=== PATIENT | female | born 1960 | race Caucasian/White ===

== ENCOUNTER 2017-07-13 15:00 | Inpatient (IN) | payer MEDICARE, MEDICAID ==
[~2017-07-13] VITALS: Ht 167.6 cm; Wt 82.1 kg
[~2017-07-13 15:00] MED LIST: ACID1TAB13 PO; ALE70 PO; AMO875 PO; ARIP15TA9 PO; ARIP20TA11 PO; BAC PO; BACDS PO; BENZ1 PO; CALC-649 PO; CEFU250 PO; CLA500 PO; CLO30T TOP; CLOZ50TA PO; DIA5 PO; DIV500 PO; DOC100 PO; FLUO-202 PO; HAL5 PO; HC VALERATE TOP; KETO5DRO; LATA2.5D5 OU; LEV75 PO; LIO25 PO; LIT300 PO; MEDR104D3 SQ; MET5 PO; MULT1CAP41 PO; NIT50 PO; OLA5 PO; OMEP-218 PO; OMEP40CA45 PO; OXYB10TA PO; OXYGEN INH; PAN40 PO; SIMV-42 PO; SODI50DR3; SODI50SP4 NS; SYSTANEPT OP; TOLN150S5 TP; TRAV5DRO OU; VALS-25 PO; VALS1TAB61 PO; [UNRECOGNIZED DRUG - CODE] OU; [UNRECOGNIZED DRUG - CODE] PO; [UNRECOGNIZED DRUG - CODE] PO; [UNRECOGNIZED DRUG - REMARK]; [UNRECOGNIZED DRUG - REMARK] PO
[2017-07-13] MEDS ORDERED: FURO-45 PO (15:37)
[2017-07-13] MEDS ORDERED: HYDR453.8 TP (15:37)
[2017-07-13] MEDS ORDERED: LAMO100T56 PO (15:37)
[2017-07-13] MEDS ORDERED: VITS42.53 TOP (15:37)
[2017-07-13] MEDS ORDERED: [UNRECOGNIZED DRUG - CODE] TP (15:37)
[2017-07-13] MEDS ORDERED: ACET500T68 PO (15:37)
[2017-07-13] MEDS ORDERED: [UNRECOGNIZED DRUG - CODE] TP (15:37)
--- NOTE | 2017-07-13 15:46 | EKG ---
FACILITY: [facility] PATIENT NAME: REEMA JENNINGS : [id number] MR: [id number] V: [id number] EXAM DATE: ORDERING PHYSICIAN: SOBEIDA GONZALEZ TECHNOLOGIST: EMILIANO Calvert Reason : Blood Pressure : / mmHG Vent. Rate : 094 BPM Atrial Rate : 094 BPM P-R Int : 154 ms QRS Dur : 080 ms QT Int : 370 ms P-R-T Axes : 045 016 032 degrees QTc Int : 462 ms Normal sinus rhythm T inversion consistent with septal ischemia Non-specific T flattening No previous ECGs available Confirmed by RIANNA CINTRON ([id number]) on 07/13/2017 7:48:18 PM Referred By: Confirmed By:RIANNA CINTRON
[2017-07-13 15:51] LABS: PLATELET COUNT, AUTOMATED 189 K/uL (150-450)
[2017-07-13] MEDS ORDERED: CARB15DR74 OP (16:12)
[2017-07-13] MEDS ORDERED: [UNRECOGNIZED DRUG - CODE] TP (16:12)
[2017-07-13] MEDS ORDERED: TIMO5DRO3 OP (16:12)
[2017-07-13] MEDS ORDERED: LITHOBID PO (16:12)
[2017-07-13] MEDS ORDERED: POTA-53 PO (16:12)
[2017-07-13] MEDS ORDERED: LITH300T18 PO (16:12)
[2017-07-13] MEDS ORDERED: RISP2TAB70 PO (16:12)
[2017-07-13] MEDS ORDERED: EYEL1MED TP (16:12)
--- NOTE | 2017-07-13 16:29 | RADIOLOGY IMAGING REPORT ---
FACILITY: [facility] PATIENT NAME: Fatemeh Bunch : 1960 MR: [id number] V: [id number] EXAM DATE: ORDERING PHYSICIAN: SOBEIDA GONZALEZ TECHNOLOGIST: Location: [facility] [place] Patient: Fatemeh Bunch : 1960 Visit/Account:[id number] Date of Sevice: 07/13/2017 Examination: CHEST PA AND LAT Comparison: 05/18/2017 and earlier. History: Respiratory distress. Findings: Chronic low lung volumes and mild atelectasis. No consolidation, nodule, or definite eviden ce of acute peribronchial inflammation. No pneumothorax, edema, or effusion. Cardiac and hilar contou r size is within normal limits. Osseous structures are intact. IMPRESSION: No evidence of acute cardiopulmonary disease. Report Dictated By: Edgard Chacon MD at 07/13/2017 4:23 PM Report E-Signed By: Edgard Chacon MD at 07/13/2017 4:24 PM WSN:[id number]
[2017-07-13] MEDS ORDERED: IOPAMIDOL 76% 75 ML INFUS BTL 75 ML ONE (18:59)
[2017-07-13] MEDS ORDERED: NS 0.9% 50 ML VIAL 50 ML ONE ×2 (19:00)
--- NOTE | 2017-07-13 19:47 | RADIOLOGY IMAGING REPORT ---
FACILITY: [facility] - [place] PATIENT NAME: Fatemeh Bunch : 1960 MR: [id number] V: [id number] EXAM DATE: ORDERING PHYSICIAN: SOBEIDA GONZALEZ TECHNOLOGIST: Location: [facility] - [place] Patient: Fatemeh Bunch : 1960 Visit/Account:[id number] Date of Sevice: 07/13/2017 EXAMINATION: CT CHEST PULMONARY ANGIOGRAM COMPARISON: Thoracic radiographs 05/18/2017 HISTORY: Elevated d-dimer. PROCEDURE: Pulmonary arterial phase imaging of the chest with 72 mL intravenous Isovue 370. Reconstru ction of the source data set includes multiplanar 2D in the sagittal and coronal planes, and 3D recon structed coronal slab MIP series. One of the following dose optimization techniques was utilized in the performance of this exam: Autom ated exposure control; adjustment of the mA and/or kV according to the patient's size; or use of an i terative reconstruction technique. Specific details can be referenced in the facility's radiology C T exam operational policy. FINDINGS: Pulmonary vasculature: There is adequate opacification of the pulmonary arterial system although eval uation of the subsegmental levels particularly in the lower lobes is mildly limited by respiratory mo tion. Main pulmonary artery size is normal. No pulmonary artery filling defect. Cardiac and mediastinum: Cardiac chamber size is normal. Mild coronary calcifications. No pericardial effusion. No thoracic aortic aneurysm. No thoracic lymph node enlargement. Lungs and pleura: Trace left pleural effusion. Bibasilar atelectasis. No consolidation or nodule. No pneumothorax or edema. Airways: The central airways are patent. Upper abdomen: No evidence of acute disease within the visualized upper abdomen. Osseous structures: T8 and T12 chronic compression. No acute osseous abnormality. IMPRESSION: 1. No pulmonary embolism. 2. Trace left pleural effusion. 3. No other evidence of acute disease in the thorax. 4. Chronic findings as detailed above. Report Dictated By: Edgard Chacon MD at 07/13/2017 7:34 PM Report E-Signed By: Edgard Chacon MD at 07/13/2017 7:42 PM WSN:[id number]
[2017-07-13] MEDS ORDERED: ALBUTEROL/IPRATROPIUM 3 ML NEB NEB ONE ×2 (19:50→21:15)
[2017-07-13] MEDS ORDERED: FUROSEMIDE 40 MG/4 ML VIAL IVP ONE (19:50)
--- NOTE | 2017-07-13 20:14 | ER Report ---
History and Physical Time Seen By MD: 20:08 Hx. of Stated Complaint: PT CAREGIVER STATES THAT PT HAS BEEN SENT OVER BY JANELL MUELLER. PT HAS SOB AND WEIGHT GAIN. HPI/ROS CHIEF COMPLAINT: Increased work of respirations, lower extremity swelling HISTORY OF PRESENT ILLNESS: 56-year-old female with schizophrenia cared for at [facility] by caregivers. Patient sent in by Janell Mueller for evaluation of decreased mental status and increased respiratory distress. Patient was recently started several months ago on Lasix for lower extremity edema, per caregivers. Patient has increased work of breathing. Caregivers note that she' s been edematous for several months. But that her mental status is changed over the last several days.. Her caregiver notes that her breathing is very labored. Patient's had no fever or cough. Old records show patient has previously been on 2 L of O2 by nasal cannula as far back as 2009. Patient patient is fairly somnolent. REVIEW OF SYSTEMS: Respiratory: As above Cardiovascular: No chest pain, no palpitations. Gastrointestinal: No vomiting, no abdominal pain. Musculoskeletal: No back pain. Allergies: Coded Allergies: No Known Drug Allergies (Verified , 07/13/17) Home Meds Reported Medications Vits A and D/White Pet/Lanolin (A and D Ointment) 42.5 Gm Oint...g., 1 GRIFFIN TOP BID 07/14/17 Magnesium Carbonate/Al Hydrox (ANTACID EXTRA STRENGTH CHW TAB) 1 Each Tab.chew, 2 EACH PO Q4-6H Y for INDIGESTION, TAB.CHEW 07/14/17 Loperamide Hcl (ANTI-DIARRHEAL) 2 Mg Capsule, 2 MG PO Y for DIARRHEA, CAPSULE 07/14/17 Magnesium Hydroxide (MILK OF MAGNESIA) 400 Mg/5 Ml Oral.susp, 30 ML PO DAILY Y for CONSTIPATION 07/14/17 Levothyroxine Sodium (SYNTHROID) 88 Mcg Tablet, 88 MCG PO QDAY 07/14/17 Timolol (BETIMOL) 5 Ml Drops, 2 GTT OP BID 07/13/17 Risperidone (RISPERIDONE) 2 Mg Tablet, 2 MG PO HS 07/13/17 Carboxymethylcellulos/Glycerin (REFRESH OPTIVE EYE DROPS) 15 Ml Drops, 1 GTT OP TID 07/13/17 Potassium Chloride (POTASSIUM CHLORIDE) 10 Meq Tab.er.prt, 10 MEQ PO QDAY 07/13/17 Skin Cleanser (PERIFRESH) 3,840 Ml Cleanser, 1 GRIFFIN TP BID 07/13/17 Eyelid Cleanser Combination #5 (OCUSOFT LID SCRUB) 1 Each Med..pad, 1 EACH TP HS 07/13/17 Miner Carbonate (LITHIUM CARBONATE) 300 Mg Tablet, 600 MG PO HS 07/13/17 Miner Carbonate (LITHIUM CARBONATE) 300 Mg Tabcr, 300 MG PO DAILY 07/13/17 Lamotrigine (LAMICTAL) 100 Mg Tablet, 100 MG PO DAILY 07/13/17 Hydrocortisone 2.5% Oint (HYDROCORTISONE 2.5% OINT) 453.6 Gm Oint...g., 1 GRIFFIN TP BID, TUBE 07/13/17 Furosemide (FUROSEMIDE) 20 Mg Tablet, 1 TAB PO DAILY, TAB 07/13/17 Lanolin/Mineral Oil (EUCERIN ORIGINAL LOTION) 250 Ml Lotion, 1 GRIFFIN TP BID 07/13/17 Mineral Oil/Hydrophil Petrolat (AQUAPHOR OINTMENT) 396 Gm Oint...g., 1 GRIFFIN TP BID 07/13/17 Acetaminophen (TYLENOL EXTRA STRENGTH) 500 Mg Tablet, 1000 MG PO Q4-6H Y for PAIN, TAB 07/13/17 Trimethoprim/Sulfamethoxazole (Bactrim Ds 160-800 Mg) 1 Ea Tab, 0.5 EA PO BID, # 20 0 Refills 05/03/12 Travoprost (TRAVATAN Z) 5 Ml Drops, 1 GTT OU DAILY, 0 Refills 05/03/12 Dorzolamide/Timolol (Cosopt) 5 Ml Soln, 1 DROP OU BID, 0 Refills 05/03/12 Simvastatin (Zocor) 20 Mg Tablet, PO DAILY, 0 Refills 05/03/12 Olanzapine (Zyprexa) 5 Mg Tab, 15 MG PO BID, #30 0 Refills 09/06/09 Fluoxetine Hcl (Prozac) 20 Mg Capsule, 20 MG PO QAM, #30 0 Refills TAKE 60 MG DAILY 09/06/09 Oxygen (Oxygen) 2 L Inha, 2 L INH PRN, 0 Refills 09/06/09 Multivitamins W-Minerals (Multivitamin) 1 Cap Capsule, 1 CAP PO DAILY, 0 Refills 09/06/09 Omeprazole (Prilosec) 40 Mg Capsule.dr, 20 MG PO DAILY, 0 Refills 09/06/09 Calcium Carbonate/Vitamin D3 (Calcium + D Tablet) 1 Udtab Tablet, 1 UDTAB PO BID , 0 Refills 09/06/09 Discontinued Reported Medications Sodium Chloride ([place] Saline) 50 Ml Drops, NA BID, 0 Refills 05/03/12 Levothyroxine Sodium (SYNTHROID/LEVOTHROID (OR EQUIV)) 0.075 Mg Tab, 88 MCG PO DAILY, 0 Refills 05/03/12 Vits A and D/White Pet/Lanolin (A and D Ointment) 42.5 Gm Oint...g., 1 GRIFFIN TOP BID 07/13/17 Latanoprost (Xalatan) 2.5 Ml Drops, 1 GTT OU DAILY, 0 Refills 05/03/12 Ketotifen Fumarate (Refresh) 5 Ml Drops, 1 GTT TID, 0 Refills 05/03/12 Miner Carbonate (LITHIUM CARBONATE) 300 Mg Tablet.er, 3.5 TAB PO DAILY, 0 Refills 05/03/12 Valsartan/Hydrochlorothiazide (Diovan Hct 160-25 Mg Tablet) 1 Tab Tablet, PO DAILY, 0 Refills 05/03/12 Alendronate Sodium (Fosamax) 70 Mg Tab, PO WEEKLY, 0 Refills 05/03/12 Tolnaftate (Tinactin) 150 Gm [place], 150 GM TP BID, 0 Refills APPLY TO FEET PRN 09/06/09 Clotrimazole (Lotrimin 1%) 30 Gm Cr, 0 TOP BID, 0 Refills APPLY TO AFFECTED AREAS 09/06/09 Propylene Glycol/Peg 400 (Systane 0.3-0.4% Eye Drops) 1 Ea Droperette, 1 EA OP TID, 0 Refills 09/06/09 Docusate Sodium (Colace 100 Mg) 100 Mg Cap, 100 MG PO DAILY, 0 Refills 09/06/09 Discontinued Scripts Cefuroxime Axetil (CEFUROXIME) 500 Mg Tablet, 500 MG PO BID for infection, #20 TAB Prov:VIRIDIANA MORENO Garrett MOREIRA 07/13/17 Past Medical/Surgical History Past medical history: Recurrent ear infections, status post PE tubes in 1992. Mild hearing loss, mentally handicapped since , tardive dyskinesia, kidney mass, removal of foreign body from bladder, left carpal tunnel syndrome, right radial fracture. Schizophrenia. Past surgical history PE tube placement D&C with biopsy for dysfunctional uterine bleeding, removal of bladder foreign body, removal of granuloma on finger Reviewed Nurses Notes: Yes Old Medical Records Reviewed: Yes Hx Smoking: No Constitutional Vital Sign - Last 24 Hours 07/13/17 07/13/17 07/13/17 07/13/17 15:08 15:08 15:12 15:13 Temp 98.7 Pulse 97 Resp 12 12 B/P (MAP) 142/85 142/85 (104) Pulse Ox 74 90 O2 Delivery Room Air Nasal Cannula O2 Flow Rate 2 2.0 07/13/17 07/13/17 07/13/17 07/13/17 15:15 15:30 15:45 16:00 Pulse 97 93 95 97 Resp 13 70 20 27 B/P (MAP) 132/84 (100) Pulse Ox 95 97 78 92 07/13/17 07/13/17 07/13/17 07/13/17 16:15 16:28 16:30 16:45 Pulse 90 83 82 Resp 22 12 27 B/P (MAP) 151/100 (117) 134/79 (97) Pulse Ox 93 100 07/13/17 07/13/17 07/13/17 07/13/17 17:00 17:15 17:30 17:43 Pulse 92 99 90 Resp 26 21 13 B/P (MAP) 164/103 (123) 135/101 (112) Pulse Ox 90 88 95 07/13/17 07/13/17 07/13/17 07/13/17 17:45 18:00 18:15 18:30 Pulse 88 88 85 83 Resp 20 24 14 22 B/P (MAP) 132/66 (88) Pulse Ox 96 95 97 98 07/13/17 07/13/17 07/13/17 07/13/17 18:45 18:57 19:00 19:05 Pulse 84 87 93 Resp 20 21 22 B/P (MAP) 117/67 (84) 109/81 (90) Pulse Ox 99 91 91 07/13/17 07/13/17 07/13/17 07/13/17 19:30 19:35 19:50 19:58 Pulse 89 97 100 Resp 27 24 20 B/P (MAP) 129/69 (89) Pulse Ox 93 92 07/13/17 07/13/17 07/13/17 07/13/17 19:58 20:00 20:00 20:00 Pulse 97 Resp 20 B/P (MAP) 141/69 (93) Pulse Ox 89 95 O2 Delivery Oxy Mask Oxy Mask O2 Flow Rate 3.0 3.0 07/13/17 07/13/17 07/13/17 07/13/17 20:15 20:30 20:35 20:50 Pulse 102 101 ??? 90 B/P (MAP) 119/111 (114) Pulse Ox 91 95 69 95 07/13/17 07/13/17 07/13/17 07/13/17 21:00 21:05 21:10 21:18 Pulse 100 91 87 Resp 20 B/P (MAP) 133/119 (124) Pulse Ox 72 90 07/13/17 07/13/17 07/13/17 07/13/17 21:18 21:19 21:19 21:25 Pulse 85 89 Resp 16 Pulse Ox 90 99 96 O2 Delivery Oxy Mask Oxy Mask O2 Flow Rate 1.5 1.5 07/13/17 07/13/17 07/13/17 07/13/17 21:30 21:35 21:50 21:55 Pulse 93 90 88 B/P (MAP) 124/95 (105) Pulse Ox 88 91 88 07/13/17 07/13/17 07/13/17 07/13/17 22:00 22:10 22:15 22:30 Pulse 92 93 95 B/P (MAP) 130/77 (94) Pulse Ox 88 92 97 07/13/17 07/13/17 07/13/17 07/13/17 22:35 22:43 22:50 23:20 Temp 98.7 Pulse 94 102 Resp 13 Pulse Ox 97 92 07/13/17 07/13/17 07/13/17 07/13/17 23:21 23:26 23:30 23:41 Pulse 93 93 Resp 26 20 B/P (MAP) 138/78 (98) 126/67 (86) Pulse Ox 88 92 07/13/17 07/14/17 07/14/17 07/14/17 23:56 00:01 00:16 00:30 Pulse 90 91 89 Resp 17 17 26 B/P (MAP) 127/67 (87) Pulse Ox 90 91 93 12/2/17 12/2/17 00:31 00:36 Pulse 86 Resp 13 Pulse Ox 94 FiO2 40.0 Physical Exam Vital signs stable, hypoxia at 74% on room air, patient has a history of wearing O2 at night in the distant past General Appearance: The patient is alert, has no immediate need for airway protection and no current signs of toxicity. HEENT: Pupils equal and round no injection. Oropharynx with dry mucous membranes, no erythema Respiratory: Chest is non tender, lungs are clear to auscultation. Decreased breath sounds bilateral bases with faint rales, poor expiratory effort Cardiac: regular rate and rhythm Gastrointestinal: Abdomen is soft and non tender, no masses, bowel sounds normal. Musculoskeletal: Neck: Neck is supple and non tender. Extremities have full range of motion and are non tender. 2+ edema bilaterally Skin: No rashes or lesions. DIFFERENTIAL DIAGNOSIS: After history and physical exam differential diagnosis was considered for shortness of breath including but not limited to pulmonary infectious process, COPD, asthma, pulmonary embolus and congestive heart failure. Medical Decision Making Data Points Result Diagram: 07/13/17 1513 07/13/17 1730 Laboratory Hematology Test 07/13/17 00:00 07/13/17 15:13 07/13/17 17:30 07/13/17 20:43 B-Type Natriuretic Peptide 421 pg/ml (0-100) Red Blood Count 4.69 M/uL (4.17-5.56) Mean Corpuscular Volume 87.2 fL (80.0-96.0) Mean Corpuscular Hemoglobin 27.9 pg (26.0-33.0) Mean Corpuscular Hemoglobin Concent 32.1 g/dL (32.0-36.0) Red Cell Distribution Width 15.1 % (11.5-14.5) Mean Platelet Volume 10.3 fL (7.2-11.1) Neutrophils (%) (Auto) 79.9 % (39.4-72.5) Lymphocytes (%) (Auto) 10.8 % (17.6-49.6) Monocytes (%) (Auto) 7.5 % (4.1-12.4) Eosinophils (%) (Auto) 1.2 % (0.4-6.7) Basophils (%) (Auto) 0.6 % (0.3-1.4) Nucleated RBC Relative Count (auto) 0.0 /100WBC Neutrophils # (Auto) 10.0 K/uL (2.0-7.4) Lymphocytes # (Auto) 1.4 K/uL (1.3-3.6) Monocytes # (Auto) 0.9 K/uL (0.3-1.0) Eosinophils # (Auto) 0.1 K/uL (0.0-0.5) Basophils # (Auto) 0.1 K/uL (0.0-0.1) Nucleated RBC Absolute Count (auto) 0.00 K/uL D-Dimer Quantitative (PE/DVT) 4.43 ug/ml (0-0.50) Sodium Level 141 mmol/L (137-145) Potassium Level 4.3 mmol/L (3.5-5.0) Chloride Level 100 mmol/L (98-107) Carbon Dioxide Level 32 mmol/L (22-31) Blood Urea Nitrogen 17 mg/dl (7-18) Creatinine 1.30 mg/dl (0.52-1.04) Glomerular Filtration Rate Calc 42.1 Random Glucose 97 mg/dl (75-110) Calcium Level 9.6 mg/dl (8.4-10.2) Total Bilirubin 0.4 mg/dl (0.2-1.3) Aspartate Amino Transf (AST/SGOT) 38 U/L (0-35) Alanine Aminotransferase (ALT/SGPT) 48 U/L (0-56) Alkaline Phosphatase 83 U/L (0-126) Total Protein 7.3 gm/dl (6.3-8.2) Albumin 4.0 g/dl (3.5-5.0) Miner Level 1.0 mmol/L (0.6-1.2) Serum Alcohol < 10 mg/dl Urine Color Straw Urine Clarity Clear Urine pH 7.0 pH (4.8-9.5) Urine Specific [place] 1.005 Urine Protein Negative mg/dL (NEGATIVE) Urine Glucose (UA) Negative mg/dL (NEGATIVE) Urine Ketones Negative mg/dL (NEGATIVE) Urine Blood Negative (NEGATIVE) Urine Nitrite Negative (NEGATIVE) Urine Bilirubin Negative (NEGATIVE) Urine Urobilinogen Negative mg/dL (0.2-1.9) Urine Leukocyte Esterase Large (NEGATIVE) Urine RBC 3 /HPF (0-2/HPF) Urine WBC 26 /HPF (0-5/HPF) Urine Squamous Epithelial Cells Moderate /LPF (NONE-FEW) Urine Bacteria Few /HPF (NONE-FEW) Urine Mucus Few /HPF (NONE-FEW) Urine Opiates Screen Negative Urine Barbiturates Screen Negative Ur Tricyclic Antidepressants Screen Negative Urine Phencyclidine Screen Negative Urine Amphetamines Screen Negative Urine Benzodiazepines Screen Negative Urine Cocaine Screen Negative Urine Cannabinoids Screen Negative Test 07/13/17 22:47 07/14/17 00:00 Lactate 0.7 mmol/L (0.7-2.1) Troponin I 0.029 ng/ml Chemistry Test 07/13/17 00:00 07/13/17 15:13 07/13/17 17:30 07/13/17 20:43 B-Type Natriuretic Peptide 421 pg/ml (0-100) White Blood Count 12.6 k/uL (4.5-11.0) Red Blood Count 4.69 M/uL (4.17-5.56) Hemoglobin 13.1 g/dL (12.0-16.0) Hematocrit 40.9 % (34.0-47.0) Mean Corpuscular Volume 87.2 fL (80.0-96.0) Mean Corpuscular Hemoglobin 27.9 pg (26.0-33.0) Mean Corpuscular Hemoglobin Concent 32.1 g/dL (32.0-36.0) Red Cell Distribution Width 15.1 % (11.5-14.5) Platelet Count 189 K/uL (150-450) Mean Platelet Volume 10.3 fL (7.2-11.1) Neutrophils (%) (Auto) 79.9 % (39.4-72.5) Lymphocytes (%) (Auto) 10.8 % (17.6-49.6) Monocytes (%) (Auto) 7.5 % (4.1-12.4) Eosinophils (%) (Auto) 1.2 % (0.4-6.7) Basophils (%) (Auto) 0.6 % (0.3-1.4) Nucleated RBC Relative Count (auto) 0.0 /100WBC Neutrophils # (Auto) 10.0 K/uL (2.0-7.4) Lymphocytes # (Auto) 1.4 K/uL (1.3-3.6) Monocytes # (Auto) 0.9 K/uL (0.3-1.0) Eosinophils # (Auto) 0.1 K/uL (0.0-0.5) Basophils # (Auto) 0.1 K/uL (0.0-0.1) Nucleated RBC Absolute Count (auto) 0.00 K/uL D-Dimer Quantitative (PE/DVT) 4.43 ug/ml (0-0.50) Glomerular Filtration Rate Calc 42.1 Calcium Level 9.6 mg/dl (8.4-10.2) Total Bilirubin 0.4 mg/dl (0.2-1.3) Aspartate Amino Transf (AST/SGOT) 38 U/L (0-35) Alanine Aminotransferase (ALT/SGPT) 48 U/L (0-56) Alkaline Phosphatase 83 U/L (0-126) Total Protein 7.3 gm/dl (6.3-8.2) Albumin 4.0 g/dl (3.5-5.0) Miner Level 1.0 mmol/L (0.6-1.2) Serum Alcohol < 10 mg/dl Urine Color Straw Urine Clarity Clear Urine pH 7.0 pH (4.8-9.5) Urine Specific [place] 1.005 Urine Protein Negative mg/dL (NEGATIVE) Urine Glucose (UA) Negative mg/dL (NEGATIVE) Urine Ketones Negative mg/dL (NEGATIVE) Urine Blood Negative (NEGATIVE) Urine Nitrite Negative (NEGATIVE) Urine Bilirubin Negative (NEGATIVE) Urine Urobilinogen Negative mg/dL (0.2-1.9) Urine Leukocyte Esterase Large (NEGATIVE) Urine RBC 3 /HPF (0-2/HPF) Urine WBC 26 /HPF (0-5/HPF) Urine Squamous Epithelial Cells Moderate /LPF (NONE-FEW) Urine Bacteria Few /HPF (NONE-FEW) Urine Mucus Few /HPF (NONE-FEW) Urine Opiates Screen Negative Urine Barbiturates Screen Negative Ur Tricyclic Antidepressants Screen Negative Urine Phencyclidine Screen Negative Urine Amphetamines Screen Negative Urine Benzodiazepines Screen Negative Urine Cocaine Screen Negative Urine Cannabinoids Screen Negative Test 07/13/17 22:47 07/14/17 00:00 Lactate 0.7 mmol/L (0.7-2.1) Troponin I 0.029 ng/ml Coagulation Test 07/13/17 17:30 D-Dimer Quantitative (PE/DVT) 4.43 ug/ml Toxicology Test 07/13/17 17:30 07/13/17 20:43 Miner Level 1.0 mmol/L (0.6-1.2) Serum Alcohol < 10 mg/dl Urine Opiates Screen Negative Urine Barbiturates Screen Negative Ur Tricyclic Antidepressants Screen Negative Urine Phencyclidine Screen Negative Urine Amphetamines Screen Negative Urine Benzodiazepines Screen Negative Urine Cocaine Screen Negative Urine Cannabinoids Screen Negative Urinalysis Test 07/13/17 20:43 Urine Color Straw Urine Clarity Clear Urine pH 7.0 pH (4.8-9.5) Urine Specific [place] 1.005 Urine Protein Negative mg/dL (NEGATIVE) Urine Glucose (UA) Negative mg/dL (NEGATIVE) Urine Ketones Negative mg/dL (NEGATIVE) Urine Blood Negative (NEGATIVE) Urine Nitrite Negative (NEGATIVE) Urine Bilirubin Negative (NEGATIVE) Urine Urobilinogen Negative mg/dL (0.2-1.9) Urine Leukocyte Esterase Large (NEGATIVE) Urine RBC 3 /HPF (0-2/HPF) Urine WBC 26 /HPF (0-5/HPF) Urine Squamous Epithelial Cells Moderate /LPF (NONE-FEW) Urine Bacteria Few /HPF (NONE-FEW) Urine Mucus Few /HPF (NONE-FEW) EKG/Imaging EKG Interpretation 12 lead EK Rhythm: normal sinus rhythm [place]: normal QRS: normal ST segments: Inverted T waves in the anterior/septal leads worrisome for ischemia, no old EKGs for comparison Imaging X-ray: Single view portable chest x-ray was obtained. I viewed the images myself on the PACS system. My interpretation of the images is: No infiltrate, no effusion, increased pulmonary vascular markings, question marked CHF. The radiologist interpretation had no clinically significant variation from this interpretation. Results: CT scan of the CTA pulmonary angiogram was obtained. The results of the study are EXAMINATION: CT CHEST PULMONARY ANGIOGRAM COMPARISON: Thoracic radiographs 05/18/2017 HISTORY: Elevated d-dimer. PROCEDURE: Pulmonary arterial phase imaging of the chest with 72 mL intravenous Isovue 370. Reconstruction of the source data set includes multiplanar 2D in the sagittal and coronal planes, and 3D reconstructed coronal slab MIP series. One of the following dose optimization techniques was utilized in the performance of this exam: Automated exposure control; adjustment of the mA and/ or kV according to the patient's size; or use of an iterative reconstruction technique. Specific details can be referenced in the facility's radiology CT exam operational policy. FINDINGS: Pulmonary vasculature: There is adequate opacification of the pulmonary arterial system although evaluation of the subsegmental levels particularly in the lower lobes is mildly limited by respiratory motion. Main pulmonary artery size is normal. No pulmonary artery filling defect. Cardiac and mediastinum: Cardiac chamber size is normal. Mild coronary calcifications. No pericardial effusion. No thoracic aortic aneurysm. No thoracic lymph node enlargement. Lungs and pleura: Trace left pleural effusion. Bibasilar atelectasis. No consolidation or nodule. No pneumothorax or edema. Airways: The central airways are patent. Upper abdomen: No evidence of acute disease within the visualized upper abdomen. Osseous structures: T8 and T12 chronic compression. No acute osseous abnormality. IMPRESSION: 1. No pulmonary embolism. 2. Trace left pleural effusion. 3. No other evidence of acute disease in the thorax. 4. Chronic findings as detailed above. The study was read by the radiologist. I viewed the images myself on the PACS system. Results: CT scan of the head was obtained. The results of the study are EXAMINATION: Head CT without intravenous contrast History: Altered mental status TECHNIQUE: Contiguous axial images were obtained from the skull base to the vertex without intravenous contrast. One of the following dose optimization techniques was utilized in the performance of this exam: Automated exposure control; adjustment of the mA and/or kV according to the patient's size; or use of an iterative reconstruction technique. Specific details can be referenced in the facility's radiology CT exam operational policy. COMPARISON STUDIES: 04/06/2016, 08/13/2009 FINDINGS: Visualized mastoid air cells / paranasal sinuses: negative Calvarium and scalp: negative White matter: negative Dural venous sinuses / arterial structures: negative Ventricles / sulci / fissures: negative Masses / hemorrhage / midline shift: negative Extra-axial spaces: negative IMPRESSION: Normal head CT. No evidence of a mass, acute ischemia or hemorrhage. The study was read by the radiologist. I viewed the images myself on the PACS system. ED Course/Re-evaluation Clinical Indication for ER IV: IV Access ED Course Patient was admitted to an examination room. H&P was done. The differential diagnoses was considered. On clinical examination. Patient is very sonorous breathing and altered mental status. Patient has a history of schizophrenia on Risperdal, Lamictal and thyroid replacement. Patient's had edema for several months on Lasix 20 mg with minimal improvement. Staff note that her mental status is deteriorated over the last 24-48 hours. She is very somnolent with snoring respirations and lethargy. She had an extensive evaluation here in the emergency department. Blood gas shows mild CO2 retention to 52 that appears to be chronic. Head CT was unremarkable. D-dimer was elevated and a CT pulmonary angiogram was performed which showed no evidence of pulmonary embolism. There was a notable left small pleural effusion. She clinically appears mildly fluid overloaded and in mild congestive heart failure with elevated BNP. Troponin, EKG were unremarkable. Urinalysis shows potential urinary infection. A urinary culture was ordered. A consideration to transfer the patient back to [place] on home O2 with Ceftin antibiotic prescribed for UTI and potential pneumonia. Was considered. However of the arch. Staff were concerned the patient was so somnolent that they were unable to transfer her. Her case was discussed with Dr. Mcdowell as noted below. 07/13/2017 11:57:52 pm case discussed with Dr. Wes Mcdowell hospitalist on- call to evaluate the patient for consideration of admission Decision to Disposition Date: Jul 13, 2017 Decision to Disposition Time: 21:04 Depart Departure Latest Vital Signs Vital Signs Date Time Temp Pulse Resp B/P (MAP) Pulse Ox O2 Delivery O2 Flow Rate FiO2 07/14/17 00:36 40.0 07/14/17 00:31 86 13 94 07/14/17 00:30 127/67 (87) 07/13/17 22:43 98.7 07/13/17 21:19 Oxy Mask 1.5 Impression: Primary Impression: Dyspnea Additional Impressions: Fluid overload Urinary tract infection Schizophrenia Hypoxia Altered mental status, unspecified Condition: Improved Disposition: HOME OR SELF-CARE Referrals: JANELL MUELLER (PCP) Patient Instructions: Edema (ED), Urinary Tract Infection in Women (ED) Additional Instructions: Double Lasix to 40 mg for the next 2 days Follow-up with primary care on Sunday or Sunday Problem Qualifiers Primary Impression: Dyspnea Dyspnea type: dyspnea on exertion Qualified Codes: R06.09 - Other forms of dyspnea Additional Impressions: Fluid overload Hypervolemia type: unspecified Qualified Codes: E87.70 - Fluid overload, unspecified Urinary tract infection Urinary tract infection type: acute cystitis Hematuria presence: without hematuria Qualified Codes: N30.00 - Acute cystitis without hematuria Schizophrenia Schizophrenia type: unspecified Qualified Codes: F20.9 - Schizophrenia, unspecified Altered mental status, unspecified Altered mental status type: somnolence Qualified Codes: R40.0 - Somnolence VIRIDIANA MORENO DO Jul 13, 2017 20:14
[2017-07-13] MEDS ORDERED: CEFDINIR 300 MG CAP PO ONE (21:05)
[2017-07-13] MEDS ORDERED: CEFU500T10 PO (21:08)
--- NOTE | 2017-07-13 23:33 | RADIOLOGY IMAGING REPORT ---
FACILITY: [facility] [place] PATIENT NAME: Fatemeh Bunch : 1960 MR: [id number] V: [id number] EXAM DATE: ORDERING PHYSICIAN: VIRIDIANA MORENO TECHNOLOGIST: Location: [facility] Patient: Fatemeh Bunch : 1960 Visit/Account:[id number] Date of Sevice: 07/13/2017 EXAMINATION: Head CT without intravenous contrast History: Altered mental status TECHNIQUE: Contiguous axial images were obtained from the skull base to the vertex without intraven ous contrast. One of the following dose optimization techniques was utilized in the performance of th is exam: Automated exposure control; adjustment of the mA and/or kV according to the patient's size; or use of an iterative reconstruction technique. Specific details can be referenced in the facility 's radiology CT exam operational policy. COMPARISON STUDIES: 04/06/2016, 08/13/2009 FINDINGS: Visualized mastoid air cells / paranasal sinuses: negative Calvarium and scalp: negative White matter: negative Dural venous sinuses / arterial structures: negative Ventricles / sulci / fissures: negative Masses / hemorrhage / midline shift: negative Extra-axial spaces: negative IMPRESSION: Normal head CT. No evidence of a mass, acute ischemia or hemorrhage. Report Dictated By: Domingo Reyna MD at 07/13/2017 11:25 PM Report E-Signed By: Domingo Reyna MD at 07/13/2017 11:27 PM [id number]
[2017-07-13] MEDS ORDERED: INFLUENZA VIRUS VAC 0.5 ML SYR IM ONLY ONE (23:50)
[2017-07-13] MEDS ORDERED: SALINE 0.65% NAS SPR 44 ML BTL PRN (23:50)
--- NOTE | 2017-07-13 23:59 | EKG ---
FACILITY: [facility] PATIENT NAME: REEMA JENNINGS : [id number] MR: [id number] V: [id number] EXAM DATE: ORDERING PHYSICIAN: VIRIDIANA MORENO TECHNOLOGIST: CICI Test Reason : ALTERD MENTAL STATUS Blood Pressure : / mmHG Vent. Rate : 097 BPM Atrial Rate : 097 BPM P-R Int : 150 ms QRS Dur : 068 ms QT Int : 338 ms P-R-T Axes : 058 035 046 degrees QTc Int : 429 ms Normal sinus rhythm T wave abnormality, consider anterior ischemia Diffuse, non-specific T flattening When compared with ECG of 13-JUL-2017 15:26, Relatively unchanged Confirmed by RIANNA CINTRON ([id number]) on 07/14/2017 6:36:23 AM Referred By: Confirmed By:RIANNA CINTRON
[2017-07-14] VITALS (65 sets, daily range): BP systolic 98–146; BP diastolic 56–91; Ht 167.6 cm; Wt 82.1 kg
--- NOTE | 2017-07-14 01:13 | History & Physical ---
History of Present Illness History of Present Illness 56yo female with schizophrenia and is a resident of the [facility] who was brought to the ER for SOB and weight gain. The history is from the ER provider and the staff from the [facility]. The patient developed edema a few months ago and was started Lasix. She has been more somnolent over the last couple of days and having more labored breathing. There have been no reports of fevers, chills, orthopnea, or cp. In the ER, she became more somnolent such that she couldn't be awakened. However, when the catheter was placed she woke up and flipped off the staff. She was able to then stand at the side of the bed. Later, she went back to sleep. History Problems: (1) Edema Status: Chronic (2) GERD (gastroesophageal reflux disease) Status: Chronic (3) Hyperlipidemia Status: Chronic (4) Schizophrenia Status: Chronic Home Meds Active Scripts Cefuroxime Axetil (CEFUROXIME) 500 Mg Tablet, 500 MG PO BID for infection, #20 TAB Prov:VIRIDIANA MORENO DO 07/13/17 Reported Medications Timolol (BETIMOL) 5 Ml Drops, 2 GTT OP BID 07/13/17 Risperidone (RISPERIDONE) 2 Mg Tablet, 2 MG PO DAILY 07/13/17 Carboxymethylcellulos/Glycerin (REFRESH OPTIVE EYE DROPS) 15 Ml Drops, 1 GTT OP TID 07/13/17 Potassium Chloride (POTASSIUM CHLORIDE) 10 Meq Tab.er.prt, 10 MEQ PO QDAY 07/13/17 Skin Cleanser (PERIFRESH) 3,840 Ml Cleanser, 1 GRIFFIN TP BID 07/13/17 Eyelid Cleanser Combination #5 (OCUSOFT LID SCRUB) 1 Each Med..pad, 1 EACH TP HS 07/13/17 [place] Carbonate (LITHIUM CARBONATE) 300 Mg Tablet, 600 MG PO HS 07/13/17 [place] Carbonate (LITHIUM CARBONATE) 300 Mg Tabcr, 300 MG PO DAILY 07/13/17 Lamotrigine (LAMICTAL) 100 Mg Tablet, 100 MG PO DAILY 07/13/17 Hydrocortisone 2.5% Oint (HYDROCORTISONE 2.5% OINT) 453.6 Gm Oint...g., 1 GRIFFIN TP BID, TUBE 07/13/17 Furosemide (FUROSEMIDE) 20 Mg Tablet, 1 TAB PO DAILY, TAB 07/13/17 Lanolin/Mineral Oil (EUCERIN ORIGINAL LOTION) 250 Ml Lotion, 1 GRIFFIN TP BID 07/13/17 Mineral Oil/Hydrophil Petrolat (AQUAPHOR OINTMENT) 396 Gm Oint...g., 1 GRIFFIN TP BID 07/13/17 Acetaminophen (TYLENOL EXTRA STRENGTH) 500 Mg Tablet, 1000 MG PO Q4-6H Y for PAIN, TAB 07/13/17 Trimethoprim/Sulfamethoxazole (Bactrim Ds 160-800 Mg) 1 Ea Tab, 1 EA PO BID, # 20 0 Refills 05/03/12 Travoprost (TRAVATAN Z) 5 Ml Drops, 1 GTT OU DAILY, 0 Refills 05/03/12 Dorzolamide/Timolol (Cosopt) 5 Ml Soln, 1 DROP OU BID, 0 Refills 05/03/12 Sodium Chloride ([place] Saline) 50 Ml Drops, NA BID, 0 Refills 05/03/12 Simvastatin (Zocor) 20 Mg Tablet, PO DAILY, 0 Refills 05/03/12 Levothyroxine Sodium (SYNTHROID/LEVOTHROID (OR EQUIV)) 0.075 Mg Tab, 88 MCG PO DAILY, 0 Refills 05/03/12 Olanzapine (Zyprexa) 5 Mg Tab, 15 MG PO BID, #30 0 Refills 09/06/09 Fluoxetine Hcl (Prozac) 20 Mg Capsule, 20 MG PO QAM, #30 0 Refills TAKE 60 MG DAILY 09/06/09 Oxygen (Oxygen) 2 L Inha, 2 L INH PRN, 0 Refills 09/06/09 Multivitamins W-Minerals (Multivitamin) 1 Cap Capsule, 1 CAP PO DAILY, 0 Refills 09/06/09 Omeprazole (Prilosec) 40 Mg Capsule.dr, 20 MG PO DAILY, 0 Refills 09/06/09 Calcium Carbonate/Vitamin D3 (Calcium + D Tablet) 1 Udtab Tablet, 1 UDTAB PO BID , 0 Refills 09/06/09 Discontinued Reported Medications Vits A and D/White Pet/Lanolin (A and D Ointment) 42.5 Gm Oint...g., 1 GRIFFIN TOP BID 07/13/17 Latanoprost (Xalatan) 2.5 Ml Drops, 1 GTT OU DAILY, 0 Refills 05/03/12 Ketotifen Fumarate (Refresh) 5 Ml Drops, 1 GTT TID, 0 Refills 05/03/12 [place] Carbonate (LITHIUM CARBONATE) 300 Mg Tablet.er, 3.5 TAB PO DAILY, 0 Refills 05/03/12 Valsartan/Hydrochlorothiazide (Diovan Hct 160-25 Mg Tablet) 1 Tab Tablet, PO DAILY, 0 Refills 05/03/12 Alendronate Sodium (Fosamax) 70 Mg Tab, PO WEEKLY, 0 Refills 05/03/12 Tolnaftate (Tinactin) 150 Gm [place], 150 GM TP BID, 0 Refills APPLY TO FEET PRN 09/06/09 Clotrimazole (Lotrimin 1%) 30 Gm Cr, 0 TOP BID, 0 Refills APPLY TO AFFECTED AREAS 09/06/09 Propylene Glycol/Peg 400 (Systane 0.3-0.4% Eye Drops) 1 Ea [place], 1 EA OP TID, 0 Refills 09/06/09 Docusate Sodium (Colace 100 Mg) 100 Mg Cap, 100 MG PO DAILY, 0 Refills 09/06/09 Allergies: Coded Allergies: No Known Drug Allergies (Verified , 07/13/17) Hx Smoking: No Review of Systems Other Unable to get ROS from the patient due to somnolence Exam Vital Signs Vital Signs Date Time Temp Pulse Resp B/P (MAP) Pulse Ox O2 Delivery O2 Flow Rate FiO2 07/14/17 00:36 40.0 07/13/17 23:56 90 17 90 07/13/17 23:30 126/67 (86) 07/13/17 22:43 98.7 07/13/17 21:19 Oxy Mask 1.5 General Appearance: Other (Sleeping. Borderline increased wob) Neuro: Other (She would not awaken with a sternal rub, but when I attempted to open her eyes she actively resisted on both sides) ENT: Other (Dry MM) Cardiovascular: Regular Rate and Rhythm Respiratory: Clear to Auscultation GI: Abd Soft and Non-Tender Extremities: Edema (2+ pitting from about 2/3 up patel to feet) Integumentary: No Jaundice, No Cyanosis Medical Decision Making Data Points Result Diagram: 07/13/17 1513 07/13/17 1730 Item Value Date Time [place] Level 1.0 mmol/L 07/13/17 1730 Serum Alcohol < 10 mg/dl 07/13/17 1730 Neutrophils (%) (Auto) 79.9 % H 07/13/17 1513 Lymphocytes (%) (Auto) 10.8 % L 07/13/17 1513 Monocytes (%) (Auto) 7.5 % 07/13/17 1513 Eosinophils (%) (Auto) 1.2 % 07/13/17 1513 Arterial Blood pH 7.43 07/13/17 2247 Arterial Blood Partial Pressure CO2 52 mmHg *H 07/13/17 2247 Arterial Blood Partial Pressure O2 93 mmHg H 07/13/17 2247 Arterial Blood HCO3 34 mmol/L H 07/13/17 2247 Arterial Blood Oxygen Saturation 97 % 07/13/17 2247 Urine Leukocyte Esterase Large H 07/13/17 2043 Urine RBC 3 /HPF 07/13/17 2043 Urine WBC 26 /HPF 07/13/17 2043 Urine Squamous Epithelial Cells Moderate /LPF H 07/13/17 2043 D-Dimer Quantitative (PE/DVT) 4.43 ug/ml H 07/13/17 1730 Lactate 0.7 mmol/L 07/13/17 2247 Troponin I 0.029 ng/ml 07/13/17 2247 B-Type Natriuretic Peptide 421 pg/ml H 07/13/17 0000 Albumin 4.0 g/dl 07/13/17 1730 Alkaline Phosphatase 83 U/L 07/13/17 1730 Alanine Aminotransferase (ALT/SGPT) 48 U/L 07/13/17 1730 Aspartate Amino Transf (AST/SGOT) 38 U/L H 07/13/17 1730 Total Bilirubin 0.4 mg/dl 07/13/17 1730 Calcium Level 9.6 mg/dl 07/13/17 1730 Random Glucose 97 mg/dl 07/13/17 1730 EKG / Imaging EKG Interpretation Vent. Rate : 094 BPM Atrial Rate : 094 BPM P-R Int : 154 ms QRS Dur : 080 ms QT Int : 370 ms P-R-T Axes : 045 016 032 degrees QTc Int : 462 ms Normal sinus rhythm T inversion consistent with septal ischemia Non-specific T flattening No previous ECGs available Confirmed by RIANNA CINTRON ([id number]) on 07/13/2017 7:48:[address] - Normal head CT. No evidence of a mass, acute ischemia or hemorrhage. Chest CTA - 1. No pulmonary embolism. 2. Trace left pleural effusion. 3. No other evidence of acute disease in the thorax. 4. Chronic findings as detailed above. CXR - No evidence of acute cardiopulmonary disease. Assessment and Plan Problems: (1) Altered mental status, unspecified Status: Acute Assessment & Plan: The etiology is unclear. She presented with increased somnolence over the last couple of days. However, in the ER, she became very sleepy and difficult to awaken. Then, she would wake up, interact with staff, ambulate and go back to sleep. She actively resisted me opening her eyes, but she wouldn't react to a sternal rub or voice. Pyuria, mildly elevated CO2 ( normal pH) and an elevated BNP were found on the work up. Certainly, an inadvertant extra dose of medication(s) could be the cause, but her medications are administered to her. The [facility] staff is going to count her pills, we'll check a lamotrigine level, place her on BIPAP, treat a UTI and recheck ABG/CBC/ CMP in the morning. Ammonia in the morning. (2) Urinary tract infection Status: Acute Assessment & Plan: Pyuria on UA. She appears to be on a suppressive regimen of Bactrim. Her WBC is elevated, so will treat with Rocephin and await culture results. (3) Edema Status: Chronic Assessment & Plan: Her symptoms started about a month ago. No proteinuria. TSH pending. BNP elevated. Echo/INR/CMP tomorrow. (4) Schizophrenia Status: Chronic Assessment & Plan: Continue [place], Lamotrigine, Risperdal, and Olanzapine if safely awake. [place] level was wnl. Lamotrigine level pending. (5) CKD (chronic kidney disease) stage 3, GFR 30-59 ml/min Status: Chronic Assessment & Plan: She is improved from 2012, but it is unclear what is her baseline. Will follow. Copies to: ISAURO ADHIKARI MD; VIRGEN BESS Venous Thromboembolism Antithrombotics Is Pt On Any Antithrombotics?: No Exam Sepsis Risk: No Definite Risk Problem Qualifiers (1) Altered mental status, unspecified: Altered mental status type: somnolence Qualified Codes: R40.0 - Somnolence (2) Urinary tract infection: Urinary tract infection type: acute cystitis Hematuria presence: without hematuria Qualified Codes: N30.00 - Acute cystitis without hematuria (3) Schizophrenia: Schizophrenia type: unspecified Qualified Codes: F20.9 - Schizophrenia, unspecified RIANNA CINTRON MD Jul 14, 2017 01:13
[2017-07-14] MEDS: cefTRIAXone 1 GM VIAL IVP SCH (01:47)
[2017-07-14] MEDS ORDERED: MOM PO (04:24)
[2017-07-14] MEDS ORDERED: VITS42.53 TOP (04:24)
[2017-07-14] MEDS ORDERED: MAGN1TAB2 PO (04:24)
[2017-07-14] MEDS ORDERED: LEVO88TA43 PO (04:24)
[2017-07-14] MEDS ORDERED: LOPE-84 PO (04:24)
[2017-07-14] MEDS ORDERED: PANTOPRAZOLE SOD 40 MG TABEC PO SCH (06:30)
[2017-07-14] MEDS ORDERED: PROPOFOL(*)1000 MG/100 ML VIAL 100 ML ONE (06:57)
[2017-07-14] MEDS ORDERED: PROPOFOL EMUL(*) 10MG/ML 20 ML 20 ML ONE (07:20)
[2017-07-14] MEDS ORDERED: SUCCINYLCHOL CHL 200MG/10ML VL IM ONE (07:40)
[2017-07-14 07:43] LABS: PLATELET COUNT, AUTOMATED 183 K/uL (150-450)
[2017-07-14] MEDS: PROPOFOL(*)1000 MG/100 ML VIAL 100 ML IV PRN ×5 (07:45→22:58)
[2017-07-14 07:49] LABS: INR 1.03
--- NOTE | 2017-07-14 08:21 | RADIOLOGY IMAGING REPORT ---
FACILITY: [facility] PATIENT NAME: Fatemeh Bunch : 1960 MR: [id number] V: [id number] EXAM DATE: ORDERING PHYSICIAN: RIANNA CINTRON TECHNOLOGIST: Location: [facility] Patient: Fatemeh Bunch : 1960 Visit/Account:[id number] Date of Sevice: 07/14/2017 EXAMINATION: Portable chest radiograph single view at 0745 hours HISTORY: Intubation. COMPARISON: Chest radiograph and CTA chest from 07/13/2017. FINDINGS: A single portable AP view of the chest is obtained. Lines/tubes: There is a new endotracheal tube, tip is well-positioned 2.5 cm above the truong. Lungs/pleura: Patchy opacity at the left lung base increased with blunting of the left costophrenic angle. Right lung is clear. Heart: Negative. Mediastinum: Negative. Bony structures/body wall: Negative. IMPRESSION: 1. Well-positioned endotracheal tube. 2. Patchy left basilar opacity is increased and could be due to atelectasis, aspiration or pneumonia. 3. Small left pleural effusion is increased. Report Dictated By: Janene Nesbitt MD at 07/14/2017 8:14 AM Report E-Signed By: Janene Nesbitt MD at 07/14/2017 8:16 AM WSN:[id number]
--- NOTE | 2017-07-14 08:57 | Hospitalist Progress Note ---
Subjective Progress Notes Subjective Now intubated/sedated. She is ventilating fairly easily. Physical Exam Vital Signs Date Time Temp Pulse Resp B/P (MAP) Pulse Ox O2 Delivery O2 Flow Rate FiO2 07/14/17 08:17 74 16 07/14/17 08:16 98 Mechanical Ventilator 30.0 07/14/17 06:00 142/79 (100) 07/14/17 04:00 97.7 07/14/17 01:20 3.0 General Appearance: Other (sedated on ventilator) ENT: Other (ET tube in place) Neck: Other (short/thick neck) Cardiovascular: Regular Rate and Rhythm Respiratory: Other (soft inspiratory and expiratory wheezes) GI: Other (BS present) Extremities: Warm, Perfused, Edema Integumentary: Other (some mild erythema of her right hand) Result Diagram: 07/14/17 0730 07/14/17 0730 Item Value Date Time Blood Gas Puncture Site Right radial 07/14/17 0555 Blood Gas Patient Temperature 98.2 DEGREES 07/14/17 0555 Arterial Blood pH 7.29 L 07/14/17 0555 Arterial Blood Partial Pressure CO2 82 mmHg *H 07/14/17 0555 Arterial Blood Partial Pressure O2 87 mmHg H 07/14/17 0555 Arterial Blood HCO3 39 mmol/L H 07/14/17 0555 Arterial Blood Oxygen Saturation 95 % 07/14/17 0555 Arterial Blood Base Excess 13.0 mmol/L 07/14/17 0555 Javier Test Acceptable 07/14/17 0555 Oxygen Liters/Minute 40% 07/14/17 0555 Albumin 3.5 g/dl 07/14/17 0730 Total Protein 6.8 gm/dl 07/14/17 0730 B-Type Natriuretic Peptide 220 pg/ml H 07/14/17 0730 Alkaline Phosphatase 76 U/L 07/14/17 0730 Alanine Aminotransferase (ALT/SGPT) 43 U/L 07/14/17 0730 Aspartate Amino Transf (AST/SGOT) 35 U/L 07/14/17 0730 Total Bilirubin 0.4 mg/dl 07/14/17 0730 Calcium Level 9.7 mg/dl 07/14/17 0730 Ammonia 23 UMOL/L 07/14/17 0730 Lactate 0.7 mmol/L 07/13/17 2247 Serum Alcohol < 10 mg/dl 07/13/17 1730 Urine Cannabinoids Screen Negative 07/13/172042 Urine Cocaine Screen Negative 07/13/172042 Urine Benzodiazepines Screen Negative 07/13/172042 Urine Amphetamines Screen Negative 07/13/172042 Urine Phencyclidine Screen Negative 07/13/172042 Ur Tricyclic Antidepressants Screen Negative 07/13/172042 Urine Barbiturates Screen Negative 07/13/172042 Urine Opiates Screen Negative 07/13/172042 [place] Level 1.0 mmol/L 07/13/17 1730 Assessment and Plan Problems: (1) Altered mental status, unspecified Status: Acute Assessment & Plan: The etiology is unclear, but certainly appears to be impending respiratory failure. She presented with increased somnolence over the last couple of days. However, in the ER, she became very sleepy and difficult to awaken. Then, she would wake up, interact with staff, ambulate and go back to sleep. She actively resisted some of the physical exam, but she wouldn't react to a sternal rub or voice. Pyuria, mildly elevated CO2 (normal pH) and an elevated BNP were found on the initial work up. Certainly, an inadvertant extra dose of medication(s) could be the cause, but her medications are administered to her. The [facility] staff counted her pills and no significant extra-dosing was found. A lamotrigine level is pending. Continue to treat a UTI. Ammonia is normal. Her respiratory status continue to worsen with increasing PCO2 and decreasing pH. She has now been intubated and is being ventilated. She is ventilating fairly easily. We would hav eto question if she has an underlying hypoventilation syndrome like VELASQUEZ and may be exacerbated by the medications. (2) Urinary tract infection Status: Acute Assessment & Plan: She was found to have pyuria on UA. She appears to have been on a suppressive regimen of Bactrim. Her WBC was elevated. She is currently on IV Rocephin. Await culture results. (3) Edema Status: Chronic Assessment & Plan: Her symptoms started about a month ago. No proteinuria. TSH pending. BNP elevated mildly (220). Echocardiogram today. (4) Schizophrenia Status: Chronic Assessment & Plan: Holding [place], Lamotrigine, Risperdal, and Olanzapine. [place] level was in therapeutic range (1.0). Lamotrigine level pending. (5) CKD (chronic kidney disease) stage 3, GFR 30-59 ml/min Status: Chronic Assessment & Plan: Creatinine is 1.3 today. She is improved from 2012, but it is unclear what is her baseline. Will follow. Exam Sepsis Risk: No Definite Risk Problem Qualifiers (1) Altered mental status, unspecified: Altered mental status type: somnolence Qualified Codes: R40.0 - Somnolence (2) Urinary tract infection: Urinary tract infection type: acute cystitis Hematuria presence: without hematuria Qualified Codes: N30.00 - Acute cystitis without hematuria (3) Schizophrenia: Schizophrenia type: unspecified Qualified Codes: F20.9 - Schizophrenia, unspecified JODI CARPENTER MD Jul 14, 2017 08:57
[2017-07-14] MEDS ORDERED: FUROSEMIDE 20 MG TAB PO SCH (09:00)
[2017-07-14] MEDS ORDERED: POTASSIUM CHL 10 MEQ TABCR PO SCH (09:00)
[2017-07-14] MEDS ORDERED: FLUoxetine HCL 20 MG CAP PO SCH (09:00)
[2017-07-14] MEDS ORDERED: OLANZapine 5 MG TAB PO SCH (09:00)
[2017-07-14] MEDS ORDERED: LITHIUM CARBONATE 300 MG CAP PO SCH ×2 (09:00→17:00)
[2017-07-14] MEDS ORDERED: lamoTRIgine 100 MG TAB PO SCH (09:00)
--- NOTE | 2017-07-14 10:37 | Medical Nutrition Therapy ---
Nutrition Anthropometrics Height (Inches): 66.00 Height (Calculated Centimeters: 167.758711 Weight (Pounds): 212 Weight (Calculated Kilograms): 96.388 BMI Calculated: 34.21 Chris Nutrition Score: Adequate Chris Nutrition Risk Score: 13 Dietary Referral Nutrition Risk Factors: Nutrition Risk Comment: Physical Findings Physical Appearance: Obese BMI 30-39 Skin Appearance Skin Appearance: Edema Edema Location Modifier: Left Edema Location: Hand Type of Edema: Degree of Edema: 2+ Gastrointestinal Symptoms GI Symtoms: Tube Present: Bowel Sounds: Recent Bowel Pattern: Stool Characteristics: Nutritional Diagnosis Past Medical History: Edema, GERD, hyperlipidemia, schizophrenia Nutritional Acuity: 2-Moderate Nutrition Diagnosis: Inadequate Food Intake Nutrition Etiology: Physiological Causes Nutrition Problem/Etiology/Sym: Inadequate oral intake related to physiological causes as evidenced by sedation, intubation and NPO status. Adjusted Energy Requirement Re: 1780 (1257-1229 (actual BW)) Protein Requirement: 96 Fluid Requirement: 2400 (25 ml/kg) Diet Type: NPO (Nothing by Mouth) Nutrition Intervention: Incr diet as tolerated Drug: Diuretics Drug/Nutrition Recommendations: Check Serum K+ Nutrition Monitoring & Eval RD Patient Assessment Time: [address] Assessment Type: RD Assessment Patient Nutrition Acuity: 2-Moderate Follow Up Date: Jul 17, 2017 Nutritional Comment: 12/2 Pt with PMH of schizophrenia admitted with SOB and AMS. Caretakers noting wt gain. Currently has 2+ pitting edema in both LE and on diuretic. Intubated and sedated on 34.7 ml/hr Propofol. Diet NPO day 1. Recommend nutrition support if NPO for >3 days. Notable labs include creatinine 1.3, alb WNL. Will cont to monitor. BILLY BEDOLLA Jul 14, 2017 10:37
[2017-07-14] MEDS: PANTOPRAZOLE SOD 40 MG IV VIAL IVP SCH (10:38)
[2017-07-14] MEDS: DORZOLAMIDE HCL OU SCH ×2 (10:39→20:51)
[2017-07-14] MEDS: ENOXAPARIN 40 MG/0.4ML SYR SC SCH (10:43)
[2017-07-14] MEDS: TIMOLOL MAL 0.25% OP SOLN 5 ML OU SCH ×2 (10:49→20:52)
[2017-07-14] MEDS: ALBUTEROL 2.5 MG/3 ML NEB NEB SCH ×2 (11:04→17:45)
[2017-07-14] MEDS: ORAL SUCTION/CHLORHX/SWAB KIT MT SCH ×2 (12:40→20:51)
[2017-07-14] MEDS: TRAVOPROST OU SCH (20:52)
[2017-07-14] MEDS ORDERED: risperiDONE 1 MG TAB PO SCH (21:00)
[2017-07-15] VITALS (77 sets, daily range): BP systolic 95–137; BP diastolic 44–88
[2017-07-15] MEDS: cefTRIAXone 1 GM VIAL IVP SCH (02:07)
[2017-07-15] MEDS: PROPOFOL(*)1000 MG/100 ML VIAL 100 ML IV PRN ×5 (04:10→20:27)
[2017-07-15 05:45] LABS: PLATELET COUNT, AUTOMATED 197 K/uL (150-450)
[2017-07-15] MEDS: ALBUTEROL 2.5 MG/3 ML NEB NEB SCH ×5 (06:32→23:37)
--- NOTE | 2017-07-15 06:53 | RADIOLOGY IMAGING REPORT ---
FACILITY: [facility] [place] PATIENT NAME: Fatemeh Bunch : 1960 MR: [id number] V: [id number] EXAM DATE: ORDERING PHYSICIAN: JODI CARPENTER TECHNOLOGIST: Location: [facility] [place] Patient: Fatemeh Bunch : 1960 Visit/Account:[id number] Date of Sevice: 07/15/2017 CHEST SINGLE AP 07/15/2017 06:00 hours. HISTORY: Intubated. COMPARISON: 07/14/2017 and studies dating to 05/15/2017. TECHNIQUE: Portable AP view of the chest. FINDINGS: Tubes/lines/hardware: Endotracheal tube terminates 3.3 cm above the truong. There are external chest leads. Pulmonary: Small left pleural effusion and adjacent left airspace opacity have mildly increased. Righ t lung remains clear. No pneumothorax. Cardiomediastinal: Cardiac and mediastinal silhouettes are within normal limits. Bones/soft tissues: No acute osseous abnormality. The visible abdomen is normal. IMPRESSION: 1. Mild increase in the small left pleural effusion and of the adjacent airspace opacity that may be atelectasis versus pneumonia Report Dictated By: Karime Snell at 07/15/2017 6:47 AM Report E-Signed By: Karime Snell at 07/15/2017 6:49 AM WSN:[id number]
[2017-07-15] MEDS: PANTOPRAZOLE SOD 40 MG IV VIAL IVP SCH (09:42)
[2017-07-15] MEDS: DORZOLAMIDE HCL OU SCH ×2 (09:42→20:27)
[2017-07-15] MEDS: TIMOLOL MAL 0.25% OP SOLN 5 ML OU SCH ×2 (09:42→20:27)
[2017-07-15] MEDS: DOXYCYCLINE HYCL 100 MG VIAL 100 MG in NS(*) 0.9% 250 ML BAG 250 ML IVPB SCH ×2 (09:43→20:28)
[2017-07-15] MEDS: ENOXAPARIN 40 MG/0.4ML SYR SC SCH (09:43)
[2017-07-15] MEDS: ORAL SUCTION/CHLORHX/SWAB KIT MT SCH ×2 (09:44→20:28)
--- NOTE | 2017-07-15 10:35 | Medical Nutrition Therapy ---
Nutrition Anthropometrics Height (Inches): 66.00 Height (Calculated Centimeters: 167.799136 Weight (Pounds): 209 Weight (Calculated Kilograms): 95.028 BMI Calculated: 34.21 Chris Nutrition Score: Adequate Chris Nutrition Risk Score: 15 Dietary Referral Nutrition Risk Factors: Nutrition Risk Comment: Physical Findings Physical Appearance: Obese BMI 30-39 Skin Appearance Skin Appearance: Edema Edema Location Modifier: Right Edema Location: Hand Type of Edema: Degree of Edema: 1+ Gastrointestinal Symptoms GI Symtoms: Tube Present: Bowel Sounds: Recent Bowel Pattern: Stool Characteristics: Nutritional Diagnosis Nutritional Risk Acuity 2: Swallowing Problem Past Medical History: Edema, GERD, hyperlipidemia, schizophrenia Nutritional Acuity: 2-Moderate Nutrition Diagnosis: Inadequate Food Intake Nutrition Etiology: Physiological Causes Nutrition Problem/Etiology/Sym: Inadequate oral intake related to physiological causes as evidenced by sedation, intubation and NPO status. Adjusted Energy Requirement Re: 1780 (7605-6412 (actual BW)) Protein Requirement: 59 (59-70 g/kg adjusted BW) Fluid Requirement: 1780 (25 ml/kg) Diet Type: Tube Feeding (TF) Nutrition Intervention: Incr diet as tolerated Drug: Diuretics Drug/Nutrition Recommendations: Check Serum K+ Nutritional Support Current Enteral / Parental: Tube Feeding Tube Feeding Formulas: Osmolite 1cal/ml-Isotonic Current Tube Feeding Formula C: final rate 80 ml/hr plus propofol at 23.1 ml/hr Tube Feeding Supplement Streng: Full Rate: 80 Current Duration: 24 Current Calories: 2035 Current Protein: 85 Current Lipids Calories: 609 Total Current Calories: 2644 Automatic H2O Flush (_ml every: 80 q 6 Recommended Enteral / Parental: Tube Feeding Recommended Tube Feeding Formu: Osmolite 1cal/ml-Isotonic Recommended Tube Feeding Formu: final rate 65 ml/hr plus propofol at 23.1 ml/hr Recommended Goal Rate: 65 Recommended Duration: 24 Recommended Calories: 1653 Recommended Protein: 69 Recommended Lipids Calories: 609 Total Recommended Calories: 2262 Nutrition Monitoring & Eval RD Patient Assessment Time: [address] Assessment Type: RD Re-Assessment Patient Nutrition Acuity: 2-Moderate Follow Up Date: Jul 17, 2017 Nutritional Comment: 12/2 Pt with PMH of schizophrenia admitted with SOB and AMS. Caretakers noting wt gain. Currently has 2+ pitting edema in both LE and on diuretic. Intubated and sedated on 34.7 ml/hr Propofol. Diet NPO day 1. Recommend nutrition support if NPO for >3 days. Notable labs include creatinine 1.3, alb WNL. Will cont to monitor. 07/15 Pt to start TF today at 30 ml/hr for a final rate of 80 ml/hr. This current TF prescription will overfeed pt due to propofol at 23.1 ml/hr. Recommend decreasing goal rate to 65 ml/hr which with propofol, will provide 2262 calories and 69 g protein. This will meet 111% and 98% of calorie and protien needs respectively. Please provide 80ml free water q 6 hr to meet remainder of fluid needs. Notable labs include Na 149, K 3.3, total pro 6.2 and alb 3.2. Will cont to monitor and remain available for consult. BILLY BEDOLLA Jul 15, 2017 10:35
--- NOTE | 2017-07-15 11:32 | RADIOLOGY IMAGING REPORT ---
FACILITY: [facility] PATIENT NAME: Fatemeh Bunch : 1960 MR: [id number] V: [id number] EXAM DATE: ORDERING PHYSICIAN: CASSIUS CARPENTER TECHNOLOGIST: Location: [facility] Patient: Fatemeh Bunch : 1960 Visit/Account:[id number] Date of Sevice: 07/15/2017 EXAMINATION: Portable chest radiograph single view at 07/15/2017 10:08 HISTORY: Line placement. COMPARISON: 07/15/2017. FINDINGS: A single portable AP view of the chest is obtained. Lines/tubes: Endotracheal tube terminates 2.7 cm above the truong. The enteric tube terminates in th e mid stomach. Lungs/pleura: Stable mild left lung base opacity, possible pleural effusion and/or consolidation/ate lectasis. No pneumothorax. Heart: Negative. Mediastinum: Negative. Bony structures/body wall: Negative. IMPRESSION: 1. The endotracheal tube terminates 2.7 cm above the truong. 2. The enteric tube terminates in the mid stomach. 3. Stable left lung base opacity. Report Dictated By: Jose Joaquin MD at 07/15/2017 11:26 AM Report E-Signed By: Jose Joaquin MD at 07/15/2017 11:28 AM WSN:[id number]
[2017-07-15] MEDS: POTASSIUM CHL 10% SF LIQ 20MEQ PO SCH (14:28)
--- NOTE | 2017-07-15 17:29 | Hospitalist Progress Note ---
Subjective Progress Notes Subjective The patient remains intubated. Physical Exam Vital Signs Date Time Temp Pulse Resp B/P (MAP) Pulse Ox O2 Delivery O2 Flow Rate FiO2 07/15/17 15:57 30.0 07/15/17 15:20 97 Mechanical Ventilator 07/15/17 13:00 65 10 127/75 (92) 07/15/17 11:00 97.7 07/14/17 01:20 3.0 Intake and Output 07/16/17 07:00 Intake Total 423.5 ml Output Total 390 ml Balance 33.5 ml IV Total 423.5 ml Output Urine Total 390 ml General Appearance: Other (Intubated, sedated.) Neuro: Other (Sedated.) Cardiovascular: Regular Rate and Rhythm Respiratory: Clear to Auscultation (Anteriorly.) GI: Soft and Non-Tender Extremities: Warm, Perfused Psych: Other (Sedated.) Result Diagram: 07/15/17 0535 07/15/1735 Assessment and Plan Problems: (1) Respiratory failure Status: Acute Assessment & Plan: May be multifactorial including infection, possible sleep apnea or medications. She is easily ventilated. CXR today shows stable L opacity. (2) Altered mental status, unspecified Status: Acute Assessment & Plan: The etiology is unclear, but certainly appears to be impending respiratory failure. She presented with increased somnolence over the last couple of days. However, in the ER, she became very sleepy and difficult to awaken. Then, she would wake up, interact with staff, ambulate and go back to sleep. She actively resisted some of the physical exam, but she wouldn't react to a sternal rub or voice. Pyuria, mildly elevated CO2 (normal pH) and an elevated BNP were found on the initial work up. Certainly, an inadvertent extra dose of medication(s) could be the cause, but her medications are administered to her. The [facility] staff counted her pills and no significant extra-dosing was found. A lamotrigine level is pending. Continue to treat a UTI. Ammonia is normal. Her respiratory status continue to worsen with increasing PCO2 and decreasing pH. She has now been intubated and is being ventilated. She is ventilating fairly easily. We would have to question if she has an underlying hypoventilation syndrome like VELASQUEZ and may be exacerbated by the medications. (3) Urinary tract infection Status: Acute Assessment & Plan: She was found to have pyuria on UA. She appears to have been on a suppressive regimen of Bactrim. Her WBC was elevated. She is currently on IV Rocephin. Culture is growing E. coli which is sensitive to the Rocephin. (4) Edema Status: Chronic Assessment & Plan: Her symptoms started about a month ago. No proteinuria. TSH pending. BNP elevated mildly (220). Echocardiogram shows normal EF of 59% with 2/4 diastolic dysfunction. R ventricle is borderline enlarged. Aortic valve is sclerotic but not stenotic. She has trace [place], TI and mild pHTN with R pressures of 39mmHg. (5) Schizophrenia Status: Chronic Assessment & Plan: Holding [place], Lamotrigine, Risperdal, and Olanzapine. [place] level was in therapeutic range (1.0). Lamotrigine level is still pending. (6) CKD (chronic kidney disease) stage 3, GFR 30-59 ml/min Status: Chronic Assessment & Plan: Creatinine is 1.2 today. She is improved from 2012, but it is unclear what is her baseline. Will follow. Time Spent on Plan of Care: < 30 min Exam Sepsis Risk: No Definite Risk Problem Qualifiers (1) Respiratory failure: Chronicity: acute (2) Altered mental status, unspecified: Altered mental status type: somnolence Qualified Codes: R40.0 - Somnolence (3) Urinary tract infection: Urinary tract infection type: acute cystitis Hematuria presence: without hematuria Qualified Codes: N30.00 - Acute cystitis without hematuria (4) Schizophrenia: Schizophrenia type: unspecified Qualified Codes: F20.9 - Schizophrenia, unspecified CASSIUS CARPENTER MD Jul 15, 2017 17:29
[2017-07-15] MEDS: TRAVOPROST OU SCH (20:27)
[2017-07-16] VITALS (43 sets, daily range): BP systolic 105–161; BP diastolic 57–108
[2017-07-16] MEDS: PROPOFOL(*)1000 MG/100 ML VIAL 100 ML IV PRN ×7 (00:12→21:27)
[2017-07-16] MEDS: cefTRIAXone 1 GM VIAL IVP SCH (01:48)
[2017-07-16 05:03] LABS: PLATELET COUNT, AUTOMATED 217 K/uL (150-450)
[2017-07-16] MEDS: ALBUTEROL 2.5 MG/3 ML NEB NEB SCH ×3 (06:01→17:09)
--- NOTE | 2017-07-16 06:38 | RADIOLOGY IMAGING REPORT ---
FACILITY: [facility] [place] PATIENT NAME: Fatemeh Bunch : 1960 MR: [id number] V: [id number] EXAM DATE: ORDERING PHYSICIAN: CASSIUS CARPENTER TECHNOLOGIST: Location: [facility] Patient: Fatemeh Bunch : 1960 Visit/Account:[id number] Date of Sevice: 07/16/2017 CHEST SINGLE AP 07/16/2017 06:00 hours. HISTORY: Intubated. COMPARISON: 07/15/2017 and studies dating to 05/15/2007. TECHNIQUE: Portable AP view of the chest. FINDINGS: Tubes/lines/hardware: ET tube terminates 2.3 cm above the truong. NG or OG tube terminates off the in ferior x-ray, at least as far as the body of the stomach. There are external chest leads. Pulmonary: Left basilar opacity and small left pleural effusion are unchanged. Right lung is clear. N o pneumothorax. Cardiomediastinal: Cardiac and mediastinal silhouettes are within normal limits. Bones/soft tissues: No acute osseous abnormality. The visible abdomen is normal. IMPRESSION: 1. No significant interval change. Report Dictated By: Karime Snell at 07/16/2017 6:32 AM Report E-Signed By: Karime Snell at 07/16/2017 6:34 AM WSN:[id number]
--- NOTE | 2017-07-16 08:46 | Hospitalist Progress Note ---
Subjective Progress Notes Subjective Stable on the ventilator overnight. On Propofol 45mcg/kg/min. Physical Exam Vital Signs Date Time Temp Pulse Resp B/P (MAP) Pulse Ox O2 Delivery O2 Flow Rate FiO2 07/16/17 08:18 25.0 07/16/17 06:00 97.8 10 123/70 (87) 95 Mechanical Ventilator 07/16/17 05:30 70 07/14/17 01:20 3.0 Intake and Output 07/17/17 07:00 Intake Total 20 ml Output Total 100 ml Balance -80 ml Tube Irrigant 20 ml Output Urine Total 100 ml General Appearance: No Acute Distress Neuro: Other (Intubated and sedated.) Cardiovascular: Regular Rate and Rhythm Respiratory: Clear to Auscultation Result Diagram: 07/16/1743307/16/17433 Assessment and Plan Problems: (1) Respiratory failure Status: Acute Assessment & Plan: May be multifactorial including infection, possible sleep apnea and/or medications. She is easily ventilated. CXR today shows stable L opacity. Hesitant to extubate her with off of her usual psychiatric medications. (2) Altered mental status, unspecified Status: Acute Assessment & Plan: The etiology is unclear, but certainly appears to be impending respiratory failure. She presented with increased somnolence over the last couple of days. However, in the ER, she became very sleepy and difficult to awaken. Then, she would wake up, interact with staff, ambulate and go back to sleep. She actively resisted some of the physical exam, but she wouldn't react to a sternal rub or voice. Pyuria, mildly elevated CO2 (normal pH) and an elevated BNP were found on the initial work up. Certainly, an inadvertent extra dose of medication(s) could be the cause, but her medications are administered to her. The [facility] staff counted her pills and no significant extra-dosing was found. A lamotrigine level is pending. Continue to treat a UTI. Ammonia is normal. Her respiratory status continue to worsen with increasing PCO2 and decreasing pH. She has now been intubated and is being ventilated. She is ventilating fairly easily. We would have to question if she has an underlying hypoventilation syndrome like VELASQUEZ and may be exacerbated by the medications. (3) Urinary tract infection Status: Acute Assessment & Plan: She was found to have pyuria on UA. She appears to have been on a suppressive regimen of Bactrim. Her WBC was elevated. She is currently on IV Rocephin. Culture is growing E. coli which is sensitive to the Rocephin. (4) Edema Status: Chronic Assessment & Plan: Her symptoms started about a month ago. No proteinuria. TSH pending. BNP elevated mildly (220). Echocardiogram shows normal EF of 59% with 2/4 diastolic dysfunction. R ventricle is borderline enlarged. Aortic valve is sclerotic but not stenotic. She has trace [place], TI and mild pHTN with R pressures of 39mmHg. (5) Schizophrenia Status: Chronic Assessment & Plan: [place], Lamotrigine, Risperdal, and Olanzapine were held upon admission. [place] level was in therapeutic range (1.0). Lamotrigine level is still pending. Will restart all the medications in preparation for extubation. (6) CKD (chronic kidney disease) stage 3, GFR 30-59 ml/min Status: Chronic Assessment & Plan: Creatinine is 1.2 today. She is improved from 2011, but it is unclear what is her baseline. Will follow. Exam Sepsis Risk: No Definite Risk Problem Qualifiers (1) Respiratory failure: Chronicity: acute (2) Altered mental status, unspecified: Altered mental status type: somnolence Qualified Codes: R40.0 - Somnolence (3) Urinary tract infection: Urinary tract infection type: acute cystitis Hematuria presence: without hematuria Qualified Codes: N30.00 - Acute cystitis without hematuria (4) Schizophrenia: Schizophrenia type: unspecified Qualified Codes: F20.9 - Schizophrenia, unspecified RIANNA CINTRON MD Jul 16, 2017 08:46
[2017-07-16] MEDS: PANTOPRAZOLE SOD 40 MG IV VIAL IVP SCH (09:00)
[2017-07-16] MEDS: DORZOLAMIDE HCL OU SCH ×2 (09:00→20:46)
[2017-07-16] MEDS: TIMOLOL MAL 0.25% OP SOLN 5 ML OU SCH ×2 (09:00→20:46)
[2017-07-16] MEDS: POTASSIUM CHL 10% SF LIQ 20MEQ PO SCH (09:00)
[2017-07-16] MEDS: ENOXAPARIN 40 MG/0.4ML SYR SC SCH (09:01)
[2017-07-16] MEDS: DOXYCYCLINE HYCL 100 MG VIAL 100 MG in NS(*) 0.9% 250 ML BAG 250 ML IVPB SCH ×2 (09:02→20:49)
[2017-07-16] MEDS: ORAL SUCTION/CHLORHX/SWAB KIT MT SCH ×2 (09:18→20:46)
[2017-07-16] MEDS ORDERED: LEVOTHYROXINE SOD 100 MCG VIAL IVP ONE (09:30)
[2017-07-16] MEDS: FLUoxetine HCL 20 MG CAP FT SCH (09:43)
[2017-07-16] MEDS: lamoTRIgine 100 MG TAB FT SCH (09:43)
[2017-07-16] MEDS: LITHIUM CITRATE 300 MG/5 ML PO SCH (09:43)
[2017-07-16] MEDS: OLANZapine 5 MG TAB FT SCH ×2 (09:43→20:45)
--- NOTE | 2017-07-16 15:48 | Procedure Note ---
Central Line Procedure Note Indication for Central Line: IV access. Staff unable to get other IV access. The patient only has one peripheral IV and requires IV sedation Consent Signed: Yes Central Line Lumen: Triple Central Line Procedure: Chlorhexidine Prep, Sterile Drapes Applied, Sterile Dressing Applied Central Line Position: R Internal Jugular Anesthesia Used: 1% Lidocaine CC's of Anesthesia: 3 Complications: None Central Line Post Position: Sutured, Confirmed Blood Return, Position Confirmed w/CXR Comment US was used to identify the right IJ and then for insertion of the catheter. The vein was cannulated on the second attempt. Seldinger technique was used. RIANNA CINTRON MD Jul 16, 2017 15:48
--- NOTE | 2017-07-16 16:14 | RADIOLOGY IMAGING REPORT ---
FACILITY: [facility] [place] PATIENT NAME: Fatemeh Bunch : 1960 MR: [id number] V: [id number] EXAM DATE: ORDERING PHYSICIAN: RIANNA CINTRON TECHNOLOGIST: Location: [facility] Patient: Fatemeh Bunch : 1960 Visit/Account:[id number] Date of Sevice: 07/16/2017 Exam type: CHEST SINGLE AP History: Central line placement Comparison: July 16, 2017 performed earlier in the day. Findings: There is some placement of a right IJ catheter with the distal tip projecting over the superior vena cava. No pneumothorax is seen.. NG tube/OG tube and endotracheal tube appear relatively unchanged. External chest leads again seen. Left pleural effusion and small amount of left basilar airspace co nsolidation appears relatively unchanged. The cardiac silhouette is normal. IMPRESSION: 1. There is been placement of a right IJ catheter with the distal tip projecting over the superior v chanelle cava. There is no evidence of pneumothorax. The remainder of the support lines and tubes are un changed Left pleural effusion and small amount of left basilar airspace consolidation appear unchanged Report Dictated By: Radha Meredith MD at 07/16/2017 4:08 PM Report E-Signed By: Radha Meredith MD at 07/16/2017 4:10 PM WSN:[email or web address]
[2017-07-16] MEDS: LITHIUM CITRATE 300 MG/5 ML FT SCH (20:45)
[2017-07-16] MEDS: TRAVOPROST OU SCH (20:46)
[2017-07-16] MEDS ORDERED: risperiDONE 1 MG TAB FT SCH (21:00)
--- NOTE | 2017-07-16 23:16 | RADIOLOGY IMAGING REPORT ---
FACILITY: [facility] [place] PATIENT NAME: REEMA JENNINGS : [id number] MR: [id number] V: [id number] EXAM DATE: ORDERING PHYSICIAN: RIANNA CINTRON TECHNOLOGIST: Carlos Guerrier EXAMINATION:TWO-DIMENSIONAL ECHOCARDIOGRAPH REASON:EDEMA, QUESTIONABLE HEART FAILURE. 2D Measurements (normal values in centimeters) LV endLV endRV endVent.LV PostAorticLeftPercent DiastolicSystolicDiastolicSeptumWallRootAtriumShortening (3.5-5.7)(0.9-2.6)(0.6-1.1)(0.6-1.1)(2.0-3.7)(1.9-4.0)(25-35%) [id number]% STROKE VOLUME: 48 mL ESTIMATED EJECTION FRACTION:58% PARASTERNAL LONG AXIS: Overall left ventricular systolic function does appear to be normal and chamber sizes also appear to be normal. The right ventricle is the upper range of normal in size if not slightly enlarged. No wall motion abnormalities are noted. Color examination of the aortic valve was unremarkable. Color examination of the mitral valve reveals a trace of mitral insufficiency present. PARASTERNAL SHORT AXIS: Overall left ventricular systolic function is normal. No wall motion abnormalities are noted. The right ventricle is borderline enlarged. Aortic valve is trileaflet in configuration and appears to open normally. There is mild aortic sclerosis but it does not appear to be stenotic. Trace to mild amount of tricuspid insufficiency is noted. Tricuspid regurgitation V-max is measured at 2.4 cm2. APICAL FOUR AND TWO CHAMBER: Normal left ventricular ejection fraction. The right ventricle is mildly enlarged. The left atrial and right atrial volumes are measured within normal ranges at 19 and 15 ml/m2. Aortic valve area was measured within normal range at 1.8 cm2 with mean pressure gradient across the valve of 7 mmHg and a dimensionless index of 0.8. Mitral valve area was measured within normal range at 2.6 cm2. Color examination of the tricuspid valve revealed a trace to mild amount of tricuspid insufficiency. Color examination of the aortic valve was unremarkable. Color examination of the mitral valve reveals a trace of mitral insufficiency present. SUBCOSTAL VIEW: No pericardial effusion was noted. No atrial septal or ventricular septal defects were appreciated. Doppler examination of the mitral valve in diastole does reveal a normal pattern. Medial and lateral E prime velocities are decreased. The patient is unable to really do a Valsalva. She is on a respirator. IVC is enlarged at 2.62 cm. OVERALL IMPRESSION: 1. Normal left ventricular ejection fraction of 58% with a grade 2/4 decrease in diastolic function. 2. Normal chamber sizes but the right ventricle is borderline enlarged. 3. A trileaflet aortic valve with mild aortic sclerosis but no stenosis. 4. A trace of mitral insufficiency with no mitral stenosis. 5. A trace to mild amount of tricuspid insufficiency with estimated right ventricular systolic pressure of 39 mmHg which does include an estimated right atrial pressure of 15 mmHg indicating mild pulmonary hypertension and increased right ventricular systolic pressures. Dictated by: Loni Broussard M.D. on 07/14/2017 at 12:50 Transcribed by: REBECCA on 07/16/2017 at 19:23 Approved by: Loni Broussard M.D. on 07/16/2017 at 23:15 [facility]
[2017-07-17] VITALS (55 sets, daily range): BP systolic 109–174; BP diastolic 61–121
[2017-07-17] MEDS: PROPOFOL(*)1000 MG/100 ML VIAL 100 ML IV PRN ×4 (00:57→20:29)
[2017-07-17] MEDS: ALBUTEROL 2.5 MG/3 ML NEB NEB SCH ×3 (01:17→11:06)
[2017-07-17] MEDS: cefTRIAXone 1 GM VIAL IVP SCH (01:31)
[2017-07-17 05:45] LABS: PLATELET COUNT, AUTOMATED 226 K/uL (150-450)
--- NOTE | 2017-07-17 06:08 | RADIOLOGY IMAGING REPORT ---
FACILITY: [facility] PATIENT NAME: Fatemeh Bunch : 1960 MR: [id number] V: [id number] EXAM DATE: ORDERING PHYSICIAN: RIANNA CINTRON TECHNOLOGIST: Location: [facility] [place] Patient: Fatemeh Bunch : 1960 Visit/Account:[id number] Date of Sevice: 07/17/2017 CHEST SINGLE AP 07/17/2017 06:00 hours. HISTORY: Respiratory failure. COMPARISON: 07/16/2017 and studies dating to 05/15/2007. TECHNIQUE: Portable AP view of the chest. FINDINGS: Tubes/lines/hardware: ET tube terminates 3 cm above the truong. NG or OG tube terminates off the infe rior x-ray, at least as far as the body of the stomach. Right IJ catheter terminates at the lower sup erior vena cava. There are external chest leads. Pulmonary: Right lung is clear. There is a small left pleural effusion and there is adjacent left bas ilar consolidation, unchanged. No pneumothorax. Cardiomediastinal: Cardiac and mediastinal silhouettes are within normal limits. Bones/soft tissues: No acute osseous abnormality. The visible abdomen is normal. IMPRESSION: 1. No significant interval change. Report Dictated By: Karime Snell at 07/17/2017 6:02 AM Report E-Signed By: Karime Snell at 07/17/2017 6:04 AM WSN:[id number]
[2017-07-17] MEDS ORDERED: NS(*) 0.9% 1000 ML BAG 1,000 ML IV PRN (06:15)
[2017-07-17] MEDS: NS 0.45%(*) 1000 ML BAG 1,000 ML IV PRN ×2 (07:15→17:08)
[2017-07-17] MEDS: ENOXAPARIN 40 MG/0.4ML SYR SC SCH (08:29)
[2017-07-17] MEDS: PANTOPRAZOLE SOD 40 MG IV VIAL IVP SCH (08:29)
[2017-07-17] MEDS: TIMOLOL MAL 0.25% OP SOLN 5 ML OU SCH ×2 (08:30→21:02)
[2017-07-17] MEDS: ORAL SUCTION/CHLORHX/SWAB KIT MT SCH ×2 (08:30→21:02)
[2017-07-17] MEDS: DORZOLAMIDE HCL OU SCH ×2 (08:30→21:02)
[2017-07-17] MEDS: LITHIUM CITRATE 300 MG/5 ML PO SCH (08:30)
[2017-07-17] MEDS: POTASSIUM CHL 10% SF LIQ 20MEQ PO SCH (08:30)
[2017-07-17] MEDS: OLANZapine 5 MG TAB FT SCH ×2 (08:31→20:52)
[2017-07-17] MEDS: FLUoxetine HCL 20 MG CAP FT SCH (08:31)
[2017-07-17] MEDS: lamoTRIgine 100 MG TAB FT SCH (08:31)
[2017-07-17] MEDS: DOXYCYCLINE HYCL 100 MG VIAL 100 MG in NS(*) 0.9% 250 ML BAG 250 ML IVPB SCH ×2 (09:01→21:02)
[2017-07-17] MEDS: LEVOTHYROXINE SOD 100 MCG VIAL IVP SCH (09:02)
--- NOTE | 2017-07-17 11:51 | Hospitalist Progress Note ---
Subjective Progress Notes Subjective Sedated on ventilator. Ventilating/oxygenating easily. Physical Exam Vital Signs Date Time Temp Pulse Resp B/P (MAP) Pulse Ox O2 Delivery O2 Flow Rate FiO2 07/17/17 10:30 98.8 66 17 110/71 (84) 92 Mechanical Ventilator 25.0 07/16/17 13:14 5.0 Intake and Output 07/18/17 07:00 Intake Total 721.1 ml Output Total 775 ml Balance -53.9 ml IV Total 332.1 ml Tube Feeding 249 ml Tube Irrigant 140 ml Output Urine Total 775 ml General Appearance: Other (sedated on ventilator) Cardiovascular: Regular Rate and Rhythm Respiratory: Other (fairly clear) GI: Other (soft/BS present) Extremities: Warm, Perfused Result Diagram: 07/17/17 0507/17/17 1100 Item Value Date Time Blood Gas Puncture Site Left radial 07/17/17526 Blood Gas Patient Temperature 98.4 DEGREES 07/17/17526 Arterial Blood pH 7.46 H 07/17/17526 Arterial Blood Partial Pressure CO2 32 mmHg 07/17/17526 Arterial Blood Partial Pressure O2 68 mmHg 07/17/17526 Arterial Blood HCO3 23 mmol/L 07/17/17526 Arterial Blood Oxygen Saturation 95 % 07/17/17526 Arterial Blood Base Excess -1.0 mmol/L 07/17/17526 Javier Test Acceptable 07/17/17526 Oxygen Liters/Minute 25 07/17/17526 Imaging PATIENT NAME: Fatemeh Bunch : 1960 MR: [id number] V: [id number] EXAM DATE: ORDERING PHYSICIAN: RIANNA CINTRON TECHNOLOGIST: Location: [facility] [place] Patient: Fatemeh Bunch : 1960 Visit/Account:[id number] Date of Sevice: 07/17/2017 CHEST SINGLE AP 07/17/2017 06:00 hours. HISTORY: Respiratory failure. COMPARISON: 07/16/2017 and studies dating to 05/15/2007. TECHNIQUE: Portable AP view of the chest. FINDINGS: Tubes/lines/hardware: ET tube terminates 3 cm above the truong. NG or OG tube terminates off the inferior x-ray, at least as far as the body of the stomach. Right IJ catheter terminates at the lower superior vena cava. There are external chest leads. Pulmonary: Right lung is clear. There is a small left pleural effusion and there is adjacent left basilar consolidation, unchanged. No pneumothorax. Cardiomediastinal: Cardiac and mediastinal silhouettes are within normal limits. Bones/soft tissues: No acute osseous abnormality. The visible abdomen is normal. IMPRESSION: 1. No significant interval change. Report Dictated By: Karime Snell at 07/17/2017 6:02 AM Report E-Signed By: Karime Snell at 07/17/2017 6:04 AM WSN:[id number] Assessment and Plan Problems: (1) Respiratory failure Status: Acute Assessment & Plan: May be multifactorial including infection, possible sleep apnea and/or medications. She is easily ventilated. CXR today unchanged. She is back on her usual psychiatric medications. Will try to release the sedation and extubate later today. Will plan on using BiPAP with sleep/naps. (2) Altered mental status, unspecified Status: Acute Assessment & Plan: The etiology is unclear, but certainly appears to be impending respiratory failure. She presented with increased somnolence over the last couple of days (caregivers state it may be more like a month). However , in the ER, she became very sleepy and difficult to awaken. Then, she would wake up, interact with staff, ambulate and go back to sleep. She actively resisted some of the physical exam, but she wouldn't react to a sternal rub or voice. Pyuria, mildly elevated CO2 (normal pH) and an elevated BNP were found on the initial work up. Certainly, an inadvertent extra dose of medication(s) could be the cause, but her medications are administered to her. The [facility] staff counted her pills and no significant extra-dosing was found. Lamotrigine level is in low therapeutic range. She does have an acute UTI. Ammonia is normal. Her respiratory status continued to worsen with increasing PCO2 and decreasing pH. She was intubated and is being ventilated. She is ventilating very easily. We would have to question if she has an underlying hypoventilation syndrome like VELASQUEZ and may be exacerbated by the medications. (3) Urinary tract infection Status: Acute Assessment & Plan: She was found to have pyuria on UA. She appears to have been on a suppressive regimen of Bactrim. Her WBC was elevated. She is currently on IV Rocephin. Culture is growing E. coli which is sensitive to the Rocephin. (4) Edema Status: Chronic Assessment & Plan: Her symptoms started about a month ago. No proteinuria. TSH is normal at 3.84. BNP elevated mildly (220). Echocardiogram shows normal EF of 59% with 2/4 diastolic dysfunction. Right ventricle is borderline enlarged. Aortic valve is sclerotic, but not stenotic. She has trace [place], TI and mild pulmonary HTN with right-sided pressures of 39mmHg. (5) Schizophrenia Status: Chronic Assessment & Plan: [place], Lamotrigine, Risperdal, and Olanzapine were held upon admission. [place] level was in therapeutic range (1.0). Lamotrigine level is slightly below therapeutic at 2.4. We restarted all the medications yesterday in preparation for extubation. (6) CKD (chronic kidney disease) stage 3, GFR 30-59 ml/min Status: Chronic Assessment & Plan: Creatinine is 1.2 today. She is improved from 2011, but it is unclear what is her baseline. Will follow. Exam Sepsis Risk: No Definite Risk Problem Qualifiers (1) Respiratory failure: Chronicity: acute (2) Altered mental status, unspecified: Altered mental status type: somnolence Qualified Codes: R40.0 - Somnolence (3) Urinary tract infection: Urinary tract infection type: acute cystitis Hematuria presence: without hematuria Qualified Codes: N30.00 - Acute cystitis without hematuria (4) Schizophrenia: Schizophrenia type: unspecified Qualified Codes: F20.9 - Schizophrenia, unspecified JODI CARPENTER MD Jul 17, 2017 11:51
--- NOTE | 2017-07-17 15:36 | Medical Nutrition Therapy ---
Nutrition Anthropometrics Height (Inches): 66.00 Height (Calculated Centimeters: 167.784066 Weight (Pounds): 206 Weight (Calculated Kilograms): 93.695 BMI Calculated: 34.21 Chris Nutrition Score: Probably Inadequate Chris Nutrition Risk Score: 12 Dietary Referral Nutrition Risk Factors: Nutrition Risk Comment: Physical Findings Physical Appearance: Obese BMI 30-39 Skin Appearance Skin Appearance: Edema Edema Location Modifier: Right Edema Location: Hand Type of Edema: Degree of Edema: 1+ Gastrointestinal Symptoms GI Symtoms: Tube Present: OG Bowel Sounds: Recent Bowel Pattern: Stool Characteristics: Nutritional Diagnosis Nutritional Risk Acuity 2: Swallowing Problem Past Medical History: Edema, GERD, hyperlipidemia, schizophrenia Nutritional Acuity: 2-Moderate Nutrition Diagnosis: Increased Nutrient Needs Nutrition Etiology: Physiological Causes Nutrition Problem/Etiology/Sym: Increased nutr needs related to physiological causes as evidenced by sedation, intubation and respiratory distress. Adjusted Energy Requirement Re: 1780 (3953-7700 (actual BW)) Protein Requirement: 59 (59-70 g/kg adjusted BW) Fluid Requirement: 1780 (25 ml/kg) Diet Type: Tube Feeding (TF) Nutrition Intervention: Incr diet as tolerated Drug: Diuretics Drug/Nutrition Recommendations: Check Serum K+ Nutritional Support Current Enteral / Parental: Tube Feeding Tube Feeding Formulas: Osmolite 1cal/ml-Isotonic Current Tube Feeding Formula C: final rate 65 ml/hr Tube Feeding Supplement Streng: Full Rate: 65 Current Duration: 24 Current Calories: 1653 Current Protein: 69 Total Current Calories: 1653 Automatic H2O Flush (_ml every: 80 q 6 Nutrition Monitoring & Eval RD Patient Assessment Time: [address] Assessment Type: RD Re-Assessment Patient Nutrition Acuity: 2-Moderate Follow Up Date: Jul 20, 2017 Nutritional Comment: / Pt with PMH of schizophrenia admitted with SOB and AMS. Caretakers noting wt gain. Currently has 2+ pitting edema in both LE and on diuretic. Intubated and sedated on 34.7 ml/hr Propofol. Diet NPO day 1. Recommend nutrition support if NPO for >3 days. Notable labs include creatinine 1.3, alb WNL. Will cont to monitor. 12/ Pt to start TF today at 30 ml/hr for a final rate of 80 ml/hr. This current TF prescription will overfeed pt due to propofol at 23.1 ml/hr. Recommend decreasing goal rate to 65 ml/hr which with propofol, will provide 2262 calories and 69 g protein. This will meet 111% and 98% of calorie and protien needs respectively. Please provide 80ml free water q 6 hr to meet remainder of fluid needs. Notable labs include Na 149, K 3.3, total pro 6.2 and alb 3.2. Will cont to monitor and remain available for consult. 07/17 TF changed to 65ml/hr Osmolite. Providing 1653 kcal, 69gm protein and meeting 93% est kcal and 117% est protein needs. Pt is no longer recieving propofol. Pt tolerating TF with minimal residuals. Alb cont low at 3. CORBY CAZARES Jul 17, 2017 15:36
[2017-07-17] MEDS ORDERED: ACETAMINOPHEN(*)1000 MG/100 ML 100 ML IVPB ONE (16:05)
[2017-07-17] MEDS ORDERED: LORAZEPAM IVP ONE (18:05)
[2017-07-17] MEDS ORDERED: LORazepam 2 MG/ML VIAL IVP ONE (18:05)
--- NOTE | 2017-07-17 19:50 | RADIOLOGY IMAGING REPORT ---
[place] [facility] [place] NAME: Fatemeh Bunch : 1960 MR: [id number] V: [id number] EXAM DATE: ORDERING PHYSICIAN: JODI CARPENTER TECHNOLOGIST: Location: [facility] Patient: Fatemeh Bunch : 1960 Visit/Account:[id number] Date of Sevice: 07/17/2017 Study: Single portable view of the chest. Indication: Chest pain. Comparison study: July 17, 2017 Technique: AP view the chest demonstrates presence of an endotracheal tube with tip 3 cm above level of the truong. There is patchy infiltrate present at the left base. There is no evidence of pleural effusion or pneumothorax. There is a nasogastric tube present. The tip is curled within the mid esophagus. The apex of the lo op of the nasogastric tube is within the stomach. IMPRESSION: Endotracheal tube present as described. There is a nasogastric tube which is looped so t hat the tip of the catheter is within the esophagus. The apex of the loop is within the stomach. Report Dictated By: Pancho Beyer at 07/17/2017 7:45 PM Report E-Signed By: Pancho Beyer at 07/17/2017 7:47 PM WSN:[id number]
[2017-07-17] MEDS ORDERED: PROPOFOL EMUL(*) 10MG/ML 20 ML 20 ML ONE (20:22)
[2017-07-17] MEDS ORDERED: ROCURONIUM BROM 10 MG/ML 10 ML ONE (20:22)
[2017-07-17] MEDS: methylPREDNIS SUCC 125 MG/2ML IVP SCH (20:51)
[2017-07-17] MEDS: LITHIUM CITRATE 300 MG/5 ML FT SCH (20:56)
[2017-07-17] MEDS: TRAVOPROST OU SCH (21:02)
[2017-07-18] VITALS (22 sets, daily range): BP systolic 93–119; BP diastolic 46–69
[2017-07-18] MEDS: PROPOFOL(*)1000 MG/100 ML VIAL 100 ML IV PRN ×8 (00:22→21:33)
[2017-07-18] MEDS: NS 0.45%(*) 1000 ML BAG 1,000 ML IV PRN ×2 (02:52→13:03)
[2017-07-18] MEDS: cefTRIAXone 1 GM VIAL IVP SCH (02:52)
[2017-07-18 05:23] LABS: PLATELET COUNT, AUTOMATED 170 K/uL (150-450)
[2017-07-18] MEDS: methylPREDNIS SUCC 125 MG/2ML IVP SCH ×3 (05:23→20:23)
--- NOTE | 2017-07-18 08:36 | Hospitalist Progress Note ---
Subjective Progress Notes Subjective She failed extubation yesterday and was reintubated. She had to be intubated with a smaller ET tube because of difficulty with penetration of the trachea. Physical Exam Vital Signs Date Time Temp Pulse Resp B/P (MAP) Pulse Ox O2 Delivery O2 Flow Rate FiO2 07/18/17 08:10 40.0 07/18/17 07:32 56 07/18/17 05:50 15 07/18/17 05:50 95 Mechanical Ventilator 07/17/17 21:15 121/77 (92) 07/17/17 20:00 99.4 07/17/17 18:30 4.0 Intake and Output 07/19/17 07:00 Output Total 240 ml Balance -240 ml Output Urine Total 240 ml General Appearance: Alert, Awake, No Acute Distress Cardiovascular: Regular Rate and Rhythm Respiratory: Clear to Auscultation Extremities: Edema (2+ edema in the right hand) Result Diagram: 07/18/1751207/18/17512 Assessment and Plan Problems: (1) Respiratory failure Status: Acute Assessment & Plan: May be multifactorial including infection, possible sleep apnea and/or medications. She is easily ventilated. CXR unchanged. She is back olanzapine, but at a reduced dose and back on [place]. She failed extubation on 07/17 after about 2 hours due to increased WOB, tachycardia, and stridor. She had a very enlarged tongue and required a smaller ET tube to get into the trachea. She is to get a MRI of the brain and neck to evaluate. (2) Altered mental status, unspecified Status: Acute Assessment & Plan: The etiology is unclear, but certainly appears to be impending respiratory failure. She presented with increased somnolence over the last couple of days (caregivers state it may be more like a month). However , in the ER, she became very sleepy and difficult to awaken. Then, she would wake up, interact with staff, ambulate and go back to sleep. She actively resisted some of the physical exam, but she wouldn't react to a sternal rub or voice. Pyuria, mildly elevated CO2 (normal pH) and an elevated BNP were found on the initial work up. Certainly, an inadvertent extra dose of medication(s) could be the cause, but her medications are administered to her. The [facility] staff counted her pills and no significant extra-dosing was found. Lamotrigine level is in low therapeutic range. She does have an acute UTI. Ammonia is normal. Her respiratory status continued to worsen with increasing PCO2 and decreasing pH. She was intubated and is being ventilated. See above. We would have to question if she has an underlying hypoventilation syndrome like VELASQUEZ and may be exacerbated by the medications. (3) Hypernatremia Status: Acute Assessment & Plan: Secondary to net diuresis since admission. The etiology is unclear, but could be secondary to holding of lamotrigine. She is on 1/2NS and getting free water flushes. Will follow BMP closely. MRI of the brain today. Urine Na and Urine osmolality today. (4) Urinary tract infection Status: Acute Assessment & Plan: She was found to have pyuria on UA. She appears to have been on a suppressive regimen of Bactrim. Her WBC was elevated. She is currently on IV Rocephin. Culture is growing E. coli which is sensitive to the Rocephin. (5) Edema Status: Chronic Assessment & Plan: Her symptoms started about a month ago. No proteinuria. TSH is normal at 3.84. BNP elevated mildly (220). Echocardiogram shows normal EF of 59% with 2/4 diastolic dysfunction. Right ventricle is borderline enlarged. Aortic valve is sclerotic, but not stenotic. She has trace MA, TI and mild pulmonary HTN with right-sided pressures of 39mmHg. Overall, her weight is down and is having a net diuresis since admission. Lamotrigine has been stopped and an MRI of the brain is pending. (6) Schizophrenia Status: Chronic Assessment & Plan: Meyersdale, Lamotrigine, Risperdal, and Olanzapine were held upon admission. Mey[place]dale level was in therapeutic range (1.0). Lamotrigine level is slightly below therapeutic at 2.4. Olanzapine has been restarted at a reduced dose. Mey[place]dale has been restarted. Lamotrigine held for concern of edema and Risperdal held for excessive sedation concern. (7) CKD (chronic kidney disease) stage 3, GFR 30-59 ml/min Status: Chronic Assessment & Plan: Creatinine is 1.0 today. She is improved from 2012, but it is unclear what is her baseline. Will follow. Exam Sepsis Risk: No Definite Risk Problem Qualifiers (1) Respiratory failure: Chronicity: acute (2) Altered mental status, unspecified: Altered mental status type: somnolence Qualified Codes: R40.0 - Somnolence (3) Urinary tract infection: Urinary tract infection type: acute cystitis Hematuria presence: without hematuria Qualified Codes: N30.00 - Acute cystitis without hematuria (4) Schizophrenia: Schizophrenia type: unspecified Qualified Codes: F20.9 - Schizophrenia, unspecified RIANNA CINTRON MD Jul 18, 2017 08:36
[2017-07-18] MEDS: LITHIUM CITRATE 300 MG/5 ML PO SCH (09:08)
[2017-07-18] MEDS: POTASSIUM CHL 10% SF LIQ 20MEQ PO SCH (09:08)
[2017-07-18] MEDS: PANTOPRAZOLE SOD 40 MG IV VIAL IVP SCH (09:08)
[2017-07-18] MEDS: DORZOLAMIDE HCL OU SCH ×2 (09:08→20:25)
[2017-07-18] MEDS: FLUoxetine HCL 20 MG CAP FT SCH (09:09)
[2017-07-18] MEDS: ENOXAPARIN 40 MG/0.4ML SYR SC SCH (09:09)
[2017-07-18] MEDS: LEVOTHYROXINE SOD 100 MCG VIAL IVP SCH (09:09)
[2017-07-18] MEDS: TIMOLOL MAL 0.25% OP SOLN 5 ML OU SCH ×2 (09:09→20:25)
[2017-07-18] MEDS: OLANZapine 5 MG TAB FT SCH ×2 (09:09→20:24)
[2017-07-18] MEDS: DOXYCYCLINE HYCL 100 MG VIAL 100 MG in NS(*) 0.9% 250 ML BAG 250 ML IVPB SCH ×2 (09:10→20:25)
[2017-07-18] MEDS: ORAL SUCTION/CHLORHX/SWAB KIT MT SCH ×2 (09:10→20:24)
[2017-07-18] MEDS: HYPROMELLOSE 0.4% LUB 15ML BTL OU PRN (13:02)
[2017-07-18] MEDS ORDERED: PROPOFOL 1000 MG/100 ML IVPB ONE (14:45)
[2017-07-18] MEDS ORDERED: PROPOFOL(*)1000 MG/100 ML VIAL 100 ML IVPB ONE (15:00)
[2017-07-18] MEDS ORDERED: NS 0.9% 50 ML VIAL 50 ML ONE (16:17)
[2017-07-18] MEDS ORDERED: IOPAMIDOL 76% 75 ML INFUS BTL 75 ML ONE (16:17)
--- NOTE | 2017-07-18 17:33 | RADIOLOGY IMAGING REPORT ---
FACILITY: [facility] PATIENT NAME: Fatemeh Bunch : 1960 MR: [id number] V: [id number] EXAM DATE: ORDERING PHYSICIAN: RIANNA CINTRON TECHNOLOGIST: Location: Patient: Fatemeh Bunch : 1960 Visit/Account:[id number] Date of Sevice: 07/18/2017 BRAIN W/O CONTRAST Comparisons: None. Additional pertinent history: Altered mental status with swollen tongue and laryngeal edema TECHNIQUE: Multiplanar, multisequence brain MRI was performed without gadolinium contrast. FINDINGS: Sagittal midline structures and craniocervical junction: Negative. Midline shift: None. Ventricles: Negative. Brain parenchyma: Diffusion weighted imaging: Negative. Gradient sequence: Negative. T2 weighted FLAIR images: Negative. Extra-axial spaces: Negative. Dural venous sinuses and major arterial flow voids: Negative. Mastoid air cells and paranasal sinuses: Moderate mucosal thickening involving the maxillary sinuses as well as the ethmoid air cells. Surrounding soft tissues and orbits: Negative. Impression: 1. No evidence of acute intracranial pathology. 2. Underlying paranasal sinus disease. Report Dictated By: Pato Chaudhari MD at 07/18/2017 5:28 PM Report E-Signed By: Pato Chaudhari MD at 07/18/2017 5:30 PM WSN:[id number]
[2017-07-18] MEDS ORDERED: D5W(*) 1000 ML BAG 1,000 ML IV PRN (17:50)
[2017-07-18] MEDS: LITHIUM CITRATE 300 MG/5 ML FT SCH (20:24)
[2017-07-18] MEDS: TRAVOPROST OU SCH (20:25)
--- NOTE | 2017-07-18 20:32 | RADIOLOGY IMAGING REPORT ---
FACILITY: [facility] PATIENT NAME: Fatemeh Bunch : 1960 MR: [id number] V: [id number] EXAM DATE: ORDERING PHYSICIAN: RIANNA CINTRON [place]CHNOLOGIST: [place] [facility] [place] B[place] : 1960 Visit/Account:[id number] Date of Sevice: 07/18/2017 EXAMINATION: CT neck with and without IV contrast History: Tongue swelling, laryngeal swelling. COMPARISON STUDIES: CT C-spine 08/13/2009. TECHNIQUE: Spiral scan was obtained from the hard palate through the upper chest during injection o f nonionic iodinated intravenous contrast. One of the following dose optimization techniques was util ized in the performance of this exam: Automated exposure control; adjustment of the mA and/or kV acco rding to the patient's size; or use of an iterative reconstruction technique. Specific details can be referenced in the facility's radiology CT exam operational policy. Contrast: 75 mL of IV Isovue-370. FINDINGS: Suprahyoid neck: negative Infrahyoid neck: negative Airway: The tongue appears diffusely edematous. Tracheostomy tube in place terminating above the noe na. A right IJ line is partially visualized. NG tube is partially visualized. Lymph node assessment: negative Visualized orbits / brain / paranasal sinuses: negative Vessels: Vessels Bony structures: Moderate degenerative changes mid to lower cervical spine. No acute appearing bony a bnormality. Upper chest: negative IMPRESSION: The tongue appears diffusely edematous. There is no focal lesion. There is no evidence of abscess or hematoma. Report Dictated By: Domingo Reyna MD at 07/18/2017 8:21 PM Report E-Signed By: Domingo Reyna MD at 07/18/2017 8:29 PM WSN:[id number]
[2017-07-19] VITALS (62 sets, daily range): BP systolic 92–133; BP diastolic 43–73
[2017-07-19] MEDS: PROPOFOL(*)1000 MG/100 ML VIAL 100 ML IV PRN ×7 (00:47→23:58)
[2017-07-19] MEDS: cefTRIAXone 1 GM VIAL IVP SCH (01:32)
[2017-07-19] MEDS: D5W(*) 1000 ML BAG 1,000 ML IV PRN ×4 (02:18→23:58)
[2017-07-19] MEDS: methylPREDNIS SUCC 125 MG/2ML IVP SCH ×3 (04:21→20:24)
[2017-07-19 05:07] LABS: PLATELET COUNT, AUTOMATED 182 K/uL (150-450)
--- NOTE | 2017-07-19 06:09 | RADIOLOGY IMAGING REPORT ---
FACILITY: [facility] PATIENT NAME: Fatemeh Bunch : 1960 MR: [id number] V: [id number] EXAM DATE: ORDERING PHYSICIAN: RIANNA CINTRON TECHNOLOGIST: Location: [facility] Patient: Fatemeh Bunch : 1960 Visit/Account:[id number] Date of Sevice: 07/19/2017 CHEST SINGLE AP 07/19/2017 06:00 hours. HISTORY: Respiratory failure. COMPARISON: 07/17/2017 and studies dating to 05/15/2007. TECHNIQUE: Portable AP view of the chest. FINDINGS: Tubes/lines/hardware: ET tube terminates 2.7 cm above the truong. Right IJ catheter terminates at the mid superior vena cava. There are external chest leads. NG or OG tube terminates off the inferior x- ray, at least as far as the body of the stomach. Pulmonary: Small bilateral pleural effusions and adjacent bibasilar opacities are unchanged. There is no pneumothorax or pleural effusion. Cardiomediastinal: Cardiac and mediastinal silhouettes are within normal limits. Bones/soft tissues: No acute osseous abnormality. The visible abdomen is normal. IMPRESSION: 1. No significant interval change. Report Dictated By: Karime Snell at 07/19/2017 6:01 AM Report E-Signed By: Karime Snell at 07/19/2017 6:05 AM WSN:[id number]
[2017-07-19] MEDS: PANTOPRAZOLE SOD 40 MG IV VIAL IVP SCH (09:07)
[2017-07-19] MEDS: ENOXAPARIN 40 MG/0.4ML SYR SC SCH (09:14)
[2017-07-19] MEDS: LEVOTHYROXINE SOD 100 MCG VIAL IVP SCH (09:20)
[2017-07-19] MEDS: DOXYCYCLINE HYCL 100 MG VIAL 100 MG in NS(*) 0.9% 250 ML BAG 250 ML IVPB SCH (09:25)
[2017-07-19] MEDS: OLANZapine 5 MG TAB FT SCH ×2 (09:29→20:25)
[2017-07-19] MEDS: LITHIUM CITRATE 300 MG/5 ML PO SCH (09:30)
[2017-07-19] MEDS: FLUoxetine HCL 20 MG CAP FT SCH (09:30)
[2017-07-19] MEDS: ORAL SUCTION/CHLORHX/SWAB KIT MT SCH ×2 (09:30→20:25)
[2017-07-19] MEDS: POTASSIUM CHL 10% SF LIQ 20MEQ PO SCH (09:30)
[2017-07-19] MEDS: TIMOLOL MAL 0.25% OP SOLN 5 ML OU SCH ×2 (09:31→20:24)
[2017-07-19] MEDS: DORZOLAMIDE HCL OU SCH ×2 (09:31→20:24)
--- NOTE | 2017-07-19 12:51 | Hospitalist Progress Note ---
Subjective Progress Notes Subjective This patient was admitted for altered mental status. She remained on the ventilator overnight. There were no acute changes. Patient Complains of: Cardiovascular: No: Chest Pain Respiratory: No: Shortness of Breath Physical Exam Vital Signs Date Time Temp Pulse Resp B/P (MAP) Pulse Ox O2 Delivery O2 Flow Rate FiO2 07/19/17 12:00 98.8 55 16 97/49 (65) 95 Mechanical Ventilator 40.0 07/17/17 18:30 4.0 Intake and Output 07/20/17 06:59 Intake Total 284 ml Output Total 200 ml Balance 84 ml IV Total 284 ml Output Urine Total 200 ml Neuro: Other (Sedated to RASS -2.) Cardiovascular: Regular Rate and Rhythm Respiratory: Other (Bilateral breath sounds present.) GI: Soft and Non-Tender Extremities: No Edema Integumentary: No Cyanosis Result Diagram: 07/19/1745307/19/17453 Item Value Date Time Haena Level 0.9 mmol/L 07/19/17 0814 Item Value Date Time Arterial Blood pH 7.38 07/19/17453 Arterial Blood Partial Pressure CO2 34 mmHg 07/19/17453 Arterial Blood Partial Pressure O2 79 mmHg 07/19/17453 Arterial Blood HCO3 20 mmol/L 07/19/17453 Item Value Date Time Urine Culture - Final Complete 07/13/172042 Cath Urine Escherichia Coli Imaging Chest x-ray reviewed. Assessment and Plan Problems: (1) Respiratory failure Status: Acute Assessment & Plan: She did require intubation and mechanical intervention shortly after admission. She was extubated on on 07/17, but was reintubated later that day. It is reported that the second intubation was technically difficult secondary to airway edema and tongue swelling. She remains on mechanical ventilation this morning. We have started CPAP trials and, thus far , she has tolerated them well. (2) Angioedema Assessment & Plan: She reportedly had tongue swelling and increased airway edema during the second intubation. IV steroids were started. Today she seems to be improved. (3) Altered mental status, unspecified Status: Acute Assessment & Plan: She presented with increased somnolence over the last couple of days (caregivers state it may be more like a month). However, in the ER, she became very sleepy and difficult to awaken. Then, she would wake up, interact with staff, ambulate and go back to sleep. She actively resisted some of the physical exam, but she wouldn't react to a sternal rub or voice. Pyuria , mildly elevated CO2 (normal pH) and an elevated BNP were found on the initial work up. Certainly, an inadvertent extra dose of medication(s) could be the cause, but her medications are administered to her. The [facility] staff counted her pills and no significant extra-dosing was found. Lamotrigine level is in low therapeutic range. She does have an acute UTI. Ammonia is normal. Her respiratory status continued to worsen with increasing PCO2 and decreasing pH. She was intubated and is being ventilated. See above. We would have to question if she has an underlying hypoventilation syndrome like VELASQUEZ and may be exacerbated by the medications. (4) Hypernatremia Status: Acute Assessment & Plan: Secondary to net diuresis since admission. The etiology is unclear, but could be secondary to holding of lamotrigine. She is on 1/2NS and getting free water flushes. Will follow BMP closely. MRI of the brain was technically limited, but no abnormalities are reported. (5) Urinary tract infection Status: Acute Assessment & Plan: Her urine had large leukocytes, but was a contaminated sample. The urine culture was positive for E. coli. She did not have an elevated WBC or fever. She has now completed 3 days of IV ceftriaxone. (6) Edema Status: Chronic Assessment & Plan: Her symptoms started about a month ago. No proteinuria. TSH is normal at 3.84. BNP elevated mildly (220). Echocardiogram shows normal EF of 59% with 2/4 diastolic dysfunction. Right ventricle is borderline enlarged. Aortic valve is sclerotic, but not stenotic. She has trace IN, TI and mild pulmonary HTN with right-sided pressures of 39mmHg. Overall, her weight is down and is having a net diuresis since admission. (7) Schizophrenia Status: Chronic Assessment & Plan: Haena, Lamotrigine, Risperdal, and Olanzapine were held upon admission. Haena level is in therapeutic range (1.0). Lamotrigine level is slightly below therapeutic at 2.4. Olanzapine has been restarted at a reduced dose. Haena has been restarted. Lamotrigine held for concern of edema and Risperdal held for excessive sedation concern. (8) CKD (chronic kidney disease) stage 3, GFR 30-59 ml/min Status: Chronic Assessment & Plan: Creatinine is 1.0 today. She is improved from 2012, but it is unclear what is her baseline. Will follow. Exam Sepsis Risk: No Definite Risk Problem Qualifiers (1) Respiratory failure: Chronicity: acute (2) Altered mental status, unspecified: Altered mental status type: somnolence Qualified Codes: R40.0 - Somnolence (3) Urinary tract infection: Urinary tract infection type: acute cystitis Hematuria presence: without hematuria Qualified Codes: N30.00 - Acute cystitis without hematuria (4) Schizophrenia: Schizophrenia type: unspecified Qualified Codes: F20.9 - Schizophrenia, unspecified AMENA CHOW DO Jul 19, 2017 12:51
[2017-07-19] MEDS: TRAVOPROST OU SCH (20:24)
[2017-07-20] VITALS (46 sets, daily range): BP systolic 100–141; BP diastolic 49–82
[2017-07-20] MEDS: methylPREDNIS SUCC 125 MG/2ML IVP SCH ×3 (03:51→19:56)
[2017-07-20] MEDS: MAGNESIUM HYDROXIDE* 30ML UDCP PO PRN (03:51)
[2017-07-20] MEDS: PROPOFOL(*)1000 MG/100 ML VIAL 100 ML IV PRN ×6 (03:52→22:02)
[2017-07-20 05:06] LABS: PLATELET COUNT, AUTOMATED 188 K/uL (150-450)
--- NOTE | 2017-07-20 06:22 | RADIOLOGY IMAGING REPORT ---
FACILITY: [facility] PATIENT NAME: Fatemeh Bunch : 1960 MR: [id number] V: [id number] EXAM DATE: ORDERING PHYSICIAN: AMENA CHOW TECHNOLOGIST: Location: [facility] [place] Patient: Fatemeh Bunch : 1960 Visit/Account:[id number] Date of Sevice: 07/20/2017 CHEST SINGLE AP 07/20/2017 06:00 hours. HISTORY: Intubated. COMPARISON: 07/19/2017 and studies dating to 05/15/2007. TECHNIQUE: Portable AP view of the chest. FINDINGS: Tubes/lines/hardware: Endotracheal tube terminates 4.3 cm above the truong. NG or OG tube terminates off the inferior x-ray, at least as far as the body of the stomach. Right IJ catheter terminates at t he lower superior vena cava. There are external chest leads. Pulmonary: There are small left larger than right pleural effusions, unchanged. Bibasilar opacities a re unchanged. No pneumothorax. Cardiomediastinal: Cardiac and mediastinal silhouettes are within normal limits. Bones/soft tissues: No acute osseous abnormality. The visible abdomen is normal. IMPRESSION: 1. No significant interval change. Report Dictated By: Karime Snell at 07/20/2017 6:15 AM Report E-Signed By: Karime Snell at 07/20/2017 6:18 AM WSN:[id number]
[2017-07-20] MEDS: D5W(*) 1000 ML BAG 1,000 ML IV PRN ×2 (06:53→22:02)
[2017-07-20] MEDS: BISACODYL 10 MG SUPP PR PRN (06:53)
[2017-07-20] MEDS ORDERED: D5W(*) 1000 ML BAG 1,000 ML IV PRN ×2 (07:36→14:16)
--- NOTE | 2017-07-20 08:13 | Hospitalist Progress Note ---
Subjective Progress Notes Subjective She is tolerating 2 hour PS/PEEP trials. Agitated and not following commands during the sedation vacation yesterday. Physical Exam Vital Signs Date Time Temp Pulse Resp B/P (MAP) Pulse Ox O2 Delivery O2 Flow Rate FiO2 07/20/17 07:25 40.0 07/20/17 07:14 64 15 07/20/17 07:14 92 Mechanical Ventilator 07/20/17 07:00 116/66 (83) 07/20/17 06:00 98.8 07/17/17 18:30 4.0 General Appearance: No Acute Distress Neuro: Other (Sedated and intubated) ENT: Other (Tongue is displaced to the left from the ET tube. It is pink and has wrinkles. It is protruding from the the mouth slightly) Cardiovascular: Regular Rate and Rhythm Respiratory: Clear to Auscultation Extremities: Edema (1+ pitting above ankles.) Result Diagram: 07/20/1745407/20/17454 Assessment and Plan Problems: (1) Respiratory failure Status: Acute Assessment & Plan: May be multifactorial including infection, possible sleep apnea and/or medications. She is easily ventilated. CXR unchanged. She is back olanzapine, but at a reduced dose and back on Applewood. She failed extubation on 07/17 after about 2 hours due to increased WOB, tachycardia, and stridor. She had a very enlarged tongue and required a smaller ET tube to get into the trachea. CT of neck confirmed an enlarged tongue. She is now on steroids. The tongue does appear less protuberant. I will try to discuss with ENT about further options. The patient is doing well with PS/PEEP trials. (2) Altered mental status, unspecified Status: Acute Assessment & Plan: She presented with increased somnolence over the last couple of days (caregivers state it may be more like a month). However, in the ER, she became very sleepy and difficult to awaken. Then, she would wake up, interact with staff, ambulate and go back to sleep. She actively resisted some of the physical exam, but she wouldn't react to a sternal rub or voice. Pyuria , mildly elevated CO2 (normal pH) and an elevated BNP were found on the initial work up. Certainly, an inadvertent extra dose of medication(s) could be the cause, but her medications are administered to her. The [facility] staff counted her pills and no significant extra-dosing was found. Lamotrigine level is in low therapeutic range. She does have an acute UTI. Ammonia is normal. Her respiratory status continued to worsen with increasing PCO2 and decreasing pH. She was intubated and is being ventilated. See above. We would have to question if she has an underlying hypoventilation syndrome like VELASQUEZ and may be exacerbated by the medications. (3) Hypernatremia Status: Acute Assessment & Plan: Secondary to net diuresis since admission. The etiology is unclear, but could be related to the Applewood causing a nephrogenic DI. She is on D5W and getting free water flushes. BMP coming down. Will decrease the D5W to 100cc/hour and check a BMP. MRI of the brain was technically limited, but no abnormalities are reported. (4) Urinary tract infection Status: Acute Assessment & Plan: Her urine had large leukocytes, but was a contaminated sample. The urine culture was positive for E. coli. She did not have an elevated WBC or fever. She has now completed 5 days of IV ceftriaxone, so it was stopped. (5) Edema Status: Chronic Assessment & Plan: Her symptoms started about a month ago. No proteinuria. TSH is normal at 3.84. BNP elevated mildly (220). Echocardiogram shows normal EF of 59% with 2/4 diastolic dysfunction. Right ventricle is borderline enlarged. Aortic valve is sclerotic, but not stenotic. She has trace SC, TI and mild pulmonary HTN with right-sided pressures of 39mmHg. Overall, her weight is down and is having a net diuresis since admission. (6) Schizophrenia Status: Chronic Assessment & Plan: Applewood, Lamotrigine, Risperdal, and Olanzapine were held upon admission. Applewood level is in therapeutic range (1.0). Lamotrigine level is slightly below therapeutic at 2.4. Olanzapine has been restarted at a reduced dose. Applewood was restarted, but then stopped secondary to concern it is causing DI, per Dr. Hoff's recommendation. Lamotrigine held for concern of edema and Risperdal held for excessive sedation concern. Dr. Hoff recommended restarting Lamotrigine because the patient has been on it for a long time. Will confirm with the [facility] staff that they have been administrating it. (7) CKD (chronic kidney disease) stage 3, GFR 30-59 ml/min Status: Chronic Assessment & Plan: Creatinine is 1.0 today. She is improved from 2012, but it is unclear what is her baseline. Will stop FT KCL today. Will follow. Exam Sepsis Risk: No Definite Risk Problem Qualifiers (1) Respiratory failure: Chronicity: acute (2) Altered mental status, unspecified: Altered mental status type: somnolence Qualified Codes: R40.0 - Somnolence (3) Urinary tract infection: Urinary tract infection type: acute cystitis Hematuria presence: without hematuria Qualified Codes: N30.00 - Acute cystitis without hematuria (4) Schizophrenia: Schizophrenia type: unspecified Qualified Codes: F20.9 - Schizophrenia, unspecified RIANNA CINTRON MD Jul 20, 2017 08:13
[2017-07-20] MEDS: TIMOLOL MAL 0.25% OP SOLN 5 ML OU SCH ×2 (09:18→21:06)
[2017-07-20] MEDS: LEVOTHYROXINE SOD 100 MCG VIAL IVP SCH (09:19)
[2017-07-20] MEDS: ENOXAPARIN 40 MG/0.4ML SYR SC SCH (09:20)
[2017-07-20] MEDS: FLUoxetine HCL 10 MG CAP FT SCH (09:22)
[2017-07-20] MEDS: OLANZapine 5 MG TAB FT SCH ×2 (09:22→21:06)
[2017-07-20] MEDS: ORAL SUCTION/CHLORHX/SWAB KIT MT SCH ×2 (09:23→21:06)
[2017-07-20] MEDS: PANTOPRAZOLE SOD 40 MG IV VIAL IVP SCH (09:25)
[2017-07-20] MEDS: DORZOLAMIDE HCL OU SCH ×2 (09:27→21:07)
[2017-07-20] MEDS ORDERED: NS 0.9% 50 ML VIAL 50 ML ONE (11:45)
[2017-07-20] MEDS ORDERED: IOPAMIDOL 76% 75 ML INFUS BTL 75 ML ONE (11:45)
--- NOTE | 2017-07-20 14:12 | RADIOLOGY IMAGING REPORT ---
FACILITY: [facility] - [place] PATIENT NAME: Fatemeh Bunch : 1960 MR: [id number] V: [id number] EXAM DATE: ORDERING PHYSICIAN: RIANNA CINTRON TECHNOLOGIST: Location: [facility] Patient: Fatemeh Bunch : 1960 Visit/Account:[id number] Date of Sevice: 07/20/2017 CT neck with and without contrast Comparison: June 18, 2017 Additional pertinent history: Enlarged tongue with laryngeal edema TECHNIQUE: Multiple axial images were obtained from the mid portion of the brain through the superio r mediastinum with and without IV contrast. Coronal and sagittal reformatted images were obtained o ff the axial source data. One of the following dose optimization techniques was utilized in the perf ormance of this exam: Automated exposure control; adjustment of the mA and/or kV according to the pat ient's size; or use of an iterative reconstruction technique. Specific details can be referenced in the facility's radiology CT exam operational policy. CONTRAST: 75 mL of Isovue-370 FINDINGS: Visualized portions of the brain parenchyma:Negative Parotid glands/submandibular glands/thyroid: Negative Orbits: Negative Paranasal sinuses: Moderate lobular mucosal thickening involving both maxillary sinuses. Parapharyngeal spaces: Negative Nasopharynx/oropharynx/hypopharynx: Negative Tonsillar pillars: Negative Oral tongue/tongue base: Continued edematous changes involving the tongue without a focal lesion. True and false cords: Negative Lymph node assessment:Negative Surrounding soft tissues: Negative Vasculature: Negative Life-support: Right internal jugular venous catheter extending into the superior vena cava. Endotrac heal tube terminating above the truong. NG tube coursing through the oral and hypopharynx into the p roximal esophagus. Osseous structures: Spondylitic change involving the lower cervical spine. Lung apices: Mild atelectatic changes involving both lung apices. IMPRESSION: 1. Stable appearing edematous changes involving the time. 2. Stable life support. 3. No new findings from previous exam. Report Dictated By: Pato Chaudhari MD at 07/20/2017 2:01 PM Report E-Signed By: Pato Chaudhari MD at 07/20/2017 2:08 PM [id number]
--- NOTE | 2017-07-20 16:09 | Medical Nutrition Therapy ---
Nutrition Anthropometrics Height (Inches): 66.00 Height (Calculated Centimeters: 167.946891 Weight (Pounds): 205 Weight (Calculated Kilograms): 93.213 BMI Calculated: 34.21 Chris Nutrition Score: Adequate Chris Nutrition Risk Score: 13 Dietary Referral Nutrition Risk Factors: Nutrition Risk Comment: Physical Findings Physical Appearance: Obese BMI 30-39 Skin Appearance Skin Appearance: Edema Edema Location Modifier: Right Edema Location: Hand Type of Edema: Degree of Edema: 1+ Gastrointestinal Symptoms GI Symtoms: Tube Present: OG Bowel Sounds: Recent Bowel Pattern: Stool Characteristics: Nutritional Diagnosis Nutritional Risk Acuity 2: Tube Feed Stable, Swallowing Problem Past Medical History: Edema, GERD, hyperlipidemia, schizophrenia Nutritional Acuity: 2-Moderate Nutrition Diagnosis: Increased Nutrient Needs Nutrition Etiology: Physiological Causes Nutrition Problem/Etiology/Sym: Increased nutr needs related to physiological causes as evidenced by sedation, intubation and respiratory distress. Adjusted Energy Requirement Re: 1780 ([id number] (actual BW)) Protein Requirement: 59 (59-70 g/kg adjusted BW) Fluid Requirement: 1780 (25 ml/kg) Diet Type: Tube Feeding (TF) Nutrition Intervention: Incr diet as tolerated Drug: Diuretics Drug/Nutrition Recommendations: Check Serum K+ Nutritional Support Current Enteral / Parental: Tube Feeding Tube Feeding Formulas: Osmolite 1cal/ml-Isotonic, Specialty Formula (Promote) Current Tube Feeding Formula C: final rate 65 ml/hr Tube Feeding Supplement Streng: Full Rate: 65 ml/hr Current Duration: 24 Current Calories: 1560 Current Protein: 97 Current Lipids Calories: 678 (propofol at 25.7/mls/hr) Total Current Calories: 2238 Automatic H2O Flush (_ml every: 80 q 6 Recommended Enteral / Parental: Tube Feeding Recommended Tube Feeding Formu: Specialty Formula (promote) Tube Feeding Supplement Streng: Full Recommended Duration: 24 Recommended Calories: 1200 Recommended Protein: 75 Recommended Lipids Calories: 678 Total Recommended Calories: 1758 Nutrition Monitoring & Eval Nutritional Goals Comment: TF will meet nutr needs until oral intake can meet needs RD Patient Assessment Time: [address] Assessment Type: RD Re-Assessment Patient Nutrition Acuity: 2-Moderate Follow Up Date: Jul 24, 2017 Nutritional Comment: 12/2 Pt with PMH of schizophrenia admitted with SOB and AMS. Caretakers noting wt gain. Currently has 2+ pitting edema in both LE and on diuretic. Intubated and sedated on 34.7 ml/hr Propofol. Diet NPO day 1. Recommend nutrition support if NPO for >3 days. Notable labs include creatinine 1.3, alb WNL. Will cont to monitor. 07/15 Pt to start TF today at 30 ml/hr for a final rate of 80 ml/hr. This current TF prescription will overfeed pt due to propofol at 23.1 ml/hr. Recommend decreasing goal rate to 65 ml/hr which with propofol, will provide 2262 calories and 69 g protein. This will meet 111% and 98% of calorie and protien needs respectively. Please provide 80ml free water q 6 hr to meet remainder of fluid needs. Notable labs include Na 149, K 3.3, total pro 6.2 and alb 3.2. Will cont to monitor and remain available for consult. 07/17 TF changed to 65ml/hr Osmolite. Providing 1653 kcal, 69gm protein and meeting 93% est kcal and 117% est protein needs. Pt is no longer recieving propofol. Pt tolerating TF with minimal residuals. Alb cont low at 3. 07/21 TF changed to 65ml/hr promote plus propofol. Providing 2238 kcal, 97gm protein and meeting 125% est kcal and 117% est protein needs. Since BMI is in class 1 obestiy range, recommend reduce rate to 50ml/hr to provide 1758 kcal with propofol and 75gm protein to meet nutr needs without overfeeding. Pt tolerating TF with minimal residuals. Alb cont low at 2.9. Will cont to monitor. CORBY CAZARES Jul 20, 2017 16:09
[2017-07-20] MEDS: TRAVOPROST OU SCH (21:07)
[2017-07-21] VITALS (48 sets, daily range): BP systolic 116–146; BP diastolic 57–77
[2017-07-21] MEDS: methylPREDNIS SUCC 125 MG/2ML IVP SCH ×3 (04:12→19:46)
[2017-07-21] MEDS: MAGNESIUM HYDROXIDE* 30ML UDCP PO PRN (04:12)
[2017-07-21] MEDS: D5W(*) 1000 ML BAG 1,000 ML IV PRN ×2 (04:12→12:57)
[2017-07-21] MEDS: PROPOFOL(*)1000 MG/100 ML VIAL 100 ML IV PRN ×6 (04:13→21:16)
[2017-07-21 05:14] LABS: PLATELET COUNT, AUTOMATED 194 K/uL (150-450)
--- NOTE | 2017-07-21 06:18 | RADIOLOGY IMAGING REPORT ---
FACILITY: [facility] - [place] PATIENT NAME: Fatemeh Bunch : 1960 MR: [id number] V: [id number] EXAM DATE: ORDERING PHYSICIAN: RIANNA CINTRON TECHNOLOGIST: Location: [facility] Patient: Fatemeh Bunch : 1960 Visit/Account:[id number] Date of Sevice: 07/21/2017 SINGLE AP RADIOGRAPH OF THE CHEST 07/21/2017 6:00 AM. INDICATION: INTUBATED COMPARISON: 07/20/2017. FINDINGS: Support line and tubes are unchanged. Unchanged small left pleural effusion and basilar consolidatio n/atelectasis. No apparent pneumothorax. Heart size is normal. IMPRESSION: No significant change. Report Dictated By: Rock Hough MD at 07/21/2017 6:12 AM Report E-Signed By: Rock Hough MD at 07/21/2017 6:13 AM WSN:[id number]
--- NOTE | 2017-07-21 08:16 | Hospitalist Progress Note ---
Subjective Progress Notes Subjective Sedated on ventilator. Physical Exam Vital Signs Date Time Temp Pulse Resp B/P (MAP) Pulse Ox O2 Delivery O2 Flow Rate FiO2 07/21/17 07:20 40.0 07/21/17 07:15 92 Mechanical Ventilator 07/21/17 07:04 52 15 07/21/17 07:00 130/71 (90) 07/21/17 06:00 99.4 07/17/17 18:30 4.0 General Appearance: Other (sedated) ENT: Other (ET/OG tubes in place. Tongue appears much less prominent.) Neck: Other (Right IJ line in place/dressed.) Cardiovascular: Regular Rate and Rhythm Respiratory: Other (Essentially clear) GI: Other (Soft/BS present) Extremities: Warm, Perfused, Edema (trace dependent) Integumentary: Skin Intact without Lesion / Mass Result Diagram: 07/21/1744807/21/17448 Item Value Date Time Blood Gas Puncture Site Right radial 07/21/17448 Blood Gas Patient Temperature 99.8 DEGREES 07/21/17448 Arterial Blood pH 7.39 07/21/17448 Arterial Blood Partial Pressure CO2 38 mmHg H 07/21/17448 Arterial Blood Partial Pressure O2 74 mmHg 07/21/17448 Arterial Blood HCO3 23 mmol/L 07/21/17448 Arterial Blood Oxygen Saturation 95 % 07/21/17448 Arterial Blood Base Excess -2.0 mmol/L 07/21/17448 Javier Test Acceptable 07/21/17448 Oxygen Liters/Minute 40% 07/21/17448 Albumin 2.8 g/dl L 07/21/17448 Total Protein 5.5 gm/dl L 07/21/17448 Alkaline Phosphatase 59 U/L 07/21/179 Alanine Aminotransferase (ALT/SGPT) 146 U/L H 07/21/17 0449 Aspartate Amino Transf (AST/SGOT) 63 U/L H 07/21/17448 Total Bilirubin 0.5 mg/dl 07/21/179 Calcium Level 9.3 mg/dl 07/21/17448 Imaging PATIENT NAME: Fatemeh Bunch : 1960 MR: [id number] V: [id number] EXAM DATE: ORDERING PHYSICIAN: RIANNA CINTRON TECHNOLOGIST: Location: [facility] - [place] Patient: Fatemeh Bunch : 1960 Visit/Account:[id number] Date of Sevice: 07/21/2017 SINGLE AP RADIOGRAPH OF THE CHEST 07/21/2017 6:00 AM. INDICATION: INTUBATED COMPARISON: 07/20/2017. FINDINGS: Support line and tubes are unchanged. Unchanged small left pleural effusion and basilar consolidation/atelectasis. No apparent pneumothorax. Heart size is normal. IMPRESSION: No significant change. Report Dictated By: Rock Hough MD at 07/21/2017 6:12 AM Report E-Signed By: Rock Hough MD at 07/21/2017 6:13 AM WSN:[id number] PATIENT NAME: Fatemeh Bunch : 1960 MR: [id number] V: [id number] EXAM DATE: [id number] ORDERING PHYSICIAN: RIANNA CINTRON TECHNOLOGIST: Location: [facility] - [place] Patient: Fatemeh Bunch : 1960 Visit/Account:[id number] Date of Sevice: 07/20/2017 CT neck with and without contrast Comparison: June 18, 2017 Additional pertinent history: Enlarged tongue with laryngeal edema TECHNIQUE: Multiple axial images were obtained from the mid portion of the brain through the superior mediastinum with and without IV contrast. Coronal and sagittal reformatted images were obtained off the axial source data. One of the following dose optimization techniques was utilized in the performance of this exam: Automated exposure control; adjustment of the mA and/or kV according to the patient's size; or use of an iterative reconstruction technique. Specific details can be referenced in the facility's radiology CT exam operational policy. CONTRAST: 75 mL of Isovue-370 FINDINGS: Visualized portions of the brain parenchyma:Negative Parotid glands/submandibular glands/thyroid: Negative Orbits: Negative Paranasal sinuses: Moderate lobular mucosal thickening involving both maxillary sinuses. Parapharyngeal spaces: Negative Nasopharynx/oropharynx/hypopharynx: Negative Tonsillar pillars: Negative Oral tongue/tongue base: Continued edematous changes involving the tongue without a focal lesion. True and false cords: Negative Lymph node assessment:Negative Surrounding soft tissues: Negative Vasculature: Negative Life-support: Right internal jugular venous catheter extending into the superior vena cava. Endotracheal tube terminating above the truong. NG tube coursing through the oral and hypopharynx into the proximal esophagus. Osseous structures: Spondylitic change involving the lower cervical spine. Lung apices: Mild atelectatic changes involving both lung apices. IMPRESSION: 1. Stable appearing edematous changes involving the time. 2. Stable life support. 3. No new findings from previous exam. Report Dictated By: Pato Chaudhari MD at 07/20/2017 2:01 PM Report E-Signed By: Pato Chaudhari MD at 07/20/2017 2:08 PM WSN:[id number] Assessment and Plan Problems: (1) Respiratory failure Status: Acute Assessment & Plan: May be multifactorial including infection, possible sleep apnea and/or medications. She is easily ventilated. CXR unchanged. She is back olanzapine, but at a reduced dose. She is off Bullard and Risperdal. She failed extubation on 07/17 after about 2 hours due to increased WOB, tachycardia, and stridor. She had a very enlarged tongue and required a smaller ET tube to get into the trachea. CT of neck confirmed an enlarged tongue. She is now on steroids. The tongue does appear less protuberant. ENT - Dr. Acevedo will be able to see her in a day or two. Will have her on SIMV at a rate of 8 with PS 15 (due to small size of ET tube - 6.5). Will plan on NOT extubating until ENT has a chance to see her. (2) Altered mental status, unspecified Status: Acute Assessment & Plan: She presented with increased somnolence over the last couple of days (caregivers state it may be more like a month). However, in the ER, she became very sleepy and difficult to awaken. Then, she would wake up, interact with staff, ambulate and go back to sleep. She actively resisted some of the physical exam, but she wouldn't react to a sternal rub or voice. Pyuria , mildly elevated CO2 (normal pH) and an elevated BNP were found on the initial work up. Certainly, an inadvertent extra dose of medication(s) could be the cause, but her medications are administered to her. The [facility] staff counted her pills and no significant extra-dosing was found. Lamotrigine level was in low therapeutic range - now stopped. She did have an acute UTI. Ammonia was normal. Her respiratory status continued to worsen with increasing PCO2 and decreasing pH. She was intubated and is being ventilated. See above. We would have to question if she has an underlying hypoventilation syndrome like VELASQUEZ and may be exacerbated by the medications. (3) Hypernatremia Status: Acute Assessment & Plan: Secondary to net diuresis since admission. The etiology is unclear, but could be related to the Bullard causing a nephrogenic DI. She is on D5W and getting free water flushes. Sodium is now coming back down. MRI of the brain was technically limited, but no abnormalities are reported. She is on D5W at 175cc/hr and getting free water flushes (100ml q6hrs). Will try low dose DDAVP and see if we can cut back on IV fluids. (4) Urinary tract infection Status: Acute Assessment & Plan: Her urine had large leukocytes, but was a contaminated sample. The urine culture was positive for E. coli. She did not have an elevated WBC or fever. She has now completed 5 days of IV ceftriaxone, so it was stopped. (5) Edema Status: Chronic Assessment & Plan: Her symptoms started about a month ago. No proteinuria. TSH is normal at 3.84. BNP elevated mildly (220). Echocardiogram shows normal EF of 59% with 2/4 diastolic dysfunction. Right ventricle is borderline enlarged. Aortic valve is sclerotic, but not stenotic. She has trace TX, TI and mild pulmonary HTN with right-sided pressures of 39mmHg. Overall, her weight is down and is having a net diuresis since admission. (6) Schizophrenia Status: Chronic Assessment & Plan: Bullard, Lamotrigine, Risperdal, and Olanzapine were held upon admission. Bullard level was in therapeutic range (1.0). Lamotrigine level is slightly below therapeutic at 2.4. Olanzapine has been restarted at a reduced dose. Bullard was restarted, but then stopped secondary to concern it is causing DI, per Dr. Hoff's recommendation. Lamotrigine held for concern of edema and Risperdal held for excessive sedation concern. (7) CKD (chronic kidney disease) stage 3, GFR 30-59 ml/min Status: Chronic Assessment & Plan: Creatinine is 1.0 today. She is improved from 2012, but it is unclear what is her baseline. Will follow. Exam Sepsis Risk: No Definite Risk Problem Qualifiers (1) Respiratory failure: Chronicity: acute (2) Altered mental status, unspecified: Altered mental status type: somnolence Qualified Codes: R40.0 - Somnolence (3) Urinary tract infection: Urinary tract infection type: acute cystitis Hematuria presence: without hematuria Qualified Codes: N30.00 - Acute cystitis without hematuria (4) Schizophrenia: Schizophrenia type: unspecified Qualified Codes: F20.9 - Schizophrenia, unspecified JODI CARPENTER MD Jul 21, 2017 08:16
[2017-07-21] MEDS ORDERED: ALTEPLASE RECOMB 2 MG VIAL IVP ONE (08:45)
[2017-07-21] MEDS ORDERED: DESMOPRESSIN ACET IVP SCH (09:00)
[2017-07-21] MEDS: BISACODYL 10 MG SUPP PR PRN (09:08)
[2017-07-21] MEDS: RANITIDINE 150 MG/10 ML UDC FT SCH ×2 (09:12→20:59)
[2017-07-21] MEDS: OLANZapine 5 MG TAB FT SCH ×2 (09:12→21:01)
[2017-07-21] MEDS: FLUoxetine HCL 10 MG CAP FT SCH (09:13)
[2017-07-21] MEDS: DORZOLAMIDE HCL OU SCH ×2 (09:13→21:00)
[2017-07-21] MEDS: LEVOTHYROXINE SOD 100 MCG VIAL IVP SCH (09:14)
[2017-07-21] MEDS: ENOXAPARIN 40 MG/0.4ML SYR SC SCH (09:15)
[2017-07-21] MEDS: TIMOLOL MAL 0.25% OP SOLN 5 ML OU SCH ×2 (09:17→21:00)
[2017-07-21] MEDS: ORAL SUCTION/CHLORHX/SWAB KIT MT SCH ×2 (09:18→21:00)
[2017-07-21] MEDS: PANTOPRAZOLE SOD 40 MG IV VIAL IVP SCH (09:18)
[2017-07-21] MEDS: ACETAMINOPHEN 500 MG TAB PO PRN (12:10)
[2017-07-21] MEDS ORDERED: DESMOPRESSIN ACET IVP ONE (13:15)
[2017-07-21] MEDS: CEFEPIME HCL 2 GM VIAL IVP SCH (17:15)
[2017-07-21] MEDS: ACETAMINOPHEN(*)1000 MG/100 ML 100 ML IVPB PRN (17:22)
[2017-07-21] MEDS: VANCOMYCIN(*) 1 GM VIAL 1 GM, VANCOMYCIN (*) 0.5 GM VIAL 0.5 GM in NS(*) 0.9% 250 ML BA... IVPB SCH (17:59)
[2017-07-21] MEDS: DESMOPRESSIN ACET IVP SCH (21:00)
[2017-07-21] MEDS: TRAVOPROST OU SCH (21:00)
[2017-07-22] VITALS (48 sets, daily range): BP systolic 109–142; BP diastolic 55–80
[2017-07-22] MEDS: PROPOFOL(*)1000 MG/100 ML VIAL 100 ML IV PRN ×6 (01:25→20:35)
[2017-07-22] MEDS: methylPREDNIS SUCC 125 MG/2ML IVP SCH ×3 (04:04→19:53)
[2017-07-22] MEDS: D5W(*) 1000 ML BAG 1,000 ML IV PRN ×2 (04:04→20:27)
[2017-07-22 05:19] LABS: PLATELET COUNT, AUTOMATED 162 K/uL (150-450)
[2017-07-22] MEDS: CEFEPIME HCL 2 GM VIAL IVP SCH ×2 (05:35→17:25)
[2017-07-22] MEDS: MAGNESIUM HYDROXIDE* 30ML UDCP PO PRN (05:35)
[2017-07-22] MEDS: VANCOMYCIN(*) 1 GM VIAL 1 GM, VANCOMYCIN (*) 0.5 GM VIAL 0.5 GM in NS(*) 0.9% 250 ML BA... IVPB SCH ×2 (05:36→18:07)
[2017-07-22] MEDS ORDERED: MAGNESIUM CITRATE 300 ML BTL PO ONE (07:50)
--- NOTE | 2017-07-22 08:12 | Hospitalist Progress Note ---
Subjective Progress Notes Subjective The patient remains intubated and sedated. Physical Exam Vital Signs Date Time Temp Pulse Resp B/P (MAP) Pulse Ox O2 Delivery O2 Flow Rate FiO2 07/22/17 07:30 64 15 142/70 (94) 90 Mechanical Ventilator 40.0 07/22/17 06:00 98.8 Intake and Output 07/23/17 06:59 Intake Total 0 ml Output Total 350 ml Balance -350 ml Intake Oral 0 ml Output Urine Total 350 ml General Appearance: Other (Sedated.) Neuro: No Gross deficits ENT: Other (Tongue protrudes slightly from mouth. Does not appear to be significantly swollen.) Neck: Other (Central line (jugular) clean, dry, no redness or drainage.) Cardiovascular: Regular Rate and Rhythm Respiratory: Clear to Auscultation GI: Soft and Non-Tender, Other (BS quiet.) Extremities: Warm, Perfused, Other (Trace edema.) Integumentary: Skin Intact without Lesion / Mass Psych: Other (Sedated.) Result Diagram: 07/22/1744907/22/17449 Item Value Date Time Calcium Level 9.2 mg/dl 07/22/17449 Total Bilirubin 0.4 mg/dl 07/22/17449 Aspartate Amino Transf (AST/SGOT) 57 U/L H 07/22/17449 Alanine Aminotransferase (ALT/SGPT) 179 U/L H 07/22/17449 Alkaline Phosphatase 58 U/L 07/22/17449 Total Protein 5.7 gm/dl L 07/22/17449 Albumin 2.9 g/dl L 07/22/17449 Urine Osmolality 350 mosm/K L 07/21/17 2200 Blood Gas Puncture Site Left radial 07/22/17454 Blood Gas Patient Temperature 99.4 DEGREES 07/22/17454 Arterial Blood pH 7.42 07/22/17454 Arterial Blood Partial Pressure CO2 38 mmHg H 07/22/17454 Arterial Blood Partial Pressure O2 69 mmHg 07/22/17454 Arterial Blood HCO3 25 mmol/L 07/22/17454 Arterial Blood Oxygen Saturation 94 % 07/22/17454 Arterial Blood Base Excess 0.0 mmol/L 07/22/17454 Javier Test Acceptable 07/22/17454 Oxygen Liters/Minute 40% 07/22/17454 Urine and blood cultures pending from 07/21/17 Imaging FACILITY: [facility] PATIENT NAME: Fatemeh Bunch : 1960 MR: [id number] V: [id number] EXAM DATE: ORDERING PHYSICIAN: RIANNA CINTRON TECHNOLOGIST: Location: [facility] - [place] Patient: Fatemeh Bunch : 1960 Visit/Account:[id number] Date of Sevice: 07/21/2017 SINGLE AP RADIOGRAPH OF THE CHEST 07/21/2017 6:00 AM. INDICATION: INTUBATED COMPARISON: 07/20/2017. FINDINGS: Support line and tubes are unchanged. Unchanged small left pleural effusion and basilar consolidation/atelectasis. No apparent pneumothorax. Heart size is normal. IMPRESSION: No significant change. Report Dictated By: Rock Hough MD at 07/21/2017 6:12 AM Report E-Signed By: Rock Hough MD at 07/21/2017 6:13 AM Assessment and Plan Problems: (1) Respiratory failure Status: Acute Assessment & Plan: May be multifactorial including infection, possible sleep apnea and/or medications. She is easily ventilated. CXR unchanged. She is back olanzapine, but at a reduced dose. She is off [place] and Risperdal. She failed extubation on 07/17 after about 2 hours due to increased WOB, tachycardia, and stridor. She had a very enlarged tongue and required a smaller ET tube to get into the trachea. CT of neck confirmed an enlarged tongue. She is now on steroids. The tongue does appear less protuberant. ENT - Dr. Acevedo will evaluate her on 07/23/17. Will have her on SIMV at a rate of 8 with PS 15 (due to small size of ET tube - 6.5). Will plan on NOT extubating until ENT has a chance to see her. (2) Altered mental status, unspecified Status: Acute Assessment & Plan: She presented with increased somnolence over the 2 days ACTUARIAL INTERN (caregivers state it may be more like a month). However, in the ER, she became very sleepy and difficult to awaken. Then, she would wake up, interact with staff, ambulate and go back to sleep. She actively resisted some of the physical exam, but she wouldn't react to a sternal rub or voice. Pyuria, mildly elevated CO2 (normal pH) and an elevated BNP were found on the initial work up. Certainly, an inadvertent extra dose of medication(s) could be the cause, but her medications are administered to her. The [facility] staff counted her pills and no significant extra-dosing was found. Lamotrigine level was in low therapeutic range - now stopped. She did have an acute UTI. Ammonia was normal. Her respiratory status continued to worsen with increasing PCO2 and decreasing pH. She was intubated and is being ventilated. See above. We would have to question if she has an underlying hypoventilation syndrome like VELASQUEZ and may be exacerbated by the medications. (3) Hypernatremia Status: Acute Assessment & Plan: Secondary to net diuresis since admission. The etiology is unclear, but could be related to the [place] causing a nephrogenic DI. She is on D5W and getting free water flushes. Sodium is now coming back down. MRI of the brain was technically limited, but no abnormalities are reported. She is on D5W at 75cc/hr and getting free water flushes (100ml q3hrs). On DDAVP bid. 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 Will continue to monitor closely. Repeat urine osmolality this afternoon. (4) Urinary tract infection Status: Acute Assessment & Plan: Her urine had large leukocytes, but was a contaminated sample. The urine culture was positive for E. coli. She did not have an elevated WBC or fever. She has now completed 5 days of IV ceftriaxone, so it was stopped. UA and culture repeated on 07/21/17 due to fever. (5) Edema Status: Chronic Assessment & Plan: Her symptoms started about a month ago. No proteinuria. TSH is normal at 3.84. BNP elevated mildly (220). Echocardiogram shows normal EF of 59% with 2/4 diastolic dysfunction. Right ventricle is borderline enlarged. Aortic valve is sclerotic, but not stenotic. She has trace CA, TI and mild pulmonary HTN with right-sided pressures of 39mmHg. Overall, her weight is down and is having a net diuresis since admission. (6) Schizophrenia Status: Chronic Assessment & Plan: [place], Lamotrigine, Risperdal, and Olanzapine were held upon admission. [place] level was in therapeutic range (1.0). Lamotrigine level is slightly below therapeutic at 2.4. Olanzapine has been restarted at a reduced dose. [place] was restarted, but then stopped secondary to concern it is causing DI, per Dr. Hoff's recommendation. Lamotrigine held for concern of edema and Risperdal held for excessive sedation concern. (7) CKD (chronic kidney disease) stage 3, GFR 30-59 ml/min Status: Chronic Assessment & Plan: Creatinine is 1.0 today. She is improved from 2011, but it is unclear what is her baseline. Will follow. Time Spent on Plan of Care: < 30 min Exam Sepsis Risk: No Definite Risk Problem Qualifiers (1) Respiratory failure: Chronicity: acute (2) Altered mental status, unspecified: Altered mental status type: somnolence Qualified Codes: R40.0 - Somnolence (3) Urinary tract infection: Urinary tract infection type: acute cystitis Hematuria presence: without hematuria Qualified Codes: N30.00 - Acute cystitis without hematuria (4) Schizophrenia: Schizophrenia type: unspecified Qualified Codes: F20.9 - Schizophrenia, unspecified CASSIUS CARPENTER MD Jul 22, 2017 08:12
[2017-07-22] MEDS: PANTOPRAZOLE SOD 40 MG IV VIAL IVP SCH (08:22)
[2017-07-22] MEDS: OLANZapine 5 MG TAB FT SCH ×2 (08:22→20:27)
[2017-07-22] MEDS: FLUoxetine HCL 10 MG CAP FT SCH (08:23)
[2017-07-22] MEDS: ENOXAPARIN 40 MG/0.4ML SYR SC SCH (08:23)
[2017-07-22] MEDS: RANITIDINE 150 MG/10 ML UDC FT SCH ×2 (08:23→20:27)
[2017-07-22] MEDS: DORZOLAMIDE HCL OU SCH ×2 (08:35→20:27)
[2017-07-22] MEDS: TIMOLOL MAL 0.25% OP SOLN 5 ML OU SCH ×2 (08:39→20:27)
[2017-07-22] MEDS: DESMOPRESSIN ACET IVP SCH ×2 (09:22→20:28)
[2017-07-22] MEDS: ORAL SUCTION/CHLORHX/SWAB KIT MT SCH ×2 (09:22→20:28)
[2017-07-22] MEDS: LEVOTHYROXINE SOD 100 MCG VIAL IVP SCH (09:29)
[2017-07-22] MEDS: TRAVOPROST OU SCH (20:27)
[2017-07-23] VITALS (47 sets, daily range): BP systolic 115–140; BP diastolic 58–78
[2017-07-23] MEDS: PROPOFOL(*)1000 MG/100 ML VIAL 100 ML IV PRN ×5 (00:23→22:20)
[2017-07-23] MEDS: methylPREDNIS SUCC 125 MG/2ML IVP SCH ×3 (04:25→20:19)
[2017-07-23] MEDS: CEFEPIME HCL 2 GM VIAL IVP SCH (04:49)
[2017-07-23 05:29] LABS: PLATELET COUNT, AUTOMATED 143 K/uL (150-450)
[2017-07-23] MEDS: MAGNESIUM HYDROXIDE* 30ML UDCP PO PRN (05:37)
[2017-07-23] MEDS: VANCOMYCIN(*) 1 GM VIAL 1 GM, VANCOMYCIN (*) 0.5 GM VIAL 0.5 GM in NS(*) 0.9% 250 ML BA... IVPB SCH (05:38)
--- NOTE | 2017-07-23 06:16 | RADIOLOGY IMAGING REPORT ---
FACILITY: [facility] - [place] PATIENT NAME: Fatemeh Bunch : 1960 MR: [id number] V: [id number] EXAM DATE: ORDERING PHYSICIAN: CASSIUS CARPENTER TECHNOLOGIST: Location: [facility] - [place] Patient: Fatemeh Bunch : 1960 Visit/Account:[id number] Date of Sevice: 07/23/2017 SINGLE AP RADIOGRAPH OF THE CHEST 07/23/2017 6:00 AM. INDICATION: Intubated COMPARISON: 07/20/2017. FINDINGS: Patient is rotated to the right. Support line and tubes are likely unchanged. Unchanged small left pleural effusion and basilar consolidation/atelectasis. No apparent pneumothorax. Heart size is nor mal. IMPRESSION: No significant change. Report Dictated By: Rock Hough MD at 07/23/2017 6:02 AM Report E-Signed By: Rock Hough MD at 07/23/2017 6:11 AM WSN:[id number]
[2017-07-23] MEDS: DORZOLAMIDE HCL OU SCH ×2 (08:43→20:20)
[2017-07-23] MEDS: PANTOPRAZOLE SOD 40 MG IV VIAL IVP SCH (08:44)
[2017-07-23] MEDS: ENOXAPARIN 40 MG/0.4ML SYR SC SCH (08:48)
[2017-07-23] MEDS: ORAL SUCTION/CHLORHX/SWAB KIT MT SCH ×2 (08:49→20:21)
[2017-07-23] MEDS: TIMOLOL MAL 0.25% OP SOLN 5 ML OU SCH ×2 (08:52→20:20)
[2017-07-23] MEDS: DESMOPRESSIN ACET IVP SCH (08:53)
[2017-07-23] MEDS: OLANZapine 5 MG TAB FT SCH ×2 (08:54→20:20)
[2017-07-23] MEDS: RANITIDINE 150 MG/10 ML UDC FT SCH ×2 (08:54→20:18)
[2017-07-23] MEDS: FLUoxetine HCL 10 MG CAP FT SCH (08:54)
[2017-07-23] MEDS: LEVOTHYROXINE SOD 100 MCG VIAL IVP SCH (08:56)
--- NOTE | 2017-07-23 09:58 | Hospitalist Progress Note ---
Subjective Progress Notes Subjective This patient was admitted for airway obstruction. She had no acute events overnight. Patient Complains of: Cardiovascular: No: Chest Pain Respiratory: No: Shortness of Breath Physical Exam Vital Signs Date Time Temp Pulse Resp B/P (MAP) Pulse Ox O2 Delivery O2 Flow Rate FiO2 07/23/17 09:16 72 15 07/23/17 09:13 45.0 07/23/17 07:45 90 Mechanical Ventilator 07/23/17 06:30 140/76 (97) 07/23/17 05:00 98.4 Neuro: Other (Sedated to RASS -2.) Cardiovascular: Regular Rate and Rhythm Respiratory: Other (Bilateral breath sounds present.) Extremities: No Edema Integumentary: No Cyanosis Result Diagram: 07/23/17 0503 07/23/17 0503 Item Value Date Time Arterial Blood pH 7.42 07/23/17 0500 Arterial Blood Partial Pressure CO2 40 mmHg H 07/23/17 0500 Arterial Blood Partial Pressure O2 71 mmHg 07/23/17 0500 Arterial Blood HCO3 26 mmol/L 07/23/17 0500 Item Value Date Time Urine Culture - Preliminary Resulted 07/21/17 1650 Cath Urine NO GROWTH SO FAR, SET LATE. REINCUBATED Blood Culture - Preliminary Resulted 07/21/17 1650 Blood NO GROWTH AFTER 1 DAY, REINCUBATED Blood Culture - Preliminary Resulted 07/21/17 1640 Blood Line Draw NO GROWTH AFTER 1 DAY, REINCUBATED Imaging Chest x-ray reviewed. Assessment and Plan Problems: (1) Airway obstruction Assessment & Plan: She was noted to have macroglossia and laryngeal edema at the time of her second intubation. She has been on IV steroids and antihistamines, but her CT scans have continued to show edema. We are awaiting an ENT evaluation today. We will await these recommendations before making decisions regarding extubation. (2) Respiratory failure Status: Acute Assessment & Plan: She was initially intubated for airway protection. She failed extubation on 07/17 secondary to airway obstruction. It was noted that she had an enlarged tongue and laryngeal edema. She has remained on the ventilator since. She is ventilating well, and is able to tolerate CPAP. She remains on propofol for sedation. (3) Nephrogenic diabetes insipidus Assessment & Plan: She did develop hypernatremia and excess dilute urine production. We believe this was secondary to her lithium, and she has been improving since this was discontinued. 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 However, in the ER, she became very sleepy and difficult to awaken. (5) Urinary tract infection Status: Acute Assessment & Plan: Her urine had large leukocytes, but it was a contaminated sample. The urine culture was positive for E. coli. She did not have an elevated WBC or fever. She has completed 5 days of IV ceftriaxone. A repeat urine culture from 07/21 has been negative. (6) Edema Status: Chronic Assessment & Plan: Her symptoms started about a month ago. No proteinuria. TSH is normal at 3.84. BNP elevated mildly (220). Echocardiogram shows normal EF of 59% with 2/4 diastolic dysfunction. Right ventricle is borderline enlarged. Aortic valve is sclerotic, but not stenotic. She has trace [place], TI and mild pulmonary HTN with right-sided pressures of 39mmHg. Overall, her weight is down and is having a net diuresis since admission. (7) Schizophrenia Status: Chronic Assessment & Plan: She was previously on [place], Lamotrigine, Risperdal, and Olanzapine. Dr. Hoff did recommend stopping the lithium and decreasing the dose of Prozac. She remains on olanzapine. We initially held the lamotrigine because we thought this was new and could be contributing to her current condition. However, Dr. Hoff did clarify that she has been on this for many years. The lamotrigine has been restarted. (8) CKD (chronic kidney disease) stage 3, GFR 30-59 ml/min Status: Chronic Assessment & Plan: Creatinine is 1.0 today. She is improved from 2012, but it is unclear what is her baseline. Will follow. Exam Sepsis Risk: No Definite Risk Problem Qualifiers (1) Respiratory failure: Chronicity: acute (2) Altered mental status, unspecified: Altered mental status type: somnolence Qualified Codes: R40.0 - Somnolence (3) Urinary tract infection: Urinary tract infection type: acute cystitis Hematuria presence: without hematuria Qualified Codes: N30.00 - Acute cystitis without hematuria (4) Schizophrenia: Schizophrenia type: unspecified Qualified Codes: F20.9 - Schizophrenia, unspecified GERALDO,AMENA DO Jul 23, 2017 09:58
[2017-07-23] MEDS: D5W(*) 1000 ML BAG 1,000 ML IV PRN (12:06)
--- NOTE | 2017-07-23 16:14 | Medical Nutrition Therapy ---
Nutrition Anthropometrics Height (Inches): 66.00 Height (Calculated Centimeters: 167.224694 Weight (Pounds): 203 Weight (Calculated Kilograms): 92.079 BMI Calculated: 34.21 Chris Nutrition Score: Adequate Chris Nutrition Risk Score: 13 Dietary Referral Nutrition Risk Factors: Nutrition Risk Comment: Physical Findings Physical Appearance: Obese BMI 30-39 (BMI 32.8) Skin Appearance Skin Appearance: Edema Edema Location Modifier: Right Edema Location: Hand Type of Edema: Degree of Edema: 1+ Gastrointestinal Symptoms GI Symtoms: Tube Present: OG Bowel Sounds: Recent Bowel Pattern: Stool Characteristics: Nutritional Diagnosis Nutritional Risk Acuity 2: Tube Feed Stable, Swallowing Problem Past Medical History: Edema, GERD, hyperlipidemia, schizophrenia Nutritional Acuity: 2-Moderate Nutrition Diagnosis: Increased Nutrient Needs Nutrition Etiology: Physiological Causes Nutrition Problem/Etiology/Sym: Increased nutr needs related to physiological causes as evidenced by sedation, intubation and respiratory distress. Adjusted Energy Requirement Re: 1780 (3440-4554 (actual BW)) Protein Requirement: 59 (59-70 g/kg adjusted BW) Fluid Requirement: 1780 (25 ml/kg) Diet Type: Tube Feeding (TF) Nutrition Intervention: Incr diet as tolerated Nutritional Support Current Enteral / Parental: Tube Feeding Tube Feeding Formulas: Jevity 1cal/ml-Standard Current Tube Feeding Formula C: final rate 55 ml/hr Tube Feeding Supplement Streng: Full Rate: 55 ml/hr Current Duration: 24 Current Calories: 1399 Current Protein: 58 Current Lipids Calories: 678 (propofol at 25.7/mls/hr) Total Current Calories: 2077 Automatic H2O Flush (_ml every: 80 q 6 Nutrition Monitoring & Eval Nutritional Goals Comment: TF will meet nutr needs until oral intake can meet needs RD Patient Assessment Time: [address] Assessment Type: RD Re-Assessment Patient Nutrition Acuity: 2-Moderate Follow Up Date: Jul 27, 2017 Nutritional Comment: 12/2 Pt with PMH of schizophrenia admitted with SOB and AMS. Caretakers noting wt gain. Currently has 2+ pitting edema in both LE and on diuretic. Intubated and sedated on 34.7 ml/hr Propofol. Diet NPO day 1. Recommend nutrition support if NPO for >3 days. Notable labs include creatinine 1.3, alb WNL. Will cont to monitor. 12/3 Pt to start TF today at 30 ml/hr for a final rate of 80 ml/hr. This current TF prescription will overfeed pt due to propofol at 23.1 ml/hr. Recommend decreasing goal rate to 65 ml/hr which with propofol, will provide 2262 calories and 69 g protein. This will meet 111% and 98% of calorie and protien needs respectively. Please provide 80ml free water q 6 hr to meet remainder of fluid needs. Notable labs include Na 149, K 3.3, total pro 6.2 and alb 3.2. Will cont to monitor and remain available for consult. 07/17 TF changed to 65ml/hr Osmolite. Providing 1653 kcal, 69gm protein and meeting 93% est kcal and 117% est protein needs. Pt is no longer recieving propofol. Pt tolerating TF with minimal residuals. Alb cont low at 3. 07/21 TF changed to 65ml/hr promote plus propofol. Providing 2238 kcal, 97gm protein and meeting 125% est kcal and 117% est protein needs. Since BMI is in class 1 obestiy range, recommend reduce rate to 50ml/hr to provide 1758 kcal with propofol and 75gm protein to meet nutr needs without overfeeding. Pt tolerating TF with minimal residuals. Alb cont low at 2.9. Will cont to monitor. 07/23/17 TF changed to 55 ml/hr Jevity 1 plus propofol. Providing 2077 kcal and 58 g protein which is meeting 116% est kcal needs and 98% est protein needs. Pt tolerating TF with minimal residuals. Notable labs include Na 147, BUN 27, total pro 5.6, and alb 2.9. Will continue to monitor. TIMMY WATERS Jul 23, 2017 10:24
[2017-07-23] MEDS: TRAVOPROST OU SCH (20:20)
[2017-07-23] MEDS: HYPROMELLOSE 0.4% LUB 15ML BTL OU PRN (20:21)
[2017-07-24] VITALS (27 sets, daily range): BP systolic 109–141; BP diastolic 60–80
[2017-07-24] MEDS: D5W(*) 1000 ML BAG 1,000 ML IV PRN ×2 (01:16→14:57)
[2017-07-24] MEDS: methylPREDNIS SUCC 125 MG/2ML IVP SCH ×3 (04:03→20:16)
[2017-07-24] MEDS: PROPOFOL(*)1000 MG/100 ML VIAL 100 ML IV PRN ×2 (05:15→14:57)
[2017-07-24 05:22] LABS: PLATELET COUNT, AUTOMATED 158 K/uL (150-450)
--- NOTE | 2017-07-24 06:26 | RADIOLOGY IMAGING REPORT ---
FACILITY: [facility] - [place] PATIENT NAME: Fatemeh Bunch : 1960 MR: [id number] V: [id number] EXAM DATE: ORDERING PHYSICIAN: AMENA CHOW TECHNOLOGIST: Location: [facility] - [place] Patient: Fatemeh Bunch : 1960 Visit/Account:[id number] Date of Sevice: 07/24/2017 SINGLE AP RADIOGRAPH OF THE CHEST 07/24/2017 6:00 AM. INDICATION: Intubated COMPARISON: Yesterday. FINDINGS: Patient is rotated to the right. Support line and tubes are likely unchanged. Unchanged small left pleural effusion and basilar consolidation/atelectasis. No apparent pneumothorax. Heart size is nor mal. IMPRESSION: No significant change. Report Dictated By: Rock Hough MD at 07/24/2017 6:19 AM Report E-Signed By: Rock Hough MD at 07/24/2017 6:20 AM WSN:[id number]
[2017-07-24] MEDS: FLUoxetine HCL 10 MG CAP FT SCH (09:00)
[2017-07-24] MEDS: PANTOPRAZOLE SOD 40 MG IV VIAL IVP SCH (09:00)
[2017-07-24] MEDS: RANITIDINE 150 MG/10 ML UDC FT SCH ×2 (09:00→20:16)
[2017-07-24] MEDS: DORZOLAMIDE HCL OU SCH ×2 (09:00→20:20)
[2017-07-24] MEDS: OLANZapine 5 MG TAB FT SCH ×2 (09:00→20:17)
[2017-07-24] MEDS: ORAL SUCTION/CHLORHX/SWAB KIT MT SCH ×2 (09:00→20:17)
[2017-07-24] MEDS: ENOXAPARIN 40 MG/0.4ML SYR SC SCH (09:01)
[2017-07-24] MEDS: TIMOLOL MAL 0.25% OP SOLN 5 ML OU SCH ×2 (09:01→20:20)
[2017-07-24] MEDS: CHLORHEXIDINE 0.12% 18 MG/15ML MM SCH ×2 (09:01→20:16)
[2017-07-24] MEDS: lamoTRIgine 100 MG TAB PO SCH (09:09)
[2017-07-24] MEDS: LEVOTHYROXINE SOD 100 MCG VIAL IVP SCH (09:09)
--- NOTE | 2017-07-24 12:29 | Hospitalist Progress Note ---
Subjective Progress Notes Subjective The patient remains intubated and sedated. Physical Exam Vital Signs Date Time Temp Pulse Resp B/P (MAP) Pulse Ox O2 Delivery O2 Flow Rate FiO2 07/24/17 11:26 45.0 07/24/17 11:23 80 07/24/17 11:00 99.8 14 119/68 (85) 91 Mechanical Ventilator Intake and Output 07/25/17 06:59 Intake Total 1598 ml Output Total 975 ml Balance 623 ml Tube Feeding 826 ml Tube Irrigant 772 ml Output Urine Total 975 ml General Appearance: Other (Sedated.) Neuro: Other (Sedated. Unable to assess.) ENT: Other (Oral mucosa pink and moist. ) Neck: Other (Jugular line on R side clean, dry and without redness or discharge.) Cardiovascular: Regular Rate and Rhythm Respiratory: Clear to Auscultation GI: Soft and Non-Tender Extremities: Warm, Perfused Psych: Other (Sedated.) Result Diagram: 07/24/17 0500 07/24/17 0500 Assessment and Plan Problems: (1) Airway obstruction Assessment & Plan: She was noted to have macroglossia and laryngeal edema at the time of her second intubation. She has been on IV steroids and antihistamines, but her CT scans have continued to show edema. We are awaiting an ENT evaluation 07/25. We will await these recommendations before making decisions regarding extubation. (2) Respiratory failure Status: Acute Assessment & Plan: She was initially intubated for airway protection. She failed extubation on 07/17 secondary to airway obstruction. It was noted that she had an enlarged tongue and laryngeal edema. She has remained on the ventilator since. She is ventilating well, and is able to tolerate CPAP. She remains on propofol for sedation. (3) Nephrogenic diabetes insipidus Assessment & Plan: She did develop hypernatremia and excess dilute urine production. We believe this was secondary to her lithium, and she has been improving since this was discontinued. 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 However, in the ER, she became very sleepy and difficult to awaken. (5) Urinary tract infection Status: Acute Assessment & Plan: Her urine had large leukocytes, but it was a contaminated sample. The urine culture was positive for E. coli. She did not have an elevated WBC or fever. She has completed 5 days of IV ceftriaxone. A repeat urine culture from 07/21 has been negative. (6) Edema Status: Chronic Assessment & Plan: Her symptoms started about a month ago. No proteinuria. TSH is normal at 3.84. BNP elevated mildly (220). Echocardiogram shows normal EF of 59% with 2/4 diastolic dysfunction. Right ventricle is borderline enlarged. Aortic valve is sclerotic, but not stenotic. She has trace [place], TI and mild pulmonary HTN with right-sided pressures of 39mmHg. Overall, her weight is down and is having a net diuresis since admission. (7) Schizophrenia Status: Chronic Assessment & Plan: She was previously on [place], Lamotrigine, Risperdal, and Olanzapine. Dr. Hoff did recommend stopping the lithium and decreasing the dose of Prozac. She remains on olanzapine. We initially held the lamotrigine because we thought this was new and could be contributing to her current condition. However, Dr. Hoff did clarify that she has been on this for many years. The lamotrigine has been restarted. (8) CKD (chronic kidney disease) stage 3, GFR 30-59 ml/min Status: Chronic Assessment & Plan: Creatinine is 1.0 today. She is improved from 2011, but it is unclear what is her baseline. Will follow. Time Spent on Plan of Care: < 30 min Exam Sepsis Risk: No Definite Risk Problem Qualifiers (1) Respiratory failure: Chronicity: acute (2) Altered mental status, unspecified: Altered mental status type: somnolence Qualified Codes: R40.0 - Somnolence (3) Urinary tract infection: Urinary tract infection type: acute cystitis Hematuria presence: without hematuria Qualified Codes: N30.00 - Acute cystitis without hematuria (4) Schizophrenia: Schizophrenia type: unspecified Qualified Codes: F20.9 - Schizophrenia, unspecified CASSIUS CARPENTER MD Jul 24, 2017 12:29
[2017-07-24] MEDS: MAGNESIUM HYDROXIDE* 30ML UDCP PO PRN (13:18)
[2017-07-24] MEDS: ACETAMINOPHEN(*)1000 MG/100 ML 100 ML IVPB PRN (18:43)
--- NOTE | 2017-07-24 19:21 | RADIOLOGY IMAGING REPORT ---
FACILITY: [facility] PATIENT NAME: Fatemeh Bunch : 1960 MR: [id number] V: [id number] EXAM DATE: ORDERING PHYSICIAN: CASSIUS CARPENTER TECHNOLOGIST: Location: [facility] Patient: Fatemeh Bunch : 1960 Visit/Account:[id number] Date of Sevice: 07/24/2017 CHEST, 1 view, portable at 1853 hours History: Fever and increased oxygen demand COMPARISON: 07/24/2017 at 0542 hours FINDINGS: Endotracheal tube, nasogastric tube, and right IJ central venous catheters are in stable position. Bibasilar dense opacities obscuring the hemidiaphragms are unchanged. No pneumothorax. Heart size is normal. The central pulmonary vasculature is nondistended. IMPRESSION: 1. Stable position of lines and tubes. No pneumothorax. 2. Persistent bibasilar opacities which could represent lung consolidation due to pneumonia, atelecta sis, pleural effusions, or combination of these. Report Dictated By: Denise Ramirez MD at 07/24/2017 7:16 PM Report E-Signed By: Denise Ramirez MD at 07/24/2017 7:18 PM WSN:[id number]
[2017-07-24] MEDS: TRAVOPROST OU SCH (20:20)
[2017-07-25] VITALS (24 sets, daily range): BP systolic 114–145; BP diastolic 67–85
[2017-07-25] MEDS: PROPOFOL(*)1000 MG/100 ML VIAL 100 ML IV PRN (01:50)
[2017-07-25 05:17] LABS: PLATELET COUNT, AUTOMATED 160 K/uL (150-450)
[2017-07-25] MEDS: methylPREDNIS SUCC 125 MG/2ML IVP SCH ×3 (05:31→20:21)
[2017-07-25] MEDS: MAGNESIUM HYDROXIDE* 30ML UDCP PO PRN ×2 (05:31→15:52)
[2017-07-25] MEDS: D5W(*) 1000 ML BAG 1,000 ML IV PRN ×2 (05:32→18:07)
--- NOTE | 2017-07-25 06:39 | RADIOLOGY IMAGING REPORT ---
FACILITY: [facility] - [place] PATIENT NAME: Fatemeh Bunch : 1960 MR: [id number] V: [id number] EXAM DATE: ORDERING PHYSICIAN: CASSIUS CARPENTER TECHNOLOGIST: Location: [facility] - [place] Patient: Fatemeh Bunch : 1960 Visit/Account:[id number] Date of Sevice: 07/25/2017 SINGLE AP RADIOGRAPH OF THE CHEST 07/25/2017 6:00 AM. INDICATION: intubated COMPARISON: Yesterday. FINDINGS: Support line and tubes are likely unchanged. Unchanged bilateral pleural effusions impression bibasi lar consolidation/atelectasis. No apparent pneumothorax. Heart size is normal. IMPRESSION: No significant change. Report Dictated By: Rock Hough MD at 07/25/2017 6:33 AM Report E-Signed By: Rock Hough MD at 07/25/2017 6:35 AM WSN:[id number]
[2017-07-25] MEDS: RANITIDINE 150 MG/10 ML UDC FT SCH ×2 (08:37→20:20)
[2017-07-25] MEDS: DORZOLAMIDE HCL OU SCH ×2 (08:37→20:21)
[2017-07-25] MEDS: ENOXAPARIN 40 MG/0.4ML SYR SC SCH (08:37)
[2017-07-25] MEDS: OLANZapine 5 MG TAB FT SCH ×2 (08:38→20:21)
[2017-07-25] MEDS: CHLORHEXIDINE 0.12% 18 MG/15ML MM SCH ×2 (08:38→20:21)
[2017-07-25] MEDS: lamoTRIgine 100 MG TAB PO SCH (08:38)
[2017-07-25] MEDS: TIMOLOL MAL 0.25% OP SOLN 5 ML OU SCH ×2 (08:38→20:22)
[2017-07-25] MEDS: FLUoxetine HCL 10 MG CAP FT SCH (08:38)
[2017-07-25] MEDS: ORAL SUCTION/CHLORHX/SWAB KIT MT SCH ×2 (08:38→20:22)
[2017-07-25] MEDS: PANTOPRAZOLE SOD 40 MG IV VIAL IVP SCH (08:38)
--- NOTE | 2017-07-25 09:20 | Hospitalist Progress Note ---
Subjective Progress Notes Subjective Sedated on ventilator. Physical Exam Vital Signs Date Time Temp Pulse Resp B/P (MAP) Pulse Ox O2 Delivery O2 Flow Rate FiO2 07/25/17 09:00 45.0 07/25/17 09:00 61 07/25/17 07:45 92 Mechanical Ventilator 07/25/17 07:37 13 07/25/17 06:00 99.2 137/78 (97) Intake and Output 07/26/17 06:59 Intake Total 399.5 ml Output Total 205 ml Balance 194.5 ml IV Total 74.5 ml Tube Feeding 125 ml Tube Irrigant 200 ml Output Urine Total 205 ml General Appearance: Other (sedated) ENT: Other (tongue is grossly normal/ET and OG tubes in place) Neck: No Masses Cardiovascular: Regular Rate and Rhythm, No Edema Respiratory: Clear to Auscultation GI: Other (BS present) Extremities: Warm, Perfused Result Diagram: 07/25/1744407/25/17444 Item Value Date Time Blood Gas Puncture Site Left radial 07/25/17 045 Blood Gas Patient Temperature 37.7 DEGREES 07/25/17 0455 Arterial Blood pH 7.48 H 07/25/17 0455 Arterial Blood Partial Pressure CO2 38 mmHg H 07/25/17 045 Arterial Blood Partial Pressure O2 74 mmHg 07/25/17 0455 Arterial Blood HCO3 28 mmol/L H 07/25/17 045 Arterial Blood Oxygen Saturation 95 % 07/25/17 045 Arterial Blood Base Excess 5.0 mmol/L 07/25/17 045 Javier Test Acceptable 07/25/17 0455 Oxygen Liters/Minute 45% fio2 07/25/17 045 Imaging PATIENT NAME: Fatemeh Bunch : 1960 MR: [id number] V: [id number] EXAM DATE: ORDERING PHYSICIAN: CASSIUS CARPENTER TECHNOLOGIST: Location: [facility] Patient: Fatemeh Bunch : 1960 Visit/Account:[id number] Date of Sevice: 07/25/2017 SINGLE AP RADIOGRAPH OF THE CHEST 07/25/2017 6:00 AM. INDICATION: intubated COMPARISON: Yesterday. FINDINGS: Support line and tubes are likely unchanged. Unchanged bilateral pleural effusions impression bibasilar consolidation/atelectasis. No apparent pneumothorax. Heart size is normal. IMPRESSION: No significant change. Report Dictated By: Rock Hough MD at 07/25/2017 6:33 AM Report E-Signed By: Rock Hough MD at 07/25/2017 6:35 AM [id number] Assessment and Plan Problems: (1) Airway obstruction Assessment & Plan: She was noted to have macroglossia and laryngeal edema at the time of her second intubation. She has been on IV steroids and antihistamines, but her CT scans have continued to show edema. Dr. Acevedo ENT examined her today and feels the tongue/pharyngeal edema is resolved. We will plan on removing sedation and extubating later today if all goes well. I will notify Dr. Hooks (surgery) and Dr. Baird (anesthesia) as she will need tracheostomy urgently/emergently if she fails extubation again today. (2) Respiratory failure Status: Acute Assessment & Plan: She was initially intubated for airway protection. She failed extubation on 07/17 secondary to upper airway edema/obstruction. It was noted that she had an enlarged tongue and pharyngeal/laryngeal edema. She has remained on the ventilator since. She is ventilating well and is able to tolerate CPAP. She has remained on propofol for sedation. (3) Nephrogenic diabetes insipidus Assessment & Plan: She did develop hypernatremia and excess dilute urine production. We believe this was secondary to her lithium, and she has been improving since this was discontinued. 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 However, in the ER, she became very sleepy and difficult to awaken. (5) Urinary tract infection Status: Acute Assessment & Plan: Her urine had large leukocytes, but it was a contaminated sample. The urine culture was positive for E. coli. She did not have an elevated WBC or fever. She has completed 5 days of IV ceftriaxone. A repeat urine culture from 07/21 has been negative. (6) Edema Status: Chronic Assessment & Plan: Her symptoms started about a month ago. No proteinuria. TSH is normal at 3.84. BNP elevated mildly (220). Echocardiogram shows normal EF of 59% with 2/4 diastolic dysfunction. Right ventricle is borderline enlarged. Aortic valve is sclerotic, but not stenotic. She has trace DC, TI and mild pulmonary HTN with right-sided pressures of 39mmHg. Overall, her weight is down and is having a net diuresis since admission. (7) Schizophrenia Status: Chronic Assessment & Plan: She was previously on [place], Lamotrigine, Risperdal, and Olanzapine. Dr. Hoff did recommend stopping the lithium and decreasing the dose of Prozac. She remains on olanzapine. We initially held the lamotrigine because we thought this was new and could be contributing to her current condition. However, Dr. Hoff did clarify that she has been on this for many years. The lamotrigine has been restarted. (8) CKD (chronic kidney disease) stage 3, GFR 30-59 ml/min Status: Chronic Assessment & Plan: Creatinine is 1.0 today. She is improved from 2011, but it is unclear what is her baseline. Will follow. Exam Sepsis Risk: No Definite Risk Problem Qualifiers (1) Respiratory failure: Chronicity: acute (2) Altered mental status, unspecified: Altered mental status type: somnolence Qualified Codes: R40.0 - Somnolence (3) Urinary tract infection: Urinary tract infection type: acute cystitis Hematuria presence: without hematuria Qualified Codes: N30.00 - Acute cystitis without hematuria (4) Schizophrenia: Schizophrenia type: unspecified Qualified Codes: F20.9 - Schizophrenia, unspecified JODI CARPENTER MD Jul 25, 2017 09:20
[2017-07-25] MEDS: LEVOTHYROXINE SOD 100 MCG VIAL IVP SCH (09:42)
[2017-07-25] MEDS ORDERED: CLOTRIMAZOLE 1% VAG CR 45 GM PV SCH (11:30)
[2017-07-25] MEDS: CLOTRIMAZOLE 1% CR 30 GM TUBE TP SCH ×2 (12:07→20:20)
[2017-07-25] MEDS ORDERED: CLOTRIMAZOLE 1% VAG CR 45 GM PV ONE (12:10)
[2017-07-25] MEDS: ACETAMINOPHEN(*)1000 MG/100 ML 100 ML IVPB PRN (19:08)
[2017-07-25] MEDS: TRAVOPROST OU SCH (20:22)
--- NOTE | 2017-07-25 20:30 | CONSULTATION ---
EVENT DATE: 07/25/2017 REASON FOR CONSULTATION Macroglossia. REQUESTING PHYSICIAN Hospitalist Service HISTORY OF PRESENT ILLNESS This is a 56-year-old woman with history of schizophrenia and developmental delay who was brought to the emergency department initially for shortness of breath and altered mental status. The patient was initially intubated for airway protection. The patient failed a trial of extubation. She was reportedly a difficult re-intubation. The patient was noted to have an enlarged oral tongue. The patient underwent a CT scan of the neck which showed edema of the soft tissues of the pharynx. The patient was reportedly endoscopically evaluated by Anesthesia and determined to have significant soft tissue edema. PAST MEDICAL HISTORY 1. GERD. 2. Hyperlipidemia. 3. Schizophrenia. REVIEW OF SYSTEMS Unobtainable. SOCIAL HISTORY The patient is a resident of the [facility]. Otherwise unobtainable. FAMILY HISTORY Unobtainable. ALLERGIES No known drug allergies. MEDICATIONS 1. Lamotrigine. 2. Diphenhydramine. 3. Ranitidine. 4. Fluoxetine. 5. Subcu heparin. 6. Olanzapine. 7. Methylprednisolone. 8. Albuterol. 9. Synthroid. 10. Travoprost. 11. Pantoprazole. 12. Timolol. 13. Dorzolamide. 14. Lovenox. PHYSICAL EXAMINATION VITAL SIGNS: Temperature 99.2, pulse 64, respiratory rate 13, pulse oximetry 93 %. FIO2 of 45%. Blood pressure is 134/78. HEAD AND FACE: Normocephalic, atraumatic. No gross lesions or scars. EARS: External ears unremarkable. NOSE: External nose unremarkable. ORAL CAVITY AND PHARYNX: Intubated. Adequate dentition. Moist mucous membranes. Oral tongue of normal size. Floor of mouth and base of tongue soft. NECK: Soft, supple, midline trachea. No palpable lymphadenopathy. PROCEDURE Flexible laryngoscopy. The laryngoscope was initially placed through the right nostril. The right nasal cavity, nasopharynx were clear. Oropharynx and hypopharynx exams were limited secondary to the patient being intubated and with secretions. However, she had no notable base of tongue edema. Endotracheal tube in place. ASSESSMENT 1. Macroglossia. 2. Respiratory failure. PLAN The patient has no present evidence of oral or base of tongue edema. Her fiberoptic laryngoscopy shows nothing of concern. I discussed this with the hospitalist. They may extubate the patient per their discretion per weaning protocol, and if the patient has an air leak on her endotracheal tube, please do not hesitate to call me with further questions or concerns. MTDD
[2017-07-26] VITALS (25 sets, daily range): BP systolic 111–156; BP diastolic 66–98
[2017-07-26] MEDS: MAGNESIUM HYDROXIDE* 30ML UDCP PO PRN (05:41)
[2017-07-26 05:49] LABS: PLATELET COUNT, AUTOMATED 163 K/uL (150-450)
--- NOTE | 2017-07-26 05:54 | RADIOLOGY IMAGING REPORT ---
FACILITY[place] [facility] [place]IENT NAME: Fatemeh Bunch : 1960 MR: [id number] V: [id number] EXAM DATE: ORDERING PHYSICIAN: JODI CARPENTER TECHNOLOGIST: Location: [facility] [place] Patient: Fatemeh Bunch : 1960 Visit/Account:[id number] Date of Sevice: 07/26/2017 SINGLE AP RADIOGRAPH OF THE CHEST 07/26/2017 5:12 AM. INDICATION: intubated COMPARISON: Yesterday. FINDINGS: Support line and tubes are likely unchanged. Unchanged bilateral pleural effusions and bibasilar con solidation/atelectasis. No apparent pneumothorax. Heart size is normal. IMPRESSION: No significant change. Report Dictated By: Rock Hough MD at 07/26/2017 5:47 AM Report E-Signed By: Rock Hough MD at 07/26/2017 5:48 AM WSN:[id number]
[2017-07-26] MEDS: D5W(*) 1000 ML BAG 1,000 ML IV PRN ×2 (08:30→21:10)
[2017-07-26] MEDS: ORAL SUCTION/CHLORHX/SWAB KIT MT SCH (09:00)
[2017-07-26] MEDS: PANTOPRAZOLE SOD 40 MG IV VIAL IVP SCH (09:04)
[2017-07-26] MEDS: FLUoxetine HCL 10 MG CAP FT SCH (09:07)
[2017-07-26] MEDS: DORZOLAMIDE HCL OU SCH ×2 (09:07→21:10)
[2017-07-26] MEDS: lamoTRIgine 100 MG TAB PO SCH (09:07)
[2017-07-26] MEDS: OLANZapine 5 MG TAB FT SCH ×2 (09:08→20:54)
[2017-07-26] MEDS: CLOTRIMAZOLE 1% CR 30 GM TUBE TP SCH ×2 (09:08→21:11)
[2017-07-26] MEDS: CLOTRIMAZOLE 1% VAG CR 45 GM PV SCH (09:09)
[2017-07-26] MEDS: ENOXAPARIN 40 MG/0.4ML SYR SC SCH (09:09)
[2017-07-26] MEDS: LEVOTHYROXINE SOD 100 MCG VIAL IVP SCH (09:12)
[2017-07-26] MEDS: RANITIDINE 150 MG/10 ML UDC FT SCH ×2 (09:14→20:54)
[2017-07-26] MEDS: methylPREDNIS SUCC 125 MG/2ML IVP SCH ×2 (09:15→21:11)
[2017-07-26] MEDS: CHLORHEXIDINE 0.12% 18 MG/15ML MM SCH (09:16)
[2017-07-26] MEDS: TIMOLOL MAL 0.25% OP SOLN 5 ML OU SCH ×2 (09:16→20:54)
[2017-07-26] MEDS ORDERED: EPINEPHrine 2.25% 0.5 ML NEB NEB PRN (10:05)
--- NOTE | 2017-07-26 12:24 | Hospitalist Progress Note ---
Subjective Progress Notes Subjective This patient remains in the ICU for airway obstruction. She had no acute events overnight. Patient Complains of: Cardiovascular: No: Chest Pain Respiratory: No: Shortness of Breath Physical Exam Vital Signs Date Time Temp Pulse Resp B/P (MAP) Pulse Ox O2 Delivery O2 Flow Rate FiO2 07/26/17 11:15 93 Cool Aerosol 12.0 07/26/17 10:15 50.0 07/26/17 09:23 62 11 07/26/17 06:00 124/72 (89) 07/26/17 05:00 98.8 Intake and Output 07/27/17 06:59 Intake Total 100 ml Output Total 450 ml Balance -350 ml Tube Irrigant 100 ml Output Urine Total 450 ml Cardiovascular: Regular Rate and Rhythm Respiratory: Other (Bilateral breath sounds present.) Result Diagram: 07/26/1752407/26/17524 Assessment and Plan Problems: (1) Airway obstruction Assessment & Plan: She was noted to have macroglossia and laryngeal edema at the time of her second intubation. She has been on IV steroids and antihistamines, but her CT scans have continued to show edema. Dr. Acevedo ENT examined her and felt the tongue/pharyngeal edema is resolved. We extubated her this morning and she seems to be doing well. (2) Respiratory failure Status: Acute Assessment & Plan: She was initially intubated for airway protection. She failed extubation on 07/17 secondary to upper airway edema/obstruction. It was noted that she had an enlarged tongue and pharyngeal/laryngeal edema. She is now extubated as above. (3) Nephrogenic diabetes insipidus Assessment & Plan: She did develop hypernatremia and excess dilute urine production. We believe this was secondary to her lithium, and she has been improving since this was discontinued. 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 However, in the ER, she became very sleepy and difficult to awaken. (5) Urinary tract infection Status: Acute Assessment & Plan: Her urine had large leukocytes, but it was a contaminated sample. The urine culture was positive for E. coli. She did not have an elevated WBC or fever. She has completed 5 days of IV ceftriaxone. A repeat urine culture from 12/9 has been negative. (6) Edema Status: Chronic Assessment & Plan: Her symptoms started about a month ago. No proteinuria. TSH is normal at 3.84. BNP elevated mildly (220). Echocardiogram shows normal EF of 59% with 2/4 diastolic dysfunction. Right ventricle is borderline enlarged. Aortic valve is sclerotic, but not stenotic. She has trace [place], TI and mild pulmonary HTN with right-sided pressures of 39mmHg. Overall, her weight is down and is having a net diuresis since admission. (7) Schizophrenia Status: Chronic Assessment & Plan: She was previously on [place], Lamotrigine, Risperdal, and Olanzapine. Dr. Hoff did recommend stopping the lithium and decreasing the dose of Prozac. She remains on olanzapine. We initially held the lamotrigine because we thought this was new and could be contributing to her current condition. However, Dr. Hoff did clarify that she has been on this for many years. The lamotrigine has been restarted. (8) CKD (chronic kidney disease) stage 3, GFR 30-59 ml/min Status: Chronic Assessment & Plan: Creatinine is 1.0 today. She is improved from 2012, but it is unclear what is her baseline. Exam Sepsis Risk: No Definite Risk Problem Qualifiers (1) Respiratory failure: Chronicity: acute (2) Altered mental status, unspecified: Altered mental status type: somnolence Qualified Codes: R40.0 - Somnolence (3) Urinary tract infection: Urinary tract infection type: acute cystitis Hematuria presence: without hematuria Qualified Codes: N30.00 - Acute cystitis without hematuria (4) Schizophrenia: Schizophrenia type: unspecified Qualified Codes: F20.9 - Schizophrenia, unspecified AMENA CHOW DO Jul 26, 2017 12:24
[2017-07-26] MEDS: TRAVOPROST OU SCH (21:11)
[2017-07-27] VITALS (12 sets, daily range): BP systolic 113–150; BP diastolic 66–89
[2017-07-27] MEDS: ALBUTEROL 2.5 MG/3 ML NEB NEB PRN (00:56)
[2017-07-27 05:48] LABS: PLATELET COUNT, AUTOMATED 170 K/uL (150-450)
[2017-07-27] MEDS: lamoTRIgine 100 MG TAB PO SCH (09:00)
[2017-07-27] MEDS: FLUoxetine HCL 10 MG CAP FT SCH (09:00)
[2017-07-27] MEDS: OLANZapine 5 MG TAB FT SCH ×2 (09:00→20:54)
[2017-07-27] MEDS: CLOTRIMAZOLE 1% VAG CR 45 GM PV SCH (09:41)
[2017-07-27] MEDS: DORZOLAMIDE HCL OU SCH ×2 (09:41→20:55)
[2017-07-27] MEDS: ENOXAPARIN 40 MG/0.4ML SYR SC SCH (09:42)
[2017-07-27] MEDS: CLOTRIMAZOLE 1% CR 30 GM TUBE TP SCH ×2 (09:42→20:53)
[2017-07-27] MEDS: LEVOTHYROXINE SOD 100 MCG VIAL IVP SCH (09:42)
[2017-07-27] MEDS: TIMOLOL MAL 0.25% OP SOLN 5 ML OU SCH ×2 (09:46→20:55)
[2017-07-27] MEDS: methylPREDNIS SUCC 125 MG/2ML IVP SCH ×2 (09:49→20:55)
[2017-07-27] MEDS: PANTOPRAZOLE SOD 40 MG IV VIAL IVP SCH (10:00)
--- NOTE | 2017-07-27 10:56 | Medical Nutrition Therapy ---
Nutrition Anthropometrics Height (Inches): 66.00 Height (Calculated Centimeters: 167.754058 Weight (Pounds): 193 Weight (Calculated Kilograms): 87.543 BMI Calculated: 34.21 Chris Nutrition Score: Adequate Chris Nutrition Risk Score: 13 Dietary Referral Nutrition Risk Factors: Nutrition Risk Comment: Physical Findings Physical Appearance: Obese BMI 30-39 (BMI 31.2) Skin Appearance Skin Appearance: Edema Edema Location Modifier: Right Edema Location: Hand Type of Edema: Degree of Edema: 1+ Gastrointestinal Symptoms GI Symtoms: Constipation Tube Present: OG Bowel Sounds: Recent Bowel Pattern: Stool Characteristics: Nutritional Diagnosis Nutritional Risk Acuity 2: Swallowing Problem Past Medical History: Edema, GERD, hyperlipidemia, schizophrenia Nutritional Acuity: 2-Moderate Nutrition Diagnosis: Increased Nutrient Needs Nutrition Etiology: Physiological Causes Nutrition Problem/Etiology/Sym: Increased nutr needs related to physiological causes as evidenced by sedation, intubation, and respiratory distress. Adjusted Energy Requirement Re: 1780 ([id number] (actual BW)) Protein Requirement: 59 (59-70 g/kg adjusted BW) Fluid Requirement: 1780 (25 ml/kg) Diet Type: NPO (Nothing by Mouth) Nutrition Intervention: Incr diet as tolerated Nutrition Monitoring & Eval RD Patient Assessment Time: [address] Assessment Type: RD Re-Assessment Patient Nutrition Acuity: 2-Moderate Follow Up Date: Jul 31, 2017 Nutritional Comment: 07/14 Pt with PMH of schizophrenia admitted with SOB and AMS. Caretakers noting wt gain. Currently has 2+ pitting edema in both LE and on diuretic. Intubated and sedated on 34.7 ml/hr Propofol. Diet NPO day 1. Recommend nutrition support if NPO for >3 days. Notable labs include creatinine 1.3, alb WNL. Will cont to monitor. 07/15 Pt to start TF today at 30 ml/hr for a final rate of 80 ml/hr. This current TF prescription will overfeed pt due to propofol at 23.1 ml/hr. Recommend decreasing goal rate to 65 ml/hr which with propofol, will provide 2262 calories and 69 g protein. This will meet 111% and 98% of calorie and protien needs respectively. Please provide 80ml free water q 6 hr to meet remainder of fluid needs. Notable labs include Na 149, K 3.3, total pro 6.2 and alb 3.2. Will cont to monitor and remain available for consult. 07/17 TF changed to 65ml/hr Osmolite. Providing 1653 kcal, 69gm protein and meeting 93% est kcal and 117% est protein needs. Pt is no longer recieving propofol. Pt tolerating TF with minimal residuals. Alb cont low at 3. 07/21 TF changed to 65ml/hr promote plus propofol. Providing 2238 kcal, 97gm protein and meeting 125% est kcal and 117% est protein needs. Since BMI is in class 1 obestiy range, recommend reduce rate to 50ml/hr to provide 1758 kcal with propofol and 75gm protein to meet nutr needs without overfeeding. Pt tolerating TF with minimal residuals. Alb cont low at 2.9. Will cont to monitor. 07/23/17 TF changed to 55 ml/hr Jevity 1 plus propofol. Providing 2077 kcal and 58 g protein which is meeting 116% est kcal needs and 98% est protein needs. Pt tolerating TF with minimal residuals. Notable labs include Na 147, BUN 27, total pro 5.6, and alb 2.9. Will continue to monitor. 07/27/17 Pt extubated yesterday morning. TF and propofol discontinued. Pt is currently NPO until she is more awake and alert. Notable labs include total pro 6.4 and alb 3.2, which have improved since admission. Pt has lost 37# in two weeks. Unsure of UBW. Caregivers stated she had gained weight before admission. Pt also admitted with 2+ edema LE which has now resolved. TF has met kcal and pro needs so edema most likely cause of weight changes. Will continue to monitor as diet progresses. TIMMY WATERS Jul 26, 2017 13:35
--- NOTE | 2017-07-27 11:29 | Hospitalist Progress Note ---
Subjective Progress Notes Subjective The patient is still not very communicative. Physical Exam Vital Signs Date Time Temp Pulse Resp B/P (MAP) Pulse Ox O2 Delivery O2 Flow Rate FiO2 07/27/17 09:36 62 07/27/17 08:45 16 96 Oxy Mask 5.0 07/27/17 08:00 145/89 (107) 70.0 07/27/17 05:00 96.8 Intake and Output 07/28/17 06:59 Output Total 540 ml Balance -540 ml Output Urine Total 540 ml General Appearance: Alert, Awake, No Acute Distress Neuro: Other ([place]. 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 However, in the ER, she became very sleepy and difficult to awaken. Since extubation, she is not very communicative and not consistently following commands. Likely, there is some effect of propofol from the prolonged intubation. She has had a Brain MRI that didn't show any abnormalities. (2) Airway obstruction Assessment & Plan: She was noted to have macroglossia and laryngeal edema at the time of her second intubation. She has been on IV steroids and antihistamines, but her CT scans have continued to show edema. Dr. Acevedo ENT examined her and felt the tongue/pharyngeal edema is resolved on 07/25. She was extubated on 07/26 without any complications. (3) Respiratory failure Status: Acute Assessment & Plan: She was initially intubated for rising CO2 despite BIPAP and airway protection. She failed extubation on 07/17 secondary to upper airway edema/obstruction. It was noted that she had an enlarged tongue and pharyngeal/laryngeal edema. She is now extubated as above. (4) Nephrogenic diabetes insipidus Assessment & Plan: She did develop hypernatremia and excess dilute urine production. We believe this was secondary to her lithium, and she has been improving since this was discontinued. She is still on D5W, but at a much reduced rate. Will follow closely. (5) Urinary tract infection Status: Acute Assessment & Plan: Her urine had large leukocytes, but it was a contaminated sample. The urine culture was positive for E. coli. She did not have an elevated WBC or fever. She has completed 5 days of IV ceftriaxone. A repeat urine culture from 07/21 has been negative. (6) Edema Status: Chronic Assessment & Plan: Her symptoms started about a month ago. No proteinuria. TSH is normal at 3.84. BNP elevated mildly (220). Echocardiogram shows normal EF of 59% with 2/4 diastolic dysfunction. Right ventricle is borderline enlarged. Aortic valve is sclerotic, but not stenotic. She has trace SC, TI and mild pulmonary HTN with right-sided pressures of 39mmHg. Overall, her weight is down and is having a net diuresis since admission. Concerned that Lamotrigine was the cause and potentially contributed to the enlarge tongue and laryngeal edema. It was started at the end of April and increased in May (per the records from the [facility]). (7) Schizophrenia Status: Chronic Assessment & Plan: She was previously on [place], Lamotrigine, Risperdal, and Olanzapine. Dr. Hoff did recommend stopping the lithium and decreasing the dose of Prozac. She remains on olanzapine. Lamotrigine has been stopped because of the edema concerns. See above. (8) CKD (chronic kidney disease) stage 3, GFR 30-59 ml/min Status: Chronic Assessment & Plan: Creatinine is 1.0 today. She is improved from 2012, but it is unclear what is her baseline. Exam Sepsis Risk: No Definite Risk Problem Qualifiers (1) Altered mental status, unspecified: Altered mental status type: somnolence Qualified Codes: R40.0 - Somnolence (2) Respiratory failure: Chronicity: acute (3) Urinary tract infection: Urinary tract infection type: acute cystitis Hematuria presence: without hematuria Qualified Codes: N30.00 - Acute cystitis without hematuria (4) Schizophrenia: Schizophrenia type: unspecified Qualified Codes: F20.9 - Schizophrenia, unspecified RIANNA CINTRON MD Jul 27, 2017 11:29
[2017-07-27] MEDS: D5W(*) 1000 ML BAG 1,000 ML IV PRN (12:11)
--- NOTE | 2017-07-27 18:35 | SLP BEDSIDE SWALLOW EVALUATION ---
SPEECH THERAPY ASSESSMENT Physician: Eric Quinn Clinician: Laurel Woods MA, CCC-PIE TOPPER Type of Assessment: Dysphagia Evaluation Patient: Fatemeh Bunch : 56 Evaluation Date: 07/27/17 BACKGROUND The patient is a 49 year-old female with hx of developmental delay and schizophrenia who resides at the [facility]. She was admitted on 07/14/17 following weight gain, edema and shortness of breath. The patient was intubated due to acute respiratory failure on 07/15/17. Extubation was attempted on 07/17/17 but failed; she was reintubated and was noted to have macroglossia and laryngeal edema. The patient remained intubated until 07/26/17. At that time she was evaluated by Dr. Acevedo with ENT, who felt that the edema was largely resolved. Patients history is significant for UTI, chronic edema, GERD, CKD. She is on numerous medications. See chart for details. PREVIOUS LEVEL OF FUNCTION: Primary Medical Diagnosis: AMS Prior Level of Function: Resides at [facility]. Developmental delay. Pain Scale (0-10): Patient unable to verbalize pain. No signs of pain noted. LOC / Participation: Awake, slowed processing speed, lethargic. Follows instructions: No. Functional Communication Deficits impact swallow function/safety, or response to therapy: Yes VOICE Vocal Deficits: No Changes to vocal quality: Unknown. No caregiver present. DYSPHAGIA Oral Structure and Function: Patient unable to follow directions for oral mechanism exam. Pt noted to have open mouth posture at rest. Appeared to have mild upper labial edema. Dentition adequate. Imprecise articulation. Per nursing, caregiver states she is more difficult to understand than normal. THEO NOMS Swallow Scale Score LEVEL 3: Alternative method of feeding required as individual takes less than 50% of nutrition and hydration by mouth, and/or swallowing is safe with consistent use of moderate cues to use compensatory strategies and/or requires maximum diet restriction. Supplemental Oxygen Use: Yes. Nasal Cannula 3L Oxygen Saturation: 91-93%. Remains stable with PO trials. Respiratory Rate: Remains stable throughout food/liquid trials. Pain with Swallow: Confirms throat pain. Respiratory/Swallow Coordination: Typically patterned (ie. exhale/swallow/ exhale) Oral Stage Moderately impaired. Poor bolus manipulation, bolus formation and posterior bolus propulsion. Able to achieve labial approximation when accepting a bolus. Unable to feed self. No significant oral residue after trials thin liquids and applesauce. Pharyngeal Stage Mild-moderately reduced laryngeal elevation. Onset of pharyngeal swallow typically 1-2 seconds after bolus presentation with thin liquid via tsp and cup rim; 3-4 seconds with applesauce. When presented with straw, patient consumed 3 large, consecutive swallows followed by gulping dry swallows, indicating decreased coordination and higher potential for aspiration. Patient typically swallowed 2 times per bite/sip. No overt s/s aspiration with single ice chips, thin liquid via cup rim, and teaspoon size bites of applesauce. Indication of acute aspiration witnessed or reported by patient, family or staff : No Aspiration Risk: Increased 2nd to decreased alertness, prolonged intubation. Esophageal Stage Esophageal Stage Dysphagia Indicated: No signs observed; patient does have hx GERD. ST ASSESSMENT SUMMARY DYSPHAGIA Patient demonstrates moderate oropharyngeal dysphagia and is at increased risk of aspiration due to decreased level of alertness and prolonged intubation. Patient demonstrated no overt s/s aspiration with conservative trials of thin liquid via tsp and single sips from cup rim, and tsp size bites of applesauce. Speech Therapy Need Skilled ST services indicated to complete ongoing reassessment of swallow function, diet texture modification, compensatory strategy training, and oropharyngeal swallow exercise as indicated. Without ST services patient is at risk of aspiration and aspiration related medical complications. RECOMMENDATIONS 1. Diet Modification: Full liquid diet, thin liquids. NO STRAWS. Single teaspoon size bites and sips with full assist from RN. May take pills crushed in tsp of applesauce. 2. Eat/drink only when awake, alert and upright 90 degrees. 3. Allow time to swallow 2x per each bite and sip. 4. STOP if coughing, choking, or wet/gurgly vocal quality 5. Oral care Q2 hours as tolerated by the patient 6. Speech Therapy: The patient would benefit from ST at least 4x/wk to address the above described concerns and to provide recommendations for diet advancement. PLAN OF CARE Short Term Goals 1. The patient will consume puree foods and thin liquids with no s/s aspiration. 2. Patient will participate in trials of dysphagia 2 foods with speech therapy with no s/s aspiration or respiratory compromise. 3. Patient and/or caregivers will verbalize and/or demonstrate safe swallow precautions independently. Audio Visual Technician Goals: 1.The patient will demonstrate decreased risk for aspiration pneumonia by following swallow precautions and oral hygiene recommendations. Patient Goals: Return to prior level of independence with CHEMO Rehabilitation Prognosis: Good. Medical status improving. Thank you for this referral. Laurel Woods M.A., CCC-PIE TOPPER Speech Therapist [*] MAR
[2017-07-27] MEDS: TRAVOPROST OU SCH (20:56)
[2017-07-28] MEDS: D5W(*) 1000 ML BAG 1,000 ML IV PRN (00:43)
[2017-07-28 03:09] VITALS: BP 136/82
[2017-07-28 06:33] LABS: PLATELET COUNT, AUTOMATED 182 K/uL (150-450)
[2017-07-28 06:49] VITALS: BP 140/91
[2017-07-28] MEDS: DORZOLAMIDE HCL OU SCH ×2 (08:26→20:17)
[2017-07-28] MEDS: methylPREDNIS SUCC 125 MG/2ML IVP SCH (08:28)
[2017-07-28] MEDS: ENOXAPARIN 40 MG/0.4ML SYR SC SCH (08:30)
[2017-07-28] MEDS: PANTOPRAZOLE SOD 40 MG IV VIAL IVP SCH (08:32)
[2017-07-28] MEDS: FLUoxetine HCL 10 MG CAP FT SCH (08:35)
[2017-07-28] MEDS: OLANZapine 5 MG TAB FT SCH (08:35)
[2017-07-28] MEDS: TIMOLOL MAL 0.25% OP SOLN 5 ML OU SCH ×2 (08:35→20:17)
[2017-07-28] MEDS: CLOTRIMAZOLE 1% CR 30 GM TUBE TP SCH ×2 (08:37→20:18)
[2017-07-28] MEDS: CLOTRIMAZOLE 1% VAG CR 45 GM PV SCH (08:37)
[2017-07-28] MEDS: LEVOTHYROXINE SOD 100 MCG VIAL IVP SCH (09:23)
--- NOTE | 2017-07-28 11:01 | Hospitalist Progress Note ---
Subjective Progress Notes Subjective She is still somewhat lethargic, but will respond to verbal stimuli - open her eyes/she does try to answer some simple questions. Physical Exam Vital Signs Date Time Temp Pulse Resp B/P (MAP) Pulse Ox O2 Delivery O2 Flow Rate FiO2 07/28/17 07:55 94 Nasal Cannula 2.0 07/28/17 06:49 95.7 75 12 140/91 (107) 07/27/17 08:00 70.0 General Appearance: Other (somewhat lethargic) Neuro: Other (she does withdraw to tactile stimuli - tickling feet) ENT: Other (mouth breather/oral mucosa dry) Neck: No Masses Cardiovascular: Regular Rate and Rhythm Respiratory: Other (poor effort/few scattered rhonch/no stridor or wheeze noted ) Chest: No Tenderness GI: Soft and Non-Tender Extremities: Warm, Perfused Result Diagram: 07/28/1752407/28/17524 Assessment and Plan Problems: (1) Respiratory failure Status: Acute Assessment & Plan: She was initially intubated for rising CO2 despite BIPAP and airway protection. She failed extubation on 07/17 secondary to upper airway edema/obstruction. It was noted that she had an enlarged tongue and pharyngeal/laryngeal edema. She is now extubated and seems to be doing fairly well from respiratory standpoint. 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 However, in the ER, she became very sleepy and difficult to awaken. Since extubation, she is not very communicative and not consistently following commands. Likely, there is some effect of propofol from the prolonged intubation. She has had a Brain MRI that didn't show any abnormalities. (3) Airway obstruction Assessment & Plan: She was noted to have macroglossia and laryngeal edema at the time of her second intubation. She was placed on IV steroids and antihistamines, but her CT scans continued to show some edema. Dr. Acevedo (ENT ) examined her and felt the tongue/pharyngeal edema was resolved on 07/25. She was extubated on 07/26 without any complications. (4) Nephrogenic diabetes insipidus Assessment & Plan: She did develop hypernatremia and excess dilute urine production. We believe this was secondary to her lithium, and she has been improving since this was discontinued. She is still on D5W, but at a much reduced rate. Will reduce IV fluids further and follow closely. (5) Urinary tract infection Status: Acute Assessment & Plan: Her urine had large leukocytes, but it was a contaminated sample. The urine culture was positive for E. coli. She did not have an elevated WBC or fever. She has completed 5 days of IV ceftriaxone. A repeat urine culture from 07/21 has been negative. (6) Edema Status: Chronic Assessment & Plan: Her symptoms started about a month ago. No proteinuria. TSH is normal at 3.84. BNP elevated mildly (220). Echocardiogram shows normal EF of 59% with 2/4 diastolic dysfunction. Right ventricle is borderline enlarged. Aortic valve is sclerotic, but not stenotic. She has trace [place], TI and mild pulmonary HTN with right-sided pressures of 39mmHg. Overall, her weight is down and is having a net diuresis since admission. Concerned that Lamotrigine was the cause and potentially contributed to the enlarge tongue and laryngeal edema. It was started at the end of April and increased in May (per the records from the [facility]). The lamotrigine has now been stopped. (7) Schizophrenia Status: Chronic Assessment & Plan: She was previously on [place], Lamotrigine, Risperdal, and Olanzapine. Dr. Hoff did recommend stopping the lithium and decreasing the dose of Prozac. She remains on olanzapine. Lamotrigine has been stopped because of the edema concerns. See above. (8) CKD (chronic kidney disease) stage 3, GFR 30-59 ml/min Status: Chronic Assessment & Plan: Creatinine is normal at 0.9 today. She is improved from 2012 , but it is unclear what is her baseline. Exam Sepsis Risk: No Definite Risk Problem Qualifiers (1) Respiratory failure: Chronicity: acute (2) Altered mental status, unspecified: Altered mental status type: somnolence Qualified Codes: R40.0 - Somnolence (3) Urinary tract infection: Urinary tract infection type: acute cystitis Hematuria presence: without hematuria Qualified Codes: N30.00 - Acute cystitis without hematuria (4) Schizophrenia: Schizophrenia type: unspecified Qualified Codes: F20.9 - Schizophrenia, unspecified JODI CARPENTER MD Jul 28, 2017 11:01
[2017-07-28] MEDS ORDERED: D5W(*) 500 ML BAG 500 ML IV PRN (11:20)
[2017-07-28 11:32] VITALS: BP 147/85
[2017-07-28 16:05] VITALS: BP 118/71
[2017-07-28] MEDS ORDERED: D5W(*) 1000 ML BAG 1,000 ML IV PRN (17:18)
[2017-07-28] MEDS: ALBUTEROL 2.5 MG/3 ML NEB NEB PRN (18:47)
[2017-07-28 19:42] VITALS: BP 122/83
[2017-07-28] MEDS: TRAVOPROST OU SCH (20:17)
[2017-07-28] MEDS: OLANZapine 5 MG TAB PO SCH (20:17)
[2017-07-28 23:14] VITALS: BP 115/78
[2017-07-29 03:36] VITALS: BP 122/81
[2017-07-29] MEDS: LEVOTHYROXINE SOD 0.088 MG TAB PO SCH ×2 (05:24→11:04)
[2017-07-29 06:24] LABS: PLATELET COUNT, AUTOMATED 185 K/uL (150-450)
[2017-07-29 07:11] VITALS: BP 122/114
[2017-07-29] MEDS ORDERED: PANTOPRAZOLE SOD 40 MG TABEC PO SCH (09:00)
[2017-07-29] MEDS ORDERED: methylPREDNIS SUCC 125 MG/2ML IVP SCH (09:00)
[2017-07-29] MEDS: ENOXAPARIN 40 MG/0.4ML SYR SC SCH (09:50)
[2017-07-29] MEDS: TIMOLOL MAL 0.25% OP SOLN 5 ML OU SCH ×2 (09:50→21:21)
[2017-07-29] MEDS: DORZOLAMIDE HCL OU SCH ×2 (09:51→21:21)
[2017-07-29] MEDS: CLOTRIMAZOLE 1% CR 30 GM TUBE TP SCH ×2 (09:52→21:22)
[2017-07-29] MEDS: CLOTRIMAZOLE 1% VAG CR 45 GM PV SCH (09:52)
[2017-07-29] MEDS: FLUoxetine HCL 10 MG CAP PO SCH (11:04)
[2017-07-29 11:05] VITALS: BP 124/73
[2017-07-29] MEDS: OLANZapine 5 MG TAB PO SCH ×2 (11:05→21:20)
--- NOTE | 2017-07-29 11:58 | Hospitalist Progress Note ---
Subjective Progress Notes Subjective This patient was admitted for respiratory failure. She had no acute events overnight. Patient Complains of: Cardiovascular: No: Chest Pain Respiratory: No: Shortness of Breath Physical Exam Vital Signs Date Time Temp Pulse Resp B/P (MAP) Pulse Ox O2 Delivery O2 Flow Rate FiO2 07/29/17 11:05 97.9 75 20 124/73 (90) 90 High-Flow Nasal Cannula 3.0 07/29/17 03:36 80.0 Intake and Output 07/30/17 07:00 Output Total 600 ml Balance -600 ml Output Urine Total 600 ml Cardiovascular: Regular Rate and Rhythm Respiratory: Clear to Auscultation Result Diagram: 07/29/17 0600 07/29/17 06 Assessment and Plan Problems: (1) Respiratory failure Status: Acute Assessment & Plan: She was initially intubated for rising CO2 despite BIPAP and airway protection. She failed extubation on 07/17 secondary to upper airway edema/obstruction. It was noted that she had an enlarged tongue and pharyngeal/laryngeal edema. She is now extubated and seems to be doing fairly well from respiratory standpoint. 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 However, in the ER, she became very sleepy and difficult to awaken. Since extubation, she is not very communicative and not consistently following commands. Likely, there is some effect of propofol from the prolonged intubation. She has had a Brain MRI that didn't show any abnormalities. (3) Airway obstruction Assessment & Plan: She was noted to have macroglossia and laryngeal edema at the time of her second intubation. She was placed on IV steroids and antihistamines, but her CT scans continued to show some edema. Dr. Acevedo (ENT ) examined her and felt the tongue/pharyngeal edema was resolved on 07/25. She was extubated on 07/26 without any complications. (4) Nephrogenic diabetes insipidus Assessment & Plan: She did develop hypernatremia and excess dilute urine production. We believe this was secondary to her lithium, and she has been improving since this was discontinued. (5) Urinary tract infection Status: Acute Assessment & Plan: Her urine had large leukocytes, but it was a contaminated sample. The urine culture was positive for E. coli. She did not have an elevated WBC or fever. She has completed 5 days of IV ceftriaxone. A repeat urine culture from 07/21 has been negative. (6) Edema Status: Chronic Assessment & Plan: Her symptoms started about a month ago. No proteinuria. TSH is normal at 3.84. BNP elevated mildly (220). Echocardiogram shows normal EF of 59% with 2/4 diastolic dysfunction. Right ventricle is borderline enlarged. Aortic valve is sclerotic, but not stenotic. She has trace [place], TI and mild pulmonary HTN with right-sided pressures of 39mmHg. Overall, her weight is down and is having a net diuresis since admission. Concerned that Lamotrigine was the cause and potentially contributed to the enlarge tongue and laryngeal edema. It was started at the end of April and increased in May (per the records from the [facility]). The lamotrigine has now been stopped. (7) Schizophrenia Status: Chronic Assessment & Plan: She was previously on [place], Lamotrigine, Risperdal, and Olanzapine. Dr. Hoff did recommend stopping the lithium and decreasing the dose of Prozac. She remains on olanzapine. Lamotrigine has been stopped because of the edema concerns. See above. (8) CKD (chronic kidney disease) stage 3, GFR 30-59 ml/min Status: Chronic Assessment & Plan: Creatinine is normal at 0.9 today. She is improved from 2012 , but it is unclear what is her baseline. Exam Sepsis Risk: No Definite Risk Problem Qualifiers (1) Respiratory failure: Chronicity: acute (2) Altered mental status, unspecified: Altered mental status type: somnolence Qualified Codes: R40.0 - Somnolence (3) Urinary tract infection: Urinary tract infection type: acute cystitis Hematuria presence: without hematuria Qualified Codes: N30.00 - Acute cystitis without hematuria (4) Schizophrenia: Schizophrenia type: unspecified Qualified Codes: F20.9 - Schizophrenia, unspecified AMENA CHOW DO Jul 29, 2017 11:58
[2017-07-29 15:06] VITALS: BP 127/80
--- NOTE | 2017-07-29 15:49 | RADIOLOGY IMAGING REPORT ---
FACILITY: [facility] PATIENT NAME: Fatemeh Bunch : 1960 MR: [id number] V: [id number] EXAM DATE: ORDERING PHYSICIAN: JODI CARPENTER TECHNOLOGIST: Location: [facility] Patient: Fatemeh Bunch : 1960 Visit/Account:[id number] Date of Sevice: 07/29/2017 Examination: CHEST SINGLE AP Comparison: 07/26/2017 and earlier. History: Hypoxia. Findings: Right internal jugular central venous catheter position is unchanged. Enteric tube has been removed. Cardiac and hilar contours prominent but unchanged. Small bilateral pleural effusions with associated lung base atelectasis as before. No new or enlargin g consolidation. No pneumothorax or edema. Osseous structures are intact. IMPRESSION: Small bilateral pleural effusions and lung base atelectasis. The chest appears minimally changed sinc e 07/26/2017. Report Dictated By: Edgard Chacon MD at 07/29/2017 3:43 PM Report E-Signed By: Edgard Chacon MD at 07/29/2017 3:46 PM WSN:[id number]
[2017-07-29] MEDS: D5W(*) 1000 ML BAG 1,000 ML IV PRN (16:12)
[2017-07-29 19:17] VITALS: BP 117/76
[2017-07-29] MEDS: TRAVOPROST OU SCH (21:21)
[2017-07-29] MEDS: ALBUTEROL 2.5 MG/3 ML NEB NEB PRN (23:27)
[2017-07-30] MEDS: D5W(*) 1000 ML BAG 1,000 ML IV PRN ×2 (04:31→19:26)
[2017-07-30] MEDS: LEVOTHYROXINE SOD 0.088 MG TAB PO SCH (05:39)
[2017-07-30 08:18] VITALS: BP 122/82
[2017-07-30] MEDS: CLOTRIMAZOLE 1% CR 30 GM TUBE TP SCH ×2 (10:01→20:59)
[2017-07-30] MEDS: ENOXAPARIN 40 MG/0.4ML SYR SC SCH (10:01)
[2017-07-30] MEDS: TIMOLOL MAL 0.25% OP SOLN 5 ML OU SCH ×2 (10:02→20:59)
[2017-07-30] MEDS: HYPROMELLOSE 0.4% LUB 15ML BTL OU PRN (10:02)
[2017-07-30] MEDS: TRAVOPROST OU SCH (10:02)
[2017-07-30] MEDS: DORZOLAMIDE HCL OU SCH ×2 (10:03→20:59)
[2017-07-30] MEDS: CLOTRIMAZOLE 1% VAG CR 45 GM PV SCH (10:04)
[2017-07-30] MEDS: LEVOTHYROXINE SOD 100 MCG VIAL IVP SCH (10:53)
--- NOTE | 2017-07-30 11:59 | Hospitalist Progress Note ---
Subjective Progress Notes Subjective Her mental status has improved only slightly. She will respond to verbal and tactile stimuli, but mainly just grunts/groans. She has had difficulty swallowing. Physical Exam Vital Signs Date Time Temp Pulse Resp B/P (MAP) Pulse Ox O2 Delivery O2 Flow Rate FiO2 07/30/17 08:32 95 Bi-PAP 40.0 07/30/17 08:18 98.8 73 12 122/82 (95) 07/29/17 20:55 4.0 Intake and Output 07/31/17 07:00 # Voids 1 General Appearance: Other (she does awaken and open eyes to verbal and tactile stimuli) Neuro: Other (generalized weakness in all groups) Cardiovascular: Regular Rate and Rhythm Respiratory: Other (coars upper airway sounds/no stridor or wheezing) Chest: No Tenderness GI: Soft and Non-Tender Extremities: Warm, Perfused Result Diagram: 07/29/17 0600 07/29/17 0600 Assessment and Plan Problems: (1) Respiratory failure Status: Acute Assessment & Plan: She was initially intubated for rising CO2 (despite BIPAP) and airway protection. She failed extubation on 07/17 secondary to upper airway edema/obstruction. It was noted that she had an enlarged tongue and pharyngeal/laryngeal edema. She is now extubated and seems to be doing fairly well from this standpoint. 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 However, in the ER, she became very sleepy and difficult to awaken. Since extubation, she is not very communicative and not consistently following commands. Likely, there is some effect of propofol from the prolonged intubation. She had a brain MRI that didn 't show any significant abnormalities. Unfortunately, it doesn't look like she is going to be able to swallow effectively and may need to have feeding tube placed. Will discuss with her POA. (3) Airway obstruction Assessment & Plan: She was noted to have macroglossia and laryngeal edema at the time of her second intubation. She was placed on IV steroids and antihistamines, but her CT scans continued to show some edema. Dr. Acevedo (ENT ) examined her and felt the tongue/pharyngeal edema was resolved on 07/25. She was extubated on 07/26 without any complications thus far. (4) Nephrogenic diabetes insipidus Assessment & Plan: She did develop hypernatremia and excess dilute urine production. We believe this was secondary to her lithium, and she has been improving since this was discontinued. (5) Urinary tract infection Status: Acute Assessment & Plan: Her urine had large leukocytes, but it was a contaminated sample. The urine culture was positive for E. coli. She did not have an elevated WBC or fever. She has completed 5 days of IV ceftriaxone. A repeat urine culture from 07/21 has been negative. (6) Edema Status: Chronic Assessment & Plan: Her symptoms started about a month ago. No proteinuria. TSH is normal at 3.84. BNP elevated mildly (220). Echocardiogram shows normal EF of 59% with 2/4 diastolic dysfunction. Right ventricle is borderline enlarged. Aortic valve is sclerotic, but not stenotic. She has trace [place], TI and mild pulmonary HTN with right-sided pressures of 39mmHg. Overall, her weight is down and is having a net diuresis since admission. Concerned that Lamotrigine was the cause and potentially contributed to the enlarge tongue and laryngeal edema. It was started at the end of April and increased in May (per the records from the [facility]). The lamotrigine has now been stopped. (7) Schizophrenia Status: Chronic Assessment & Plan: She was previously on [place], Lamotrigine, Risperdal, and Olanzapine. Dr. Hoff did recommend stopping the lithium and decreasing the dose of Prozac. She remains on olanzapine. Lamotrigine has been stopped because of the edema concerns. See above. (8) CKD (chronic kidney disease) stage 3, GFR 30-59 ml/min Status: Chronic Assessment & Plan: Creatinine is normal. She is improved from 2011, but it is unclear what is her baseline. Exam Sepsis Risk: No Definite Risk Problem Qualifiers (1) Respiratory failure: Chronicity: acute (2) Altered mental status, unspecified: Altered mental status type: somnolence Qualified Codes: R40.0 - Somnolence (3) Urinary tract infection: Urinary tract infection type: acute cystitis Hematuria presence: without hematuria Qualified Codes: N30.00 - Acute cystitis without hematuria (4) Schizophrenia: Schizophrenia type: unspecified Qualified Codes: F20.9 - Schizophrenia, unspecified JODI CARPENTER MD Jul 30, 2017 11:59
[2017-07-30] MEDS: ALBUTEROL 2.5 MG/3 ML NEB NEB PRN (16:59)
[2017-07-30 19:04] VITALS: BP 138/84
[2017-07-31 00:30] VITALS: BP 124/88
[2017-07-31 03:27] VITALS: BP 139/90
[2017-07-31] MEDS: D5W(*) 1000 ML BAG 1,000 ML IV PRN ×2 (05:52→23:00)
[2017-07-31 06:23] LABS: PLATELET COUNT, AUTOMATED 193 K/uL (150-450)
[2017-07-31 07:31] VITALS: BP 140/90
[2017-07-31] MEDS: ENOXAPARIN 40 MG/0.4ML SYR SC SCH (09:11)
[2017-07-31] MEDS: LEVOTHYROXINE SOD 100 MCG VIAL IVP SCH (09:12)
[2017-07-31] MEDS: CLOTRIMAZOLE 1% VAG CR 45 GM PV SCH (09:12)
[2017-07-31] MEDS: CLOTRIMAZOLE 1% CR 30 GM TUBE TP SCH ×2 (09:12→21:24)
[2017-07-31] MEDS: TIMOLOL MAL 0.25% OP SOLN 5 ML OU SCH ×2 (09:33→21:23)
[2017-07-31] MEDS: DORZOLAMIDE HCL OU SCH ×2 (09:42→21:23)
[2017-07-31 11:05] VITALS: BP 133/85
--- NOTE | 2017-07-31 11:48 | Hospitalist Progress Note ---
Subjective Progress Notes Subjective The patient will intermittently follow commands. She sat at the edge of the bed with therapy. Physical Exam Vital Signs Date Time Temp Pulse Resp B/P (MAP) Pulse Ox O2 Delivery O2 Flow Rate FiO2 07/31/17 11:05 97.8 88 16 133/85 (101) 95 High-Flow Nasal Cannula 1.0 07/31/17 03:27 40.0 Intake and Output 08/01/17 07:00 Intake Total 0 ml Balance 0 ml Intake Oral 0 ml # Voids 1 General Appearance: No Acute Distress, Other Neuro: Other (Intermittently follows commands. Feet flexed. Somnolent. 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 However, in the ER, she became very sleepy and difficult to awaken. Since extubation, she is not very communicative and not consistently following commands. Likely, there is some effect of propofol from the prolonged intubation, but she hasn't had any improvement since extubation about 5 days ago. She has received any sedative medications for the last 48 hours. She had a brain MRI that didn't show any significant abnormalities, but it was limited by motion. Will repeat. ABG has a normal pH and a PCO2 of 49. She is tolerating BIPAP at night. ABG in the morning. She is being followed by who recommend pureed diet with full assist feedings. If she is not able to get adequate calories then need to consider a feeding tube. (2) Respiratory failure Status: Acute Assessment & Plan: She was initially intubated for rising CO2 (despite BIPAP) and airway protection. She failed extubation on 07/17 secondary to upper airway edema/obstruction. It was noted that she had an enlarged tongue and pharyngeal/laryngeal edema. She is now extubated and seems to be doing fairly well from this standpoint. See above. (3) Airway obstruction Assessment & Plan: She was noted to have macroglossia and laryngeal edema at the time of her second intubation. She was placed on IV steroids and antihistamines, but her CT scans continued to show some edema. Dr. Acevedo (ENT ) examined her and felt the tongue/pharyngeal edema was resolved on 07/25. She was extubated on 07/26 without any complications thus far. (4) Nephrogenic diabetes insipidus Assessment & Plan: She did develop hypernatremia and excess dilute urine production. We believe this was secondary to her lithium, and she has been improving since this was discontinued. (5) Urinary tract infection Status: Acute Assessment & Plan: Her urine had large leukocytes, but it was a contaminated sample. The urine culture was positive for E. coli. She did not have an elevated WBC or fever. She has completed 5 days of IV ceftriaxone. A repeat urine culture from 07/21 has been negative. (6) Edema Status: Chronic Assessment & Plan: Her symptoms started about a month ago. No proteinuria. TSH is normal at 3.84. BNP elevated mildly (220). Echocardiogram shows normal EF of 59% with 2/4 diastolic dysfunction. Right ventricle is borderline enlarged. Aortic valve is sclerotic, but not stenotic. She has trace LA, TI and mild pulmonary HTN with right-sided pressures of 39mmHg. Overall, her weight is down and is having a net diuresis since admission. Concerned that Lamotrigine was the cause and potentially contributed to the enlarge tongue and laryngeal edema. It was started at the end of April and increased in May (per the records from the [facility]). The lamotrigine has now been stopped. (7) Schizophrenia Status: Chronic Assessment & Plan: She was previously on [place], Lamotrigine, Risperdal, and Olanzapine. Dr. Hoff did recommend stopping the lithium and decreasing the dose of Prozac. She has not received olanzapine or Prozac since 07/29. Lamotrigine has been stopped because of the edema concerns. See above. (8) CKD (chronic kidney disease) stage 3, GFR 30-59 ml/min Status: Chronic Assessment & Plan: Creatinine is normal. She is improved from 2012, but it is unclear what is her baseline. Exam Sepsis Risk: No Definite Risk Problem Qualifiers (1) Altered mental status, unspecified: Altered mental status type: somnolence Qualified Codes: R40.0 - Somnolence (2) Respiratory failure: Chronicity: acute (3) Urinary tract infection: Urinary tract infection type: acute cystitis Hematuria presence: without hematuria Qualified Codes: N30.00 - Acute cystitis without hematuria (4) Schizophrenia: Schizophrenia type: unspecified Qualified Codes: F20.9 - Schizophrenia, unspecified RIANNA CINTRON MD Jul 31, 2017 11:48
--- NOTE | 2017-07-31 16:15 | RADIOLOGY IMAGING REPORT ---
FACILITY: [facility] [place] PATIENT NAME: Fatemeh Bunch : 1960 MR: [id number] V: [id number] EXAM DATE: ORDERING PHYSICIAN: RIANNA CINTRON TECHNOLOGIST: Location: [facility] Patient: Fatemeh Bunch : 1960 Visit/Account:[id number] Date of Sevice: 07/31/2017 EXAMINATION: Brain MRI without IV contrast HISTORY: Confusion. COMPARISON: 07/18/2017. TECHNIQUE: Multi-planar, multi-sequence brain MRI was performed without IV contrast administration. FINDINGS: Brain volume: Normal. Sagittal midline structures: Negative. Ventricles: Normal. Acute ischemic changes: None. Hemorrhage: None. Masses / edema: None. Schumacher-white: Negative. White matter: Negative. Vessels: Negative. Extra-axial: None. Calvarium / scalp: Negative. Skull base: Negative. Visualized sinuses / orbits: Mild bilateral mastoid effusion. Rightward nasal septal deviation. Visualized upper neck: Negative. IMPRESSION: No acute intracranial abnormality. Report Dictated By: Jose Joaquin MD at 07/31/2017 4:06 PM Report E-Signed By: Jose Joaquin MD at 07/31/2017 4:11 PM [id number]
[2017-07-31 16:16] VITALS: BP 127/77
[2017-07-31 20:47] VITALS: BP 130/82
[2017-07-31] MEDS: HYPROMELLOSE 0.4% LUB 15ML BTL OU PRN (21:22)
[2017-07-31] MEDS: TRAVOPROST OU SCH (21:23)
[2017-08-01 05:52] LABS: PLATELET COUNT, AUTOMATED 206 K/uL (150-450)
[2017-08-01 07:30] VITALS: BP 89/58
--- NOTE | 2017-08-01 08:47 | Medical Nutrition Therapy ---
Nutrition Anthropometrics Height (Inches): 66.00 Height (Calculated Centimeters: 167.122642 Weight (Pounds): 184 Weight (Calculated Kilograms): 83.546 BMI Calculated: 34.21 Chris Nutrition Score: Probably Inadequate Chris Nutrition Risk Score: 12 Dietary Referral Nutrition Risk Factors: Nutrition Risk Comment: Physical Findings Physical Appearance: Obese BMI 30-39 (BMI 29.7) Skin Appearance Skin Appearance: Edema Edema Location Modifier: Both Edema Location: Lower Extremity Type of Edema: Degree of Edema: 1+ Gastrointestinal Symptoms GI Symtoms: Constipation Tube Present: OG Bowel Sounds: Recent Bowel Pattern: Stool Characteristics: Nutritional Diagnosis Nutritional Risk Acuity 2: Swallowing Problem Past Medical History: Edema, GERD, hyperlipidemia, schizophrenia Nutritional Acuity: 2-Moderate Nutrition Diagnosis: Increased Nutrient Needs Nutrition Etiology: Physiological Causes Nutrition Problem/Etiology/Sym: Increased nutr needs related to physiological causes as evidenced by sedation, intubation, and respiratory distress. Adjusted Energy Requirement Re: 1780 (4326-3559 (actual BW)) Protein Requirement: 59 (59-70 g/kg adjusted BW) Fluid Requirement: 1780 (25 ml/kg) Diet Type: Puree Nutrition Intervention: Incr diet as tolerated Food Likes: easy to swallow foods Diet Comment To RSA: PLEASE OFFER NUTR SUPPL PUT PROTEIN POWDER IN APPROPRIATE FOODS Nutrition Monitoring & Eval Nutrition Goals: Eat 75-100% Meal RD Patient Assessment Time: [address] Assessment Type: RD Re-Assessment Patient Nutrition Acuity: 2-Moderate Follow Up Date: Aug 02, 2017 Nutritional Comment: 12/ Pt with PMH of schizophrenia admitted with SOB and AMS. Caretakers noting wt gain. Currently has 2+ pitting edema in both LE and on diuretic. Intubated and sedated on 34.7 ml/hr Propofol. Diet NPO day 1. Recommend nutrition support if NPO for >3 days. Notable labs include creatinine 1.3, alb WNL. Will cont to monitor. 12/ Pt to start TF today at 30 ml/hr for a final rate of 80 ml/hr. This current TF prescription will overfeed pt due to propofol at 23.1 ml/hr. Recommend decreasing goal rate to 65 ml/hr which with propofol, will provide 2262 calories and 69 g protein. This will meet 111% and 98% of calorie and protien needs respectively. Please provide 80ml free water q 6 hr to meet remainder of fluid needs. Notable labs include Na 149, K 3.3, total pro 6.2 and alb 3.2. Will cont to monitor and remain available for consult. 07/17 TF changed to 65ml/hr Osmolite. Providing 1653 kcal, 69gm protein and meeting 93% est kcal and 117% est protein needs. Pt is no longer recieving propofol. Pt tolerating TF with minimal residuals. Alb cont low at 3. 07/21 TF changed to 65ml/hr promote plus propofol. Providing 2238 kcal, 97gm protein and meeting 125% est kcal and 117% est protein needs. Since BMI is in class 1 obestiy range, recommend reduce rate to 50ml/hr to provide 1758 kcal with propofol and 75gm protein to meet nutr needs without overfeeding. Pt tolerating TF with minimal residuals. Alb cont low at 2.9. Will cont to monitor. 07/23/17 TF changed to 55 ml/hr Jevity 1 plus propofol. Providing 2077 kcal and 58 g protein which is meeting 116% est kcal needs and 98% est protein needs. Pt tolerating TF with minimal residuals. Notable labs include Na 147, BUN 27, total pro 5.6, and alb 2.9. Will continue to monitor. 07/27/17 Pt extubated yesterday morning. TF and propofol discontinued. Pt is currently NPO until she is more awake and alert. Notable labs include total pro 6.4 and alb 3.2, which have improved since admission. Pt has lost 37# in two weeks. Unsure of UBW. Caregivers stated she had gained weight before admission. Pt also admitted with 2+ edema LE which has now resolved. TF has met kcal and pro needs so edema most likely cause of weight changes. Will continue to monitor as diet progresses. 07/31/17 Pt has progressed to pureed diet. Poor intake over the last three days most likely due to swallowing difficulty and pain. Will offer nutr supplment. If pt intakes do not improve, TF may be considered per hospitalist note. Recommend Jevity at 70 ml/hr to meet needs if intake does not improve. Notable labs include Na 147, BUN 24, total pro 5.8, and alb 2.9. Will continue to monitor and encourage intakes. Nutritional Support Current Tube Feeding Formula C: final rate 55 ml/hr Recommended Enteral / Parental: Tube Feeding Recommended Tube Feeding Formu: Jevity 1cal/ml-Standard Tube Feeding Supplement Streng: Full Recommended Feeding Route: FT Placed Nasogastric Recommended Rate: 70 ml/hr Recommended Duration: 24 Recommended Calories: 1780 Recommended Protein: 74 Total Recommended Calories: 1780 TIMMY WATERS Jul 31, 2017 16:29
[2017-08-01] MEDS: CLOTRIMAZOLE 1% CR 30 GM TUBE TP SCH ×3 (09:00→20:58)
[2017-08-01] MEDS: D5W(*) 1000 ML BAG 1,000 ML IV PRN ×2 (10:33→22:05)
[2017-08-01] MEDS: ENOXAPARIN 40 MG/0.4ML SYR SC SCH (10:45)
[2017-08-01] MEDS: DORZOLAMIDE HCL OU SCH ×2 (10:46→20:58)
[2017-08-01] MEDS: LEVOTHYROXINE SOD 100 MCG VIAL IVP SCH (10:46)
[2017-08-01] MEDS: TIMOLOL MAL 0.25% OP SOLN 5 ML OU SCH ×2 (10:46→20:58)
[2017-08-01 10:49] VITALS: BP 129/81
[2017-08-01 11:38] VITALS: BP 124/79
--- NOTE | 2017-08-01 11:55 | Hospitalist Progress Note ---
Subjective Progress Notes Subjective This patient was admitted for respiratory failure secondary to airway obstruction. She had no acute changes overnight. Patient Complains of: Cardiovascular: No: Chest Pain Respiratory: No: Shortness of Breath Physical Exam Vital Signs Date Time Temp Pulse Resp B/P (MAP) Pulse Ox O2 Delivery O2 Flow Rate FiO2 08/01/17 11:38 69 124/79 (94) 08/01/17 10:49 99.1 14 96 Nasal Cannula 2.0 08/01/17 00:13 40.0 Intake and Output 08/02/17 07:00 Intake Total 1515 ml Balance 1515 ml IV Total 1515 ml # Voids 1 Cardiovascular: Regular Rate and Rhythm Respiratory: Clear to Auscultation Result Diagram: 08/01/17 0538 08/01/17537 Imaging MRI of brain reviewed. 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 However, in the ER, she became very sleepy and difficult to awaken. Since extubation, she is not very communicative and not consistently following commands. Likely, there is some effect of propofol from the prolonged intubation, but she hasn't had any improvement since extubation. An MRI was unremarkable and it does not appear that she is having CO2 narcosis. We will need to talk with the family regarding their wishes for feeding tubes and fdc placement. (2) Respiratory failure Status: Acute Assessment & Plan: She was initially intubated for rising CO2 (despite BIPAP) and airway protection. She failed extubation on 07/17 secondary to upper airway edema/obstruction. It was noted that she had an enlarged tongue and pharyngeal/laryngeal edema. She is now extubated and seems to be doing fairly well from this standpoint. (3) Airway obstruction Assessment & Plan: She was noted to have macroglossia and laryngeal edema at the time of her second intubation. She was placed on IV steroids and antihistamines, but her CT scans continued to show some edema. Dr. Acevedo (ENT ) examined her and felt the tongue/pharyngeal edema was resolved on 07/25. She was extubated on 07/26 without any complications thus far. (4) Nephrogenic diabetes insipidus Assessment & Plan: She did develop hypernatremia and excess dilute urine production. We believe this was secondary to her lithium, and she has been improved since this was discontinued. (5) Urinary tract infection Status: Acute Assessment & Plan: Her urine had large leukocytes, but it was a contaminated sample. The urine culture was positive for E. coli. She did not have an elevated WBC or fever. She has completed 5 days of IV ceftriaxone. A repeat urine culture from 07/21 has been negative. (6) Edema Status: Chronic Assessment & Plan: Her symptoms started about a month ago. No proteinuria. TSH is normal at 3.84. BNP elevated mildly (220). Echocardiogram shows normal EF of 59% with 2/4 diastolic dysfunction. Right ventricle is borderline enlarged. Aortic valve is sclerotic, but not stenotic. She has trace CA, TI and mild pulmonary HTN with right-sided pressures of 39mmHg. Overall, her weight is down and is having a net diuresis since admission. Concerned that Lamotrigine was the cause and potentially contributed to the enlarge tongue and laryngeal edema. It was started at the end of April and increased in May (per the records from the [facility]). The lamotrigine has now been stopped. (7) Schizophrenia Status: Chronic Assessment & Plan: She was previously on [place], Lamotrigine, Risperdal, and Olanzapine. Dr. Hoff did recommend stopping the lithium and decreasing the dose of Prozac. She has not received olanzapine or Prozac since 07/29. Lamotrigine has been stopped because of the edema concerns. (8) CKD (chronic kidney disease) stage 3, GFR 30-59 ml/min Status: Chronic Assessment & Plan: Creatinine is normal. She is improved from 2011, but it is unclear what is her baseline. Exam Sepsis Risk: No Definite Risk Problem Qualifiers (1) Altered mental status, unspecified: Altered mental status type: somnolence Qualified Codes: R40.0 - Somnolence (2) Respiratory failure: Chronicity: acute (3) Urinary tract infection: Urinary tract infection type: acute cystitis Hematuria presence: without hematuria Qualified Codes: N30.00 - Acute cystitis without hematuria (4) Schizophrenia: Schizophrenia type: unspecified Qualified Codes: F20.9 - Schizophrenia, unspecified AMENA CHOW DO Aug 01, 2017 11:55
[2017-08-01 19:47] VITALS: BP 128/88
[2017-08-01] MEDS: TRAVOPROST OU SCH (20:58)
[2017-08-01 22:55] VITALS: BP 122/90
[2017-08-02 08:20] VITALS: BP 124/88
[2017-08-02] MEDS: TIMOLOL MAL 0.25% OP SOLN 5 ML OU SCH ×2 (08:57→20:47)
[2017-08-02] MEDS: DORZOLAMIDE HCL OU SCH ×2 (08:57→20:46)
[2017-08-02] MEDS: ENOXAPARIN 40 MG/0.4ML SYR SC SCH (08:58)
[2017-08-02] MEDS: LEVOTHYROXINE SOD 100 MCG VIAL IVP SCH (08:58)
[2017-08-02] MEDS: D5W(*) 1000 ML BAG 1,000 ML IV PRN ×2 (08:59→22:16)
[2017-08-02 11:27] LABS: PLATELET COUNT, AUTOMATED 230 K/uL (150-450)
--- NOTE | 2017-08-02 13:53 | Medical Nutrition Therapy ---
Nutrition Anthropometrics Height (Inches): 66.00 Height (Calculated Centimeters: 167.695102 Weight (Pounds): 182 Weight (Calculated Kilograms): 82.639 BMI Calculated: 34.21 Chris Nutrition Score: Probably Inadequate Chris Nutrition Risk Score: 12 Dietary Referral Nutrition Risk Factors: Nutrition Risk Comment: Physical Findings Physical Appearance: Overweight BMI 25-29 Skin Appearance Skin Appearance: Edema Edema Location Modifier: Both Edema Location: Lower Extremity Type of Edema: Degree of Edema: 1+ Gastrointestinal Symptoms GI Symtoms: Constipation Tube Present: OG Bowel Sounds: Recent Bowel Pattern: Stool Characteristics: Nutritional Diagnosis Nutritional Risk Acuity 2: Pr Appetite > 3d, Swallowing Problem Past Medical History: Edema, GERD, hyperlipidemia, schizophrenia Nutritional Acuity: 2-Moderate Nutrition Diagnosis: Increased Nutrient Needs Nutrition Etiology: Physiological Causes Nutrition Problem/Etiology/Sym: Increased nutr needs related to physiological causes as evidenced by sedation, intubation, and respiratory distress. Adjusted Energy Requirement Re: 1780 (3335-8698 (actual BW)) Protein Requirement: 59 (59-70 g/kg adjusted BW) Fluid Requirement: 1780 (25 ml/kg) Diet Type: Puree Nutrition Intervention: Incr diet as tolerated Food Likes: easy to swallow foods Diet Comment To RSA: PLEASE OFFER NUTR SUPPL PUT PROTEIN POWDER IN APPROPRIATE FOODS Nutritional Support Recommended Enteral / Parental: Tube Feeding Recommended Tube Feeding Formu: Jevity 1cal/ml-Standard Recommended Tube Feeding Formu: 70 ml/hr Tube Feeding Supplement Streng: Full Recommended Feeding Route: FT Placed Nasogastric Recommended Rate: 70 ml/hr Recommended Duration: 24 Recommended Calories: 1780 Recommended Protein: 74 Total Recommended Calories: 1780 Nutrition Monitoring & Eval Nutrition Goals: Eat 75-100% Meal Nutrition Follow-Up: Poor Intake RD Patient Assessment Time: [address] Assessment Type: RD Re-Assessment Patient Nutrition Acuity: 2-Moderate Follow Up Date: Aug 04, 2017 Nutritional Comment: / Pt with PMH of schizophrenia admitted with SOB and AMS. Caretakers noting wt gain. Currently has 2+ pitting edema in both LE and on diuretic. Intubated and sedated on 34.7 ml/hr Propofol. Diet NPO day 1. Recommend nutrition support if NPO for >3 days. Notable labs include creatinine 1.3, alb WNL. Will cont to monitor. 12/3 Pt to start TF today at 30 ml/hr for a final rate of 80 ml/hr. This current TF prescription will overfeed pt due to propofol at 23.1 ml/hr. Recommend decreasing goal rate to 65 ml/hr which with propofol, will provide 2262 calories and 69 g protein. This will meet 111% and 98% of calorie and protien needs respectively. Please provide 80ml free water q 6 hr to meet remainder of fluid needs. Notable labs include Na 149, K 3.3, total pro 6.2 and alb 3.2. Will cont to monitor and remain available for consult. 07/17 TF changed to 65ml/hr Osmolite. Providing 1653 kcal, 69gm protein and meeting 93% est kcal and 117% est protein needs. Pt is no longer recieving propofol. Pt tolerating TF with minimal residuals. Alb cont low at 3. 07/21 TF changed to 65ml/hr promote plus propofol. Providing 2238 kcal, 97gm protein and meeting 125% est kcal and 117% est protein needs. Since BMI is in class 1 obestiy range, recommend reduce rate to 50ml/hr to provide 1758 kcal with propofol and 75gm protein to meet nutr needs without overfeeding. Pt tolerating TF with minimal residuals. Alb cont low at 2.9. Will cont to monitor. 07/23/17 TF changed to 55 ml/hr Jevity 1 plus propofol. Providing 2077 kcal and 58 g protein which is meeting 116% est kcal needs and 98% est protein needs. Pt tolerating TF with minimal residuals. Notable labs include Na 147, BUN 27, total pro 5.6, and alb 2.9. Will continue to monitor. 07/27/17 Pt extubated yesterday morning. TF and propofol discontinued. Pt is currently NPO until she is more awake and alert. Notable labs include total pro 6.4 and alb 3.2, which have improved since admission. Pt has lost 37# in two weeks. Unsure of UBW. Caregivers stated she had gained weight before admission. Pt also admitted with 2+ edema LE which has now resolved. TF has met kcal and pro needs so edema most likely cause of weight changes. Will continue to monitor as diet progresses. 07/31/17 Pt has progressed to pureed diet. Poor intake over the last three days most likely due to swallowing difficulty and pain. Will offer nutr supplment. If pt intakes do not improve, TF may be considered per hospitalist note. Recommend Jevity at 70 ml/hr to meet needs if intake does not improve. Notable labs include Na 147, BUN 24, total pro 5.8, and alb 2.9. Will continue to monitor and encourage intakes. 08/02 Intake averaged 4% past 3 days with refusal of most nutr supplments. Wt is down 14% past month, however pt did come in with 2+ pitting edema LE and now is nonpitting. BMI is onw in overwt range. Recommend TF to meet nutritional needs r/t poor oral intake. CORBY CAZARES Aug 02, 2017 13:53
[2017-08-02 14:00] VITALS: BP 124/84
--- NOTE | 2017-08-02 14:43 | Hospitalist Progress Note ---
Subjective Progress Notes Subjective The patient continues to have altered mental status. Review of the record reveals that she was having a decline in status for about one month prior to admission according to her caretakers. She was evaluated at [facility] ER on 07/13/17 and found to have respiratory failure. She was intubated and ventilated for several days. She was then extubated but found to have swelling of her tongue and airway so was re-intubated. She was treated with IV steroids and antihistamines. She was then evaluated by ENT, Chun Acevedo MD, and felt to be safe for extubation due to resolution of her airway edema. She was extubated again on 07/26/17. She has required BiPAP since then due to CO2 retention. She has not been very communicative and has not been eating well. Her family has been contacted and her brother is on his way to [place]. Physical Exam Vital Signs Date Time Temp Pulse Resp B/P (MAP) Pulse Ox O2 Delivery O2 Flow Rate FiO2 08/02/17 14:00 97.8 81 20 124/84 (97) 95 Nasal Cannula 2.0 08/02/17 00:24 40.0 Intake and Output 08/03/17 07:00 Intake Total 1063 ml Balance 1063 ml Intake Oral 130 ml IV Total 933 ml # Voids 3 General Appearance: Other (Somnolent but arouses.) Neuro: Other (Marked weakness of all 4 extremities. Difficult to assess as the patient does not follow commands. ) Cardiovascular: Regular Rate and Rhythm Respiratory: Clear to Auscultation GI: Soft and Non-Tender Extremities: Warm, Perfused, Other (No significant edema today.) Integumentary: Scaly / Dry Skin Psych: Other (Unable to assess.) Result Diagram: 08/02/17 1112 08/02/17 1112 Assessment and Plan Problems: (1) Altered mental status, unspecified Status: Acute Assessment & Plan: She presented with increased somnolence over 2 days [employer] ( caregivers state it may be more like a month). However, in the ER, she became very sleepy and difficult to awaken. Since extubation, she is not very communicative and not consistently following commands. Likely, there is some effect of propofol from the prolonged intubation, but she hasn't had any improvement since extubation. An MRI was unremarkable. CO2 has increased and she is wearing BiPAP now. 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 Her brother will arrive on . (2) Respiratory failure Status: Acute Assessment & Plan: She was initially intubated for rising CO2 (despite BIPAP) and airway protection. She failed extubation on 07/17 secondary to upper airway edema/obstruction. It was noted that she had an enlarged tongue and pharyngeal/laryngeal edema. She is now extubated and has had a gradual increase in her pCO2. Will continue BiPAP and talk with her family about marine oil terminal superintendent care/treatment. (3) Airway obstruction Assessment & Plan: She was noted to have macroglossia and laryngeal edema at the time of her second intubation. She was placed on IV steroids and antihistamines, but her CT scans continued to show some edema. Dr. Acevedo (ENT ) examined her and felt the tongue/pharyngeal edema was resolved on 07/25. She was extubated on 07/26 without any complications thus far. (4) Nephrogenic diabetes insipidus Assessment & Plan: She did develop hypernatremia and excess dilute urine production. We believe this was secondary to her lithium, and she has been improved since this was discontinued. (5) Urinary tract infection Status: Acute Assessment & Plan: Her urine had large leukocytes, but it was a contaminated sample. The urine culture was positive for E. coli. She did not have an elevated WBC or fever. She has completed 5 days of IV ceftriaxone. A repeat urine culture from 07/21 has been negative. (6) Edema Status: Chronic Assessment & Plan: Her symptoms started about a month ago. No proteinuria. TSH is normal at 3.84. BNP elevated mildly (220). Echocardiogram shows normal EF of 59% with 2/4 diastolic dysfunction. Right ventricle is borderline enlarged. Aortic valve is sclerotic, but not stenotic. She has trace [place], TI and mild pulmonary HTN with right-sided pressures of 39mmHg. Overall, her weight is down and is having a net diuresis since admission. Concerned that Lamotrigine was the cause and potentially contributed to the enlarge tongue and laryngeal edema. It was started at the end of April and increased in May (per the records from the [facility]). The lamotrigine has now been stopped. (7) Schizophrenia Status: Chronic Assessment & Plan: She was previously on [place], Lamotrigine, Risperdal, and Olanzapine. Dr. Hoff did recommend stopping the lithium and decreasing the dose of Prozac. She has not received olanzapine or Prozac since 07/29. Lamotrigine has been stopped because of the edema concerns. (8) CKD (chronic kidney disease) stage 3, GFR 30-59 ml/min Status: Chronic Assessment & Plan: Creatinine is normal. She is improved from 2012, but it is unclear what is her baseline. Time Spent on Plan of Care: < 30 min Exam Sepsis Risk: No Definite Risk Problem Qualifiers (1) Altered mental status, unspecified: Altered mental status type: somnolence Qualified Codes: R40.0 - Somnolence (2) Respiratory failure: Chronicity: acute (3) Urinary tract infection: Urinary tract infection type: acute cystitis Hematuria presence: without hematuria Qualified Codes: N30.00 - Acute cystitis without hematuria (4) Schizophrenia: Schizophrenia type: unspecified Qualified Codes: F20.9 - Schizophrenia, unspecified CASSIUS CARPENTER MD Aug 02, 2017 14:43
[2017-08-02 19:09] VITALS: BP 117/96
[2017-08-02] MEDS: TRAVOPROST OU SCH (20:46)
[2017-08-03] VITALS: BP 125/92
[2017-08-03 03:07] VITALS: BP 126/86
[2017-08-03 06:19] LABS: PLATELET COUNT, AUTOMATED 200 K/uL (150-450)
[2017-08-03 08:30] VITALS: BP 139/97
[2017-08-03] MEDS ORDERED: D5W(*) 1000 ML BAG 1,000 ML IV PRN (09:40)
[2017-08-03] MEDS: TIMOLOL MAL 0.25% OP SOLN 5 ML OU SCH ×2 (10:56→21:14)
[2017-08-03] MEDS: FLUoxetine HCL 10 MG CAP PO SCH (10:57)
[2017-08-03] MEDS: ENOXAPARIN 40 MG/0.4ML SYR SC SCH (10:57)
[2017-08-03] MEDS: LEVOTHYROXINE SOD 0.088 MG TAB PO SCH (10:57)
[2017-08-03] MEDS: DORZOLAMIDE HCL OU SCH ×2 (11:07→21:14)
--- NOTE | 2017-08-03 12:44 | Hospitalist Progress Note ---
Subjective Progress Notes Subjective She is much more awake and alert. She is able to communicate with her brother. Physical Exam Vital Signs Date Time Temp Pulse Resp B/P (MAP) Pulse Ox O2 Delivery O2 Flow Rate FiO2 08/03/17 08:00 Nasal Cannula 2.0 08/03/17 03:07 97.5 79 16 126/86 (99) 98 40.0 Intake and Output 08/04/17 07:00 Intake Total 130 ml Balance 130 ml Intake Oral 130 ml # Voids 2 General Appearance: Alert, Awake, Other (speech is more fluent, but still difficult to understand) Neuro: Other (generalized weakness, but does sit up in bed on her own) Cardiovascular: Regular Rate and Rhythm Respiratory: Other (few scattered rhonchi/diminished at bases) GI: Soft and Non-Tender Extremities: Warm, Perfused Result Diagram: 08/03/1752208/03/17522 Assessment and Plan Problems: (1) Altered mental status, unspecified Status: Acute Assessment & Plan: She presented with increased somnolence over 2 days [employer]ICAL [employer]P ( caregivers state it may be more like a month). However, in the ER, she became very sleepy and difficult to awaken. She was intubated at that time. Since extubation, she had not been very communicative and not consistently following commands. Likely, there was some effect of propofol from the prolonged intubation, but she hadn't improved much since extubation. Also concerned her psychiatric meds may have contributed to her somnolence. She is currently off the Zyprexa and Risperdal completely. An MRI was unremarkable. CO2 has increased and she is wearing BiPAP now with all naps and sleeping. Her brother arrived late yesterday. Since his arrival she has steadily improved and is interacting with him. 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 (2) Respiratory failure Status: Acute Assessment & Plan: She was initially intubated for rising CO2 (despite BIPAP) and airway protection. She failed extubation on 07/17 secondary to upper airway edema/obstruction. It was noted that she had an enlarged tongue and pharyngeal/laryngeal edema. She is now extubated and has had a gradual increase in her pCO2. Will continue BiPAP with all naps and sleeping as it appears she does hypoventilate and probably has VELASQUEZ. (3) Airway obstruction Assessment & Plan: She was noted to have macroglossia and laryngeal edema at the time of her second intubation. She was placed on IV steroids and antihistamines, but her CT scans continued to show some edema. Dr. Acevedo (ENT ) examined her and felt the tongue/pharyngeal edema was resolved on 07/25. She was extubated on 07/26 without any complications thus far. (4) Nephrogenic diabetes insipidus Assessment & Plan: She did develop hypernatremia and excess dilute urine production. We believe this was secondary to her lithium. She has been improved since this was discontinued. Will further reduce her IV fluids today. Watch labs. (5) Urinary tract infection Status: Acute Assessment & Plan: Her urine had large leukocytes, but it was a contaminated sample. The urine culture was positive for E. coli. She did not have an elevated WBC or fever. She has completed 5 days of IV ceftriaxone. A repeat urine culture from 07/21 has been negative. (6) Edema Status: Chronic Assessment & Plan: Her symptoms started about a month ago. No proteinuria. TSH is normal at 3.84. BNP elevated mildly (220). Echocardiogram shows normal EF of 59% with 2/4 diastolic dysfunction. Right ventricle is borderline enlarged. Aortic valve is sclerotic, but not stenotic. She has trace [place], TI and mild pulmonary HTN with right-sided pressures of 39mmHg. Overall, her weight is down and is having a net diuresis since admission. Concerned that Lamotrigine was the cause and potentially contributed to the enlarge tongue and laryngeal edema. It was started at the end of April and increased in May (per the records from the [facility]). The lamotrigine has now been stopped. (7) Schizophrenia Status: Chronic Assessment & Plan: She was previously on [place], Lamotrigine, Risperdal, and Olanzapine. She is now off all medications except the Prozac. Clinically, she is improved and has not shown any significant behavioral problems as of yet. (8) CKD (chronic kidney disease) stage 3, GFR 30-59 ml/min Status: Chronic Assessment & Plan: Creatinine is normal. She is improved from 2011, but it is unclear what is her baseline. Exam Sepsis Risk: No Definite Risk Problem Qualifiers (1) Altered mental status, unspecified: Altered mental status type: somnolence Qualified Codes: R40.0 - Somnolence (2) Respiratory failure: Chronicity: acute (3) Urinary tract infection: Urinary tract infection type: acute cystitis Hematuria presence: without hematuria Qualified Codes: N30.00 - Acute cystitis without hematuria (4) Schizophrenia: Schizophrenia type: unspecified Qualified Codes: F20.9 - Schizophrenia, unspecified JODI CARPENTER MD Aug 03, 2017 12:44
[2017-08-03 14:00] VITALS: BP 138/90
[2017-08-03 18:57] VITALS: BP 130/92
[2017-08-03] MEDS: TRAVOPROST OU SCH (21:15)
[2017-08-03 23:29] VITALS: BP 117/84
[2017-08-04 03:49] VITALS: BP 106/80
[2017-08-04] MEDS: ACETAMINOPHEN 500 MG TAB PO PRN (05:04)
[2017-08-04 05:26] LABS: PLATELET COUNT, AUTOMATED 202 K/uL (150-450)
[2017-08-04] MEDS: LEVOTHYROXINE SOD 0.088 MG TAB PO SCH (06:39)
[2017-08-04 07:12] VITALS: BP 123/85
--- NOTE | 2017-08-04 09:37 | Hospitalist Progress Note ---
Subjective Progress Notes Subjective This patient was admitted for respiratory failure. She was reported to be more alert yesterday. Patient Complains of: Cardiovascular: No: Chest Pain Respiratory: No: Shortness of Breath Physical Exam Vital Signs Date Time Temp Pulse Resp B/P (MAP) Pulse Ox O2 Delivery O2 Flow Rate FiO2 08/04/17 07:12 97.7 82 20 123/85 (98) 96 Nasal Cannula 1.0 08/03/17 03:07 40.0 Respiratory: Clear to Auscultation Result Diagram: 08/04/17 0500 08/04/17 0500 Assessment and Plan Problems: (1) Altered mental status, unspecified Status: Acute Assessment & Plan: She presented with increased somnolence over 2 days [employer] ( caregivers state it may be more like a month). However, in the ER, she became very sleepy and difficult to awaken. She was intubated at that time. Since extubation, she had not been very communicative and not consistently following commands. Likely, there was some effect of propofol from the prolonged intubation, but she hadn't improved much since extubation. Also concerned her psychiatric meds may have contributed to her somnolence. She is currently off the Zyprexa and Risperdal completely. An MRI was unremarkable. CO2 has increased and she is wearing BiPAP now with all naps and sleeping. She was more alert after her brother arrived. At this point, it does not appear she will need to have feeding tube placed and should be bale to work more with PT/ OT. (2) Respiratory failure Status: Acute Assessment & Plan: She was initially intubated for rising CO2 (despite BIPAP) and airway protection. She failed extubation on 07/17 secondary to upper airway edema/obstruction. It was noted that she had an enlarged tongue and pharyngeal/laryngeal edema. She is now extubated and has had a gradual increase in her pCO2. Will continue BiPAP with all naps and sleeping as it appears she does hypoventilate and probably has VELASQUEZ. (3) Airway obstruction Assessment & Plan: She was noted to have macroglossia and laryngeal edema at the time of her second intubation. She was placed on IV steroids and antihistamines, but her CT scans continued to show some edema. Dr. Acevedo (ENT ) examined her and felt the tongue/pharyngeal edema was resolved on 07/25. She was extubated on 07/26 without any complications thus far. (4) Nephrogenic diabetes insipidus Assessment & Plan: She did develop hypernatremia and excess dilute urine production. We believe this was secondary to her lithium. She has been improved since this was discontinued. (5) Urinary tract infection Status: Acute Assessment & Plan: Her urine had large leukocytes, but it was a contaminated sample. The urine culture was positive for E. coli. She did not have an elevated WBC or fever. She has completed 5 days of IV ceftriaxone. A repeat urine culture from 07/21 has been negative. (6) Edema Status: Chronic Assessment & Plan: Her symptoms started about a month ago. No proteinuria. TSH is normal at 3.84. BNP elevated mildly (220). Echocardiogram shows normal EF of 59% with 2/4 diastolic dysfunction. Right ventricle is borderline enlarged. Aortic valve is sclerotic, but not stenotic. She has trace [place], TI and mild pulmonary HTN with right-sided pressures of 39mmHg. Overall, her weight is down and is having a net diuresis since admission. Concerned that Lamotrigine was the cause and potentially contributed to the enlarge tongue and laryngeal edema. It was started at the end of April and increased in May (per the records from the [facility]). The lamotrigine has now been stopped. (7) Schizophrenia Status: Chronic Assessment & Plan: She was previously on [place], Lamotrigine, Risperdal, and Olanzapine. She is now off all medications except the Prozac. Clinically, she is improved and has not shown any significant behavioral problems as of yet. (8) CKD (chronic kidney disease) stage 3, GFR 30-59 ml/min Status: Chronic Assessment & Plan: Creatinine is normal. She is improved from 2011, but it is unclear what is her baseline. Exam Sepsis Risk: No Definite Risk Problem Qualifiers (1) Altered mental status, unspecified: Altered mental status type: somnolence Qualified Codes: R40.0 - Somnolence (2) Respiratory failure: Chronicity: acute (3) Urinary tract infection: Urinary tract infection type: acute cystitis Hematuria presence: without hematuria Qualified Codes: N30.00 - Acute cystitis without hematuria (4) Schizophrenia: Schizophrenia type: unspecified Qualified Codes: F20.9 - Schizophrenia, unspecified AMENA CHOW DO Aug 04, 2017 09:37
[2017-08-04] MEDS: FLUoxetine HCL 10 MG CAP PO SCH (09:42)
[2017-08-04] MEDS: ENOXAPARIN 40 MG/0.4ML SYR SC SCH (09:42)
[2017-08-04] MEDS: DORZOLAMIDE HCL OU SCH ×2 (09:42→20:35)
[2017-08-04] MEDS: TIMOLOL MAL 0.25% OP SOLN 5 ML OU SCH ×2 (09:52→20:35)
[2017-08-04 12:06] VITALS: BP 120/83
--- NOTE | 2017-08-04 12:27 | Medical Nutrition Therapy ---
Nutrition Anthropometrics Height (Inches): 66.00 Height (Calculated Centimeters: 167.410677 Weight (Pounds): 181 Weight (Calculated Kilograms): 82.100 BMI Calculated: 34.21 Chris Nutrition Score: Probably Inadequate Chris Nutrition Risk Score: 11 Dietary Referral Nutrition Risk Factors: Nutrition Risk Comment: Physical Findings Physical Appearance: Overweight BMI 25-29 Skin Appearance Skin Appearance: Edema Edema Location Modifier: Both Edema Location: Lower Extremity Type of Edema: Degree of Edema: 1+ Gastrointestinal Symptoms GI Symtoms: Constipation Tube Present: OG Bowel Sounds: Recent Bowel Pattern: Stool Characteristics: Nutritional Diagnosis Nutritional Risk Acuity 2: Pr Appetite > 3d, Swallowing Problem Past Medical History: Edema, GERD, hyperlipidemia, schizophrenia Nutritional Acuity: 2-Moderate Nutrition Diagnosis: Increased Nutrient Needs Nutrition Etiology: Physiological Causes Nutrition Problem/Etiology/Sym: Increased nutr needs related to physiological causes as evidenced by sedation, intubation, and respiratory distress. Adjusted Energy Requirement Re: 1780 ([id number] (actual BW)) Protein Requirement: 59 (59-70 g/kg adjusted BW) Fluid Requirement: 1780 (25 ml/kg) Diet Type: Puree Nutrition Intervention: Incr diet as tolerated Food Likes: easy to swallow foods Diet Comment To [facility]: PLEASE OFFER NUTR SUPPL PUT PROTEIN POWDER IN APPROPRIATE FOODS Nutritional Support Recommended Enteral / Parental: Tube Feeding Recommended Tube Feeding Formu: Jevity 1cal/ml-Standard Recommended Tube Feeding Formu: 70 ml/hr Tube Feeding Supplement Streng: Full Recommended Feeding Route: FT Placed Nasogastric Recommended Rate: 70 ml/hr Recommended Duration: 24 Recommended Calories: 1780 Recommended Protein: 74 Total Recommended Calories: 1780 Nutrition Monitoring & Eval Nutrition Goals: Eat 50-100% Meal RD Patient Assessment Time: [address] Assessment Type: RD Re-Assessment Patient Nutrition Acuity: 2-Moderate Follow Up Date: Aug 07, 2017 Nutritional Comment: 12/ Pt with PMH of schizophrenia admitted with SOB and AMS. Caretakers noting wt gain. Currently has 2+ pitting edema in both LE and on diuretic. Intubated and sedated on 34.7 ml/hr Propofol. Diet NPO day 1. Recommend nutrition support if NPO for >3 days. Notable labs include creatinine 1.3, alb WNL. Will cont to monitor. 12/3 Pt to start TF today at 30 ml/hr for a final rate of 80 ml/hr. This current TF prescription will overfeed pt due to propofol at 23.1 ml/hr. Recommend decreasing goal rate to 65 ml/hr which with propofol, will provide 2262 calories and 69 g protein. This will meet 111% and 98% of calorie and protien needs respectively. Please provide 80ml free water q 6 hr to meet remainder of fluid needs. Notable labs include Na 149, K 3.3, total pro 6.2 and alb 3.2. Will cont to monitor and remain available for consult. 07/17 TF changed to 65ml/hr Osmolite. Providing 1653 kcal, 69gm protein and meeting 93% est kcal and 117% est protein needs. Pt is no longer recieving propofol. Pt tolerating TF with minimal residuals. Alb cont low at 3. 07/21 TF changed to 65ml/hr promote plus propofol. Providing 2238 kcal, 97gm protein and meeting 125% est kcal and 117% est protein needs. Since BMI is in class 1 obestiy range, recommend reduce rate to 50ml/hr to provide 1758 kcal with propofol and 75gm protein to meet nutr needs without overfeeding. Pt tolerating TF with minimal residuals. Alb cont low at 2.9. Will cont to monitor. 07/23/17 TF changed to 55 ml/hr Jevity 1 plus propofol. Providing 2077 kcal and 58 g protein which is meeting 116% est kcal needs and 98% est protein needs. Pt tolerating TF with minimal residuals. Notable labs include Na 147, BUN 27, total pro 5.6, and alb 2.9. Will continue to monitor. 07/27/17 Pt extubated yesterday morning. TF and propofol discontinued. Pt is currently NPO until she is more awake and alert. Notable labs include total pro 6.4 and alb 3.2, which have improved since admission. Pt has lost 37# in two weeks. Unsure of UBW. Caregivers stated she had gained weight before admission. Pt also admitted with 2+ edema LE which has now resolved. TF has met kcal and pro needs so edema most likely cause of weight changes. Will continue to monitor as diet progresses. 07/31/17 Pt has progressed to pureed diet. Poor intake over the last three days most likely due to swallowing difficulty and pain. Will offer nutr supplment. If pt intakes do not improve, TF may be considered per hospitalist note. Recommend Jevity at 70 ml/hr to meet needs if intake does not improve. Notable labs include Na 147, BUN 24, total pro 5.8, and alb 2.9. Will continue to monitor and encourage intakes. 08/02 Intake averaged 4% past 3 days with refusal of most nutr supplments. Wt is down 14% past month, however pt did come in with 2+ pitting edema LE and now is nonpitting. BMI is onw in overwt range. Recommend TF to meet nutritional needs r/t poor oral intake. 08/04 Intake continues to be low varying between bites to 50%. RN notes continue to report coughing, choking, and difficulty with swallowing. May need to consider TF to meet nutritional needs d/t poor oral intake. Alb 3.2, High AST/ALT. FANNIE ASCENCIO Aug 04, 2017 12:27
[2017-08-04 16:21] VITALS: BP 123/84
[2017-08-04] MEDS ORDERED: TRAVOPROST OU SCH (21:00)
[2017-08-04 21:05] VITALS: BP 128/80
[2017-08-05 04:52] VITALS: BP 106/80
[2017-08-05] MEDS: LEVOTHYROXINE SOD 0.088 MG TAB PO SCH (05:24)
[2017-08-05 07:14] VITALS: BP 95/77
[2017-08-05] MEDS: FLUoxetine HCL 10 MG CAP PO SCH (09:08)
[2017-08-05] MEDS: ENOXAPARIN 40 MG/0.4ML SYR SC SCH (09:14)
[2017-08-05] MEDS: DORZOLAMIDE HCL OU SCH (09:15)
[2017-08-05] MEDS: TIMOLOL MAL 0.25% OP SOLN 5 ML OU SCH (09:15)
[2017-08-05] MEDS ORDERED: NEOMYCIN/POLYMYX/BACITR OINT 1 PACKET TP ONE (10:42)
[2017-08-09] MEDS ORDERED: TOLN108P2 TP (09:01)
--- NOTE | 2017-08-09 12:16 | Hospitalist Depart ---
Discharge Summary Reason for Hosp/Final Diag: (1) Altered mental status, unspecified Status: Resolved Hospital Course & Plan: 56yo female with schizophrenia and is a resident of the [facility] who was brought to the ER for SOB and weight gain. 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 However, in the ER, she became very sleepy and difficult to awaken. She was intubated at that time. Since extubation, she had not been very communicative and not consistently following commands. Likely, there was some effect of propofol from the prolonged intubation, but she hadn't improved much since extubation. Also concerned her psychiatric meds may have contributed to her somnolence. She is currently off the Zyprexa and Risperdal completely. An MRI was unremarkable. CO2 has increased and she is wearing BiPAP now with all naps and sleeping. She was more alert after her brother arrived. 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 08/05: She is at her baseline and doing well. She will require more PT/OT as per Physical therapist and recommended for [facility]. Pt. was evaluated and transferred to the [facility] for further management. (2) Respiratory failure Status: Resolved Hospital Course & Plan: She was initially intubated for rising CO2 (despite BIPAP) and airway protection. She failed extubation on 07/17 secondary to upper airway edema/obstruction. It was noted that she had an enlarged tongue and pharyngeal/laryngeal edema. She is now extubated and has had a gradual increase in her pCO2. Will continue BiPAP with all naps and sleeping as it appears she does hypoventilate and probably has VELASQUEZ. 08/05: Her respiratory status is stable and resolved and back to her baseline (3) Urinary tract infection Status: Resolved Hospital Course & Plan: Her urine had large leukocytes, but it was a contaminated sample. The urine culture was positive for E. coli. She did not have an elevated WBC or fever. She has completed 5 days of IV ceftriaxone. A repeat urine culture from 07/21 has been negative. Departure Weight (Pounds): 182 Weight (Ounces): 7.0 Condition: Improved Discharge: [facility] PT/OT Follow Up For: PT For Strengthening Time Spent: > 30 min Discharge Instructions Home Meds Reported Medications Vits A and D/White Pet/Lanolin (A and D Ointment) 42.5 Gm Oint...g., 1 GRIFFIN TOP BID 07/14/17 Magnesium Carbonate/Al Hydrox (ANTACID EXTRA STRENGTH CHW TAB) 1 Each Tab.chew, 2 EACH PO Q4-6H Y for INDIGESTION, TAB.CHEW 07/14/17 Loperamide Hcl (ANTI-DIARRHEAL) 2 Mg Capsule, 2 MG PO Y for DIARRHEA, CAPSULE 07/14/17 Magnesium Hydroxide (MILK OF MAGNESIA) 400 Mg/5 Ml Oral.susp, 30 ML PO DAILY Y for CONSTIPATION 07/14/17 Levothyroxine Sodium (SYNTHROID) 88 Mcg Tablet, 88 MCG PO QDAY 07/14/17 Timolol (BETIMOL) 5 Ml Drops, 2 GTT OP BID 07/13/17 Risperidone (RISPERIDONE) 2 Mg Tablet, 2 MG PO HS 07/13/17 Carboxymethylcellulos/Glycerin (REFRESH OPTIVE EYE DROPS) 15 Ml Drops, 1 GTT OP TID 07/13/17 Potassium Chloride (POTASSIUM CHLORIDE) 10 Meq Tab.er.prt, 10 MEQ PO QDAY 07/13/17 Skin Cleanser (PERIFRESH) 3,840 Ml Cleanser, 1 GRIFFIN TP BID 07/13/17 Eyelid Cleanser Combination #5 (OCUSOFT LID SCRUB) 1 Each Med..pad, 1 EACH TP HS 07/13/17 [place] Carbonate (LITHIUM CARBONATE) 300 Mg Tablet, 600 MG PO HS 07/13/17 [place] Carbonate (LITHIUM CARBONATE) 300 Mg Tabcr, 300 MG PO DAILY 07/13/17 Lamotrigine (LAMICTAL) 100 Mg Tablet, 100 MG PO DAILY 07/13/17 Hydrocortisone 2.5% Oint (HYDROCORTISONE 2.5% OINT) 453.6 Gm Oint...g., 1 GRIFFIN TP BID, TUBE 07/13/17 Furosemide (FUROSEMIDE) 20 Mg Tablet, 1 TAB PO DAILY, TAB 07/13/17 Lanolin/Mineral Oil (EUCERIN ORIGINAL LOTION) 250 Ml Lotion, 1 GRIFFIN TP BID 07/13/17 Mineral Oil/Hydrophil Petrolat (AQUAPHOR OINTMENT) 396 Gm Oint...g., 1 GRIFFNI TP BID 12/1/17 Acetaminophen (TYLENOL EXTRA STRENGTH) 500 Mg Tablet, 1000 MG PO Q4-6H Y for PAIN, TAB 07/13/17 Trimethoprim/Sulfamethoxazole (Bactrim Ds 160-800 Mg) 1 Ea Tab, 0.5 EA PO BID, # 20 0 Refills 05/03/12 Travoprost (TRAVATAN Z) 5 Ml Drops, 1 GTT OU DAILY, 0 Refills 05/03/12 Dorzolamide/Timolol (Cosopt) 5 Ml Soln, 1 DROP OU BID, 0 Refills 05/03/12 Simvastatin (Zocor) 20 Mg Tablet, PO DAILY, 0 Refills 05/03/12 Olanzapine (Zyprexa) 5 Mg Tab, 15 MG PO BID, #30 0 Refills 09/06/09 Fluoxetine Hcl (Prozac) 20 Mg Capsule, 20 MG PO QAM, #30 0 Refills TAKE 60 MG DAILY 09/06/09 Oxygen (Oxygen) 2 L Inha, 2 L INH PRN, 0 Refills 09/06/09 Multivitamins W-Minerals (Multivitamin) 1 Cap Capsule, 1 CAP PO DAILY, 0 Refills 09/06/09 Omeprazole (Prilosec) 40 Mg Capsule.dr, 20 MG PO DAILY, 0 Refills 09/06/09 Calcium Carbonate/Vitamin D3 (Calcium + D Tablet) 1 Udtab Tablet, 1 UDTAB PO BID , 0 Refills 09/06/09 Diet: Regular Activity: As Tolerated Copies to: VIRGEN BESS Venous Thromboembolism VTE Risk Physician Assess for VTE Risk: Yes Patient's VTE Risk: Low VTE Diagnostic Test 2 Days Prior to Admit: No Antithrombotics Is Pt On Any Antithrombotics?: No CC: VIRGEN BESS MTDD
== END 2017-08-05 11:25 | DRG 207 ==
LOC: ER 15:00 → ICU 07-14 00:40 → MED 07-27 11:59
PROVIDERS: ADMIT Internal Medicine; ATTEND Internal Medicine
PROC: 5A1955Z Respiratory Ventilation, Greater than 96 Consecutive Hours (ICD-10-PCS; principal; 2017-07-14)
PROC: 0BH17EZ Insertion of Endotracheal Airway into Trachea, Via Natural or Artificial Opening (ICD-10-PCS; 2017-07-14)
PROC: 02HV33Z Insertion of Infusion Device into Superior Vena Cava, Percutaneous Approach (ICD-10-PCS; 2017-07-16)
PROC: 0CJS8ZZ Inspection of Larynx, Via Natural or Artificial Opening Endoscopic (ICD-10-PCS; 2017-07-25)
DX: J96.01 Acute respiratory failure with hypoxia (principal); N30.00 Acute cystitis without hematuria; E87.0 Hyperosmolality and hypernatremia; N25.1 Nephrogenic diabetes insipidus; T41.295A Adverse effect of other general anesthetics, initial encounter; T43.595A Adverse effect of other antipsychotics and neuroleptics, initial encounter; B96.20 Unspecified Escherichia coli [E. coli] as the cause of diseases classified elsewhere; F79 Unspecified intellectual disabilities; G24.01 Drug induced subacute dyskinesia; F20.9 Schizophrenia, unspecified; E87.70 Fluid overload, unspecified; K21.9 Gastro-esophageal reflux disease without esophagitis; E78.5 Hyperlipidemia, unspecified; G47.33 Obstructive sleep apnea (adult) (pediatric); N18.3 Chronic kidney disease, stage 3 (moderate); I27.20 Pulmonary hypertension, unspecified; T78.3XXA Angioneurotic edema, initial encounter; K14.8 Other diseases of tongue; Y92.230 Patient room in hospital as the place of occurrence of the external cause
CPT/HCPCS: 36415; 36600; 70450; 70492; 70551; 70553; 71010; 71020; 71275; 80175; 80178; 80202; 80305; 80320; 81001; 82040; 82140; 82247; 82310; 82374; 82435; 82565; 82803; 82947; 83605; 83880; 83935; 84075; 84132; 84155; 84295; 84300; 84443; 84450; 84460; 84484; 84520; 84703; 85025; 85379; 85610; 87040; 87077; 87088; 87186; 93005; 93306; 94002; 94003; 94640; 94660; 94667; 94668; 94770; 96374; 97162; 97166; 99285; A4353; A9270; C1758; C9113; J0131; J0330; J0692; J0696; J1642; J1650; J1940; J2060; J2597; J2704; J2930; J2997; J3370; J3490; J7050; J7060; J7070; J7613; Q0163; Q9967

== ENCOUNTER 2017-08-05 11:25 | Inpatient (IN) | payer MEDICARE, MEDICAID ==
[~2017-08-05] VITALS: Ht 167.6 cm; Wt 83.9 kg
[~2017-08-05 11:25] MED LIST changes: +ACET500T68 PO; +CARB15DR74 OP; +CEFU500T10 PO; +EYEL1MED TP; +FURO-45 PO; +HYDR453.8 TP; +LAMO100T56 PO; +LEVO88TA43 PO; +LITH300T18 PO; +LITHOBID PO; +LOPE-84 PO; +MAGN1TAB2 PO; +MOM PO; +POTA-53 PO; +RISP2TAB70 PO; +TIMO5DRO3 OP; +VITS42.53 TOP; +[UNRECOGNIZED DRUG - CODE] TP; +[UNRECOGNIZED DRUG - CODE] TP; +[UNRECOGNIZED DRUG - CODE] TP
[2017-08-05] MEDS ORDERED: SALINE 0.65% NAS SPR 44 ML BTL PRN (11:51)
[2017-08-05] MEDS ORDERED: HYPROMELLOSE 0.4% LUB 15ML BTL OU PRN (11:51)
[2017-08-05] MEDS ORDERED: BISACODYL 10 MG SUPP PR PRN (11:51)
[2017-08-05] MEDS ORDERED: MAGNESIUM HYDROXIDE* 30ML UDCP PO PRN (11:51)
[2017-08-05 12:00] VITALS: BP 117/90
--- NOTE | 2017-08-05 14:14 | Hospitalist Depart ---
Discharge Summary Reason for Hosp/Final Diag: (1) Altered mental status, unspecified Status: Resolved Hospital Course & Plan: 56yo female with schizophrenia and is a resident of the [facility] who was brought to the ER for SOB and weight gain. She presented with increased somnolence over 2 days HOG PUSHER (caregivers state it may be more like a month). However, in the ER, she became very sleepy and difficult to awaken. She was intubated at that time. Since extubation, she had not been very communicative and not consistently following commands. Likely, there was some effect of propofol from the prolonged intubation, but she hadn't improved much since extubation. Also concerned her psychiatric meds may have contributed to her somnolence. She is currently off the Zyprexa and Risperdal completely. An MRI was unremarkable. CO2 has increased and she is wearing BiPAP now with all naps and sleeping. She was more alert after her brother arrived. 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 08/05: She is at her baseline and doing well. She will require more PT/OT as per Physical therapist and recommended for [facility]. Pt. was evaluated and transferred to the [facility] for further management. (2) Respiratory failure Status: Resolved Hospital Course & Plan: She was initially intubated for rising CO2 (despite BIPAP) and airway protection. She failed extubation on 07/17 secondary to upper airway edema/obstruction. It was noted that she had an enlarged tongue and pharyngeal/laryngeal edema. She is now extubated and has had a gradual increase in her pCO2. Will continue BiPAP with all naps and sleeping as it appears she does hypoventilate and probably has VELASQUEZ. 08/05: Her respiratory status is stable and resolved and back to her baseline (3) Urinary tract infection Status: Resolved Hospital Course & Plan: Her urine had large leukocytes, but it was a contaminated sample. The urine culture was positive for E. coli. She did not have an elevated WBC or fever. She has completed 5 days of IV ceftriaxone. A repeat urine culture from 07/21 has been negative. Departure Weight (Pounds): 182 Weight (Ounces): 7.0 Condition: Improved Discharge: [facility] PT/OT Follow Up For: PT For Strengthening Time Spent: > 30 min Discharge Instructions Home Meds Reported Medications Vits A and D/White Pet/Lanolin (A and D Ointment) 42.5 Gm Oint...g., 1 GRIFFIN TOP BID 07/14/17 Magnesium Carbonate/Al Hydrox (ANTACID EXTRA STRENGTH CHW TAB) 1 Each Tab.chew, 2 EACH PO Q4-6H Y for INDIGESTION, TAB.CHEW 07/14/17 Loperamide Hcl (ANTI-DIARRHEAL) 2 Mg Capsule, 2 MG PO Y for DIARRHEA, CAPSULE 07/14/17 Magnesium Hydroxide (MILK OF MAGNESIA) 400 Mg/5 Ml Oral.susp, 30 ML PO DAILY Y for CONSTIPATION 07/14/17 Levothyroxine Sodium (SYNTHROID) 88 Mcg Tablet, 88 MCG PO QDAY 07/14/17 Timolol (BETIMOL) 5 Ml Drops, 2 GTT OP BID 07/13/17 Risperidone (RISPERIDONE) 2 Mg Tablet, 2 MG PO HS 07/13/17 Carboxymethylcellulos/Glycerin (REFRESH OPTIVE EYE DROPS) 15 Ml Drops, 1 GTT OP TID 07/13/17 Potassium Chloride (POTASSIUM CHLORIDE) 10 Meq Tab.er.prt, 10 MEQ PO QDAY 07/13/17 Skin Cleanser (PERIFRESH) 3,840 Ml Cleanser, 1 GRIFFIN TP BID 07/13/17 Eyelid Cleanser Combination #5 (OCUSOFT LID SCRUB) 1 Each Med..pad, 1 EACH TP HS 07/13/17 [place] Carbonate (LITHIUM CARBONATE) 300 Mg Tablet, 600 MG PO HS 07/13/17 [place] Carbonate (LITHIUM CARBONATE) 300 Mg Tabcr, 300 MG PO DAILY 07/13/17 Lamotrigine (LAMICTAL) 100 Mg Tablet, 100 MG PO DAILY 07/13/17 Hydrocortisone 2.5% Oint (HYDROCORTISONE 2.5% OINT) 453.6 Gm Oint...g., 1 GRIFFIN TP BID, TUBE 07/13/17 Furosemide (FUROSEMIDE) 20 Mg Tablet, 1 TAB PO DAILY, TAB 07/13/17 Lanolin/Mineral Oil (EUCERIN ORIGINAL LOTION) 250 Ml Lotion, 1 GRIFFIN TP BID 07/13/17 Mineral Oil/Hydrophil Petrolat (AQUAPHOR OINTMENT) 396 Gm Oint...g., 1 GRIFFIN TP BID 12/1/17 Acetaminophen (TYLENOL EXTRA STRENGTH) 500 Mg Tablet, 1000 MG PO Q4-6H Y for PAIN, TAB 07/13/17 Trimethoprim/Sulfamethoxazole (Bactrim Ds 160-800 Mg) 1 Ea Tab, 0.5 EA PO BID, # 20 0 Refills 05/03/12 Travoprost (TRAVATAN Z) 5 Ml Drops, 1 GTT OU DAILY, 0 Refills 05/03/12 Dorzolamide/Timolol (Cosopt) 5 Ml Soln, 1 DROP OU BID, 0 Refills 05/03/12 Simvastatin (Zocor) 20 Mg Tablet, PO DAILY, 0 Refills 05/03/12 Olanzapine (Zyprexa) 5 Mg Tab, 15 MG PO BID, #30 0 Refills 09/06/09 Fluoxetine Hcl (Prozac) 20 Mg Capsule, 20 MG PO QAM, #30 0 Refills TAKE 60 MG DAILY 09/06/09 Oxygen (Oxygen) 2 L Inha, 2 L INH PRN, 0 Refills 09/06/09 Multivitamins W-Minerals (Multivitamin) 1 Cap Capsule, 1 CAP PO DAILY, 0 Refills 09/06/09 Omeprazole (Prilosec) 40 Mg Capsule.dr, 20 MG PO DAILY, 0 Refills 09/06/09 Calcium Carbonate/Vitamin D3 (Calcium + D Tablet) 1 Udtab Tablet, 1 UDTAB PO BID , 0 Refills 09/06/09 Diet: Regular Activity: As Tolerated Copies to: VIRGEN BESS HOOK TENDER Venous Thromboembolism VTE Risk Physician Assess for VTE Risk: Yes Patient's VTE Risk: Low VTE Diagnostic Test 2 Days Prior to Admit: No Antithrombotics Is Pt On Any Antithrombotics?: No GALILEO LEIGH MD Aug 05, 2017 14:14
[2017-08-05 17:05] VITALS: BP 114/79
[2017-08-05] MEDS: CALCIUM CARBONATE/VITAMIN D3 PO SCH (17:25)
[2017-08-05] MEDS ORDERED: CALCIUM CITRATE/ERGOCALCIFEROL PO SCH (21:00)
[2017-08-05] MEDS: SIMVASTATIN 20 MG TAB PO SCH (21:08)
[2017-08-05] MEDS: TRAVOPROST OU SCH (21:08)
[2017-08-05] MEDS: risperiDONE 1 MG TAB PO SCH (21:08)
[2017-08-05] MEDS: TIMOLOL MAL 0.25% OP SOLN 5 ML OU SCH (21:09)
[2017-08-05] MEDS: DORZOLAMIDE HCL OU SCH (21:09)
[2017-08-05] MEDS: ACETAMINOPHEN 500 MG TAB PO PRN (21:26)
[2017-08-06] MEDS: LEVOTHYROXINE SOD 0.088 MG TAB PO SCH (06:31)
[2017-08-06 07:25] VITALS: BP 131/83
[2017-08-06] MEDS: TIMOLOL MAL 0.25% OP SOLN 5 ML OU SCH ×2 (08:49→20:25)
[2017-08-06] MEDS: FLUoxetine HCL 10 MG CAP PO SCH (08:49)
[2017-08-06] MEDS: CALCIUM CARBONATE/VITAMIN D3 PO SCH ×2 (08:49→17:43)
[2017-08-06] MEDS: PANTOPRAZOLE SOD 40 MG TABEC PO SCH (08:49)
[2017-08-06] MEDS: MULTIVITAMINS TAB PO SCH (08:49)
[2017-08-06] MEDS: DORZOLAMIDE HCL OU SCH ×2 (08:50→20:25)
[2017-08-06 16:30] VITALS: BP 120/74
[2017-08-06] MEDS: ACETAMINOPHEN 500 MG TAB PO PRN (18:26)
--- NOTE | 2017-08-06 18:35 | PT ECF NOTE ---
Type of Note: Initial Note Primary Medical Diagnosis: Altered mental status; see EMR Physical Therapy Evaluation Date: 08/05/17 SUBJECTIVE: Prior Hospitalization: [facility] ICU and med surg unit 07/13/17- 08/05/17 Prior Level of Function: Pt is a resident of [facility] with caregivers present. Unclear exactly what her prior level of function was, however, pt does have a 4WW present in her room. Prior Living Status: [facility] Community Services: Support adequate Home Accessibility: Unsure; staff not currently available at time of eval. Equipment Owned: Rollator; Wheelchair Medical Complications/Past Medical History: see EMR Psychosocial Support: Pt responds well to her brother and spoke of him frequently during today's session. CG's have indicated that one of her brothers may be arriving next week. Pain Scale (0-10): no grimmace noted with mobility; pt unable to provide feedback with face scale or number. OBJECTIVE: Strength: Pt unable to follow instructions to perform formal MMT. When pt did pull to stand at grab bars in bathroom, however, it is evident that pt does have greater than 2+/5 and perhaps 3+/5 overall. ROM: (please note any abnormalities) Some increased tone remains in L) UE with internal rotation, particularly when agitated or exerting herself. Sensation: (please note any abnormalities) unable to formally assess. Other Neuro findings: refer to EMR Bed Mobility: When pt chooses to participate- when offered PT's arm to assist herself to pull up, pt was able to perform this nearly indep. Pt did require Mod assist to scoot hips forward to edge of bed to allow feet to floor. Assistive device: Bed rail; Head of bed elevated Transfers: Extremely variable based on pt's desire to complete a task- Pt was initially presented with the EZ lift while seated at edge of bed. Pt would not participate in sit to stand with this level of assistance. PT then placed pt's own 4WW in front, and again pt was uninterested in using this device to transfer to W/C. PT then used gait belt and was able to provide pt with close support for a Max assist squat-pivot transfer to W/C without agitation for pt. Once in W/C pt noted that she wanted to use the toilet. Pt transferred into the bathroom and positioned in W/C at 90 degree angle to toilet and encouraged to use grab bars to pivot herself to toilet. Pt was able to complete this with fairly upright posture and able to take steps with B) hands on grab bars. Rising from the lower toilet to return to / was much more challenging, and pt became overly fatigued. PT and Nursing were required to complete a 2 person Max/Dependant transfer back to [facility] and pt did not assist at all. Assistive Device: Gait belt Gait: Non-ambulatory at this time Assistive device: Stairs: Non-ambulatory at this time Assistive device: Timed Up and Go (>12 seconds indicated increased risk for falls): Not an effective measure 10 meter walk test (0.6m/second cannot function independently): Not an effective measure Other Objective Measures: Pt level of participation limits objective testing at this time. ASSESSMENT: Functional mobility is extremely variable at this time. Pt does appear to fatigue easily, but is demonstrating more desire to participate in basic ADL's, including holding her own cup when drinking from a straw and assisting with stand-pivot transfer to access the toilet when she noted a need for BM. Problem List/Current Limitations: Decreased strength, Generalized weakness, Decreased problem solving, Lack of motivation Short Term Goals: 1. Pt to be Min/CGA for stand-pivot transfers to/from a variety of surfaces 2. Pt to ambulate x 20' with least restrictive device and Min/CGA 3. Pt to tolerate up in chair for all meals and improved sitting posture with trunk control Senior Care Goals: [facility] level of assistance for safety Patient Goals: Pt unable to verbalize aside from "Get out of here", when agitated. Rehabilitation Prognosis: Fair Barriers for Discharge: Level of cognition and desire to participate in rehab for functional mobility. PLAN: The patient will benefit from skilled physical therapy services 5 times per week for 2 weeks including: Therapeutic Activities Transfer Training, Gait Training, ADL's, Safety Training, Neuromuscular Re-educ. , Pt/Caregiver Training, Bed Mobility Thank you for this referral. If you have any questions, concerns, or comments about this report or plan, please contact me at . h. Rae Park, PT, MPT MTDD
[2017-08-06] MEDS: SIMVASTATIN 20 MG TAB PO SCH (20:25)
[2017-08-06] MEDS: risperiDONE 1 MG TAB PO SCH (20:25)
[2017-08-06] MEDS: TRAVOPROST OU SCH (20:26)
[2017-08-07] MEDS: LEVOTHYROXINE SOD 0.088 MG TAB PO SCH (06:00)
[2017-08-07 08:00] VITALS: BP 128/89
[2017-08-07] MEDS: FLUoxetine HCL 10 MG CAP PO SCH (08:26)
[2017-08-07] MEDS: TIMOLOL MAL 0.25% OP SOLN 5 ML OU SCH ×2 (08:27→20:17)
[2017-08-07] MEDS: PANTOPRAZOLE SOD 40 MG TABEC PO SCH (08:27)
[2017-08-07] MEDS: CALCIUM CARBONATE/VITAMIN D3 PO SCH ×2 (08:27→17:05)
[2017-08-07] MEDS: MULTIVITAMINS TAB PO SCH (08:27)
[2017-08-07] MEDS: DORZOLAMIDE HCL OU SCH ×2 (08:27→20:17)
[2017-08-07 11:23] VITALS: BMI 28.9
[2017-08-07 11:32] VITALS: Ht 167.6 cm; Wt 83.9 kg
--- NOTE | 2017-08-07 14:59 | Medical Nutrition Therapy ---
Nutrition Anthropometrics Height (Inches): 66.00 Height (Calculated Centimeters: 167.127847 Weight (Pounds): 179 Weight (Calculated Kilograms): 81.477 BMI Calculated: 28.89 Chris Nutrition Score: Adequate Chris Nutrition Risk Score: 12 Dietary Referral Nutrition Risk Factors: Diff. Swallowing Nutrition Risk Comment: Pt on pureed diet, forgets to swallow then chokes when mouth too full. Physical Findings Physical Appearance: Overweight BMI 25-29 Skin Appearance Skin Appearance: Edema Edema Location Modifier: Edema Location: Type of Edema: Degree of Edema: Gastrointestinal Symptoms GI Symtoms: Tube Present: Bowel Sounds: Recent Bowel Pattern: Incontinent Stool Characteristics: Nutrition/Food History Fair Nutritional Diagnosis Nutritional Risk Acuity 2: Swallowing Problem Nutritional Risk Acuity 3: Fair Appetite Past Medical History: Edema, GERD, hyperlipidemia, schizophrenia Nutritional Acuity: 2-Moderate Nutrition Diagnosis: Swallowing Difficulties Nutrition Etiology: Physiological Causes Nutrition Problem/Etiology/Sym: Swallowing Difficulty related to motor causes, e.g., neurological or muscular disorders AEB Speech Therapy diagnosis of dysphagia and reports of coughing and choking with swallowing. Energy Requirement: 1975 ([place]-St Jeor: Actual BW X 1.4) Protein Requirement: 65 (Actual BW Kg X .8) Fluid Requirement: 1975 Diet Type: Puree Nutrition Intervention: Incr diet as tolerated Food Likes: easy to swallow foods Diet Comment To RSA: PLEASE OFFER NUTR SUPPL PUT PROTEIN POWDER IN APPROPRIATE FOODS Nutrition Monitoring & Eval Nutrition Goals: Eat 75-100% Meal RD Patient Assessment Time: [address] Assessment Type: RD Assessment Patient Nutrition Acuity: 2-Moderate Follow Up Date: Aug 14, 2017 Nutritional Comment: Pt originally admitted in ICU with SOB and AMS. Now transferred to [facility] for continued care. Pt on Tube Feeding while in ICU. Presently receiving Pureed diet and consuming varible amounts between bites to 75%. ST diagnosis of dsyphagia and RN notes report coughing, choking, and difficulty with swallowing. May need to consider TF to meet nutritional needs d/t poor oral intake. Most recent labs: Alb 3.2, High AST/ALT. Monitor and encourage intake. FANNIE ASCENCIO Aug 07, 2017 14:59
--- NOTE | 2017-08-07 15:59 | OT ECF NOTE ---
Type of Note: Initial Note Primary Medical Diagnosis: Altered mental status; see EMR Occupational Therapy Evaluation Date: 08/07/17 SUBJECTIVE: Prior Hospitalization: [facility] ICU and med surg unit 07/13/17- 08/05/17 Prior Level of Function: Independent with all ADLs, assist for IADLs, use of 4WW for mobility Prior Living Status: Single level house, residential Community Services: Support adequate, No known needs Home Accessibility: All needs on one level Equipment Owned: Front wheeled walker, Rollator Medical Complications/Past Medical History: See EMR Psychosocial Support: Supportive brother, sister, and staff from [facility] Pain Scale (0-10): None reported at time of evaluation through facial expressions or verbalizations OBJECTIVE: Strength: MMT: Right Left Shoulder Flexion [*] [*] Elbow Flexion [*] [*] Wrist Extension [*] [*] Hand Tacker [*] [*] Not tested secondary to difficulty following v/c's ROM: Both upper extremities, Minimally limited throughout engagement in ADLs Sensation: Intact, no concerns Functional Transfer: Assistive Device: Rollator, Gait belt Transfer Ability: Moderate assistance, 2-person assist ADL: Upper body dressing: Assistive device: Upper body dressing ability: Maximum assistance Lower body dressing: Assistive device: Lower body dressing ability: Total assistance Toileting: Assistive device: Toileting ability: Total assistance Grooming/hygiene: Assistive device: Grooming ability: Moderate assistance Bathing: Assistive device: Bathing ability: N/T Standardized Assessment: Wisam Index of Activities of Daily Livin/20 at initial evaluation (). ASSESSMENT: Fatemeh presents to [facility] with decreased activity tolerance and initiation with ADLs compared to PLOF. She requires strong encouragement and motivation to engage in tx. She will benefit from skilled OT services to optimize independence with ADLs and promote a safe transition home. Staff at the [facility] is agreeable to be present at occasional tx sessions to assist with motivating pt. Staff also reports they may be able to provide increased assist for mobility and ADLs upon discharge home. Problem List/Current Limitations: Decreased activity tolerance Generalized weakness Lack of motivation Short Term Goals: 1) Pt will be Min A UB/LB dressing. 2) Pt will be Min A toileting. 3) Pt will be Min A grooming/hygiene. 4) Pt Wisam Index of ADL score will increase by 2 points. Automatic Tire Tester Goals: Return home to [facility] with services. Patient Goals: Return home Rehabilitation Prognosis: Good Barriers to Discharge: : Level of cognition and desire to participate in rehab for functional mobility. PLAN: The patient will benefit from skilled occupational therapy services 5 times per week for 2 weeks including: Ther ex ADL training Safety training Ther act IADL training Transfer training Adaptive equip training Bed mobility Energy conservation Thank you for this referral. If you have any questions, concerns, or comments about this report or plan, please contact me at . Nayla Mccann MS, OTR/L Occupational Therapist MAR
[2017-08-07 16:00] VITALS: BP 119/84
[2017-08-07] MEDS: ACETAMINOPHEN 500 MG TAB PO PRN (17:31)
[2017-08-07] MEDS: TRAVOPROST OU SCH (20:17)
[2017-08-07] MEDS: risperiDONE 1 MG TAB PO SCH (20:17)
[2017-08-07] MEDS: SIMVASTATIN 20 MG TAB PO SCH (20:17)
[2017-08-08] MEDS: LEVOTHYROXINE SOD 0.088 MG TAB PO SCH (06:14)
[2017-08-08 08:00] VITALS: BP 135/82
[2017-08-08] MEDS: ACETAMINOPHEN 500 MG TAB PO PRN ×2 (08:33→16:13)
[2017-08-08] MEDS: CALCIUM CARBONATE/VITAMIN D3 PO SCH ×2 (08:33→16:13)
[2017-08-08] MEDS: PANTOPRAZOLE SOD 40 MG TABEC PO SCH (08:53)
[2017-08-08] MEDS: MULTIVITAMINS TAB PO SCH (08:53)
[2017-08-08] MEDS: TIMOLOL MAL 0.25% OP SOLN 5 ML OU SCH ×2 (08:54→20:27)
[2017-08-08] MEDS: FLUoxetine HCL 10 MG CAP PO SCH (08:54)
[2017-08-08] MEDS: DORZOLAMIDE HCL OU SCH ×2 (08:55→20:27)
--- NOTE | 2017-08-08 14:39 | Hospitalist Progress Note ---
Subjective Progress Notes Subjective The patient has no complaints. No concerns from staff. Physical Exam Vital Signs Date Time Temp Pulse Resp B/P (MAP) Pulse Ox O2 Delivery O2 Flow Rate FiO2 08/08/17 11:02 92 Nasal Cannula 0.5 08/08/17 08:00 98.1 90 16 135/82 (99) Intake and Output 08/09/17 07:00 Intake Total 600 ml Balance 600 ml Intake Oral 600 ml # Voids 2 # Bowel Movements 1 General Appearance: Alert, Awake, No Acute Distress, Afebrile Neuro: Other (Developmental disability) Eyes: PERRLA Cardiovascular: Regular Rate and Rhythm Respiratory: Clear to Auscultation GI: Soft and Non-Tender Extremities: Warm, Perfused, Other (No edema.) Integumentary: Scaly / Dry Skin, Other (Skin wrinkled from prior edema.) Psych: Appropriate Mood & Affect Assessment and Plan Problems: (1) Altered mental status, unspecified Status: Resolved Assessment & Plan: The patient is a 56yo female with schizophrenia and is a resident of the [facility]. She was brought to the ER for SOB and weight gain. 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 However, in the ER, she became very sleepy and difficult to awaken. She was intubated at that time. She was then extubated but was slow to improve in terms of her mental status. Likely, there was some effect of propofol from the prolonged intubation. There was also concern that her psychiatric meds may have contributed to her somnolence. Zyprexa was stopped. An MRI of the brain was unremarkable. CO2 was increased and she was wearing BiPAP with all naps and sleeping. She became more after her brother arrived. As she had improved enough to work with PT and OT, she was transferred to [facility] for ongoing rehabilitation. (2) Respiratory failure Status: Resolved Assessment & Plan: She was initially intubated for rising CO2 (despite BIPAP) and airway protection. She failed extubation on 07/17 secondary to upper airway edema/obstruction. It was noted that she had an enlarged tongue and pharyngeal/laryngeal edema. This was felt to be due to an allergic reaction to one of her medications. She was treated and finally extubated. She was continued on BiPAP with all naps and sleeping as it appeared she hypoventilates and probably has VELASQUEZ. Her respiratory status stabilized and she is now nearly back to her baseline. (3) Urinary tract infection Status: Resolved Assessment & Plan: Her urine had large leukocytes, but it was a contaminated sample. The urine culture was positive for E. coli. She did not have an elevated WBC or fever. She completed 5 days of IV ceftriaxone. A repeat urine culture from 07/21 was negative. Time Spent on Plan of Care: < 30 min CASSIUS CARPENTER MD Aug 08, 2017 14:39
[2017-08-08 16:15] VITALS: BP_SYST 119; BP_SYST 124; BP_DIAS 74; BP_DIAS 84
[2017-08-08] MEDS: SIMVASTATIN 20 MG TAB PO SCH (20:28)
[2017-08-08] MEDS: TRAVOPROST OU SCH (20:28)
[2017-08-08] MEDS: risperiDONE 1 MG TAB PO SCH (20:28)
[2017-08-09] MEDS: LEVOTHYROXINE SOD 0.1 MG TAB PO SCH (06:05)
[2017-08-09] MEDS: ACETAMINOPHEN 500 MG TAB PO PRN ×2 (06:17→17:06)
[2017-08-09 08:00] VITALS: BP 112/57
[2017-08-09] MEDS: TIMOLOL MAL 0.25% OP SOLN 5 ML OU SCH ×2 (08:21→20:48)
[2017-08-09] MEDS: CALCIUM CARBONATE/VITAMIN D3 PO SCH ×2 (08:21→17:06)
[2017-08-09] MEDS: PANTOPRAZOLE SOD 40 MG TABEC PO SCH (08:21)
[2017-08-09] MEDS: MULTIVITAMINS TAB PO SCH (08:21)
[2017-08-09] MEDS: FLUoxetine HCL 10 MG CAP PO SCH (08:21)
[2017-08-09] MEDS: DORZOLAMIDE HCL OU SCH ×2 (08:22→20:48)
[2017-08-09] MEDS ORDERED: [UNRECOGNIZED DRUG - OTHER] (09:01)
[2017-08-09] MEDS ORDERED: POLY1DRO10 OP (09:01)
[2017-08-09] MEDS ORDERED: GUAI-244 PO (09:01)
[2017-08-09] MEDS ORDERED: HYDR453.8 TP (09:01)
[2017-08-09] MEDS ORDERED: SULF-198 PO (09:01)
[2017-08-09] MEDS ORDERED: OXYM30MI5 NS (09:01)
[2017-08-09] MEDS ORDERED: TOLN108P TP (09:01)
[2017-08-09] MEDS ORDERED: CLOT15CR62 TP (09:07)
[2017-08-09 16:10] VITALS: BP_SYST 132; BP_SYST 76; BP_DIAS 44; BP_DIAS 87
[2017-08-09] MEDS: TRAVOPROST OU SCH (20:47)
[2017-08-09] MEDS: SIMVASTATIN 20 MG TAB PO SCH (20:47)
[2017-08-09] MEDS: risperiDONE 1 MG TAB PO SCH (20:47)
[2017-08-10] MEDS: LEVOTHYROXINE SOD 0.1 MG TAB PO SCH (05:39)
[2017-08-10 08:00] VITALS: BP 205/101
[2017-08-10 08:25] VITALS: BP 201/106
[2017-08-10] MEDS: MULTIVITAMINS TAB PO SCH (08:52)
[2017-08-10] MEDS: CALCIUM CARBONATE/VITAMIN D3 PO SCH ×2 (08:52→17:49)
[2017-08-10] MEDS: PANTOPRAZOLE SOD 40 MG TABEC PO SCH (08:53)
[2017-08-10] MEDS: ACETAMINOPHEN 500 MG TAB PO PRN ×2 (08:53→17:49)
[2017-08-10] MEDS: DORZOLAMIDE HCL OU SCH ×2 (08:53→20:26)
[2017-08-10] MEDS: TIMOLOL MAL 0.25% OP SOLN 5 ML OU SCH ×2 (08:53→20:25)
[2017-08-10] MEDS: FLUoxetine HCL 10 MG CAP PO SCH (08:53)
[2017-08-10 09:52] VITALS: BP 123/83
[2017-08-10 18:51] VITALS: BP 132/80
[2017-08-10] MEDS: TRAVOPROST OU SCH (20:25)
[2017-08-10] MEDS: SIMVASTATIN 20 MG TAB PO SCH (20:25)
[2017-08-10] MEDS: risperiDONE 1 MG TAB PO SCH (20:25)
[2017-08-11] MEDS: LEVOTHYROXINE SOD 0.1 MG TAB PO SCH (06:13)
[2017-08-11] MEDS: ACETAMINOPHEN 500 MG TAB PO PRN (06:22)
[2017-08-11 07:45] VITALS: BP 124/69
[2017-08-11] MEDS: CALCIUM CARBONATE/VITAMIN D3 PO SCH ×2 (08:35→17:36)
[2017-08-11] MEDS: PANTOPRAZOLE SOD 40 MG TABEC PO SCH (09:05)
[2017-08-11] MEDS: FLUoxetine HCL 10 MG CAP PO SCH (09:05)
[2017-08-11] MEDS: MULTIVITAMINS TAB PO SCH (09:06)
[2017-08-11] MEDS: DORZOLAMIDE HCL OU SCH ×2 (09:06→20:51)
[2017-08-11] MEDS: TIMOLOL MAL 0.25% OP SOLN 5 ML OU SCH ×2 (09:06→20:52)
[2017-08-11 16:08] VITALS: BP 123/77
[2017-08-11] MEDS: risperiDONE 1 MG TAB PO SCH (20:50)
[2017-08-11] MEDS: SIMVASTATIN 20 MG TAB PO SCH (20:51)
[2017-08-11] MEDS: TRAVOPROST OU SCH (20:52)
[2017-08-12] MEDS: LEVOTHYROXINE SOD 0.1 MG TAB PO SCH (06:11)
[2017-08-12 07:32] VITALS: BP 134/89
[2017-08-12] MEDS: MULTIVITAMINS TAB PO SCH (08:55)
[2017-08-12] MEDS: FLUoxetine HCL 10 MG CAP PO SCH (08:55)
[2017-08-12] MEDS: CALCIUM CARBONATE/VITAMIN D3 PO SCH ×2 (08:55→17:11)
[2017-08-12] MEDS: PANTOPRAZOLE SOD 40 MG TABEC PO SCH (08:55)
[2017-08-12] MEDS: TIMOLOL MAL 0.25% OP SOLN 5 ML OU SCH ×2 (08:56→20:34)
[2017-08-12] MEDS: DORZOLAMIDE HCL OU SCH ×2 (08:56→20:35)
[2017-08-12 16:30] VITALS: BP 80/48
[2017-08-12] MEDS: TRAVOPROST OU SCH (20:34)
[2017-08-12] MEDS: SIMVASTATIN 20 MG TAB PO SCH (20:34)
[2017-08-12] MEDS: risperiDONE 1 MG TAB PO SCH (20:34)
[2017-08-13] MEDS: LEVOTHYROXINE SOD 0.1 MG TAB PO SCH (06:10)
[2017-08-13 07:41] VITALS: BP 124/85
[2017-08-13] MEDS: TIMOLOL MAL 0.25% OP SOLN 5 ML OU SCH ×2 (09:16→20:30)
[2017-08-13] MEDS: DORZOLAMIDE HCL OU SCH ×2 (09:16→20:31)
[2017-08-13] MEDS: FLUoxetine HCL 10 MG CAP PO SCH (09:17)
[2017-08-13] MEDS: MULTIVITAMINS TAB PO SCH (09:17)
[2017-08-13] MEDS: CALCIUM CARBONATE/VITAMIN D3 PO SCH ×2 (09:17→17:36)
[2017-08-13] MEDS: PANTOPRAZOLE SOD 40 MG TABEC PO SCH (09:17)
[2017-08-13 17:30] VITALS: BP 138/88
[2017-08-13] MEDS: ACETAMINOPHEN 500 MG TAB PO PRN (17:36)
[2017-08-13] MEDS: TRAVOPROST OU SCH (20:30)
[2017-08-13] MEDS: risperiDONE 1 MG TAB PO SCH (20:31)
[2017-08-13] MEDS: SIMVASTATIN 20 MG TAB PO SCH (20:31)
[2017-08-14] MEDS: LEVOTHYROXINE SOD 0.1 MG TAB PO SCH (06:15)
[2017-08-14] MEDS: FLUoxetine HCL 10 MG CAP PO SCH (08:39)
[2017-08-14] MEDS: CALCIUM CARBONATE/VITAMIN D3 PO SCH ×2 (08:39→17:20)
[2017-08-14] MEDS: PANTOPRAZOLE SOD 40 MG TABEC PO SCH (08:39)
[2017-08-14] MEDS: MULTIVITAMINS TAB PO SCH (08:40)
[2017-08-14] MEDS: TIMOLOL MAL 0.25% OP SOLN 5 ML OU SCH ×2 (08:40→20:52)
[2017-08-14] MEDS: DORZOLAMIDE HCL OU SCH ×2 (08:40→20:52)
[2017-08-14 08:47] VITALS: BP 109/60
--- NOTE | 2017-08-14 12:31 | Medical Nutrition Therapy ---
Nutrition Anthropometrics Height (Inches): 66.00 Height (Calculated Centimeters: 167.931351 Weight (Pounds): 185 Weight (Calculated Kilograms): 83.943 BMI Calculated: 28.89 Chris Nutrition Score: Probably Inadequate Chris Nutrition Risk Score: 14 Dietary Referral Nutrition Risk Factors: Diff. Swallowing Nutrition Risk Comment: Pt on pureed diet, forgets to swallow then chokes when mouth too full. Physical Findings Physical Appearance: Overweight BMI 25-29 Skin Appearance Skin Appearance: Edema Edema Location Modifier: Edema Location: Type of Edema: Degree of Edema: Gastrointestinal Symptoms GI Symtoms: Tube Present: Bowel Sounds: Recent Bowel Pattern: Incontinent Stool Characteristics: Nutritional Diagnosis Nutritional Risk Acuity 2: Swallowing Problem Nutritional Risk Acuity 3: Fair Appetite Past Medical History: Edema, GERD, hyperlipidemia, schizophrenia Nutritional Acuity: 2-Moderate Nutrition Diagnosis: Swallowing Difficulties Nutrition Etiology: Physiological Causes Nutrition Problem/Etiology/Sym: Swallowing Difficulty related to motor causes, e.g., neurological or muscular disorders AEB Speech Therapy diagnosis of dysphagia and reports of coughing and choking with swallowing. Energy Requirement: 1975 ([place]: Actual BW X 1.4) Protein Requirement: 65 (Actual BW Kg X .8) Fluid Requirement: 1974 Diet Type: Puree Nutrition Intervention: Incr diet as tolerated Food Likes: half port. puree pulled pork w/bbq, munson magic cup milkshake Diet Comment To RSA: PLEASE OFFER NUTR SUPPL PUT PROTEIN POWDER IN APPROPRIATE FOODS Nutrition Monitoring & Eval RD Patient Assessment Time: [address] Assessment Type: RD Re-Assessment Patient Nutrition Acuity: 2-Moderate Follow Up Date: Aug 21, 2017 Nutritional Comment: Pt originally admitted in ICU with SOB and AMS. Now transferred to [facility] for continued care. Pt on Tube Feeding while in ICU. Presently receiving Pureed diet and consuming varible amounts between bites to 75%. ST diagnosis of dsyphagia and RN notes report coughing, choking, and difficulty with swallowing. May need to consider TF to meet nutritional needs d/t poor oral intake. Most recent labs: Alb 3.2, High AST/ALT. Monitor and encourage intake. 1/2 Pt continues on puree diet and average intakes continue to range from bites to 75%. Pt is drinking 100% of ensure occasionally. Wt has been stable over last week. No new labs available. RN notes continue to report some difficulty swallowing and coughing, but no longer report choking episodes. Will continue to monitor and encourage intake. CORBY CAZARES Aug 14, 2017 11:19
[2017-08-14 16:30] VITALS: BP 133/89
[2017-08-14] MEDS: TRAVOPROST OU SCH (20:52)
[2017-08-14] MEDS: risperiDONE 1 MG TAB PO SCH (20:52)
[2017-08-14] MEDS: SIMVASTATIN 20 MG TAB PO SCH (20:52)
[2017-08-14] MEDS: ACETAMINOPHEN 500 MG TAB PO PRN (21:04)
[2017-08-15] MEDS: LEVOTHYROXINE SOD 0.1 MG TAB PO SCH (05:35)
[2017-08-15] MEDS: ACETAMINOPHEN 500 MG TAB PO PRN ×2 (05:42→15:29)
[2017-08-15 07:15] VITALS: BP 110/69
[2017-08-15] MEDS: CALCIUM CARBONATE/VITAMIN D3 PO SCH ×2 (08:18→17:07)
[2017-08-15] MEDS: FLUoxetine HCL 10 MG CAP PO SCH (08:18)
[2017-08-15] MEDS: PANTOPRAZOLE SOD 40 MG TABEC PO SCH (08:18)
[2017-08-15] MEDS: MULTIVITAMINS TAB PO SCH (08:18)
[2017-08-15] MEDS: DORZOLAMIDE HCL OU SCH ×2 (08:19→20:54)
[2017-08-15] MEDS: TIMOLOL MAL 0.25% OP SOLN 5 ML OU SCH ×2 (08:19→20:54)
--- NOTE | 2017-08-15 16:42 | Hospitalist Progress Note ---
Subjective Progress Notes Subjective No new complaints. Discharging tomorrow. Physical Exam Vital Signs Date Time Temp Pulse Resp B/P (MAP) Pulse Ox O2 Delivery O2 Flow Rate FiO2 08/15/17 10:34 94 Room Air 08/15/17 07:15 98.1 92 16 110/69 (83) 08/15/17 01:48 1.0 Intake and Output 08/16/17 07:00 Intake Total 1170 ml Balance 1170 ml Intake Oral 1170 ml # Voids 2 General Appearance: Alert, Awake, No Acute Distress Cardiovascular: Regular Rate and Rhythm Respiratory: Clear to Auscultation Extremities: Warm, Perfused Psych: Appropriate Mood & Affect Assessment and Plan Problems: (1) Altered mental status, unspecified Status: Resolved Assessment & Plan: The patient is a 56yo female with schizophrenia and is a resident of the [facility]. She was brought to the ER for SOB and weight gain. She presented with increased somnolence over 2 days [employer] WORK[employer] (caregivers state it may be more like a month). However, in the ER, she became very sleepy and difficult to awaken. She was intubated at that time. She was then extubated but was slow to improve in terms of her mental status. Likely, there was some effect of propofol from the prolonged intubation. There was also concern that her psychiatric meds may have contributed to her somnolence. Zyprexa was stopped. An MRI of the brain was unremarkable. CO2 was increased and she was wearing BiPAP with all naps and sleeping. She became more after her brother arrived. As she had improved enough to work with PT and OT, she was [facility]. She has continued to improve and will discharge tomorrow. (2) Respiratory failure Status: Resolved Assessment & Plan: She was initially intubated for rising CO2 (despite BIPAP) and airway protection. She failed extubation on 07/17 secondary to upper airway edema/obstruction. It was noted that she had an enlarged tongue and pharyngeal/laryngeal edema. This was felt to be due to an allergic reaction to one of her medications. She was treated and finally extubated. She was continued on BiPAP with all naps and sleeping as it appeared she hypoventilates and probably has VELASQUEZ. Her respiratory status stabilized and she is now back to her baseline. (3) Urinary tract infection Status: Resolved Assessment & Plan: Her urine had large leukocytes, but it was a contaminated sample. The urine culture was positive for E. coli. She did not have an elevated WBC or fever. She completed 5 days of IV ceftriaxone. A repeat urine culture from 07/21 was negative. Time Spent on Plan of Care: < 30 min CASSIUS CARPENTER MD Aug 15, 2017 16:42
[2017-08-15] MEDS: TRAVOPROST OU SCH (20:54)
[2017-08-15] MEDS: risperiDONE 1 MG TAB PO SCH (20:55)
[2017-08-15] MEDS: SIMVASTATIN 20 MG TAB PO SCH (20:55)
[2017-08-16] MEDS: LEVOTHYROXINE SOD 0.1 MG TAB PO SCH (05:57)
[2017-08-16] MEDS: ACETAMINOPHEN 500 MG TAB PO PRN (05:57)
[2017-08-16 07:35] VITALS: BP 111/82
[2017-08-16] MEDS ORDERED: FLUO-176 PO (08:10)
[2017-08-16] MEDS ORDERED: DORZ10DR21 OU (08:10)
[2017-08-16] MEDS ORDERED: SODI30SP6 (08:10)
[2017-08-16] MEDS ORDERED: LEVO-3 PO (08:10)
--- NOTE | 2017-08-16 08:17 | Hospitalist Depart ---
Discharge Summary Reason for Hosp/Final Diag: (1) Altered mental status, unspecified Status: Resolved Hospital Course & Plan: The patient is a 56yo female with schizophrenia and is a resident of the [facility]. She was brought to the ER for SOB and weight gain. She presented with increased somnolence over 2 days [employer] (caregivers state it may be more like a month). However, in the ER, she became very sleepy and difficult to awaken. She was intubated at that time. She was then extubated but was slow to improve in terms of her mental status. Likely, there was some effect of propofol from the prolonged intubation. There was also concern that her psychiatric meds may have contributed to her somnolence. Many of her psychiatric medications were stopped. An MRI of the brain was unremarkable. CO2 was increased and she was wearing BiPAP with all naps and sleeping. She became more alert after her brother visited. As she had improved enough to work with PT and OT, she was transferred to [facility] for ongoing rehabilitation. She continued to improve and returned to her baseline. She was discharged back to [facility]. (2) Schizophrenia Status: Chronic Hospital Course & Plan: The patient's medications were adjusted as noted above. The patient was doing well at the time of discharge on Prozac 10mg daily and risperdal 2mg at HS. (3) Respiratory failure Status: Resolved Hospital Course & Plan: She was initially intubated for rising CO2 (despite BIPAP) and airway protection. She failed extubation on 07/17 secondary to upper airway edema/obstruction. It was noted that she had an enlarged tongue and pharyngeal/laryngeal edema. This was felt to be due to an allergic reaction to one of her medications. She was treated and finally extubated. She was continued on BiPAP with all naps and sleeping as it appeared she hypoventilates and probably has VELASQUEZ. Her respiratory status stabilized and she is now back to her baseline. She will need to continue on O2 per NC when napping and at HS. (4) Urinary tract infection Status: Resolved Hospital Course & Plan: Her urine had large leukocytes, but it was a contaminated sample. The urine culture was positive for E. coli. She did not have an elevated WBC or fever. She completed 5 days of IV ceftriaxone. A repeat urine culture from 07/21 was negative. Departure Weight (Pounds): 185 Weight (Ounces): 1.0 Condition: Improved Discharge: Home, Home Health PT/OT Follow Up For: PT For Strengthening Home Health RN Follow Up For: Nursing Assessment Time Spent: < 30 min Discharge Instructions Home Meds Active Scripts Sodium Chloride (SALINE NASAL SPRAY) 30 Ml [place], 0 ML NA PRN Y for dry nose, # 1 BOTTLE 1-2 sprays each nostril prn dry nose. Prov:CASSIUS CARPENTER MD 08/16/17 Levothyroxine Sodium (LEVOTHYROXINE SODIUM) 100 Mcg Tablet, 0.1 MG PO QDAY@06, # 30 TAB Prov:CASSIUS CARPENTER MD 08/16/17 Fluoxetine Hcl (FLUOXETINE HCL) 10 Mg Capsule, 10 MG PO QDAY, #30 CAPSULE Prov:CASSIUS CARPENTER MD 08/16/17 Dorzolamide Hcl (DORZOLAMIDE HCL) 10 Ml Drops, 0 ML OU BID, #1 BOTTLE One gtt OU bid. Prov:CASSIUS CARPENTER MD 08/16/17 Reported Medications Clotrimazole/Betamethasone Dip (LOTRISONE CREAM) 15 Gm Cream..g., 0 TP DAILY 08/09/17 Hydrocortisone 2.5% Oint (HYDROCORTISONE 2.5% OINT) 453.6 Gm Oint...g., 453.6 GM TP PP, TUBE 08/09/17 [Yogurt Live Cultures] No Conflict Check, DAILY 08/09/17 Tolnaftate (TINACTIN) 108 Gm Powder, 108 GM TP 08/09/17 Guaifenesin (ROBAFEN) 100 Mg/5 Ml Liquid, 20 ML PO Q4-6H Y for COUGH 08/09/17 Polyvinyl Alcohol/Povidone/Pf (REFRESH CLASSIC EYE DROPS) 1 Each Droperette, 1 EACH OP TID 08/09/17 Oxymetazoline Hcl (NASAL SPRAY) 30 Ml Mist, 30 ML NS Y for CONGESTION 08/09/17 Vits A and D/White Pet/Lanolin (A and D Ointment) 42.5 Gm Oint...g., 1 GRIFFIN TOP BID 07/14/17 Magnesium Carbonate/Al Hydrox (ANTACID EXTRA STRENGTH CHW TAB) 1 Each Tab.chew, 2 EACH PO Q4-6H Y for INDIGESTION, TAB.CHEW 07/14/17 Loperamide Hcl (ANTI-DIARRHEAL) 2 Mg Capsule, 2 MG PO Y for DIARRHEA, CAPSULE 07/14/17 Magnesium Hydroxide (MILK OF MAGNESIA) 400 Mg/5 Ml Oral.susp, 30 ML PO DAILY Y for CONSTIPATION 07/14/17 Timolol (BETIMOL) 5 Ml Drops, 2 GTT OP BID 07/13/17 Risperidone (RISPERIDONE) 2 Mg Tablet, 2 MG PO HS 07/13/17 Skin Cleanser (PERIFRESH) 3,840 Ml Cleanser, 1 GRIFFIN TP BID 07/13/17 Eyelid Cleanser Combination #5 (OCUSOFT LID SCRUB) 1 Each Med..pad, 1 EACH TP HS 07/13/17 Lanolin/Mineral Oil (EUCERIN ORIGINAL LOTION) 250 Ml Lotion, 1 GRIFFIN TP BID 07/13/17 Mineral Oil/Hydrophil Petrolat (AQUAPHOR OINTMENT) 396 Gm Oint...g., 1 GRIFFIN TP BID 07/13/17 Acetaminophen (TYLENOL EXTRA STRENGTH) 500 Mg Tablet, 1000 MG PO Q4-6H Y for PAIN, TAB 07/13/17 Travoprost (TRAVATAN Z) 5 Ml Drops, 1 GTT OU DAILY, 0 Refills 05/03/12 Simvastatin (Zocor) 20 Mg Tablet, PO DAILY, 0 Refills 05/03/12 Multivitamins W-Minerals (Multivitamin) 1 Cap Capsule, 1 CAP PO DAILY, 0 Refills 09/06/09 Omeprazole (Prilosec) 40 Mg Capsule.dr, 20 MG PO DAILY, 0 Refills 09/06/09 Calcium Carbonate/Vitamin D3 (Calcium + D Tablet) 1 Udtab Tablet, 1 UDTAB PO BID , 0 Refills 09/06/09 Discontinued Reported Medications Sulfamethoxazole/Trimet 800-160 Mg Tab (BACTRIM DS TABLET) 1 Each Tablet, 0.5 TAB PO Q12H, TAB 08/09/17 Sulfamethoxazole/Trimet 800-160 Mg Tab (BACTRIM DS TABLET) 1 Each Tablet, 400 TAB PO Q12H, TAB 08/09/17 Levothyroxine Sodium (SYNTHROID) 88 Mcg Tablet, 88 MCG PO QDAY 07/14/17 Potassium Chloride (POTASSIUM CHLORIDE) 10 Meq Tab.er.prt, 10 MEQ PO QDAY 07/13/17 [place] Carbonate (LITHIUM CARBONATE) 300 Mg Tablet, 600 MG PO HS 07/13/17 [place] Carbonate (LITHIUM CARBONATE) 300 Mg Tabcr, 300 MG PO DAILY 07/13/17 Lamotrigine (LAMICTAL) 100 Mg Tablet, 100 MG PO DAILY 07/13/17 Furosemide (FUROSEMIDE) 20 Mg Tablet, 1 TAB PO DAILY, TAB 07/13/17 Olanzapine (Zyprexa) 5 Mg Tab, 15 MG PO BID, #30 0 Refills 09/06/09 Fluoxetine Hcl (Prozac) 20 Mg Capsule, 20 MG PO QAM, #30 0 Refills TAKE 60 MG DAILY 09/06/09 Carboxymethylcellulos/Glycerin (REFRESH OPTIVE EYE DROPS) 15 Ml Drops, 1 GTT OP TID 07/13/17 Hydrocortisone 2.5% Oint (HYDROCORTISONE 2.5% OINT) 453.6 Gm Oint...g., 1 RGIFFIN TP BID, TUBE 07/13/17 Trimethoprim/Sulfamethoxazole (Bactrim Ds 160-800 Mg) 1 Ea Tab, 0.5 EA PO BID, # 20 0 Refills 05/03/12 Dorzolamide/Timolol (Cosopt) 5 Ml Soln, 1 DROP OU BID, 0 Refills 05/03/12 Oxygen (Oxygen) 2 L Inha, 2 L INH PRN, 0 Refills 09/06/09 Follow up Referrals: Family Practice - In One Week with KATINA Abdi Diet: Regular Activity: As Tolerated Special Instructions: Copies to: ISAURO ADHIKARI MD; VIRGEN BESS Venous Thromboembolism Antithrombotics Is Pt On Any Antithrombotics?: No CASSIUS CARPENTER MD Aug 16, 2017 08:17
[2017-08-16] MEDS: MULTIVITAMINS TAB PO SCH (08:19)
[2017-08-16] MEDS: FLUoxetine HCL 10 MG CAP PO SCH (08:19)
[2017-08-16] MEDS: PANTOPRAZOLE SOD 40 MG TABEC PO SCH (08:19)
[2017-08-16] MEDS: CALCIUM CARBONATE/VITAMIN D3 PO SCH (08:19)
[2017-08-16] MEDS: DORZOLAMIDE HCL OU SCH (08:20)
[2017-08-16] MEDS: TIMOLOL MAL 0.25% OP SOLN 5 ML OU SCH (08:20)
--- NOTE | 2017-08-16 09:00 | OT ECF NOTE ---
Type of Note: Discharge Note Primary Medical Diagnosis: Altered mental status; see EMR Occupational Therapy Evaluation Date: 08/07/17 SUBJECTIVE: Prior Hospitalization: [facility] ICU and med surg unit 07/13/17- 08/05/17 Prior Level of Function: Independent with all ADLs, assist for IADLs, use of 4WW for mobility Prior Living Status: Single level house, longterm Community Services: Support adequate, No known needs Home Accessibility: All needs on one level Equipment Owned: Front wheeled walker, Rollator Medical Complications/Past Medical History: See EMR Psychosocial Support: Supportive brother, sister, and staff from [facility] Pain Scale (0-10): None reported at time of evaluation through facial expressions or verbalizations OBJECTIVE: Strength: MMT: Right Left Shoulder Flexion [*] [*] Elbow Flexion [*] [*] Wrist Extension [*] [*] 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 Demonstrates endurance and good dynamic balance to safely engage if desired. Upper body dressing: Assistive device: None Upper body dressing ability: Moderate to Maximum assistance Lower body dressing: Assistive device: None Lower body dressing ability: Moderate to Maximum assistance Toileting: Assistive device: Raised toilet seat Toileting ability: SBA toilet transfers. Moderate to Maximum assistance for rosalee-care and clothing management secondary to incontinence. Grooming/hygiene: Assistive device: Standing Grooming ability: Set-up/Minimum assistance Bathing: Assistive device: Shower chair Bathing ability: Moderate to Maximum assistance Standardized Assessment: Wisam Index of Activities of Daily Livin20 at initial evaluation (). 7/20 at discharge (08/16/17). ASSESSMENT: Fatemeh presented to [facility] with decreased activity tolerance and initiation with ADLs compared to PLOF. She continues to require strong encouragement and motivation to engage in tx. Her transfers and ambulation are consistent with SBA and 4WW. [facility] staff reports pt is ambulating at PLOF. She continues to require assist for ADLs. [facility] staff present for multiple treatment sessions and agreeable that staff can assist with all ADLs upon discharge home at current level of function. Staff educated on AE needs and verbalized understanding. Problem List/Current Limitations: Decreased activity tolerance Generalized weakness Lack of motivation Short Term Goals: 1) Pt will be Min A UB/LB dressing. GOAL NOT MET. 2) Pt will be Min A toileting. GOAL NOT MET. 3) Pt will be Min A grooming/hygiene. GOAL MET. 4) Pt Wisam Index of ADL score will increase by 2 points. GOAL MET. 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 Patient Goals: Return home Rehabilitation Prognosis: Good Barriers to Discharge: : Level of cognition and desire to participate in rehab for functional mobility. PLAN: Discharge home with assist from [facility] caregivers and HH services. Thank you for this referral. If you have any questions, concerns, or comments about this report or plan, please contact me at . Nayla Mccann MS, OTR/L Occupational Therapist MAR
--- NOTE | 2017-08-16 09:08 | PT ECF NOTE ---
Type of Note: Discharge Summary Primary Medical Diagnosis: Altered mental status; see EMR Physical Therapy Evaluation Date: 08/16/16 SUBJECTIVE: Prior Hospitalization: [facility] ICU and med surg unit 07/13/17- 08/05/17 Prior Level of Function: Pt is a resident of [facility] with caregivers present. SBA/Janice with use of 4WW Prior Living Status: residential Community Services: Support adequate Home Accessibility: All needs on one level Equipment Owned: Rollator Medical Complications/Past Medical History: see EMR Psychosocial Support: Pt has supportive brother and sister in law, very supportive caregivers from [facility] Pain Scale (0-10): headache reported during final visit OBJECTIVE: Strength: not formally assessed, >3/5 overall ROM: WFL Sensation: not formally assessed Other Neuro findings: refer to EMR Bed Mobility: Per nursing, bed mobility varies from Janice to maxA depending on pt's willingness to participate Transfers: SBA with 4WW Gait: 150' with 4WW and SBA/CGA Stairs: N/A ASSESSMENT: Fatemeh has improved drastically in all areas of functional mobility and appears to be at or near baseline level of functional mobility per [facility] caregiver's observation. She demonstrates the ability to transfer and ambulate with use of 4WW and SBA/CGA. I would anticipate that the patient will continue to make functional gains in her home environment, recommend H[facility] Short Term Goals: 1. Pt to be Min/CGA for stand-pivot transfers to/from a variety of surfaces (met) 2. Pt to ambulate x 20' with least restrictive device and Min/CGA (met) 3. Pt to tolerate up in chair for all meals and improved sitting posture with trunk control (met) Bolt Man Goals: Pt to return to [facility] penitentiary with adequate level of assistance for safety (met) PLAN: The patient will discharge home to [facility] with [facility] services and prior level of care from staff. Thank you for this referral. If you have any questions, concerns, or comments about this report or plan, please contact me at . Magda Sullivan, PT, DPT MTDD
== END 2017-08-16 10:33 | disposition home or self-care (01) | DRG 948 ==
LOC: SWB 11:25
PROVIDERS: ADMIT Specialist; ATTEND Specialist
DX: R41.82 Altered mental status, unspecified (principal); G47.33 Obstructive sleep apnea (adult) (pediatric); F20.9 Schizophrenia, unspecified; F79 Unspecified intellectual disabilities; Z99.81 Dependence on supplemental oxygen
CPT/HCPCS: 97161; 97166

== ENCOUNTER → 2017-11-16 | Outpatient (CLI) | payer MEDICARE, MEDICAID ==
[2017-08-07 11:32] VITALS: BMI 28.9
[~2017-11-16] MED LIST changes: +CLOT15CR62 TP; +DORZ10DR21 OU; +FLUO-176 PO; +GUAI-244 PO; +LEVO-3 PO; +OXYM30MI5 NS; +POLY1DRO10 OP; +SODI30SP6; +SULF-198 PO; +TOLN108P TP; +[UNRECOGNIZED DRUG - OTHER]
--- NOTE | 2017-11-16 12:04 | RADIOLOGY IMAGING REPORT ---
FACILITY: [facility] PATIENT NAME: REEMA JENNINGS : [id number] MR: [id number] V: [id number] EXAM DATE: [id number] ORDERING PHYSICIAN: VIRGEN BESS TECHNOLOGIST: Emma Canela PROCEDURE:BILATERAL DIGITAL SCREENING MAMMOGRAM WITH CAD ASSISTED INTERPRETATION COMPARISON:Prior mammograms 11/15/16, 10/26/15, 10/19/14, 10/22/13, 10/21/12, 10/04/11. INDICATIONS:SCREENING FINDINGS: A small amount of fibroglandular tissue is seen throughout the breasts. The parenchymal pattern has remained stable allowing for difference in mammographic technique & patient positioning. There is no evidence of malignant appearing mass, malignant appearing calcifications or other secondary sign of malignancy in either breast. DIAGNOSTIC CATEGORY 1--NEGATIVE. RECOMMENDATIONS: ROUTINE MAMMOGRAM AND CLINICAL EVALUATION. IMPRESSION: BIRADS 1: Negative No significant abnormality is seen. Dictated by: Radha Meredith M.D. on 11/16/2017 at 10:09 Transcribed by: RADHA on 11/16/2017 at 11:04 Approved by: Radha Meredith M.D. on 11/16/2017 at 12:03 [facility]
== END ==
LOC: MAMO 03:48
PROVIDERS: ATTEND Nurse Practitioner Family
DX: Z12.31 Encounter for screening mammogram for malignant neoplasm of breast (principal)
CPT/HCPCS: 77063; 77067

== ENCOUNTER 2018-01-30 10:49 | Outpatient (RCR) | payer MEDICARE, MEDICAID ==
[2017-08-07 11:32] VITALS: Wt 85.3 kg
[~2018-01-30 10:49] MED LIST changes: -DORZ10DR21 OU; +DORZ10DR24 OU; +HYDR15CR4 TP
--- NOTE | 2018-01-30 17:38 | Medical Nutrition Therapy ---
Nutrition Anthropometrics Weight (Pounds): 188 BMI: 33 Chris Nutrition Score: Chris Nutrition Risk Score: Dietary Referral Nutrition Risk Factors: Diff. Swallowing Nutrition Risk Comment: Pt on pureed diet, forgets to swallow then chokes when mouth too full. Physical Findings Physical Appearance: Obese BMI 30-39 Skin Appearance Skin Appearance: Edema Edema Location Modifier: Edema Location: Type of Edema: Degree of Edema: Gastrointestinal Symptoms GI Symtoms: Tube Present: Bowel Sounds: Recent Bowel Pattern: Stool Characteristics: Nutritional Education Nutrition Education Topic: Weight Loss Diet Learning Readiness: Not Interested (pt not interested but caregivers were) Teaching Methods: Handout Response to Teaching: Verbalize understanding Teaching Recipient: Patient, Primary Caregiver Nutrition Counseling: ARK pt attended session on nutrition to assist with wt loss. Pt did not show interest in session and left after 30 minute but provided careggivers with Exchange list diet with emphasis on food groups and how to incorporat this in main meal plan. Majority of session was spent developing healthy weekly meal plan with care givers. Care givers will f/u with meal ideas which will be reviewed by RD. Goal is to provide 4 week menu that works with pt's nutrtional needs. Nutrition Monitoring & Eval RD Patient Assessment Time: [address] Assessment Type: RD Education Nutritional Comment: Provided 30 minutes MNT with pt on wt loss Copies To Copies to: ISAURO ADHIKARI MD, BETH Jan 30, 2018 17:38
== END 2018-03-06 ==
LOC: DIET 10:49
PROVIDERS: ATTEND Psychiatry & Neurology Psychiatry
DX: R63.5 Abnormal weight gain (principal); F79 Unspecified intellectual disabilities; R13.10 Dysphagia, unspecified; Z68.33 Body mass index [BMI] 33.0-33.9, adult
CPT/HCPCS: 97802

== ENCOUNTER → 2018-04-25 | Outpatient (CLI) | payer MEDICARE, MEDICAID ==
[2017-08-07 11:32] VITALS: BMI 28.9
== END ==
LOC: LAB 10:36
PROVIDERS: ATTEND Internal Medicine Cardiovascular Disease
DX: E78.00 Pure hypercholesterolemia, unspecified (principal); I10 Essential (primary) hypertension
CPT/HCPCS: 36415; 82040; 82247; 82310; 82374; 82435; 82465; 82565; 82947; 83718; 84075; 84132; 84155; 84295; 84450; 84460; 84478; 84520

== ENCOUNTER 2018-06-02 11:43 | Observation (INO) | payer MEDICARE, MEDICAID ==
[2017-08-07 11:32] VITALS: Wt 87.5 kg
[~2018-06-02 11:43] MED LIST changes: -BACOUD TP; -HYDR30CR10 TP; -LEVO50TA86 PO; -LITC450 PO; -POTA20TA10 PO; -SULF-283 PO
[2018-06-02] MEDS ORDERED: NS(*) 0.9% 1000 ML BAG 1,000 ML IV ONE (11:47)
--- NOTE | 2018-06-02 11:47 | ER Report ---
History and Physical Time Seen By MD: 11:47 HPI/ROS CHIEF COMPLAINT: Muscle twitching and fall HISTORY OF PRESENT ILLNESS: This is a 57-year-old female who presents to the emergency department via EMS for muscle twitching and a fall. Patient is an [facility] resident, was taken off her lithium however over the last week to 2 weeks her lithium was restarted, they have been titrating it up, there was some concern this past week that she was perhaps having some reaction to the lithium. Today she had multiple falls, has had muscle tremors in her legs and arms. She does have an abrasion and some swelling to the left side of her face around the orbi t. 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 She does have a c-collar in place per EMS. Patient has a history of schizophrenia. Patient has otherwise been doing well according to the staff, no recent fevers or chills. No other concerns. REVIEW OF SYSTEMS: Constitutional: No fever, no chills. Eyes: No discharge. ENT: No sore throat. Cardiovascular: No chest pain, no palpitations. Respiratory: No cough, no shortness of breath. Gastrointestinal: No abdominal pain, no vomiting. Genitourinary: No hematuria. Musculoskeletal: As above. Skin: As above. Neurological: As above. Psych: As above. Allergies: Coded Allergies: No Known Drug Allergies (Verified , 06/02/18) Home Meds Active Scripts Hydrocortisone Valerate 0.2% 15 Gm Cream (HYDROCORTISONE VALERATE 0.2% 15 GM CREAM) 15 Gm Cream..g., 1 GRIFFIN TP BID for 30 Days, #1 TUBE 2 Refills Prov:TEGAN JACOBS NPC 11/29/17 Sodium Chloride (SALINE NASAL SPRAY) 30 Ml Wal[place], 0 ML NA PRN PRN for dry nose, #1 BOTTLE 1-2 sprays each nostril prn dry nose. Prov:CASSIUS CARPENTER MD 08/16/17 Levothyroxine Sodium (LEVOTHYROXINE SODIUM) 100 Mcg Tablet, 0.1 MG PO QDAY@06, #30 TAB Prov:CASSIUS CARPENTER MD 08/16/17 Fluoxetine Hcl (FLUOXETINE HCL) 10 Mg Capsule, 10 MG PO QDAY, #30 CAPSULE Prov:CASSIUS CARPENTER MD 08/16/17 Dorzolamide Hcl (DORZOLAMIDE HCL) 10 Ml Drops, 0 ML OU BID, #1 BOTTLE One gtt OU bid. Prov:CASSIUS CARPENTER MD 08/16/17 Reported Medications Clotrimazole/Betamethasone Dip (LOTRISONE CREAM) 15 Gm Cream..g., 0 TP DAILY 08/09/17 [Yogurt Live Cultures] No Conflict Check, DAILY 08/09/17 Tolnaftate (TINACTIN) 108 Gm Powder, 108 GM TP 08/09/17 Guaifenesin (ROBAFEN) 100 Mg/5 Ml Liquid, 20 ML PO Q4-6H PRN for COUGH 08/09/17 Polyvinyl Alcohol/Povidone/Pf (REFRESH CLASSIC EYE DROPS) 1 Each Droperette, 1 EACH OP TID 08/09/17 Oxymetazoline Hcl (NASAL SPRAY) 30 Ml Mist, 30 ML NS PRN for CONGESTION 08/09/17 Vits A and D/White Pet/Lanolin (A and D Ointment) 42.5 Gm Oint...g., 1 GRIFFIN TOP BID 07/14/17 Magnesium Carbonate/Al Hydrox (ANTACID EXTRA STRENGTH CHW TAB) 1 Each Tab.chew, 2 EACH PO Q4-6H PRN for INDIGESTION, TAB.CHEW 07/14/17 Loperamide Hcl (ANTI-DIARRHEAL) 2 Mg Capsule, 2 MG PO PRN for DIARRHEA, CAPSULE 07/14/17 Magnesium Hydroxide (MILK OF MAGNESIA) 400 Mg/5 Ml Oral.susp, 30 ML PO DAILY PRN for CONSTIPATION 07/14/17 Timolol (BETIMOL) 5 Ml Drops, 2 GTT OP BID 07/13/17 Risperidone (RISPERIDONE) 2 Mg Tablet, 2 MG PO HS 07/13/17 Skin Cleanser (PERIFRESH) 3,840 Ml Cleanser, 1 GRIFFIN TP BID 07/13/17 Eyelid Cleanser Combination #5 (OCUSOFT LID SCRUB) 1 Each Med..pad, 1 EACH TP HS 07/13/17 Lanolin/Mineral Oil (EUCERIN ORIGINAL LOTION) 250 Ml Lotion, 1 GRIFFIN TP BID 07/13/17 Mineral Oil/Hydrophil Petrolat (AQUAPHOR OINTMENT) 396 Gm Oint...g., 1 GRIFFIN TP BID 07/13/17 Acetaminophen (TYLENOL EXTRA STRENGTH) 500 Mg Tablet, 1000 MG PO Q4-6H PRN for PAIN, TAB 07/13/17 Travoprost (TRAVATAN Z) 5 Ml Drops, 1 GTT OU DAILY, 0 Refills 05/03/12 Simvastatin (Zocor) 20 Mg Tablet, PO DAILY, 0 Refills 05/03/12 Multivitamins W-Minerals (Multivitamin) 1 Cap Capsule, 1 CAP PO DAILY, 0 Refills 09/06/09 Omeprazole (Prilosec) 40 Mg Capsule.dr, 20 MG PO DAILY, 0 Refills 09/06/09 Calcium Carbonate/Vitamin D3 (Calcium + D Tablet) 1 Udtab Tablet, 1 UDTAB PO BID, 0 Refills 09/06/09 Past Medical/Surgical History Patient has a past medical and surgical history of ear infections, with PE teas, hearing loss, mentally handicapped since , purgative dyskinesia, wears oxygen at night, D&C, kidney mass, carpal tunnel syndrome, excision of a granuloma on finger, right radial fracture, schizophrenia, depression, removal of foreign body from the bladder. Reviewed Nurses Notes: Yes Hx Smoking: No Constitutional Vital Sign - Last 24 Hours 06/02/18 06/02/18 06/02/18 06/02/18 11:43 11:46 11:55 11:58 Pulse ??? 106 107 Resp 18 25 B/P (MAP) 132/96 (108) 132/96 Pulse Ox 87 97 O2 Delivery Room Air Nasal Cannula O2 Flow Rate 2 06/02/18 06/02/18 06/02/18 06/02/18 12:00 12:13 12:28 12:43 Pulse 104 104 103 Resp 21 25 19 Pulse Ox 97 98 81 O2 Delivery Nasal Cannula Nasal Cannula Room Air O2 Flow Rate 2.0 2 2 06/02/18 06/02/18 06/02/18 06/02/18 12:58 13:13 13:18 13:28 Pulse 107 102 103 Resp 10 30 23 B/P (MAP) 147/94 (111) Pulse Ox 97 97 88 O2 Delivery Nasal Cannula Nasal Cannula Room Air O2 Flow Rate 2 2 06/02/18 06/02/18 06/02/18 06/02/18 13:30 13:35 13:50 14:05 Pulse 103 101 102 Resp 8 61 19 B/P (MAP) 123/66 (85) Pulse Ox 88 90 98 O2 Delivery Nasal Cannula Nasal Cannula O2 Flow Rate 2 2 06/02/18 06/02/18 06/02/18 06/02/18 14:20 14:55 15:10 15:25 Pulse 103 103 103 107 Resp 17 Pulse Ox 97 96 97 94 O2 Delivery Nasal Cannula O2 Flow Rate 2 Physical Exam General Appearance: The patient is alert, has no immediate need for airway protection and no signs of toxicity, involuntary gross muscle twitches, the majority of these in the upper extremities. Eyes: Pupils equal and round no pallor or injection. ENT, Mouth: Mucous membranes are dry. Respiratory: There are no retractions, lungs are clear to auscultation. Cardiovascular: Regular rate and rhythm, no murmurs, clicks or rubs. Gastrointestinal: Abdomen is soft and non tender, no masses, bowel sounds normal. Neurological: Patient is at baseline, will follow some commands, will answer some questions. Skin: Warm and dry, no rashes. Musculoskeletal: Neck is supple non tender. Coarse motor tremors, minor facial takes, unable to fully assess deep tendon reflexes due to agitation. Extremities are nontender, nonswollen and have full range of motion. DIFFERENTIAL DIAGNOSIS: After history and physical exam differential diagnosis was considered for lithium toxicity, muscle twitching secondary to increase in lithium dosing, intracranial bleed, myocardial infarction. Medical Decision Making Data Points Result Diagram: 06/02/18 1225 06/02/18 1225 Laboratory Hematology Test 06/02/18 12:25 06/02/18 13:18 Red Blood Count 5.20 M/uL (4.17-5.56) Mean Corpuscular Volume 84.5 fL (80.0-96.0) Mean Corpuscular Hemoglobin 27.0 pg (26.0-33.0) Mean Corpuscular Hemoglobin Concent 32.0 g/dL (32.0-36.0) Red Cell Distribution Width 15.4 % (11.5-14.5) Mean Platelet Volume 10.0 fL (7.2-11.1) Neutrophils (%) (Auto) 77.8 % (39.4-72.5) Lymphocytes (%) (Auto) 17.1 % (17.6-49.6) Monocytes (%) (Auto) 4.5 % (4.1-12.4) Eosinophils (%) (Auto) 0.0 % (0.4-6.7) Basophils (%) (Auto) 0.6 % (0.3-1.4) Nucleated RBC Relative Count (auto) 0.0 /100WBC Neutrophils # (Auto) 6.5 K/uL (2.0-7.4) Lymphocytes # (Auto) 1.4 K/uL (1.3-3.6) Monocytes # (Auto) 0.4 K/uL (0.3-1.0) Eosinophils # (Auto) 0.0 K/uL (0.0-0.5) Basophils # (Auto) 0.0 K/uL (0.0-0.1) Nucleated RBC Absolute Count (auto) 0.00 K/uL Sodium Level 141 mmol/L (137-145) Potassium Level 3.5 mmol/L (3.5-5.0) Chloride Level 101 mmol/L (98-107) Carbon Dioxide Level 30 mmol/L (22-31) Blood Urea Nitrogen 25 mg/dl (7-18) Creatinine 1.20 mg/dl (0.52-1.04) Glomerular Filtration Rate Calc 46.0 Random Glucose 112 mg/dl (75-110) Calcium Level 10.2 mg/dl (8.4-10.2) Total Bilirubin 0.4 mg/dl (0.2-1.3) Aspartate Amino Transf (AST/SGOT) 33 U/L (0-35) Alanine Aminotransferase (ALT/SGPT) 36 U/L (0-56) Alkaline Phosphatase 98 U/L (0-126) Total Protein 7.6 g/dl (6.3-8.2) Albumin 4.2 g/dl (3.5-5.0) Macy Level 0.6 mmol/L (0.6-1.2) Urine Color Straw Urine Clarity Clear Urine pH 7.0 pH (4.8-9.5) Urine Specific Highland 1.003 Urine Protein Negative mg/dL (NEGATIVE) Urine Glucose (UA) Negative mg/dL (NEGATIVE) Urine Ketones Negative mg/dL (NEGATIVE) Urine Blood Negative (NEGATIVE) Urine Nitrite Negative (NEGATIVE) Urine Bilirubin Negative (NEGATIVE) Urine Urobilinogen Negative mg/dL (0.2-1.9) Urine Leukocyte Esterase Small (NEGATIVE) Urine RBC None /HPF (0-2/HPF) Urine WBC 6 /HPF (0-5/HPF) Urine Squamous Epithelial Cells Few /LPF (NONE-FEW) Urine Bacteria Few /HPF (NONE-FEW) Urine Mucus None /HPF (NONE-FEW) Chemistry Test 06/02/18 12:25 06/02/18 13:18 White Blood Count 8.4 k/uL (4.5-11.0) Red Blood Count 5.20 M/uL (4.17-5.56) Hemoglobin 14.1 g/dL (12.0-16.0) Hematocrit 43.9 % (34.0-47.0) Mean Corpuscular Volume 84.5 fL (80.0-96.0) Mean Corpuscular Hemoglobin 27.0 pg (26.0-33.0) Mean Corpuscular Hemoglobin Concent 32.0 g/dL (32.0-36.0) Red Cell Distribution Width 15.4 % (11.5-14.5) Platelet Count 243 K/uL (150-450) Mean Platelet Volume 10.0 fL (7.2-11.1) Neutrophils (%) (Auto) 77.8 % (39.4-72.5) Lymphocytes (%) (Auto) 17.1 % (17.6-49.6) Monocytes (%) (Auto) 4.5 % (4.1-12.4) Eosinophils (%) (Auto) 0.0 % (0.4-6.7) Basophils (%) (Auto) 0.6 % (0.3-1.4) Nucleated RBC Relative Count (auto) 0.0 /100WBC Neutrophils # (Auto) 6.5 K/uL (2.0-7.4) Lymphocytes # (Auto) 1.4 K/uL (1.3-3.6) Monocytes # (Auto) 0.4 K/uL (0.3-1.0) Eosinophils # (Auto) 0.0 K/uL (0.0-0.5) Basophils # (Auto) 0.0 K/uL (0.0-0.1) Nucleated RBC Absolute Count (auto) 0.00 K/uL Glomerular Filtration Rate Calc 46.0 Calcium Level 10.2 mg/dl (8.4-10.2) Total Bilirubin 0.4 mg/dl (0.2-1.3) Aspartate Amino Transf (AST/SGOT) 33 U/L (0-35) Alanine Aminotransferase (ALT/SGPT) 36 U/L (0-56) Alkaline Phosphatase 98 U/L (0-126) Total Protein 7.6 g/dl (6.3-8.2) Albumin 4.2 g/dl (3.5-5.0) Macy Level 0.6 mmol/L (0.6-1.2) Urine Color Straw Urine Clarity Clear Urine pH 7.0 pH (4.8-9.5) Urine Specific Highland 1.003 Urine Protein Negative mg/dL (NEGATIVE) Urine Glucose (UA) Negative mg/dL (NEGATIVE) Urine Ketones Negative mg/dL (NEGATIVE) Urine Blood Negative (NEGATIVE) Urine Nitrite Negative (NEGATIVE) Urine Bilirubin Negative (NEGATIVE) Urine Urobilinogen Negative mg/dL (0.2-1.9) Urine Leukocyte Esterase Small (NEGATIVE) Urine RBC None /HPF (0-2/HPF) Urine WBC 6 /HPF (0-5/HPF) Urine Squamous Epithelial Cells Few /LPF (NONE-FEW) Urine Bacteria Few /HPF (NONE-FEW) Urine Mucus None /HPF (NONE-FEW) Toxicology Test 06/02/18 12:25 Macy Level 0.6 mmol/L (0.6-1.2) Urinalysis Test 06/02/18 13:18 Urine Color Straw Urine Clarity Clear Urine pH 7.0 pH (4.8-9.5) Urine Specific Highland 1.003 Urine Protein Negative mg/dL (NEGATIVE) Urine Glucose (UA) Negative mg/dL (NEGATIVE) Urine Ketones Negative mg/dL (NEGATIVE) Urine Blood Negative (NEGATIVE) Urine Nitrite Negative (NEGATIVE) Urine Bilirubin Negative (NEGATIVE) Urine Urobilinogen Negative mg/dL (0.2-1.9) Urine Leukocyte Esterase Small (NEGATIVE) Urine RBC None /HPF (0-2/HPF) Urine WBC 6 /HPF (0-5/HPF) Urine Squamous Epithelial Cells Few /LPF (NONE-FEW) Urine Bacteria Few /HPF (NONE-FEW) Urine Mucus None /HPF (NONE-FEW) EKG/Imaging EKG Interpretation 12 lead EKG: Time of EKG 1237. Rhythm: Sinus tachycardia, ventricular rate 103 bpm. [place]: normal QRS: normal ST segments: No ST depression or elevation identified, flattened T waves in V3, V4, V5 and V6. The 07/13/2017 EKG showing inverted T waves in leads V2, V3, V4 and V5. Otherwise EKG unchanged. 12 lead EKG: Repeat EKG 1411. Rhythm: Sinus tachycardia. Ventricular rate 1:03 PM. [place]: normal QRS: normal ST segments: No ST depression or elevation identified. Underlying artifact. No changes from the 1237 EKG. Imaging EXAMINATION: CT cervical spine without IV contrast HISTORY: Fall. Hit head. TECHNIQUE: Thin axial CT images of the cervical spine were obtained without IV contrast, with sagittal and coronal 2D reconstructed images. One of the following dose optimization techniques was utilized in the perfor иван of this exam: Automated exposure control; adjustment of the mA and/or kV according to the patient's size; or use of an iterative reconstruction technique. Specific details can be referenced in the facility's radiology CT exam operational policy. COMPARISON: CT neck 07/20/2017. FINDINGS: Image quality is significantly degraded by patient motion artifact, particularly at the C4-C6 levels. Stable alignment along the cervical spine. No evidence of any acute fracture or subluxation along the cervical spine, allowing for significant motion artifact. A subtle nondisplaced fracture could be obscured by the motion artifact particularly at the C4-C6 levels. Vertebral body height is maintained. Multilevel degenerative changes in the cervical spine, greatest at the C4-C5 through C6-C7 interspaces, with disc space narrowing and endplate osteophyte formation. Mild multilevel facet arthropathy. The dens is intact. The C1 ring is intact, with normal alignment at the craniocervical junction. IMPRESSION: Technically limited exam due to significant motion artifact. Imaging at the C4- C6 levels is particularly limited due to the motion artifact, and a subtle nondisplaced fracture at these levels could be obscured by the artifact. Allowing for this, there is no definite CT evidence of any acute osseous pathology along the cervical spine. Report Dictated By: Chun Acevedo MD at 06/02/2018 3:17 PM Report E-Signed By: Chun Acevedo MD at 06/02/2018 3:21 PM WSN:[id number] Location: [facility] - [place] Patient: Fatemeh Bunch : 1960 Visit/Account:[id number] Date of Sevice: 06/02/2018 Technique: CHEST SINGLE AP HISTORY: Fall Comparison studies: Chest radiograph July 29, 2017 FINDINGS: No acute airspace consolidation. No pleural effusion. The cardiomediastinal silhouette is unremarkable. IMPRESSION: 1. No acute cardiopulmonary process. Report Dictated By: Sage Radford DO at 06/02/2018 2:54 PM Report E-Signed By: Sage Radford DO at 06/02/2018 3:21 PM WSN:[id number] EXAMINATION: CT head without IV contrast HISTORY: Fall. Hit head. TECHNIQUE: Axial CT images of the head were obtained from the vertex to the skull base without IV contrast, with coronal and sagittal 2D reconstructed images. One of the following dose optimization techniques was utilized in the performance of this exam: Automated exposure control; adjustment of the mA and/or kV according to the patient's size; or use of an iterative reconstruction technique. Specific details can be referenced in the facility's radiology CT exam operational policy. COMPARISON: 07/13/2017. FINDINGS: The intracranial contents are unremarkable. No CT evidence of intracranial hemorrhage, mass lesion, or acute infarct. No midline shift or extra-axial fluid collections. Schumacher-white differentiation is maintained. The calvarium is intact. Mild mucosal thickening in both maxillary sinuses. The visualized paranasal sinuses and mastoid air cells are otherwise unopacified. IMPRESSION: No CT evidence of acute intracranial pathology. Report Dictated By: Chun Acevedo MD at 06/02/2018 2:59 PM Report E-Signed By: Chun Acevedo MD at 06/02/2018 3:17 PM WSN:[id number] ED Course/Re-evaluation Clinical Indication for ER IV: Hydration, IV Access ED Course The patient was admitted to a room. History is obtained. Differential diagnoses were considered. An IV was started the EMS. Patient arrived in a c-collar, however throughout the stay she had increased agitation, did not tolerate a c- collar which she did move. No deficits after the removal. The likelihood of a cervical spine injury is low, as the patient did fall from a standing position. A 1 L normal saline bolus was given, 1 mg IV Ativan was given, 0.5 mg IV Ativan 2 were given. Patient did have resolution of the muscle twitching however she remains agitated and irritable. We were to redraw the blood work, to get a UA from the patient by straight catheter. CBC unremarkable, chemistry showing BUN 25 creatinine 1.2, lithium level 0.6, not at toxic levels, at the very low therapeutic level. Negative UA. Ultimately we were able to obtain a head, neck CT. A single view chest x-ray. 2 EKGs were done, both negative for any ST depression or elevation, no other concerning arrhythmias. CT of the head and neck were negative for any acute findings. Negative chest x-ray. I did review the laboratory studies as well as the imaging results with the [facility] staff. Was in speaking with the staff patient continues to have agitation, in fact increased since arriving, she is attempting to crawl out of bed, very agitated, they state that this is very unusual behavior for her. Patient was given 5 mg ODT Zyprexa 2, after the 2nd dose the patient did begin to calm down, less agitation. The staff and I both felt that the patient be unable to go home at this time therefore I did suggest an admission to the hospital, I did speak with Dr. Sana eng, the hospitalist on-call as noted below, his accepted the patient in the hospitalist services for agitation and possible medication interaction or reaction. I did update the staff at the bedside, they are relieved with the a dmission. 06/02/2018 2:05:49 pm patient did calm down after the last dose of Ativan however that did not last very long, she has returned to being very fidgety, moving around in the bed the tremors however have subsided. During these episodes she is very somnolent and will have snoring respirations. Patient is also agitated with the cervical collar, she did remove this on her own. I do not want to give the patient any more Ativan as time as well because any other respiratory compromise. The [facility] staff remains at the bedside very diligent in assisting with the patient. We will attempt the CT without further sedation, unsuccessful will reevaluate. According to the [facility] staff at the bedside they asked if she was having any pain, the patient squeezed her chest, unsure if this is accurate, secondary to the patient's developmental delay, I did repeat an EKG. 06/02/2018 4:08:51 pm I did speak with Dr. Deniz Hood still, the hospitalist on-call, he's accepted the patient in the hospitalist services for agitation and possible medication interaction. 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
[2018-06-02] MEDS ORDERED: LORazepam 1 MG TAB PO ONE (11:50)
[2018-06-02] MEDS ORDERED: LORazepam 2 MG/ML VIAL IVP ONE ×3 (12:10→13:25)
[2018-06-02 12:31] LABS: PLATELET COUNT, AUTOMATED 243 K/uL (150-450)
--- NOTE | 2018-06-02 13:07 | EKG ---
FACILITY: [facility] [place] PATIENT NAME: REEMA JENNINGS : [id number] MR: [id number] V: [id number] EXAM DATE: ORDERING PHYSICIAN: MAN RYAN TECHNOLOGIST: BRANDT Test Reason : ALOC Blood Pressure : / mmHG Vent. Rate : 103 BPM Atrial Rate : 103 BPM P-R Int : 158 ms QRS Dur : 080 ms QT Int : 380 ms P-R-T Axes : 052 021 037 degrees QTc Int : 497 ms Sinus tachycardia Cannot rule out Inferior infarct , age undetermined Abnormal ECG When compared with ECG of 13-JUL-2017 22:35, Minimal criteria for Inferior infarct are now present QT has lengthened Confirmed by Colton Jenkins ([id number]) on 06/02/2018 2:15:26 PM Referred By: CARLOS Confirmed By:Colton Raygoza
--- NOTE | 2018-06-02 14:19 | EKG ---
FACILITY: [facility] - [place], [place] PATIENT NAME: REEMA JENNINGS : [id number] MR: [id number] V: [id number] EXAM DATE: ORDERING PHYSICIAN: MAN RYAN TECHNOLOGIST: BRANDT Test Reason : REPEAT Blood Pressure : / mmHG Vent. Rate : 103 BPM Atrial Rate : 103 BPM P-R Int : 160 ms QRS Dur : 078 ms QT Int : 374 ms P-R-T Axes : 051 037 053 degrees QTc Int : 489 ms Sinus tachycardia Nonspecific T wave abnormality Abnormal ECG When compared with ECG of 02-JUN-2018 12:37, Minimal criteria for Inferior infarct are no longer present Confirmed by Colton Jenkins ([id number]) on 06/02/2018 2:27:20 PM Referred By: MAN Confirmed By:Colton Raygoza
--- NOTE | 2018-06-02 15:20 | RADIOLOGY IMAGING REPORT ---
FACILITY: [facility] - [place] PATIENT NAME: Fatemeh Bunch : 1960 MR: [id number] V: [id number] EXAM DATE: ORDERING PHYSICIAN: MAN RYAN TECHNOLOGIST: Location: [facility] [place] Patient: Fatemeh Bunch : 1960 Visit/Account:[id number] Date of Sevice: 06/02/2018 EXAMINATION: CT head without IV contrast HISTORY: Fall. Hit head. TECHNIQUE: Axial CT images of the head were obtained from the vertex to the skull base without IV c ontrast, with coronal and sagittal 2D reconstructed images. One of the following dose optimization techniques was utilized in the performance of this exam: Autom ated exposure control; adjustment of the mA and/or kV according to the patient's size; or use of an i terative reconstruction technique. Specific details can be referenced in the facility's radiology C T exam operational policy. COMPARISON: 07/13/2017. FINDINGS: The intracranial contents are unremarkable. No CT evidence of intracranial hemorrhage, mass lesion, or acute infarct. No midline shift or extra-axial fluid collections. Schumacher-white differentiation is maintained. The calvarium is intact. Mild mucosal thickening in both maxillary sinuses. The visualized paranasal sinuses and mastoid air cells are otherwise unopacified. IMPRESSION: No CT evidence of acute intracranial pathology. Report Dictated By: Chun Acevedo MD at 06/02/2018 2:59 PM Report E-Signed By: Chun Acevedo MD at 06/02/2018 3:17 PM WSN:[id number]
--- NOTE | 2018-06-02 15:24 | RADIOLOGY IMAGING REPORT ---
FACILITY: [facility] PATIENT NAME: Fatemeh Bunch : 1960 MR: [id number] V: [id number] EXAM DATE: ORDERING PHYSICIAN: MAN RYAN TECHNOLOGIST: Location: [facility] - [place] Patient: Fatemeh Bunch : 1960 Visit/Account:[id number] Date of Sevice: 06/02/2018 Technique: CHEST SINGLE AP HISTORY: Fall Comparison studies: Chest radiograph July 29, 2017 FINDINGS: No acute airspace consolidation. No pleural effusion. The cardiomediastinal silhouette is u nremarkable. IMPRESSION: 1. No acute cardiopulmonary process. Report Dictated By: Sage Radford DO at 06/02/2018 2:54 PM Report E-Signed By: Sage Radford DO at 06/02/2018 3:21 PM WSN:[id number]
--- NOTE | 2018-06-02 15:25 | RADIOLOGY IMAGING REPORT ---
FACILITY: [facility] PATIENT NAME: Fatemeh Bunch : 1960 MR: [id number] V: [id number] EXAM DATE: ORDERING PHYSICIAN: MAN RYAN TECHNOLOGIST: Location: [facility] [place] Patient: Fatemeh Bunch : 1960 Visit/Account:[id number] Date of Sevice: 06/02/2018 EXAMINATION: CT cervical spine without IV contrast HISTORY: Fall. Hit head. TECHNIQUE: Thin axial CT images of the cervical spine were obtained without IV contrast, with sagit trevin and coronal 2D reconstructed images. One of the following dose optimization techniques was utilized in the performance of this exam: Autom ated exposure control; adjustment of the mA and/or kV according to the patient's size; or use of an i terative reconstruction technique. Specific details can be referenced in the facility's radiology C T exam operational policy. COMPARISON: CT neck 07/20/2017. FINDINGS: Image quality is significantly degraded by patient motion artifact, particularly at the C4-C6 levels. Stable alignment along the cervical spine. No evidence of any acute fracture or subluxation along th e cervical spine, allowing for significant motion artifact. A subtle nondisplaced fracture could be o bscured by the motion artifact particularly at the C4-C6 levels. Vertebral body height is maintained. Multilevel degenerative changes in the cervical spine, greatest at the C4-C5 through C6-C7 interspace s, with disc space narrowing and endplate osteophyte formation. Mild multilevel facet arthropathy. The dens is intact. The C1 ring is intact, with normal alignment at the craniocervical junction. IMPRESSION: Technically limited exam due to significant motion artifact. Imaging at the C4-C6 levels is particula rly limited due to the motion artifact, and a subtle nondisplaced fracture at these levels could be o bscured by the artifact. Allowing for this, there is no definite CT evidence of any acute osseous pat hology along the cervical spine. Report Dictated By: Chun Acevedo MD at 06/02/2018 3:17 PM Report E-Signed By: Chun Acevedo MD at 06/02/2018 3:21 PM [id number]
[2018-06-02] MEDS ORDERED: OLANZapine ZYDIS ODT 5MG TABDP PO ONE ×2 (15:40→16:20)
[2018-06-02 17:40] VITALS: BP 151/124
[2018-06-02 19:11] VITALS: BP 118/78
[2018-06-02] MEDS ORDERED: FLUSH 10 ML SYR IVP PRN (19:40)
[2018-06-02] MEDS ORDERED: ONDANSETRON 4 MG/2 ML VIAL IVP PRN (19:40)
[2018-06-02] MEDS ORDERED: ACETAMINOPHEN 325 MG TAB PO PRN (19:40)
--- NOTE | 2018-06-02 20:15 | History & Physical ---
History of Present Illness Chief Complaint dystonic reaction, agitation History of Present Illness 57F with PMHx significant for developmental disability, schizophrenia; presented to [facility] ER with concern from care givers of increased agitation and dystonic movements. Per report had been having clozapine titrated up, risperidone down and restarting lithium. Unfortunately no current regimen is available from [facility] where she lives and only outside history is available as well as ER records to make this evaluation. In ER given Ativan for dystonic movements which improved but made pt more agitated. Determined she was not safe fro staff to take back to home and she was admitted fro observation. On arrival to floor she does not appear agitated after 10 mg Zyprexa, she is nearly non-verbal at baseline with barely understandable vocalizations. History Problems: (1) Schizophrenia Status: Chronic (2) CKD (chronic kidney disease) stage 3, GFR 30-59 ml/min Status: Chronic Home Meds Active Scripts Hydrocortisone Valerate 0.2% 15 Gm Cream (HYDROCORTISONE VALERATE 0.2% 15 GM CREAM) 15 Gm Cream..g., 1 GRIFFIN TP BID for 30 Days, #1 TUBE 2 Refills Prov:TEGAN JACOBS NPC 11/29/17 Sodium Chloride (SALINE NASAL SPRAY) 30 Ml [place], 0 ML NA PRN PRN for dry nose, #1 BOTTLE 1-2 sprays each nostril prn dry nose. Prov:CASSIUS CARPENTER MD 08/16/17 Levothyroxine Sodium (LEVOTHYROXINE SODIUM) 100 Mcg Tablet, 0.1 MG PO QDAY@06, #30 TAB Prov:CASSIUS CARPENTER MD 08/16/17 Fluoxetine Hcl (FLUOXETINE HCL) 10 Mg Capsule, 10 MG PO QDAY, #30 CAPSULE Prov:CASSIUS CARPENTER MD 08/16/17 Dorzolamide Hcl (DORZOLAMIDE HCL) 10 Ml Drops, 0 ML OU BID, #1 BOTTLE One gtt OU bid. Prov:CASSIUS CARPENTER MD 08/16/17 Reported Medications Clotrimazole/Betamethasone Dip (LOTRISONE CREAM) 15 Gm Cream..g., 0 TP DAILY 08/09/17 [Yogurt Live Cultures] No Conflict Check, DAILY 08/09/17 Tolnaftate (TINACTIN) 108 Gm Powder, 108 GM TP 08/09/17 Guaifenesin (ROBAFEN) 100 Mg/5 Ml Liquid, 20 ML PO Q4-6H PRN for COUGH 08/09/17 Polyvinyl Alcohol/Povidone/Pf (REFRESH CLASSIC EYE DROPS) 1 Each Droperette, 1 EACH OP TID 08/09/17 Oxymetazoline Hcl (NASAL SPRAY) 30 Ml Mist, 30 ML NS PRN for CONGESTION 08/09/17 Vits A and D/White Pet/Lanolin (A and D Ointment) 42.5 Gm Oint...g., 1 GRIFFIN TOP BID 07/14/17 Magnesium Carbonate/Al Hydrox (ANTACID EXTRA STRENGTH CHW TAB) 1 Each Tab.chew, 2 EACH PO Q4-6H PRN for INDIGESTION, TAB.CHEW 07/14/17 Loperamide Hcl (ANTI-DIARRHEAL) 2 Mg Capsule, 2 MG PO PRN for DIARRHEA, CAPSULE 07/14/17 Magnesium Hydroxide (MILK OF MAGNESIA) 400 Mg/5 Ml Oral.susp, 30 ML PO DAILY PRN for CONSTIPATION 07/14/17 Timolol (BETIMOL) 5 Ml Drops, 2 GTT OP BID 07/13/17 Risperidone (RISPERIDONE) 2 Mg Tablet, 2 MG PO HS 07/13/17 Skin Cleanser (PERIFRESH) 3,840 Ml Cleanser, 1 GRIFFIN TP BID 07/13/17 Eyelid Cleanser Combination #5 (OCUSOFT LID SCRUB) 1 Each Med..pad, 1 EACH TP HS 07/13/17 Lanolin/Mineral Oil (EUCERIN ORIGINAL LOTION) 250 Ml Lotion, 1 GRIFFIN TP BID 07/13/17 Mineral Oil/Hydrophil Petrolat (AQUAPHOR OINTMENT) 396 Gm Oint...g., 1 GRIFFIN TP BID 07/13/17 Acetaminophen (TYLENOL EXTRA STRENGTH) 500 Mg Tablet, 1000 MG PO Q4-6H PRN for PAIN, TAB 07/13/17 Travoprost (TRAVATAN Z) 5 Ml Drops, 1 GTT OU DAILY, 0 Refills 05/03/12 Simvastatin (Zocor) 20 Mg Tablet, PO DAILY, 0 Refills 05/03/12 Multivitamins W-Minerals (Multivitamin) 1 Cap Capsule, 1 CAP PO DAILY, 0 Refills 09/06/09 Omeprazole (Prilosec) 40 Mg Capsule.dr, 20 MG PO DAILY, 0 Refills 09/06/09 Calcium Carbonate/Vitamin D3 (Calcium + D Tablet) 1 Udtab Tablet, 1 UDTAB PO BID, 0 Refills 09/06/09 Allergies: Coded Allergies: No Known Drug Allergies (Verified , 06/02/18) Patient History: FH: diabetes mellitus Hx Smoking: No Caffeine/Cups Per Day: Pt unable to verbalize Hx Alcohol Use: No Hx Substance Use Disorder: No Review of Systems Other Unable to obtain, she did attempt to verbalize back at one point. Possibly with some pain. Exam Vital Signs Vital Signs Date Time Temp Pulse Resp B/P (MAP) Pulse Ox O2 Delivery O2 Flow Rate FiO2 06/02/18 19:11 98.4 109 20 118/78 (91) 89 Room Air 06/02/18 14:20 2 General Appearance: Alert, Awake, No Acute Distress Neuro: No Gross deficits ENT: Other (abrasions on face from fall, poor dentition) Cardiovascular: Normal Rhythm & Peripheral Pulses Respiratory: No Respiratory Distress GI: Abd Soft and Non-Tender Extremities: Soft and Non Tender, Warm, Pulses Integumentary: Skin Intact without Lesion / Mass (other than noted facial abrasions) Medical Decision Making Data Points Result Diagram: 06/02/18 1225 06/02/18 1225 Assessment and Plan Problems: (1) Dystonic drug reaction Assessment & Plan: Resolved, likely from changing of medication regimen. Clozapine not on formulary and given dystonia would desire to decrease. Will continue risperidone 1mg qhs, lithium 900mg qhs, begin olanzapine 10mg qam. Consider psychiatric evaluation to help adjust medications if not discharging tomorrow. (2) Schizophrenia Status: Chronic Assessment & Plan: On chronic treatment as above, given dystonia needs reevaluation of regimen. (3) Agitation Status: Acute Assessment & Plan: UA, CXR, CBC no evidence of infection. Will repeat CBC in am but this appears to be related to dystonia and medication adjustment. Will monitor. Venous Thromboembolism Antithrombotics Is Pt On Any Antithrombotics?: No Prophylaxis Tx Contraindicated Pharmacological Contraindicati: Pt at Low Risk for VTE (should only be overnight obs) Exam Sepsis Risk: No Definite Risk SEGOVIA MATT MOODY DO Jun 02, 2018 20:15
[2018-06-02] MEDS ORDERED: risperiDONE 1 MG TAB PO SCH (21:00)
[2018-06-02] MEDS ORDERED: LITHIUM CARBONATE 300 MG CAP PO SCH (21:00)
[2018-06-02] MEDS ORDERED: SULF-283 PO (22:54)
[2018-06-02] MEDS ORDERED: BACOUD TP (22:56)
[2018-06-02] MEDS ORDERED: HYDR30CR10 TP (23:14)
[2018-06-02] MEDS ORDERED: POTA20TA10 PO (23:14)
[2018-06-02] MEDS ORDERED: FURO-45 PO (23:14)
[2018-06-02] MEDS ORDERED: CLOZ50TA PO (23:14)
[2018-06-02] MEDS ORDERED: LITHOBID PO (23:14)
[2018-06-02] MEDS ORDERED: LEVO50TA86 PO (23:14)
[2018-06-03 00:08] VITALS: BP 139/108
[2018-06-03 05:46] LABS: PLATELET COUNT, AUTOMATED 225 K/uL (150-450)
[2018-06-03 07:19] VITALS: BP 128/75
[2018-06-03] MEDS ORDERED: OLANZapine ZYDIS ODT 5MG TABDP PO SCH (09:00)
[2018-06-03] MEDS ORDERED: LITC450 PO (12:18)
--- NOTE | 2018-06-03 12:27 | Hospitalist Depart ---
Discharge Summary Reason for Hosp/Final Diag: (1) Dystonic drug reaction Hospital Course & Plan: Resolved, likely from changing of medication regimen. The patient is doing better. She received Ativan and Zyprexa in the ER. Dr. Adhikari feels that the fluoxetine and clozapine are interacting and has requested that the fluoxetine and risperidone be stopped. She has also requested that that the [place] be decreased to 450mg a day. She feels like the patient would do better at home. [place] and is no longer having muscle twitching and agitation, will discharge. (2) Schizophrenia Status: Chronic Hospital Course & Plan: On chronic treatment with changes as above. (3) Agitation Status: Acute Hospital Course & Plan: UA, CXR, CBC no evidence of infection. Will repeat CBC in am but this appears to be related to dystonia and medication adjustment. (4) CKD (chronic kidney disease) stage 3, GFR 30-59 ml/min Status: Chronic Hospital Course & Plan: Baseline Creatinine 1.2. Departure Weight (Pounds): 192 Weight (Ounces): 14.0 Result Diagram: 06/03/18 0526 06/02/18 1225 Item Value Date Time Urine WBC 6 /HPF 06/02/18 1318 Urine WBC 1 /HPF 06/03/18 1128 Urine Bacteria Few /HPF 06/02/18 1318 Urine Bacteria Many /HPF H 06/03/18 1128 Urine Squamous Epithelial Cells None /LPF 06/03/18 1128 Urine Squamous Epithelial Cells Few /LPF 06/02/18 1318 Urine Leukocyte Esterase Small H 06/02/18 1318 Urine Leukocyte Esterase Small H 06/03/18 1128 Urine RBC None /HPF 06/03/18 1128 Urine RBC None /HPF 06/02/18 1318 White Blood Count 8.4 k/uL 06/02/18 1225 White Blood Count 6.4 k/uL 06/03/18 0526 Neutrophils (%) (Auto) 75.0 % H 06/03/18 0526 Neutrophils (%) (Auto) 77.8 % H 06/02/18 1225 Hemoglobin 14.1 g/dL 06/02/18 1225 Hemoglobin 12.9 g/dL 06/03/18 0526 Platelet Count 243 K/uL 06/02/18 1225 Platelet Count 225 K/uL 06/03/18 0526 Blood Urea Nitrogen 25 mg/dl H 06/02/18 1225 Creatinine 1.20 mg/dl H 06/02/18 1225 [place] Level 0.6 mmol/L 06/02/18 1225 Total Bilirubin 0.4 mg/dl 06/02/18 1225 Aspartate Amino Transf (AST/SGOT) 33 U/L 06/02/18 1225 Alanine Aminotransferase (ALT/SGPT) 36 U/L 06/02/18 1225 Alkaline Phosphatase 98 U/L 06/02/18 1225 Total Protein 7.6 g/dl 06/02/18 1225 Imaging 06/02/[address] - Technically limited exam due to significant motion artifact. Imaging at the C4-C6 levels is particularly limited due to the motion artifact, and a subtle nondisplaced fracture at these levels could be obscured by the artifact. Allowing for this, there is no definite CT evidence of any acute osseous pathology along the cervical spine. 06/02/18 CXR - 1. No acute cardiopulmonary process. 06/02/[address] - No CT evidence of acute intracranial pathology. EKG Vent. Rate : 103 BPM Atrial Rate : 103 BPM P-R Int : 160 ms QRS Dur : 078 ms QT Int : 374 ms P-R-T Axes : 051 037 053 degrees QTc Int : 489 ms Sinus tachycardia Nonspecific T wave abnormality Abnormal ECG When compared with ECG of 02-JUN-2018 12:37, Minimal criteria for Inferior infarct are no longer present Confirmed by Colton Jenkins ([id number]) on 06/02/2018 2:27:20 PM Condition: Improved Discharge: Home Discharge Instructions Home Meds Active Scripts [place] Carbonate (LITHIUM CARBONATE) 450 Mg Tabcr, 450 MG PO DAILY, #30 Prov:RIANNA CINTRON MD 06/03/18 Hydrocortisone Valerate 0.2% 15 Gm Cream (HYDROCORTISONE VALERATE 0.2% 15 GM CREAM) 15 Gm Cream..g., 1 GRIFFIN TP BID for 30 Days, #1 TUBE 2 Refills Prov:TEGAN JACOBS NPC 11/29/17 Sodium Chloride (SALINE NASAL SPRAY) 30 Ml [place], 0 ML NA PRN PRN for dry nose, #1 BOTTLE 1-2 sprays each nostril prn dry nose. Prov:CASSIUS CARPENTER MD 08/16/17 Dorzolamide Hcl (DORZOLAMIDE HCL) 10 Ml Drops, 0 ML OU BID, #1 BOTTLE One gtt OU bid. Prov:CASSIUS CARPENTER MD 08/16/17 Reported Medications Clozapine (CLOZAPINE) 50 Mg Tablet, 250 MG PO BID 06/02/18 Furosemide (FUROSEMIDE) 20 Mg Tablet, 1 TAB PO BID, TAB 06/02/18 Potassium Chloride (Potassium Chloride) 20 Meq Tablet.er, 10 MEQ PO QDAY 06/02/18 Levothyroxine Sodium (LEVOTHYROXINE SODIUM) 50 Mcg Tablet, 50 MCG PO QDAY, TAB 06/02/18 Hydrocortisone 2.5 % 30 GM CREAM (Hydrocortisone 2.5 % 30 GM CREAM) 2.5 % C ream.appl, 30 GM TP PRN, GM 06/02/18 Bacitracin (BACITRACIN ZINC) 0.9 Gm Oint, 0.9 GM TP PRN 06/02/18 Clotrimazole/Betamethasone Dip (LOTRISONE CREAM) 15 Gm Cream..g., 0 TP DAILY PRN for skin irritation 08/09/17 [Yogurt Live Cultures] No Conflict Check, DAILY 08/09/17 Tolnaftate (TINACTIN) 108 Gm Powder, 108 GM TP PRN for athlete's foot 08/09/17 Guaifenesin (ROBAFEN) 100 Mg/5 Ml Liquid, 20 ML PO Q4-6H PRN for COUGH 08/09/17 Polyvinyl Alcohol/Povidone/Pf (REFRESH CLASSIC EYE DROPS) 1 Each Droperette, 1 EACH OP TID 08/09/17 Oxymetazoline Hcl (NASAL SPRAY) 30 Ml Mist, 30 ML NS PRN for CONGESTION 08/09/17 Vits A and D/White Pet/Lanolin (A and D Ointment) 42.5 Gm Oint...g., 1 GRIFFIN TOP BID 07/14/17 Magnesium Carbonate/Al Hydrox (ANTACID EXTRA STRENGTH CHW TAB) 1 Each Tab.chew, 2 EACH PO Q4-6H PRN for INDIGESTION, TAB.CHEW 07/14/17 Loperamide Hcl (ANTI-DIARRHEAL) 2 Mg Capsule, 2 MG PO PRN for DIARRHEA, CAPSULE 07/14/17 Magnesium Hydroxide (MILK OF MAGNESIA) 400 Mg/5 Ml Oral.susp, 30 ML PO DAILY PRN for CONSTIPATION 07/14/17 Timolol (BETIMOL) 5 Ml Drops, 2 GTT OP BID 07/13/17 Skin Cleanser (PERIFRESH) 3,840 Ml Cleanser, 1 GRIFFIN TP BID PRN for irritation of skin 07/13/17 Eyelid Cleanser Combination #5 (OCUSOFT LID SCRUB) 1 Each Med..pad, 1 EACH TP HS 07/13/17 Lanolin/Mineral Oil (EUCERIN ORIGINAL LOTION) 250 Ml Lotion, 1 GRIFFIN TP BID 07/13/17 Mineral Oil/Hydrophil Petrolat (AQUAPHOR OINTMENT) 396 Gm Oint...g., 1 GRIFFIN TP BID 07/13/17 Acetaminophen (TYLENOL EXTRA STRENGTH) 500 Mg Tablet, 1000 MG PO Q4-6H PRN for PAIN, TAB 07/13/17 Travoprost (TRAVATAN Z) 5 Ml Drops, 1 GTT OU DAILY, 0 Refills 05/03/12 Simvastatin (Zocor) 20 Mg Tablet, PO DAILY, 0 Refills 05/03/12 Multivitamins W-Minerals (Multivitamin) 1 Cap Capsule, 1 CAP PO DAILY, 0 Refills 09/06/09 Omeprazole (Prilosec) 40 Mg Capsule.dr, 20 MG PO DAILY, 0 Refills 09/06/09 Calcium Carbonate/Vitamin D3 (Calcium + D Tablet) 1 Udtab Tablet, 1 UDTAB PO BID, 0 Refills 09/06/09 Discontinued Reported Medications [place] Carbonate (LITHIUM CARBONATE) 300 Mg Tabcr, 900 MG PO QDAY 06/02/18 Sulfamethoxazole/Trimethoprim (SULFAMETHOXAZOLE-TMP SS TABLET) 1 Each Tablet, 0.5 TAB PO Q12H 06/02/18 Risperidone (RISPERIDONE) 2 Mg Tablet, 1 MG PO HS 07/13/17 Discontinued Scripts Fluoxetine Hcl (FLUOXETINE HCL) 10 Mg Capsule, 10 MG PO QDAY, #30 CAPSULE Prov:CASSIUS CARPENTER MD 08/16/17 Levothyroxine Sodium (LEVOTHYROXINE SODIUM) 100 Mcg Tablet, 0.1 MG PO QDAY@06, # 30 TAB Prov:CASSIUS CARPENTER MD 08/16/17 Diet: Regular Activity: As Tolerated Copies to: ISAURO ADHIKARI MD ; Venous Thromboembolism Antithrombotics Is Pt On Any Antithrombotics?: No RIANNA CINTRON MD Jun 03, 2018 12:27
[2018-06-03 14:48] VITALS: BP 119/87
[2018-06-04] MEDS ORDERED: INFLUENZA VIRUS VAC 0.5ML SYR IM ONLY ONE (09:00)
== END 2018-06-03 12:46 | disposition home or self-care (01) ==
LOC: ER 11:52 → MED 16:41 → INTOOBSV 16:41
PROVIDERS: ADMIT Internal Medicine; ATTEND Internal Medicine
DX: R45.1 Restlessness and agitation (principal); N18.3 Chronic kidney disease, stage 3 (moderate); F20.9 Schizophrenia, unspecified; T50.905A Adverse effect of unspecified drugs, medicaments and biological substances, initial encounter; R00.0 Tachycardia, unspecified
CPT/HCPCS: 36415; 70450; 71045; 72125; 80178; 81001; 85025; 93005; 96361; 96374; 96376; 99284; A4353; A9270; G0378; J2060; J7030; L0172; 82040; 82247; 82310; 82374; 82435; 82565; 82947; 84075; 84132; 84155; 84295; 84450; 84460; 84520

== ENCOUNTER → 2018-06-02 | Outpatient (CLI) | payer MEDICARE, MEDICAID ==
[2017-08-07 11:32] VITALS: BMI 28.9
[~2018-06-02] MED LIST changes: +BACOUD TP; +HYDR30CR10 TP; +LEVO50TA86 PO; +LITC450 PO; +POTA20TA10 PO; +SULF-283 PO
== END ==
LOC: AMB 11:18
PROVIDERS: ATTEND Nurse Practitioner
DX: R41.82 Altered mental status, unspecified (principal); S00.81XA Abrasion of other part of head, initial encounter; W18.30XA Fall on same level, unspecified, initial encounter
CPT/HCPCS: A0425; A0427

== ENCOUNTER 2018-09-19 10:51 | Emergency (ER) | payer MEDICARE, MEDICAID ==
[2017-08-07 11:32] VITALS: Wt 81.6 kg
[~2018-09-19 10:51] MED LIST changes: +BACOUD TP; +HYDR30CR10 TP; +LEVO50TA86 PO; +LITC450 PO; +POTA20TA10 PO; +SULF-283 PO; +SULF1TAB24 PO
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
[2018-09-19 12:04] LABS: PLATELET COUNT, AUTOMATED 250 K/uL (150-450)
[2018-09-19 13:00] VITALS: BP 135/70
--- NOTE | 2018-09-19 13:46 | RADIOLOGY IMAGING REPORT ---
FACILITY: [facility] [place] PATIENT NAME: Fatemeh Bunch : 1960 MR: [id number] V: [id number] EXAM DATE: ORDERING PHYSICIAN: AVIS JOHNSON TECHNOLOGIST: Location: [facility] Patient: Fatemeh Bunch : 1960 Visit/Account:[id number] Date of Sevice: 09/19/2018 Exam type: CHEST PA LAT History: elevated white count Comparison: June 02, 2018. Findings: The lungs are free of acute effusions, infiltrates or edema. The cardiac silhouette is normal in siz e. The trachea is in midline. There are moderate spondylotic changes of the thoracic spine. IMPRESSION: 1. No acute cardiopulmonary process is seen Report Dictated By: Radha Meredith MD at 09/19/2018 1:40 PM Report E-Signed By: Radha Meredith MD at 09/19/2018 1:42 PM WSN:[email or web address]
--- NOTE | 2018-09-19 13:47 | RADIOLOGY IMAGING REPORT ---
FACILITY: [facility] PATIENT NAME: Fatemeh Bunch : 1960 MR: [id number] V: [id number] EXAM DATE: ORDERING PHYSICIAN: AVIS JOHNSON TECHNOLOGIST: [facility] Patient: Fatemeh Bunch : 1960 Visit/Account:[id number] Date of Sevice: 09/19/2018 Exam type: KUB SINGLE VIEW ABDOMEN History: elevated white count Comparison: . Findings: There is mild gaseous distention of the right-sided the colon. The is a moderate amount of fecal mat erial seen throughout the colon which can be seen with constipation. Remainder the bowel gas pattern is nonspecific. There is no gross evidence organomegaly or pathologic intra-abdominal calcification s IMPRESSION: 1. Moderate amount of fecal material throughout colon which can be seen with constipation Report Dictated By: Radha Meredith MD at 09/19/2018 1:42 PM Report E-Signed By: Radha Meredith MD at 09/19/2018 1:43 PM WSN:[email or web address]
[2018-09-19] MEDS ORDERED: MAGNESIUM CITRATE 300 ML BTL PO ONE (15:00)
== END 2018-09-19 15:05 | disposition home or self-care (01) ==
LOC: ER 11:20
DX: R40.4 Transient alteration of awareness (principal); G25.9 Extrapyramidal and movement disorder, unspecified; K59.00 Constipation, unspecified
CPT/HCPCS: 36415; 71046; 74018; 80178; 81001; 85025; 87502; 99284; A4353; A9270; 82040; 82247; 82310; 82374; 82435; 82565; 82947; 84075; 84132; 84155; 84295; 84450; 84460; 84520

== ENCOUNTER → 2018-12-19 | Outpatient (CLI) | payer MEDICARE, MEDICAID ==
[2017-08-07 11:32] VITALS: BMI 28.9
[~2018-12-19] MED LIST changes: +KETO120S14 TP
--- NOTE | 2018-12-19 16:19 | RADIOLOGY IMAGING REPORT ---
FACILITY: [facility] [place] PATIENT NAME: REEMA JENNINGS : [id number] MR: [id number] V: [id number] EXAM DATE: [id number] ORDERING PHYSICIAN: VIRGEN BESS TECHNOLOGIST: Emma Canela PROCEDURE: BILATERAL DIGITAL SCREENING MAMMOGRAM WITH CAD ASSISTED INTERPRETATION REASON FOR STUDY: Screening. FAMILY HISTORY OF BREAST CANCER: None. VIEWS OBTAINED: 2D & 3D full field CC & MLO. BREAST DENSITY: The breasts are almost entirely fat. MAMMOGRAM FINDINGS: There are no mass lesions, architectural distortions, or any clustering of suspicious microcalcifications. No interval change when compared to the previous study. IMPRESSION: BIRADS 1: Negative. DIAGNOSTIC CATEGORY 1--NEGATIVE. RECOMMENDATIONS: ROUTINE MAMMOGRAM AND CLINICAL EVALUATION IN 1 YEAR. Dictated by: Everardo Osorio M.D. on 12/19/2018 at 14:19 Transcribed by: RADHA on 12/19/2018 at 14:46 Approved by: Everardo Osorio M.D. on 12/19/2018 at 16:18 [facility]
== END ==
LOC: MAMO 01:30
PROVIDERS: ATTEND Nurse Practitioner Family
DX: Z12.31 Encounter for screening mammogram for malignant neoplasm of breast (principal)
CPT/HCPCS: 77063; 77067

== ENCOUNTER 2019-01-10 00:09 | Day surgery (SDC) | payer MEDICARE, MEDICAID ==
[2017-08-07 11:32] VITALS: Ht 154.9 cm; Wt 80.3 kg
[2019-01-10] VITALS (7 sets, daily range): BP systolic 84–135; BP diastolic 62–105
[~2019-01-10] VITALS: Ht 154.9 cm; Wt 80.3 kg
[~2019-01-10 00:09] MED LIST changes: +CLOZ100 PO; +OMEP-126 PO
[2019-01-10] MEDS ORDERED: NORMOSOL R SOLN(*) 1000 ML BAG 1,000 ML IV PRN (09:20)
[2019-01-10] MEDS ORDERED: LIDOCAINE/SOD BICARB 8.4% SYR ID ONE (09:20)
[2019-01-10] MEDS ORDERED: PROPOFOL EMUL(*) 10MG/ML 20 ML 20 ML ONE (10:26)
[2019-01-10] MEDS ORDERED: BACITRACIN OINT 0.9 GM PKT TP ONE (10:31)
--- NOTE | 2019-01-10 10:50 | Short(Outpt) Discharge Summary ---
Discharge Summary Reason for Hosp/Final Diag: (1) Encounter for screening colonoscopy Hospital Course & Plan: pt presented for colonoscopy. she tolerated procedure well. she will be discharged when criteria met. Departure Discharge to: Home Discharge Instructions Home Meds Active Scripts Ketoconazole (KETOCONAZOLE) 120 Ml Shampoo, 1 GRIFFIN TP DIRECTED for 30 Days, #120 TUBE 3 Refills Prov:MAITEMARGARITATEGAN NPC 10/10/18 Sodium Chloride (SALINE NASAL SPRAY) 30 Ml [place], 0 ML NA PRN PRN for dry nose, #1 BOTTLE 1-2 sprays each nostril prn dry nose. Prov:CASSIUS CARPENTER MD 08/16/17 Dorzolamide Hcl (DORZOLAMIDE HCL) 10 Ml Drops, 0 ML OU BID, #1 BOTTLE One gtt OU bid. Prov:CASSIUS CARPENTER MD 08/16/17 Reported Medications Potassium Chloride (POTASSIUM CHLORIDE) 10 Meq Tab.er.prt, 10 MEQ PO QDAY 01/02/19 Omeprazole (OMEPRAZOLE) 20 Mg Capsule.dr, 1 CAP PO QDAY, CAP 01/02/19 Clozapine (CLOZAPINE) 100 Mg Tab, 300 MG PO BID, TAB 01/02/19 [place] Carbonate (LITHIUM CARBONATE) 300 Mg Tablet, 600 MG PO QHS 01/02/19 Furosemide (FUROSEMIDE) 20 Mg Tablet, 1 TAB PO BID, TAB 06/02/18 Levothyroxine Sodium (LEVOTHYROXINE SODIUM) 50 Mcg Tablet, 50 MCG PO QDAY, TAB 06/02/18 Hydrocortisone 2.5 % 30 GM CREAM (Hydrocortisone 2.5 % 30 GM CREAM) 2.5 % Cream.appl, 30 GM TP PRN, GM 06/02/18 Bacitracin (BACITRACIN ZINC) 0.9 Gm Oint, 0.9 GM TP PRN 06/02/18 Clotrimazole/Betamethasone Dip (LOTRISONE CREAM) 15 Gm Cream..g., 0 TP DAILY PRN for skin irritation 08/09/17 [Yogurt Live Cultures] No Conflict Check, DAILY 08/09/17 Tolnaftate (TINACTIN) 108 Gm Powder, 108 GM TP PRN for athlete's foot 08/09/17 Guaifenesin (ROBAFEN) 100 Mg/5 Ml Liquid, 20 ML PO Q4-6H PRN for COUGH 08/09/17 Polyvinyl Alcohol/Povidone/Pf (REFRESH CLASSIC EYE DROPS) 1 Each Droperette, 1 EACH OP TID 08/09/17 Oxymetazoline Hcl (NASAL SPRAY) 30 Ml Mist, 30 ML NS PRN for CONGESTION 08/09/17 Magnesium Carbonate/Al Hydrox (ANTACID EXTRA STRENGTH CHW TAB) 1 Each Tab.chew, 2 EACH PO Q4-6H PRN for INDIGESTION, TAB.CHEW 07/14/17 Loperamide Hcl (ANTI-DIARRHEAL) 2 Mg Capsule, 2 MG PO PRN for DIARRHEA, CAPSULE 07/14/17 Magnesium Hydroxide (MILK OF MAGNESIA) 400 Mg/5 Ml Oral.susp, 30 ML PO DAILY PRN for CONSTIPATION 07/14/17 Skin Cleanser (PERIFRESH) 3,840 Ml Cleanser, 1 GRIFFIN TP BID PRN for irritation of skin 07/13/17 Eyelid Cleanser Combination #5 (OCUSOFT LID SCRUB) 1 Each Med..pad, 1 EACH TP HS 07/13/17 Lanolin/Mineral Oil (EUCERIN ORIGINAL LOTION) 250 Ml Lotion, 1 GRIFFIN TP BID 07/13/17 Mineral Oil/Hydrophil Petrolat (AQUAPHOR OINTMENT) 396 Gm Oint...g., 1 GRIFFIN TP BID 07/13/17 Acetaminophen (TYLENOL EXTRA STRENGTH) 500 Mg Tablet, 1000 MG PO Q4-6H PRN for PAIN, TAB 07/13/17 Travoprost (TRAVATAN Z) 5 Ml Drops, 1 GTT OU DAILY, 0 Refills 05/03/12 Simvastatin (Zocor) 20 Mg Tablet, 20 MG PO DAILY, 0 Refills 05/03/12 Multivitamins W-Minerals (Multivitamin) 1 Cap Capsule, 1 CAP PO DAILY, 0 Refills 09/06/09 Calcium Carbonate/Vitamin D3 (Calcium + D Tablet) 1 Udtab Tablet, 1 UDTAB PO BID, 0 Refills 09/06/09 Diet: Regular Activity: As Tolerated Special Instructions: repeat colonoscopy in 3 yrs. ROSA CASTILLO January 10, 2019 10:50
--- NOTE | 2019-01-10 11:20 | NUR ---
PT. AWAKE. CALM. OFFERED PO INTAKE. WOULD LIKE PUDDING AND COKE. PLACED ON RA. IV SALINE LOCKED.
== END 2019-01-10 12:14 | disposition home or self-care (01) ==
LOC: OR 00:09
PROVIDERS: ATTEND Surgery
DX: Z12.11 Encounter for screening for malignant neoplasm of colon (principal); E03.9 Hypothyroidism, unspecified; R62.50 Unspecified lack of expected normal physiological development in childhood; F32.9 Major depressive disorder, single episode, unspecified; Z79.899 Other long term (current) drug therapy
CPT/HCPCS: A9270; G0121; J2704; C9399

== ENCOUNTER → 2019-03-10 | Outpatient (CLI) | payer MEDICARE, MEDICAID ==
[2017-08-07 11:32] VITALS: BMI 28.9
[2019-03-10 15:10] LABS: PLATELET COUNT, AUTOMATED 167 K/uL (150-450)
== END ==
LOC: LAB 14:31
PROVIDERS: ATTEND Family Medicine
DX: N39.0 Urinary tract infection, site not specified (principal)
CPT/HCPCS: 36415; 80178; 82040; 82247; 82310; 82374; 82435; 82565; 82947; 84075; 84132; 84155; 84295; 84443; 84450; 84460; 84520; 85025